=== PATIENT | female | born 1955 | race Caucasian/White ===

== ENCOUNTER → 2016-04-06 | Outpatient (REF) | payer MEDICARE, MEDICAID | LOC: M LAB REF 16:12 | PROVIDERS: ATTEND Nurse Practitioner Women's Health | DX: R30.0 Dysuria (principal); R39.15 Urgency of urination ==

== ENCOUNTER → 2016-05-16 | Outpatient (CLI) | payer MEDICARE, MEDICAID ==
[2016-05-16 18:07] LABS: BASO % 1.2 % (0.0-1.0); EOS # 0.1 K/mm3 (0.0-0.50); EOS % 3.1 % (0.0-3.0); LARGE UNSTAINED CELL # 0.1 K/mm3 (0.0-0.4); LARGE UNSTAINED CELL % 2.2 % (0.0-4.0); LYMPH # 1.6 K/mm3 (1.5-4.5); MEAN CORPUSCULAR HGB CONC 30.8 g/dl (32.0-36.5); MEAN CORPUSCULAR VOLUME 100.4 fl (80.0-96.0); MONO # 0.2 K/mm3 (0.0-0.8); MONO % 5.7 % (0.0-5.0); NEUTROPHILS # 2.2 K/mm3 (1.8-7.7); NEUTROPHILS % 51.8 % (36.0-66.0); PLATELET COUNT, AUTOMATED 338 k/mm3 (150-450); RED CELL DISTRIBUTION WIDTH 12.4 % (11.5-14.5); WHITE BLOOD COUNT 4.2 K/mm3 (4.0-10.0)
[2016-05-16 18:15] LABS: ALKALINE PHOSPHATASE 62 U/L (45-117); ALT/SGPT 35 U/L (12-78); ANION GAP 9 MEQ/L (8-16); AST/SGOT 18 U/L (15-37); BILIRUBIN,TOTAL 0.2 MG/DL (0.2-1.0); BLOOD UREA NITROGEN 22 MG/DL (7-18); CALCIUM LEVEL 9.3 MG/DL (8.8-10.2); CARBON DIOXIDE LEVEL 28 MEQ/L (21-32); CHLORIDE LEVEL 108 MEQ/L (98-107); CHOLESTEROL LEVEL 169 MG/DL (<200); CREATININE FOR GFR 0.82 MG/DL (0.55-1.02); GLOMERULAR FILTRATION RATE > 60.0 (>45); GLUCOSE, FASTING 99 MG/DL (80-110); POTASSIUM SERUM 4.6 MEQ/L (3.5-5.1); SODIUM LEVEL 145 MEQ/L (136-145); TRIGLYCERIDES LEVEL 176 MG/DL (<150)
[2016-05-16 18:16] LABS: ALBUMIN 3.9 GM/DL (3.2-5.2); ALBUMIN/GLOBULIN RATIO 1.39 (1.00-1.93); FREE T4 1.07 NG/DL (0.76-1.46); PERCENT SATURATION 15.4 % (13.2-37.4); TOTAL IRON BINDING CAPACITY 397 UG/DL (250-450); TOTAL PROTEIN 6.7 GM/DL (6.4-8.2)
[2016-05-18 10:16] LABS: FOLATE > 24.0 NG/ML (>5.4); VITAMIN B12 LEVEL 836 PG/ML (247-911)
== END ==
LOC: M WUC 08:23
PROVIDERS: ATTEND Nurse Practitioner Family
DX: M15.9 Polyosteoarthritis, unspecified (principal); D50.9 Iron deficiency anemia, unspecified; R53.1 Weakness; E55.9 Vitamin D deficiency, unspecified; I10 Essential (primary) hypertension; E78.4 Other hyperlipidemia

== ENCOUNTER → 2016-07-01 | Outpatient (CLI) | payer MEDICARE, MEDICAID ==
[2016-07-01 16:14] LABS: MISCELLANEOUS TEST LAB See Separate Report
== END ==
LOC: M WUC 12:49
PROVIDERS: ATTEND Nurse Practitioner Women's Health
DX: N30.10 Interstitial cystitis (chronic) without hematuria (principal)

== ENCOUNTER → 2016-08-08 | Outpatient (CLI) | payer MEDICARE, MEDICAID ==
[2016-08-08 18:22] LABS: ANION GAP 7 MEQ/L (8-16); BLOOD UREA NITROGEN 24 MG/DL (7-18); CALCIUM LEVEL 9.3 MG/DL (8.8-10.2); CARBON DIOXIDE LEVEL 28 MEQ/L (21-32); CHLORIDE LEVEL 107 MEQ/L (98-107); CREATININE FOR GFR 0.91 MG/DL (0.55-1.02); GLOMERULAR FILTRATION RATE > 60.0 (>45); GLUCOSE, FASTING 86 MG/DL (80-110); SODIUM LEVEL 142 MEQ/L (136-145)
== END ==
LOC: M WUC 10:07
PROVIDERS: ATTEND Nurse Practitioner Family
DX: I10 Essential (primary) hypertension (principal)

== ENCOUNTER → 2016-09-17 | Outpatient (CLI) | payer MEDICARE, MEDICAID ==
[2016-09-17 10:12] LABS: BASO # 0.1 K/mm3 (0.0-0.2); BASO % 1.5 % (0.0-1.0); EOS # 0.1 K/mm3 (0.0-0.50); LARGE UNSTAINED CELL # 0.2 K/mm3 (0.0-0.4); LARGE UNSTAINED CELL % 3.8 % (0.0-4.0); LYMPH # 1.8 K/mm3 (1.5-4.5); LYMPH % 35.7 % (24.0-44.0); MEAN CORPUSCULAR HEMOGLOBIN 31.5 pg (27.0-33.0); MEAN CORPUSCULAR VOLUME 98.5 fl (80.0-96.0); MONO # 0.3 K/mm3 (0.0-0.8); MONO % 6.4 % (0.0-5.0); NEUTROPHILS # 2.5 K/mm3 (1.8-7.7); NEUTROPHILS % 50.6 % (36.0-66.0); PLATELET COUNT, AUTOMATED 255 k/mm3 (150-450); RED CELL DISTRIBUTION WIDTH 12.9 % (11.5-14.5)
[2016-09-17 10:32] LABS: ALBUMIN 3.8 GM/DL (3.2-5.2); ALBUMIN/GLOBULIN RATIO 1.23 (1.00-1.93); ALKALINE PHOSPHATASE 93 U/L (45-117); ALT/SGPT 33 U/L (12-78); ANION GAP 9 MEQ/L (8-16); AST/SGOT 13 U/L (15-37); BILIRUBIN,TOTAL 0.4 MG/DL (0.2-1.0); BLOOD UREA NITROGEN 17 MG/DL (7-18); CALCIUM LEVEL 9.1 MG/DL (8.8-10.2); CARBON DIOXIDE LEVEL 27 MEQ/L (21-32); CHLORIDE LEVEL 107 MEQ/L (98-107); CHOLESTEROL LEVEL 225 MG/DL (<200); CREATININE FOR GFR 0.69 MG/DL (0.55-1.02); GLOMERULAR FILTRATION RATE > 60.0 (>45); GLUCOSE, FASTING 96 MG/DL (80-110); POTASSIUM SERUM 4.3 MEQ/L (3.5-5.1); SODIUM LEVEL 143 MEQ/L (136-145); TOTAL PROTEIN 6.9 GM/DL (6.4-8.2); TRIGLYCERIDES LEVEL 271 MG/DL (<150)
== END ==
LOC: M WUC 08:22
PROVIDERS: ATTEND Nurse Practitioner Family
DX: I10 Essential (primary) hypertension (principal); D50.9 Iron deficiency anemia, unspecified; E55.9 Vitamin D deficiency, unspecified; E78.4 Other hyperlipidemia

== ENCOUNTER → 2016-10-07 | Outpatient (CLI) | payer MEDICARE, MEDICAID ==
--- NOTE | 2016-10-09 09:56 | DEXA ---
AP SPINE L1 - L4 1.381 1.5 2.9 LT FEMUR TOTAL 1.064 0.4 1.5 RT FEMUR TOTAL 1.016 0.1 0.1 TOTAL BODY TOTAL OTHER DUAL FEMUR FRAX* ASSESSMENT Risk factors: History of adult fracture. 10 year probability of fracture Major osteoporotic fracture 11.5 % Hip fracture 0.7 % COMMENTS: Normal bone densitometry of the spine and hips. FOLLOW-UP: Recommendation for the next bone density exam: 5 years. [facility]
== END ==
LOC: M WHC 14:17
PROVIDERS: ATTEND Nurse Practitioner Family
DX: M81.0 Age-related osteoporosis without current pathological fracture (principal)

== ENCOUNTER → 2016-11-12 | Outpatient (REF) | payer MEDICARE, MEDICAID ==
[2016-11-12 19:23] LABS: MICROSCOPIC INDICATED? MAN YES (NO)
[2016-11-12 20:30] LABS: BACTERIA, URINE SMALL AMOUNT; CALCIUM OXALATE CRYSTALS,URINE LARGE AMOUNT /hpf; HYALINE CAST, URINE NONE SEEN /lpf (0-1); MICROSCOPIC EXAM PERFORMED; SQUAMOUS EPITHELIAL CELL URINE LARGE AMOUNT /hpf (SMALL AMT)
== END ==
LOC: M LAB REF 17:45
PROVIDERS: ATTEND Nurse Practitioner Women's Health
DX: N39.0 Urinary tract infection, site not specified (principal)

== ENCOUNTER → 2016-11-27 | Outpatient (CLI) | payer MEDICARE, MEDICAID ==
--- NOTE | 2016-11-27 15:36 | REPMRS ---
Patient History The patient states she had a clinical breast exam in 05/2016. Patient is postmenopausal. Family history of breast cancer in sister at age 65. Took hormonal contraceptives for 10 years. Took estrogen for 15 years. Took progesterone for 15 years. Digital Woman Screen Mammo: November 27, 2016 - Exam #: [id number] Bilateral CC and MLO view(s) were taken. Technologist: Hawa Potter, Technologist Prior study comparison: November 26, 2015, bilateral digital mammo screening bilat, performed at [facility]. July 16, 2014, bilateral digital mammo screening bilat, performed at [facility]. July 14, 2013, bilateral bilat screen digital mammo, performed at [facility] ([facility]). FINDINGS: There are scattered fibroglandular densities. There has been no change in the appearance of the mammogram from the prior studies. There is a mild amount of scattered fibroglandular density which is fairly symmetric. There is no interval development of dominant mass, architectural distortion, or clustered microcalcification suggestive of malignancy. ASSESSMENT: BI-RADS/ACR category 1 mammogram. Negative. Recommendation Routine screening mammogram in 1 year (for women over age 40). This mammogram was interpreted with the aid of an FDA-approved computer-aided dectection system. Electronically Signed By: Jj Fox MD 11/27/16 [id number]
== END ==
LOC: M WHC 14:28
PROVIDERS: ATTEND Nurse Practitioner Women's Health
DX: Z12.31 Encounter for screening mammogram for malignant neoplasm of breast (principal); Z80.3 Family history of malignant neoplasm of breast

== ENCOUNTER → 2016-12-03 | Outpatient (REF) | payer MEDICARE, MEDICAID | LOC: M LAB REF 16:47 | PROVIDERS: ATTEND Nurse Practitioner Women's Health | DX: Z87.440 Personal history of urinary (tract) infections (principal) ==

== ENCOUNTER → 2017-01-02 | Outpatient (REF) | payer MEDICARE, MEDICAID ==
[2017-01-02 11:49] LABS: BASO # 0.1 10^3/uL (0.0-0.2); BASO % 1.2 % (0.0-1.0); EOS # 0.1 10^3/uL (0.0-0.50); EOS % 2.6 % (0.0-3.0); IMMATURE GRANULOCYTE % 0.2 % (0-0); LYMPH # 1.9 10^3/uL (1.5-4.5); LYMPH % 37.6 % (24.0-44.0); MEAN CORPUSCULAR HEMOGLOBIN 31.2 pg (27.0-33.0); MEAN CORPUSCULAR HGB CONC 31.4 g/dl (32.0-36.5); MEAN CORPUSCULAR VOLUME 99.3 fl (80.0-96.0); MONO # 0.4 10^3/uL (0.0-0.8); MONO % 7.6 % (0.0-5.0); NEUTROPHILS # 2.5 10^3/uL (1.8-7.7); NEUTROPHILS % 50.8 % (36.0-66.0); PLATELET COUNT, AUTOMATED 340 10^3/uL (150-450); RED CELL DISTRIBUTION WIDTH 14.1 % (11.5-14.5)
[2017-01-02 11:58] LABS: ADD MANUAL DIFFER NO; ALBUMIN 4.2 GM/DL (3.2-5.2); ALBUMIN/GLOBULIN RATIO 1.45 (1.00-1.93); ALKALINE PHOSPHATASE 49 U/L (45-117); ALT/SGPT 39 U/L (12-78); ANION GAP 4 MEQ/L (8-16); AST/SGOT 23 U/L (15-37); BILIRUBIN,TOTAL 0.4 MG/DL (0.2-1.0); BLOOD UREA NITROGEN 20 MG/DL (7-18); CALCIUM LEVEL 9.5 MG/DL (8.8-10.2); CARBON DIOXIDE LEVEL 28 MEQ/L (21-32); CHLORIDE LEVEL 108 MEQ/L (98-107); CHOLESTEROL LEVEL 173 MG/DL (<200); CREATININE FOR GFR 0.85 MG/DL (0.55-1.02); DIFF SLIDE NUMBER 137; GLOMERULAR FILTRATION RATE > 60.0 (>45); GLUCOSE, FASTING 89 MG/DL (80-110); SODIUM LEVEL 140 MEQ/L (136-145); TOTAL PROTEIN 7.1 GM/DL (6.4-8.2); TRIGLYCERIDES LEVEL 174 MG/DL (<150)
[2017-01-02 12:04] LABS: POTASSIUM SERUM 5.6 MEQ/L (3.5-5.1)
== END ==
LOC: M LAB REF 11:36 → M LABWUC 11:36
PROVIDERS: ATTEND Nurse Practitioner Family
DX: D50.9 Iron deficiency anemia, unspecified (principal); E55.9 Vitamin D deficiency, unspecified; E78.4 Other hyperlipidemia; I10 Essential (primary) hypertension

== ENCOUNTER → 2017-06-28 | Outpatient (REF) | payer MEDICARE, MEDICAID ==
[2017-06-28 19:02] LABS: APPEARANCE, URINE CLOUDY (CLEAR); BACTERIA, URINE AUTO 1+ (NEGATIVE); BILIRUBIN, URINE AUTO NEGATIVE (NEGATIVE); BLOOD, URINE BLOOD NEGATIVE (NEGATIVE); CALCIUM OXALATE CRYSTALS SMALL; GLUCOSE, URINE (UA) AUTO NEGATIVE (NEGATIVE); KETONE, URINE AUTO NEGATIVE (NEGATIVE); LEUKOCYTE ESTERASE, URINE AUTO 2+ (NEGATIVE); MUCUS, URINE SMALL (NEGATIVE); NITRITE, URINE AUTO POSITIVE (NEGATIVE); PROTEIN, URINE AUTO NEGATIVE (NEGATIVE); RBC, URINE AUTO 2 /HPF (0-3); SPECIFIC GRAVITY URINE AUTO 1.021 (1.002-1.035); SQUAMOUS EPITHELIAL CELL UR AU 1 /HPF (0-6); UROBILINOGEN, URINE AUTO 0.2 mg/dL (0.0-2.0); WBC, URINE AUTO 32 /HPF (0-3)
[2017-06-28 19:11] LABS: COLOR, URINE YELLOW (YELLOW)
== END ==
LOC: M LAB REF 16:32
DX: N39.0 Urinary tract infection, site not specified (principal)
CPT/HCPCS: 81001

== ENCOUNTER → 2017-07-21 | Outpatient (CLI) | payer MEDICARE, MEDICAID ==
[2017-07-21 15:17] LABS: PLATELET COUNT, AUTOMATED 325 10^3/uL (150-450)
[2017-07-21 15:28] LABS: INR 0.94; PROTHROMBIN TIME 12.7 SECONDS (12.4-14.5)
[2017-07-21 15:29] LABS: PARTIAL THROMBOPLASTIN TIME 41.8 SECONDS (26.8-37.9)
== END ==
LOC: M WUC 12:45
DX: D69.1 Qualitative platelet defects (principal); Z79.01 Long term (current) use of anticoagulants; Z87.440 Personal history of urinary (tract) infections; Z79.899 Other long term (current) drug therapy
CPT/HCPCS: 85049

== ENCOUNTER → 2017-07-21 | Outpatient (REF) | payer MEDICARE, MEDICAID ==
[2017-07-21 18:47] LABS: APPEARANCE, URINE CLOUDY (CLEAR); BACTERIA, URINE AUTO 1+ (NEGATIVE); BILIRUBIN, URINE AUTO NEGATIVE (NEGATIVE); BLOOD, URINE BLOOD NEGATIVE (NEGATIVE); CALCIUM OXALATE CRYSTALS LARGE; COLOR, URINE AMBER (YELLOW); GLUCOSE, URINE (UA) AUTO NEGATIVE (NEGATIVE); KETONE, URINE AUTO NEGATIVE (NEGATIVE); LEUKOCYTE ESTERASE, URINE AUTO TRACE (NEGATIVE); MUCUS, URINE SMALL (NEGATIVE); NITRITE, URINE AUTO POSITIVE (NEGATIVE); PROTEIN, URINE AUTO NEGATIVE (NEGATIVE); RBC, URINE AUTO 3 /HPF (0-3); SPECIFIC GRAVITY URINE AUTO 1.019 (1.002-1.035); SQUAMOUS EPITHELIAL CELL UR AU 0 /HPF (0-6); UROBILINOGEN, URINE AUTO 0.2 mg/dL (0.0-2.0); WBC, URINE AUTO 17 /HPF (0-3)
== END ==
LOC: M LAB REF 16:32
DX: Z09 Encounter for follow-up examination after completed treatment for conditions other than malignant neoplasm (principal); Z87.440 Personal history of urinary (tract) infections

== ENCOUNTER → 2017-08-10 | Outpatient (CLI) | payer MEDICARE, MEDICAID ==
[2017-08-10 10:21] LABS: PARTIAL THROMBOPLASTIN TIME 35.3 SECONDS (26.8-37.9)
== END ==
LOC: M WUC 08:16
DX: Z01.812 Encounter for preprocedural laboratory examination (principal); Z87.440 Personal history of urinary (tract) infections
CPT/HCPCS: 85730

== ENCOUNTER → 2017-08-10 | Outpatient (REF) | payer MEDICARE, MEDICAID ==
[2017-08-10 12:20] LABS: AMORPHOUS SEDIMENT SMALL (NEGATIVE); APPEARANCE, URINE HAZY (CLEAR); BACTERIA, URINE AUTO 2+ (NEGATIVE); BILIRUBIN, URINE AUTO NEGATIVE (NEGATIVE); BLOOD, URINE BLOOD NEGATIVE (NEGATIVE); CALCIUM OXALATE CRYSTALS LARGE; COLOR, URINE YELLOW (YELLOW); GLUCOSE, URINE (UA) AUTO NEGATIVE (NEGATIVE); KETONE, URINE AUTO NEGATIVE (NEGATIVE); LEUKOCYTE ESTERASE, URINE AUTO 1+ (NEGATIVE); NITRITE, URINE AUTO POSITIVE (NEGATIVE); PROTEIN, URINE AUTO NEGATIVE (NEGATIVE); RBC, URINE AUTO 1 /HPF (0-3); SPECIFIC GRAVITY URINE AUTO 1.015 (1.002-1.035); SQUAMOUS EPITHELIAL CELL UR AU 1 /HPF (0-6); UROBILINOGEN, URINE AUTO 0.2 mg/dL (0.0-2.0); WBC, URINE AUTO 3 /HPF (0-3)
== END ==
LOC: M LAB REF 11:53
DX: Z87.440 Personal history of urinary (tract) infections (principal)

== ENCOUNTER → 2017-08-31 | Outpatient (CLI) | payer MEDICARE, MEDICAID ==
[2017-08-31 09:49] LABS: TOTAL 25(OH) VITAMIN D 45.6 NG/ML (30.0-100.0)
[2017-08-31 10:05] LABS: ALBUMIN 4.2 GM/DL (3.2-5.2); ALBUMIN/GLOBULIN RATIO 1.45 (1.00-1.93); ALKALINE PHOSPHATASE 50 U/L (45-117); ALT/SGPT 35 U/L (12-78); ANION GAP 6 MEQ/L (8-16); AST/SGOT 16 U/L (7-37); BILIRUBIN,TOTAL 0.4 MG/DL (0.2-1.0); BLOOD UREA NITROGEN 26 MG/DL (7-18); CALCIUM LEVEL 9.7 MG/DL (8.8-10.2); CARBON DIOXIDE LEVEL 27 MEQ/L (21-32); CHLORIDE LEVEL 110 MEQ/L (98-107); CHOLESTEROL LEVEL 180 MG/DL (<200); CREATININE FOR GFR 0.86 MG/DL (0.55-1.30); GLOMERULAR FILTRATION RATE > 60.0 (>45); GLUCOSE, FASTING 93 MG/DL (70-100); HDL CHOLESTEROL 36 MG/DL (>40); IRON (FE) 66 UG/DL (50-170); NON-HDL-C 144 MG/DL; SODIUM LEVEL 143 MEQ/L (136-145); TOTAL PROTEIN 7.1 GM/DL (6.4-8.2); TRIGLYCERIDES LEVEL 235 MG/DL (<150)
[2017-08-31 10:13] LABS: POTASSIUM SERUM 5.5 MEQ/L (3.5-5.1)
== END ==
LOC: M WUC 08:10
DX: D50.9 Iron deficiency anemia, unspecified (principal); E55.9 Vitamin D deficiency, unspecified; E78.4 Other hyperlipidemia; I10 Essential (primary) hypertension; Z79.899 Other long term (current) drug therapy
CPT/HCPCS: 83540

== ENCOUNTER → 2017-09-01 | Outpatient (CLI) | payer MEDICARE, MEDICAID ==
[2017-09-01 17:03] LABS: FREE T4 1.12 NG/DL (0.76-1.46)
== END ==
LOC: M WUC 14:58
DX: R63.5 Abnormal weight gain (principal); R30.0 Dysuria

== ENCOUNTER → 2017-09-01 | Outpatient (REF) | payer MEDICARE, MEDICAID ==
[2017-09-01 19:02] LABS: APPEARANCE, URINE HAZY (CLEAR); BACTERIA, URINE AUTO NEGATIVE (NEGATIVE); BILIRUBIN, URINE AUTO NEGATIVE (NEGATIVE); BLOOD, URINE BLOOD NEGATIVE (NEGATIVE); COLOR, URINE YELLOW (YELLOW); GLUCOSE, URINE (UA) AUTO NEGATIVE (NEGATIVE); KETONE, URINE AUTO NEGATIVE (NEGATIVE); LEUKOCYTE ESTERASE, URINE AUTO 3+ (NEGATIVE); NITRITE, URINE AUTO NEGATIVE (NEGATIVE); PROTEIN, URINE AUTO NEGATIVE (NEGATIVE); RBC, URINE AUTO 1 /HPF (0-3); SPECIFIC GRAVITY URINE AUTO 1.015 (1.002-1.035); SQUAMOUS EPITHELIAL CELL UR AU 1 /HPF (0-6); TRANSITIONAL EPITHELIAL AUTO <1 /HPF; UROBILINOGEN, URINE AUTO 0.2 mg/dL (0.0-2.0); WBC, URINE AUTO 3 /HPF (0-3)
== END ==
LOC: M LAB REF 16:56
DX: R30.0 Dysuria (principal)
CPT/HCPCS: 84443

== ENCOUNTER → 2017-09-13 | Outpatient (REF) | payer MEDICARE, MEDICAID ==
[2017-09-13 17:00] LABS: C REACTIVE PROTEIN QUANTITATIV < 0.30 MG/DL (0.00-0.30)
[2017-09-13 17:09] LABS: ERYTHROCYTE SEDIMENTATION RATE 12 mm/hr (0-30)
== END ==
LOC: M LABDRAW1 15:31
DX: M48.061 Spinal stenosis, lumbar region without neurogenic claudication (principal)
CPT/HCPCS: 86140

== ENCOUNTER → 2017-10-27 | Outpatient (CLI) | payer MEDICARE, MEDICAID ==
[2017-10-27 12:08] LABS: VITAMIN B12 LEVEL 522 PG/ML (247-911)
[2017-10-27 12:09] LABS: FOLATE 23.8 NG/ML (>5.4)
[2017-10-29 08:13] LABS: COPPER PLASMA 81 ug/dL (72-166)
== END ==
LOC: M LAB 11:10
DX: T56.4X2S Toxic effect of copper and its compounds, intentional self-harm, sequela (principal); N39.0 Urinary tract infection, site not specified
CPT/HCPCS: 82525

== ENCOUNTER → 2017-10-27 | Outpatient (REF) | payer MEDICARE, MEDICAID ==
[2017-10-27 17:42] LABS: APPEARANCE, URINE HAZY (CLEAR); BACTERIA, URINE AUTO 1+ (NEGATIVE); BILIRUBIN, URINE AUTO NEGATIVE (NEGATIVE); BLOOD, URINE BLOOD NEGATIVE (NEGATIVE); CALCIUM OXALATE CRYSTALS SMALL; COLOR, URINE YELLOW (YELLOW); GLUCOSE, URINE (UA) AUTO NEGATIVE (NEGATIVE); KETONE, URINE AUTO NEGATIVE (NEGATIVE); LEUKOCYTE ESTERASE, URINE AUTO 3+ (NEGATIVE); MUCUS, URINE SMALL (NEGATIVE); NITRITE, URINE AUTO NEGATIVE (NEGATIVE); PROTEIN, URINE AUTO NEGATIVE (NEGATIVE); RBC, URINE AUTO 2 /HPF (0-3); SPECIFIC GRAVITY URINE AUTO 1.014 (1.002-1.035); SQUAMOUS EPITHELIAL CELL UR AU 1 /HPF (0-6); UROBILINOGEN, URINE AUTO 0.2 mg/dL (0.0-2.0); WBC, URINE AUTO 34 /HPF (0-3)
== END ==
LOC: M LAB REF 17:02
DX: N39.0 Urinary tract infection, site not specified (principal)

== ENCOUNTER → 2017-10-29 | Outpatient (CLI) | payer MEDICARE, MEDICAID | LOC: M WUC 12:34 | DX: I10 Essential (primary) hypertension (principal) | CPT/HCPCS: 71046 ==

== ENCOUNTER → 2018-02-02 | Outpatient (CLI) | payer MEDICARE, MEDICAID | LOC: M RAD 12:35 | DX: Z12.31 Encounter for screening mammogram for malignant neoplasm of breast (principal); Z80.3 Family history of malignant neoplasm of breast; Z92.0 Personal history of contraception; Z92.29 Personal history of other drug therapy ==

== ENCOUNTER → 2018-02-02 | Outpatient (CLI) | payer MEDICARE, MEDICAID | LOC: M RAD 12:37 | DX: K45.8 Other specified abdominal hernia without obstruction or gangrene (principal); Z98.890 Other specified postprocedural states; K44.9 Diaphragmatic hernia without obstruction or gangrene; K76.0 Fatty (change of) liver, not elsewhere classified; R93.5 Abnormal findings on diagnostic imaging of other abdominal regions, including retroperitoneum; Z12.31 Encounter for screening mammogram for malignant neoplasm of breast; Z80.3 Family history of malignant neoplasm of breast; Z92.0 Personal history of contraception; Z92.29 Personal history of other drug therapy | CPT/HCPCS: 77067 ==

== ENCOUNTER → 2018-03-07 | Outpatient (CLI) | payer MEDICARE, MEDICAID ==
[2018-03-07 10:20] LABS: BASO # 0.1 10^3/uL (0.0-0.2); EOS # 0.1 10^3/uL (0.0-0.50); EOS % 2.7 % (0.0-3.0); HEMATOCRIT 39.2 % (36.0-47.0); HEMOGLOBIN 12.4 g/dl (12.0-15.5); IMMATURE GRANULOCYTE % 0.2 % (0-3.0); LYMPH # 1.8 10^3/uL (1.5-4.5); LYMPH % 35.1 % (24.0-44.0); MEAN CORPUSCULAR HEMOGLOBIN 31.2 pg (27.0-33.0); MEAN CORPUSCULAR HGB CONC 31.6 g/dl (32.0-36.5); MEAN CORPUSCULAR VOLUME 98.5 fl (80.0-96.0); MONO # 0.4 10^3/uL (0.0-0.8); MONO % 7.8 % (0.0-5.0); NEUTROPHILS # 2.7 10^3/uL (1.8-7.7); NEUTROPHILS % 53.2 % (36.0-66.0); PLATELET COUNT, AUTOMATED 357 10^3/uL (150-450); RED BLOOD COUNT 3.98 10^6/uL (4.00-5.40); RED CELL DISTRIBUTION WIDTH 13.4 % (11.5-14.5); WHITE BLOOD COUNT 5.1 10^3/uL (4.0-10.0)
[2018-03-07 10:44] LABS: ALBUMIN 4.4 GM/DL (3.2-5.2); ALBUMIN/GLOBULIN RATIO 1.83 (1.00-1.93); ALKALINE PHOSPHATASE 61 U/L (45-117); ALT/SGPT 35 U/L (12-78); ANION GAP 6 MEQ/L (8-16); AST/SGOT 19 U/L (7-37); BILIRUBIN,TOTAL 0.4 MG/DL (0.2-1.0); BLOOD UREA NITROGEN 27 MG/DL (7-18); CALCIUM LEVEL 9.4 MG/DL (8.8-10.2); CARBON DIOXIDE LEVEL 28 MEQ/L (21-32); CHLORIDE LEVEL 106 MEQ/L (98-107); CHOLESTEROL LEVEL 200 MG/DL (<200); CHOLESTEROL RISK RATIO 4.651 (<5); CREATININE FOR GFR 0.79 MG/DL (0.55-1.30); GLOMERULAR FILTRATION RATE > 60.0 (>45); GLUCOSE, FASTING 92 MG/DL (70-100); HDL CHOLESTEROL 43 MG/DL (>40); IRON (FE) 73 UG/DL (50-170); LDL CHOLESTEROL 115 MG/DL (<100); NON-HDL-C 157 MG/DL; POTASSIUM SERUM 4.3 MEQ/L (3.5-5.1); SODIUM LEVEL 140 MEQ/L (136-145); TOTAL PROTEIN 6.8 GM/DL (6.4-8.2); TRIGLYCERIDES LEVEL 209 MG/DL (<150)
== END ==
LOC: M WUC 08:34
DX: I10 Essential (primary) hypertension (principal); D50.9 Iron deficiency anemia, unspecified; E55.9 Vitamin D deficiency, unspecified; E78.49 Other hyperlipidemia
CPT/HCPCS: 83540

== ENCOUNTER → 2018-05-04 | Outpatient (REF) | payer MEDICARE, MEDICAID ==
[2018-05-04 13:50] LABS: APPEARANCE, URINE CLEAR (CLEAR); BACTERIA, URINE AUTO NEGATIVE (NEGATIVE); BILIRUBIN, URINE AUTO NEGATIVE (NEGATIVE); BLOOD, URINE BLOOD NEGATIVE (NEGATIVE); COLOR, URINE YELLOW (YELLOW); GLUCOSE, URINE (UA) AUTO NEGATIVE (NEGATIVE); KETONE, URINE AUTO NEGATIVE (NEGATIVE); LEUKOCYTE ESTERASE, URINE AUTO 1+ (NEGATIVE); MUCUS, URINE SMALL (NEGATIVE); NITRITE, URINE AUTO NEGATIVE (NEGATIVE); PROTEIN, URINE AUTO NEGATIVE (NEGATIVE); RBC, URINE AUTO 1 /HPF (0-3); SPECIFIC GRAVITY URINE AUTO 1.009 (1.002-1.035); SQUAMOUS EPITHELIAL CELL UR AU 0 /HPF (0-6); UROBILINOGEN, URINE AUTO 0.2 mg/dL (0.0-2.0); WBC, URINE AUTO 0 /HPF (0-3)
== END ==
LOC: M LAB REF 13:04
PROVIDERS: ATTEND Nurse Practitioner Women's Health
DX: R39.89 Other symptoms and signs involving the genitourinary system (principal)

== ENCOUNTER → 2018-06-08 | Outpatient (REF) | payer MEDICARE, MEDICAID ==
[2018-06-08 12:37] LABS: APPEARANCE, URINE CLEAR (CLEAR); BACTERIA, URINE AUTO 2+ (NEGATIVE); BILIRUBIN, URINE AUTO NEGATIVE (NEGATIVE); BLOOD, URINE BLOOD NEGATIVE (NEGATIVE); COLOR, URINE YELLOW (YELLOW); GLUCOSE, URINE (UA) AUTO NEGATIVE (NEGATIVE); KETONE, URINE AUTO NEGATIVE (NEGATIVE); LEUKOCYTE ESTERASE, URINE AUTO 1+ (NEGATIVE); MUCUS, URINE SMALL (NEGATIVE); NITRITE, URINE AUTO POSITIVE (NEGATIVE); PROTEIN, URINE AUTO NEGATIVE (NEGATIVE); RBC, URINE AUTO 2 /HPF (0-3); SPECIFIC GRAVITY URINE AUTO 1.011 (1.002-1.035); SQUAMOUS EPITHELIAL CELL UR AU 0 /HPF (0-6); UROBILINOGEN, URINE AUTO 0.2 mg/dL (0.0-2.0); WBC, URINE AUTO 4 /HPF (0-3)
== END ==
LOC: M LAB REF 12:06
PROVIDERS: ATTEND Nurse Practitioner Women's Health
DX: N39.0 Urinary tract infection, site not specified (principal)

== ENCOUNTER → 2018-06-13 | Outpatient (CLI) | payer MEDICARE, MEDICAID ==
[2018-06-13 13:37] LABS: BASO # 0.1 10^3/uL (0.0-0.2); BASO % 0.8 % (0.0-1.0); EOS # 0.1 10^3/uL (0.0-0.50); EOS % 1.9 % (0.0-3.0); HEMOGLOBIN 11.7 g/dl (12.0-15.5); LYMPH % 30.6 % (24.0-44.0); MEAN CORPUSCULAR HGB CONC 30.8 g/dl (32.0-36.5); MEAN CORPUSCULAR VOLUME 100.5 fl (80.0-96.0); MONO # 0.6 10^3/uL (0.0-0.8); MONO % 8.9 % (0.0-5.0); NEUTROPHILS # 3.7 10^3/uL (1.8-7.7); NEUTROPHILS % 57.5 % (36.0-66.0); PLATELET COUNT, AUTOMATED 331 10^3/uL (150-450); RED BLOOD COUNT 3.78 10^6/uL (4.00-5.40); WHITE BLOOD COUNT 6.4 10^3/uL (4.0-10.0)
[2018-06-13 13:47] LABS: ALBUMIN 4.1 GM/DL (3.2-5.2); ALT/SGPT 38 U/L (12-78); BILIRUBIN,TOTAL 0.2 MG/DL (0.2-1.0); BLOOD UREA NITROGEN 25 MG/DL (7-18); CALCIUM LEVEL 10.2 MG/DL (8.8-10.2); CARBON DIOXIDE LEVEL 26 MEQ/L (21-32); CHLORIDE LEVEL 107 MEQ/L (98-107); CREATININE FOR GFR 0.75 MG/DL (0.55-1.30); GLOMERULAR FILTRATION RATE > 60.0 (>45); GLUCOSE, FASTING 92 MG/DL (70-100); POTASSIUM SERUM 5.2 MEQ/L (3.5-5.1); SODIUM LEVEL 140 MEQ/L (136-145); TOTAL PROTEIN 6.7 GM/DL (6.4-8.2)
== END ==
LOC: M WUC 11:10
PROVIDERS: ATTEND Nurse Practitioner Family
DX: Z01.812 Encounter for preprocedural laboratory examination (principal)

== ENCOUNTER → 2018-07-06 | Outpatient (REF) | payer MEDICARE, MEDICAID ==
[2018-07-06 17:24] LABS: APPEARANCE, URINE CLEAR (CLEAR); BACTERIA, URINE AUTO 1+ (NEGATIVE); BILIRUBIN, URINE AUTO NEGATIVE (NEGATIVE); BLOOD, URINE BLOOD NEGATIVE (NEGATIVE); COLOR, URINE YELLOW (YELLOW); GLUCOSE, URINE (UA) AUTO NEGATIVE (NEGATIVE); KETONE, URINE AUTO NEGATIVE (NEGATIVE); LEUKOCYTE ESTERASE, URINE AUTO TRACE (NEGATIVE); NITRITE, URINE AUTO NEGATIVE (NEGATIVE); PROTEIN, URINE AUTO NEGATIVE (NEGATIVE); RBC, URINE AUTO 1 /HPF (0-3); SPECIFIC GRAVITY URINE AUTO 1.012 (1.002-1.035); SQUAMOUS EPITHELIAL CELL UR AU 0 /HPF (0-6); UROBILINOGEN, URINE AUTO 0.2 mg/dL (0.0-2.0); WBC, URINE AUTO 0 /HPF (0-3)
== END ==
LOC: M LAB REF 16:44
PROVIDERS: ATTEND Obstetrics & Gynecology
DX: N39.0 Urinary tract infection, site not specified (principal)

== ENCOUNTER → 2018-07-20 | Outpatient (CLI) | payer MEDICARE, MEDICAID ==
[2018-07-20 12:50] LABS: BASO # 0.1 10^3/uL (0.0-0.2); BASO % 0.9 % (0.0-1.0); EOS # 0.1 10^3/uL (0.0-0.50); EOS % 1.9 % (0.0-3.0); HEMATOCRIT 39.2 % (36.0-47.0); LYMPH # 1.9 10^3/uL (1.5-4.5); LYMPH % 33.2 % (24.0-44.0); MEAN CORPUSCULAR HEMOGLOBIN 30.5 pg (27.0-33.0); MEAN CORPUSCULAR HGB CONC 30.6 g/dl (32.0-36.5); MEAN CORPUSCULAR VOLUME 99.7 fl (80.0-96.0); MONO # 0.5 10^3/uL (0.0-0.8); MONO % 8.6 % (0.0-5.0); NEUTROPHILS # 3.2 10^3/uL (1.8-7.7); NEUTROPHILS % 55.2 % (36.0-66.0); PLATELET COUNT, AUTOMATED 335 10^3/uL (150-450); RED BLOOD COUNT 3.93 10^6/uL (4.00-5.40); WHITE BLOOD COUNT 5.8 10^3/uL (4.0-10.0)
[2018-07-20 12:53] LABS: ALBUMIN 4.8 GM/DL (3.2-5.2); ALT/SGPT 29 U/L (12-78); BILIRUBIN,TOTAL 0.4 MG/DL (0.2-1.0); BLOOD UREA NITROGEN 23 MG/DL (7-18); CARBON DIOXIDE LEVEL 28 MEQ/L (21-32); CHLORIDE LEVEL 107 MEQ/L (98-107); CREATININE FOR GFR 0.84 MG/DL (0.55-1.30); GLOMERULAR FILTRATION RATE > 60.0 (>45); GLUCOSE, FASTING 93 MG/DL (70-100); POTASSIUM SERUM 4.7 MEQ/L (3.5-5.1); SODIUM LEVEL 141 MEQ/L (136-145); TOTAL PROTEIN 7.4 GM/DL (6.4-8.2)
== END ==
LOC: M WUC 09:42
PROVIDERS: ATTEND Family Medicine
DX: Z01.818 Encounter for other preprocedural examination (principal)

== ENCOUNTER 2018-08-02 05:37 | Day surgery (SDC) | payer MEDICARE ==
[~2018-08-02] VITALS: Ht 152.4 cm; Wt 94.7 kg
[~2018-08-02 05:37] MED LIST: ASPI81TA26 PO; ESTR0.1C5; FISH1000 PO; K2 P1TAB PO; LOSA100T50 PO; NAPR-885 PO; PRENTAB55 PO; TRIC145T22 PO; TYLE650T35 PO; UBIQ200C PO; VITA400C53 PO
[2018-08-02] MEDS ORDERED: ceFAZolin SOD 1 GM in D5W MINI-BAG PLUS 50 ML IV ONE (06:00)
[2018-08-02] MEDS ORDERED: dexameTHASONE 4 MG/ML 1ML VIAL (J1100) As Ordered ONE (06:51)
[2018-08-02] MEDS ORDERED: ONDANSETRON 4MG/2ML VIAL (J2405) As Ordered ONE (06:51)
[2018-08-02] MEDS ORDERED: ROCURONIUM BROMIDE 50 MG/5 ML VIAL As Ordered ONE (06:51)
[2018-08-02] MEDS ORDERED: LIDOCAINE 2% INJ 100 MG/5 ML SDV (FOR ANES.) As Ordered ONE (06:51)
[2018-08-02] MEDS ORDERED: KETOROLAC 60 MG/2 ML VIAL (J1885) As Ordered ONE (06:51)
[2018-08-02] MEDS ORDERED: PROPOFOL 200 MG/20 ML VIAL As Ordered ONE ×2 (06:51→06:53)
[2018-08-02] MEDS ORDERED: ACETAMINOPHEN 1000MG 100ML IV BTL (OFIRMEV) (J0131 PER 10MG) As Ordered ONE (06:52)
[2018-08-02] MEDS ORDERED: fentaNYL 100 MCG/2 ML INJECTION (J3010) As Ordered ONE ×2 (06:52→08:00)
[2018-08-02] MEDS ORDERED: MIDAZOLAM INJ 2 MG/2 ML VIAL (J2250) As Ordered ONE (06:52)
[2018-08-02] MEDS ORDERED: SUGAMMADEX SODIUM 500 MG/5 ML VIAL (BRIDION) As Ordered ONE (07:03)
[2018-08-02] MEDS ORDERED: BUPIVACAINE/EPIN 0.25% 30 ML VIAL As Ordered ONE (07:10)
[2018-08-02] MEDS ORDERED: SCOPOLAMINE 1MG TRANSDERMAL PATCH As Ordered ONE (07:26)
[2018-08-02] MEDS ORDERED: LR 1,000 ML IV SCH ×3 (07:30→09:45)
[2018-08-02] MEDS ORDERED: SCOPOLAMINE 1MG TRANSDERMAL PATCH TOP ONE (07:30)
[2018-08-02] MEDS ORDERED: PHENYLephrine HCL 500 MCG/5 ML (100MCG/ML) SYRINGE (J2370) As Ordered ONE (08:01)
[2018-08-02] MEDS ORDERED: BUPIVACAINE LIPOSOME/PF 1.3% 20ML VIAL (13.3MG/ML)(EXPAREL)(C9290 PER1MG) As Ordered ONE (08:42)
[2018-08-02] MEDS ORDERED: BUPIVACAINE HCL 0.25% 10 ML VIAL As Ordered ONE (08:42)
--- NOTE | 2018-08-02 09:30 | RO ---
DATE OF PROCEDURE: 08/02/2018 PREOPERATIVE DIAGNOSIS: Incisional hernia. POSTOPERATIVE DIAGNOSIS: Incisional hernia. PROCEDURE: Laparoscopic incisional hernia repair with Ventralight mesh (15 cm). SURGEON: Neeraj Lindsey Jr., MD POLISHING MACHINE OPERATOR: ANESTHESIA: General endotracheal anesthesia. ESTIMATED BLOOD LOSS: Minimal. FLUIDS: Crystalloid. BRIEF PROCEDURE SUMMARY: The patient was brought to the operating room, was given general anesthesia. after adequate anesthesia and preoperative antibiotics were given, the patient was prepped and draped in the usual sterile fashion. Next, a left upper quadrant incision was made with a skin knife. Veress needle placed into the abdominal cavity, insufflated to 15 mm of pressure. A dilating 5 mm trocar was placed at this time under direct visualization, and then left lower quadrant and right lower quadrant 5 mm trocars were placed. There were several adhesions along the anterior abdominal wall where a previous hernia repair was performed, starting in the supraumbilical area all the way to almost the suprapubic area, this is where the fascial defect was on the patient. The omentum was taken down with harmonic scalpel and this was taken down nicely. The patient was placed in Trendelenburg and the bowel came out of the hernia sac without significant difficulty. What was noticed however, was that the fascial defect was probably about 4 x 6 cm with mesh on two-thirds of the circumference of the side of the hernia itself. In any case, at this point no other significant abnormality was appreciated. A Ventralight 15 cm was placed into the peritoneal cavity via the 12 mm trocar which was placed at the hernia site and balloon insufflated brought up against the anterior abdominal wall and using SecureStrap circumferentially this was used to secure the mesh into the abdominal wall. There was some minimal oozing along the muscle, and after some mild pressure with the retracting grasper it resolved. The positioning device was removed and all trocars were removed under direct visualization after the hernia repair was reevaluated and revealed no active bleeding, no evidence of abnormality. The mesh was circumferentially up against the abdominal wall as appropriate. All trocar sites were closed with #4-0 Vicryl on the skin layer. Steri-Strips and a dry sterile dressing was applied. The patient was awakened, extubated, brought to recovery room awake, alert hemodynamic stable. Sponge and needle counts were correct times two.
[2018-08-02] MEDS ORDERED: fentaNYL 100 MCG/2 ML INJECTION (J3010) IV PRN (09:45)
[2018-08-02] MEDS ORDERED: ONDANSETRON 4MG/2ML VIAL (J2405) IV PRN ×2 (09:45)
[2018-08-02] MEDS ORDERED: NORCO, ANEXSIA 5/325MG TABLET (HYDROcodone/ACETAMINOPHEN) PO PRN (09:45)
[2018-08-02] MEDS ORDERED: PERCOCET 5MG/325MG TAB PO PRN (09:45)
[2018-08-02 10:50] VITALS: BP 144/69
[2018-08-02] MEDS ORDERED: KETOROLAC 30 MG/ML VIAL (J1885) IV SCH (15:00)
== END 2018-08-02 10:55 | disposition home or self-care (01) ==
LOC: M SDC 05:37
PROVIDERS: ATTEND Surgery
DX: K43.2 Incisional hernia without obstruction or gangrene (principal); I10 Essential (primary) hypertension; E78.5 Hyperlipidemia, unspecified; I73.9 Peripheral vascular disease, unspecified; G47.30 Sleep apnea, unspecified; Z88.8 Allergy status to other drugs, medicaments and biological substances; Z79.82 Long term (current) use of aspirin; Z79.899 Other long term (current) drug therapy; Z86.73 Personal history of transient ischemic attack (TIA), and cerebral infarction without residual deficits; Z98.84 Bariatric surgery status; F41.9 Anxiety disorder, unspecified; F32.9 Major depressive disorder, single episode, unspecified; E66.9 Obesity, unspecified
CPT/HCPCS: 49654; C1781; C9290; J0131; J0690; J1100; J1885; J2250; J2370; J2405; J3010

== ENCOUNTER → 2018-09-28 | Outpatient (CLI) | payer MEDICARE ==
[2018-09-28 17:23] LABS: INR 0.92; PROTHROMBIN TIME 12.1 SECONDS (11.8-14.0)
[2018-09-28 17:24] LABS: PARTIAL THROMBOPLASTIN TIME 38.1 SECONDS (25.0-38.4)
== END ==
LOC: M WUC 13:06
PROVIDERS: ATTEND Physical Medicine & Rehabilitation
DX: Z79.01 Long term (current) use of anticoagulants (principal)

== ENCOUNTER → 2018-11-01 | Outpatient (CLI) | payer MEDICARE ==
[~2018-11-01] MED LIST changes: +AMLO25TA PO; +HYDR-3713 PO; +VITAD1000T PO; +VOLT1GEL15 TD
[2018-11-01 09:54] LABS: HEMATOCRIT 40.3 % (36.0-47.0); HEMOGLOBIN 12.3 g/dl (12.0-15.5); MEAN CORPUSCULAR HEMOGLOBIN 30.4 pg (27.0-33.0); MEAN CORPUSCULAR HGB CONC 30.5 g/dl (32.0-36.5); MEAN CORPUSCULAR VOLUME 99.5 fl (80.0-96.0); PLATELET COUNT, AUTOMATED 367 10^3/uL (150-450); RED BLOOD COUNT 4.05 10^6/uL (4.00-5.40); WHITE BLOOD COUNT 5.3 10^3/uL (4.0-10.0)
[2018-11-01 10:08] LABS: INR 0.87; PROTHROMBIN TIME 11.5 SECONDS (11.8-14.0)
[2018-11-01 10:21] LABS: ALBUMIN 4.5 GM/DL (3.2-5.2); ALT/SGPT 31 U/L (12-78); BILIRUBIN,TOTAL 0.2 MG/DL (0.2-1.0); BLOOD UREA NITROGEN 18 MG/DL (7-18); CALCIUM LEVEL 10.2 MG/DL (8.8-10.2); CARBON DIOXIDE LEVEL 29 MEQ/L (21-32); CHLORIDE LEVEL 108 MEQ/L (98-107); CREATININE FOR GFR 0.86 MG/DL (0.55-1.30); GLOMERULAR FILTRATION RATE > 60.0 (>45); GLUCOSE, FASTING 84 MG/DL (70-100); POTASSIUM SERUM 5.1 MEQ/L (3.5-5.1); SODIUM LEVEL 143 MEQ/L (136-145); TOTAL PROTEIN 7.3 GM/DL (6.4-8.2)
[2018-11-01 10:29] LABS: ERYTHROCYTE SEDIMENTATION RATE 18 mm/hr (0-30)
--- NOTE | 2018-11-01 14:57 | REP ---
REASON FOR EXAM: Preoperative evaluation. Comparison examination is 10/29/2017. FINDINGS: The superior mediastinal structures are midline. The cardiac silhouette is unremarkable in size, shape, and position. The diaphragmatic surfaces of the lungs are regular, and the costophrenic angles are clear. The pulmonary mortensen are clear. The imaged osseous structures are intact. IMPRESSION: There is no acute cardiopulmonary disease. No change from the prior exam. Electronically Signed by Zack Garza DO 11/01/2018 04:14 P
--- NOTE | 2018-11-02 07:41 | ECGEPIP ---
[facility] Test Date: 2018-11-01 Pat Name: ZACK KELSEY Department: Room: - Gender: Female Bush Regenerator: KIRK CASPER : 1955 Requested By: Jan Persaud Order Number: [id number] Reading MD: Matias Madden Measurements Intervals Debord Rate: 66 P: 34 SD: 167 QRS: -9 QRSD: 93 T: 4 QT: 402 QTc: 424 Interpretive Statements Normal sinus rhythm Normal EKG Comparison tracing not on file Electronically Signed on 11-02-2018 7:41:20 EDT by Matias Madden
== END ==
LOC: M LAB 09:03
PROVIDERS: ATTEND Orthopaedic Surgery
DX: M17.12 Unilateral primary osteoarthritis, left knee (principal)

== ENCOUNTER → 2018-11-02 | Outpatient (CLI) | payer MEDICARE ==
[~2018-11-02] MED LIST changes: +CHOL100029 PO; +PERC5TAB12 PO; -VITAD1000T PO; +XARE10TA PO; +ZOFR4TAB16 PO
== END ==
LOC: M PT 10:20
PROVIDERS: ATTEND Orthopaedic Surgery
DX: M17.12 Unilateral primary osteoarthritis, left knee (principal)

== ENCOUNTER 2018-11-22 07:03 | Inpatient (IN) | payer MEDICARE ==
--- NOTE | 2018-11-14 18:15 | HPE ---
DATE OF SCHEDULED ADMISSION: 11/22/2018 HISTORY OF PRESENT ILLNESS: This is a pleasant 63-year-old female with continuing symptomatic left knee osteoarthritis. She has consented for a left total knee arthroplasty per Dr. Jan Persaud. Medical optimization was performed on 11/08/[address] Frederick. The patient reports she was cleared, for which we are awaiting a clearance note. ALLERGIES: Include CODEINE, BETADINE, and ADHESIVES. Additionally, she wants report having had hydrocodone postoperative for an unrelated procedure, and this did not cause her any sort of reaction and she tolerated it well. MEDICATION LIST: Includes: - methocarbamol 500 mg - tizanidine HCl 4 mg - naproxen DR 500 mg - Tricor 145 mg - Cozaar 25 mg - vitamin D (calciferol) 400 units - vitamin C 500 units - vitamin B12 500 mcg - Tylenol 8-hour arthritis pain 650 mg - vitamin E 200,000 units - Ubiquinol 100 mg MEDICAL PROBLEM LIST: Includes: Bilateral knee osteoarthritis. Hypercholesteremia. Heart disease. Hypertension. Anxiety. SURGICAL HISTORY: Left rotator cuff, tonsillectomy, section, broken left wrist, bilateral carpal tunnel release, cholecystectomy, hernia repair, gastric bypass, and knee arthroscopic intervention bilaterally. FAMILY HISTORY: Positive for heart disease, hypercholesteremia, diabetes and cancer. SOCIAL HISTORY: Never smoked cigarettes. Denies ethanol intake. REVIEW OF SYSTEMS: The patient denies chest pain, shortness of breath, dyspnea on exertion, fever, chills, malaise, upper respiratory or urinary tract symptoms. Chest x-ray at [facility], service date 11/01/2018. Findings: No acute cardiopulmonary process as read by Dr. Zack Garza. EKG: Normal sinus rhythm as read by Dr. Matias Madden. Labs: Service date 11/07/2018: PTT 11.5. GFR greater than 50. Chloride level 108. Anion gap 6. CBC: Mean corpuscular volume 99.5. Mean corpuscular hemoglobin concentration 30.5. PHYSICAL EXAMINATION: Height 60.75 inches, weight 204.4, temperature 98.2, blood pressure 146/80, pulse 64, respirations 11. This is a pleasant well-developed, well-nourished 63-year-old female. No acute distress. Alert and oriented times three. Mood and affect are appropriate. She is ambulating slow, steady with favoring of her right lower extremity. No gross antalgia about the right. Bilateral lower extremity skin intact. Benign, noninfectious looking. Neurovascularly intact. Left knee not effused, ecchymotic, erythematous, benign, noninfectious looking. Positive medial joint line tenderness with crepitance through flexion/extension. Patellofemoral joint (PFJ) is congruent static/dynamic. Negative popliteal fossa mass or pain. Bowels soft, nontender times four. Lungs were clear. Chest rises symmetrically. Regular rate and rhythm. Neck: Supple. Negative jugular venous distention (JVD) or bruits. Normocephalic. IMPRESSION: 1. Left knee symptomatic tricompartmental knee degenerative joint disease (DJD). 2. Patient consented for a left total knee arthroplasty per Dr. Jan Persaud. 3. Medical optimization completed by Dr. Frederick's office on 11/08/2018, for which we are awaiting the physical note. 4. On-call to the operating room (OR): 2 grams IV Kefzol in OR. 5. Sequential compression device (SCD) and thromboembolism deterrents (TEDs) in OR. MTDD
[2018-11-22] VITALS (7 sets, daily range): BP systolic 112–142; BP diastolic 64–85
[~2018-11-22] VITALS: Ht 152.4 cm; Wt 93.4 kg
[~2018-11-22 07:03] MED LIST changes: +LIDOCAINE 1% MDV 20ML VIAL SQ PRN; +LR 1,000 ML IV ONE; -PERC5TAB12 PO; -XARE10TA PO; -ZOFR4TAB16 PO; +ceFAZolin SOD 2 GM in IV 1 EA IV ONE
[2018-11-22] MEDS ORDERED: fentaNYL 100 MCG/2 ML INJECTION (J3010) As Ordered ONE ×2 (08:10→08:30)
[2018-11-22] MEDS ORDERED: MIDAZOLAM INJ 2 MG/2 ML VIAL (J2250) As Ordered ONE ×2 (08:10→08:30)
[2018-11-22] MEDS: MIDAZOLAM INJ 2 MG/2 ML VIAL (J2250) IV SCH ×2 (08:20→08:25)
[2018-11-22] MEDS: fentaNYL 100 MCG/2 ML INJECTION (J3010) IV SCH ×2 (08:20→08:30)
[2018-11-22] MEDS ORDERED: propofoL 200 MG/20 ML VIAL As Ordered ONE (08:30)
[2018-11-22] MEDS ORDERED: propofoL 500 MG/50 ML VIAL As Ordered ONE (08:30)
[2018-11-22] MEDS ORDERED: TRANEXAMIC ACID 100 MG/ML 10ML VIAL As Ordered ONE (09:15)
[2018-11-22] MEDS ORDERED: ceFAZolin 1GM INJ (J0690 PER 500MG) As Ordered ONE (09:15)
[2018-11-22] MEDS ORDERED: BUPIVACAINE LIPOSOME/PF 1.3% 20ML VIAL (13.3MG/ML)(EXPAREL)(C9290 PER1MG) As Ordered ONE (09:15)
[2018-11-22] MEDS ORDERED: EPINEPHrine INJ 1 MG/ML 1ML VIAL As Ordered ONE (09:15)
--- NOTE | 2018-11-22 09:31 | IPN ---
DATE: 11/22/2018 The patient seen and examined. She wished to go ahead with a left total knee arthroplasty. She is aware of the nature of the procedure. The risks of bleeding, infection, damage to nerves, vessels, persistent pain, wear loosening, blood clots, medical problems, and she understands that her weight increases the risks of complications.
[2018-11-22] MEDS ORDERED: KETOROLAC 60 MG/2 ML VIAL (J1885) As Ordered ONE (10:42)
[2018-11-22] MEDS ORDERED: ONDANSETRON 4MG/2ML VIAL (J2405) As Ordered ONE (10:42)
[2018-11-22] MEDS ORDERED: LIDOCAINE 1% MDV 20ML VIAL ONE (10:43)
[2018-11-22] MEDS ORDERED: dexameTHASONE 10 MG/1 ML VIAL PRES.FREE (J1100) ONE (10:43)
[2018-11-22] MEDS ORDERED: ROPIvacaine 0.5% 30 ML INJECTION (J2795 PER 1MG) ONE (10:43)
[2018-11-22] MEDS: LR 1,000 ML IV SCH ×2 (11:30→22:29)
[2018-11-22] MEDS ORDERED: ONDANSETRON 4MG/2ML VIAL (J2405) IV PRN ×3 (11:30→13:15)
[2018-11-22] MEDS ORDERED: FLEET ENEMA PR PRN (11:30)
[2018-11-22] MEDS ORDERED: MORPHINE 4 MG/ML 1ML VIAL/SYRINGE (J2270) IV PRN ×2 (11:30)
[2018-11-22] MEDS ORDERED: MORPHINE 10 MG/ML 1ML VIAL (J2270) IV PRN ×2 (11:30→13:15)
[2018-11-22] MEDS ORDERED: fentaNYL 100 MCG/2 ML INJECTION (J3010) IV PRN ×2 (11:30→13:15)
[2018-11-22] MEDS ORDERED: LR 1,000 ML IV SCH ×2 (11:30→13:15)
--- NOTE | 2018-11-22 12:06 | REP ---
LEFT KNEE, TWO VIEWS: Two postoperative views of the knee are performed in the AP and lateral projections. There is placement of a total knee prosthesis which appears to be in good position. The osseous structures are intact and well aligned. Metallic skin winnie are seen anteriorly. Electronically Signed by Jez Engel MD 11/23/2018 12:03 A
--- NOTE | 2018-11-22 12:40 | CR.PDOC ---
General Date of Consultation: Nov 22, 2018 Consultation REASON FOR CONSULTATION/CHIEF COMPLAINT: Presented to [facility] for an elective orthopedic procedure HISTORY OF PRESENT ILLNESS: Patient is a 63-year-old female with a past medical history of bilateral osteoarthritis of her knees, dyslipidemia, hypertension, chronic back pain who presented to [facility] for an elective orthopedic procedure. Patient has received preoperative clearance from Dr. Nico Frederick. Patient received blood work, EKG and chest x-ray and did not require any cardiac clearance. Patient had reported that she had failed conservative therapy with joint injections and oral analgesics. Patient was seen postoperatively after she had received her total left knee arthroplasty. Hospitalist service was consultation for medical management. Currently, patient reports that she is not experiencing headache, nausea, vomiting, chest pain, shortness of breath, palpitations, abdominal pain, constipation, diarrhea or discomfort with urination. Patient reports no change in her weight recently and reports a normal appetite. ALLERGIES: Please see below. HOME MEDICATIONS: Please see below. 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 ASSESSMENT/PLAN: Left knee pain - likely 2/2 osteoarthritis - s/p total left knee arthroplasty - Received preoperative clearance from outside provider, Dr. Frederick - Pain control, physical therapy and anticoagulation at the direction of o rthopedic surgery DLP - c/w Fenofibrate HTN - Blood pressure is currently well-controlled - Continue with amlodipine and losartan, with holding parameters Chronic back pain - Follows with pain management as outpatient, Dr. Corona DVT prophylaxis - At the direction of orthopedic surgery Vital Signs/I&O Vital Signs Date Time Temp Pulse Resp B/P (MAP) Pulse Ox O2 Delivery O2 Flow Rate FiO2 11/22/18 11:50 76 20 132/63 (86) 94 3 11/22/18 11:07 98.2 Allergies Coded Allergies: adhesive (Verified Allergy, Intermediate, rash, 10/24/18) iodine (Verified Allergy, Unknown, 10/24/18) per Dr chaves povidone-iodine (Verified Allergy, Unknown, 10/24/18) per DR chaves soap (Verified Allergy, Unknown, 10/24/18) per DR chaves Home Medications Scheduled Amlodipine Besylate (Amlodipine Besylate) 2.5 Mg Tablet, 2.5 MG PO DAILY, (Reported) Aspirin (Aspirin EC) 81 Mg Tablet.dr, 162 MG PO DAILY, #30 (Reported) Diclofenac Sodium (Voltaren) 100 Gm Gel..gram., 1 % TD PRN, (Reported) Estradiol (Estradiol) 42.5 Gm Cream.appl, 2XW, (Reported) Fenofibrate Nanocrystallized (Tricor) 145 Mg Tablet, 145 MG PO DAILY, (Reported) Losartan Potassium (Losartan Potassium) 100 Mg Tablet, 100 MG PO DAILY, (Reported) Naproxen (Naproxen) 500 Mg Tablet, 500 MG PO BID, (Reported) delayed release [place]-3 Fatty Acids/Fish Oil (Fish Oil 1,000 mg Capsule) 1 Each Capsule, 1,000 MG PO DAILY, (Reported) Aeq505/Iron Fum/Folic/Docusate ( 19 Tablet) 1 Each Tablet, 1 TAB PO DAILY, (Reported) Ubiquinol (Active-Q) 200 Mg Capsule, 100 MG PO DAILY, (Reported) Vitamin D (Vitamin D3) 1,000 Unit Tablet, 1,000 UNITS PO DAILY, (Reported) Vitamin E (Vitamin E) 400 Unit Capsule, 400 UNIT PO DAILY, (Reported) Scheduled PRN Acetaminophen (Tylenol Arthritis) 650 Mg Tablet.er, 650 MG PO Q8HP PRN for PAIN, (Reported) ANGEL PRICE MD Nov 22, 2018 12:40
[2018-11-22] MEDS: LOSARTAN 50 MG TAB PO SCH (13:52)
[2018-11-22] MEDS: ACETAMINOPHEN TAB 650MG DOSE (2X325MG) PO PRN ×2 (14:59→20:26)
[2018-11-22] MEDS: ceFAZolin SOD 2 GM in IV 1 EA IV SCH (18:35)
[2018-11-22] MEDS ORDERED: FENOFIBRATE 145 MG TAB (TRICOR) PO SCH (21:00)
[2018-11-23] MEDS: ceFAZolin SOD 2 GM in IV 1 EA IV SCH (01:12)
[2018-11-23] MEDS: NORCO, ANEXSIA 5/325MG TABLET (HYDROcodone/ACETAMINOPHEN) PO PRN ×2 (01:12→10:12)
[2018-11-23 02:37] VITALS: BP 136/77
[2018-11-23 05:49] VITALS: BP 134/75
[2018-11-23] MEDS ORDERED: PERCOCET 5MG/325MG TAB PO PRN ×2 (06:15)
[2018-11-23] MEDS ORDERED: PERC5TAB12 PO (06:28)
[2018-11-23] MEDS ORDERED: XARE10TA PO ×2 (06:28→09:46)
[2018-11-23 06:45] LABS: BASO % 0.2 % (0.0-1.0); EOS % 0.2 % (0.0-3.0); HEMATOCRIT 32.2 % (36.0-47.0); HEMOGLOBIN 9.9 g/dl (12.0-15.5); LYMPH # 1.7 10^3/uL (1.5-4.5); LYMPH % 17.6 % (24.0-44.0); MEAN CORPUSCULAR HEMOGLOBIN 29.9 pg (27.0-33.0); MEAN CORPUSCULAR HGB CONC 30.7 g/dl (32.0-36.5); MEAN CORPUSCULAR VOLUME 97.3 fl (80.0-96.0); MONO # 0.8 10^3/uL (0.0-0.8); MONO % 8.9 % (0.0-5.0); NEUTROPHILS # 6.8 10^3/uL (1.8-7.7); NEUTROPHILS % 72.7 % (36.0-66.0); PLATELET COUNT, AUTOMATED 288 10^3/uL (150-450); RED BLOOD COUNT 3.31 10^6/uL (4.00-5.40); WHITE BLOOD COUNT 9.4 10^3/uL (4.0-10.0)
[2018-11-23] MEDS: ACETAMINOPHEN TAB 650MG DOSE (2X325MG) PO PRN (06:47)
[2018-11-23 07:07] LABS: BLOOD UREA NITROGEN 21 MG/DL (7-18); CALCIUM LEVEL 9.2 MG/DL (8.8-10.2); CARBON DIOXIDE LEVEL 25 MEQ/L (21-32); CHLORIDE LEVEL 111 MEQ/L (98-107); GLOMERULAR FILTRATION RATE > 60.0 (>45); GLUCOSE, FASTING 113 MG/DL (70-100); MAGNESIUM LEVEL 1.9 MG/DL (1.8-2.4); POTASSIUM SERUM 4.2 MEQ/L (3.5-5.1); SODIUM LEVEL 142 MEQ/L (136-145)
[2018-11-23 08:42] LABS: FERRITIN 65 NG/ML (8-252); FREE T4 0.98 NG/DL (0.76-1.46); IRON (FE) 27 UG/DL (50-170); PERCENT SATURATION 6.8 % (13.2-45.0); TOTAL IRON BINDING CAPACITY 397 UG/DL (250-450)
[2018-11-23] MEDS ORDERED: SENOKOT S TAB PO SCH (09:00)
[2018-11-23] MEDS ORDERED: MIRALAX *UNIT DOSE* 17GM PACKET PO SCH (09:00)
[2018-11-23] MEDS ORDERED: VITAMIN D 1,000 INTERNATIONAL UNITS TABLET PO SCH (09:00)
[2018-11-23] MEDS ORDERED: MOM 30ML SUSPENSION UDC PO SCH (09:00)
[2018-11-23] MEDS ORDERED: PRENATAL VITAMINS CHEWABLE TABLET PO SCH (09:00)
[2018-11-23 09:33] VITALS: BP 134/75
[2018-11-23] MEDS: LOSARTAN 50 MG TAB PO SCH (09:33)
[2018-11-23] MEDS ORDERED: ZOFR4TAB16 PO (09:46)
[2018-11-23] MEDS ORDERED: HYDR-3713 PO (09:46)
[2018-11-23 10:00] VITALS: BP 131/72
[2018-11-23 10:07] LABS: FOLATE 21.9 NG/ML (>5.4)
--- NOTE | 2018-11-23 10:31 | IPNPDOC ---
Text Note Date of Service The patient was seen on 11/23/18. NOTE Subjective: Patient is a 63-year-old female with a past medical history of bilateral osteoarthritis of her knees, dyslipidemia, hypertension, chronic back pain who presented to [facility] for an elective orthopedic procedure. Patient has received preoperative clearance from Dr. Nico Frederick. Patient received blood work, EKG and chest x-ray and did not require any cardiac clearance. Patient was seen and examined at the bedside. Patient has reported that she has been working with physical therapy and has progressed. . She reports that she does experience some aching of her left knee. She denies nausea, vomiting, abdominal pain, constipation, diarrhea, or urinary discomfort. Objective: Vitals (See below) General: Lying in bed, no acute distress, comfortable, AAOx3 HEENT: NC, AT CVS: RRR, +S1S2 Lungs: Fair air entry b/l, -w/r/r Abdomen: Soft, ND, NT Extremities: - Edema, - Calf tenderness Assessment and plan: Left knee pain - likely 2/2 osteoarthritis - s/p total left knee arthroplasty - Received preoperative clearance from outside provider, Dr. Frederick - Pain control, physical therapy and anticoagulation at the direction of orthopedic surgery - Patient has been working with physical therapy and will likely be discharged home today DLP - c/w Fenofibrate HTN - Blood pressure remains well-controlled - Continue with amlodipine and losartan, with holding parameters Chronic back pain - Follows with pain management as outpatient, Dr. Corona Morbid obesity - BMI 40.2 - Complicating medical care DVT prophylaxis - At the direction of orthopedic surgery VSDunia, I+O VSDunia, I+O Laboratory Tests 11/23/18 06:25 Red Blood Count 3.31 L, Mean Corpuscular Volume 97.3 H, Mean Corpuscular Hemoglobin 29.9, Mean Corpuscular Hemoglobin Concent 30.7 L, Red Cell Distribution Width 13.7, Neutrophils (%) (Auto) 72.7 H, Lymphocytes (%) (Auto) 17.6 L, Monocytes (%) (Auto) 8.9 H, Eosinophils (%) (Auto) 0.2, Basophils (%) (Auto) 0.2, Neutrophils # (Auto) 6.8, Lymphocytes # (Auto) 1.7, Monocytes # (Auto) 0.8, Eosinophils # (Auto) 0.0, Basophils # (Auto) 0.0, Calcium Level 9.2 Vital Signs Date Time Temp Pulse Resp B/P (MAP) Pulse Ox O2 Delivery O2 Flow Rate FiO2 11/23/18 10:12 16 11/23/18 09:33 134/75 11/23/18 09:32 86 11/23/18 05:49 97.6 93 11/22/18 14:50 2.0 I&O- Last 24 Hours up to 6 AM 11/23/18 06:00 Intake Total 4052 ml Output Total 1250 ml Balance 2802 ml ANGEL PRICE MD Nov 23, 2018 10:31
[2018-11-23 10:41] LABS: HEMOGLOBIN A1c 5.5 %
--- NOTE | 2018-11-23 12:03 | RO ---
DATE OF PROCEDURE: 11/22/2018 PREOPERATIVE DIAGNOSIS: Left knee osteoarthritis. POSTOPERATIVE DIAGNOSIS: Left knee osteoarthritis. PROCEDURE: Left total knee arthroplasty using an ATTUNE rotating platform, size 4 femur, size 3 tibia, size 6 polyethylene. This was a posterior stabilized knee, a 32 patellar button for a rotating platform ATTUNE. SURGEON: Jan Persaud MD MECHANICAL DESIGN TECHNICIAN: MAE Warren ANESTHESIA: Spinal. ESTIMATED BLOOD LOSS: Less than 50 mL. COMPLICATIONS: None. INDICATIONS: 63-year woman who has had some persistent left knee pain and wished to have surgical treatment having failed conservative management. She understood the nature of this and risks associated with it. PROCEDURE: Patient was taken to the operating room, placed in supine position after spinal anesthesia was induced. The left lower extremity was prepped and draped in the usual sterile fashion. A time out was performed. Tourniquet was inflated. An incision was made over the anterior aspect of the knee after we prepped and draped. I then performed a medial parapatellar arthrotomy, everted the patella. I did have to do a lateral release. She did have significant obesity which made this quite challenging. I then used a canal initiating reamer on the femoral side followed by the intramedullary guide set at 9 mm and 5 degrees of valgus. This was pinned in place. The distal femoral cut was made. I then sized it to be a 4. The pin holes were placed in the end of the femur. The four cutting block was secured. The remaining four cuts were made. We then directed attention to the tibia. The posterior retractor was placed, medial lateral retractors were placed. I had done a medial release. I removed some osteophytes from around the tibia, placed the tibial alignment guide and the appropriate amount of posterior slope and valgus, pinned this in place at 4 mm off the low side. There was severe arthritis throughout the knee. I then made the proximal tibia cut removing this bone protecting soft tissues. Initially, was able to preserve the PCL then used the spacer blocks decided between a 6 and 7 and did the sulcus cut on the femur. I then prepared the tibial surface. I also had removed soft tissue and osteophytes from either side of the knee. The size 3 tibial tray fit nicely. This was drilled broached. Trial components were placed and it was decided that she was too tight in flexion. The polyethylene was spitting out, some of this I think had to do with soft tissue impingement behind the knee as well, but I elected to go ahead with the posterior stabilized knee because the PCL was too tight and was not going to be able to adequately free it up to recover the appropriate flexion. The box cutting guide was placed, the remaining three cuts were made. I then placed the trial components with a posterior stabilized system and elected on the size 6 polyethylene. I put the knee out in extension and then freehand cut the patella removing about 6 mm of bone. I sized to be a 32 and then drill holes were placed. The patella tracked quite well after I did a lateral release. Drill holes were placed in the end of the femur. I then removed the trial components. I irrigated and dried the bony surfaces, cemented on the tibial and femoral components, placed the polyethylene, cemented on the patella, held it in place with a clamp, and removed all excess bone cement. TXA was placed deep in the wound. Once the cement had hardened I removed the patellar clamp, closed the deep layer with interrupted #1 Vicryl suture and a running STRATAFIX suture for a watertight closure. Put the knee through a range of motion. The patella was tracking well. There was no clicking or mechanical findings. She had excellent alignment. Excellent stability in flexion/extension. I then irrigated, closed subcu with #2-0 Vicryl and the skin with winnie. Sterile dressing was applied. Tourniquet was deflated. She was taken to the recovery room in stable condition. There were no known complications. The virtual customer assistant was instrumental in holding retractors, and assisting in mixing the bone cement and assisting in wound closure. This is coded as an unusually difficult procedure because her BMI was approximately 39-40. She had significantly larger soft tissue windows, had to struggle more with the flexion/extension gaps. There was posterior soft tissue impingement which made this more difficult. This prolonged the case. Overall, it was significantly more difficult.
[2018-11-23] MEDS ORDERED: RIVAROXABAN 10 MG TAB (XARELTO) PO SCH (18:00)
[2018-11-24] MEDS ORDERED: PREVNAR 13 VACCINE SYRINGE (CPT CODE:90670) IM ONE (09:00)
--- NOTE | 2018-11-29 18:19 | DSES ---
DATE OF ADMISSION: 11/22/2018 DATE OF DISCHARGE: 11/23/2018 ATTENDING PHYSICIAN: Dr. Jan Persaud ADMISSION DIAGNOSIS: Osteoarthritis, left knee. OTHER DIAGNOSES: 1. Elevated lipids. 2. Hypertension. 3. Chronic back pain. DISCHARGE DIAGNOSIS: Osteoarthritis, left knee status post left total knee arthroplasty. OPERATION PERFORMED: Left total knee arthroplasty. HISTORY: A 63-year-old female patient with progressively worsening left knee pain and stiffness. She failed to improve with conservative management. She was admitted for elective knee replacement on the left side. HOSPITAL COURSE: The patient was admitted on the day of surgery and underwent the left total knee arthroplasty which was uneventful. She did well in the postoperative period and her hospital course was without complications. She was up with physical therapy per their protocol and her pain was controlled. On the day of discharge, she was doing well, weightbearing as tolerated on her left lower extremity. She will move her left knee to prevent stiffness. She will use thromboembolic-deterrent (RAGHU) stockings for 30 days postoperatively as well as Xarelto 10 mg per the protocol for deep vein thrombosis (DVT) prophylaxis. She will resume her preoperative medications and diet. She will followup in our office in 10-14 days for surgical followup. She was given instructions to include but not limited to wound monitoring and activity limitations. Please refer to the medical record further details.
[2018-12-05 00:10] LABS: COPPER PLASMA 101 ug/dL (72-166); NICOTINAMIDE 27.5 ng/mL (5.2-72.1); NICOTINIC ACID <5.0 ng/mL (0.0-5.0); VITAMIN B1 LEVEL WHOLE BLOOD 121.9 nmol/L (66.5-200.0); VITAMIN B2 (RIBOFLAVIN) 181 ug/L (137-370); VITAMIN B6,PYRIDOXAL PHOSPHATE 5.7 ug/L (2.0-32.8); VITAMIN B7 (BIOTIN) 0.09 ng/mL (0.05-0.83); ZINC PLASMA 76 ug/dL (56-134)
== END 2018-11-23 12:34 | disposition home or self-care (01) | DRG 470 ==
LOC: M OR 07:03 → M MS5PR 12:31
PROVIDERS: ADMIT Orthopaedic Surgery; ATTEND Orthopaedic Surgery
PROC: 0SRD0J9 Replacement of Left Knee Joint with Synthetic Substitute, Cemented, Open Approach (ICD-10-PCS; principal; 2018-11-22 09:45)
DX: M17.0 Bilateral primary osteoarthritis of knee (principal); Z68.41 Body mass index [BMI] 40.0-44.9, adult; E78.00 Pure hypercholesterolemia, unspecified; E78.5 Hyperlipidemia, unspecified; E66.01 Morbid (severe) obesity due to excess calories; M54.5 Low back pain; F41.9 Anxiety disorder, unspecified; G47.33 Obstructive sleep apnea (adult) (pediatric); F32.9 Major depressive disorder, single episode, unspecified; I10 Essential (primary) hypertension; Z79.1 Long term (current) use of non-steroidal anti-inflammatories (NSAID); Z79.899 Other long term (current) drug therapy; Z98.84 Bariatric surgery status

== ENCOUNTER → 2018-12-07 | Outpatient (CLI) | payer MEDICARE ==
[~2018-12-07] MED LIST changes: -LIDOCAINE 1% MDV 20ML VIAL SQ PRN; -LR 1,000 ML IV ONE; +PERC5TAB12 PO; +XARE10TA PO; +ZOFR4TAB16 PO; -ceFAZolin SOD 2 GM in IV 1 EA IV ONE
--- NOTE | 2018-12-07 15:54 | REP ---
Duplex extremity venous ultrasound: Left lower extremity. History: Evaluate for DVT. Total left knee replacement. Pain in the left leg. Findings: The deep veins are anechoic and fully compressible from the groin to the popliteal fossa in the left lower extremity. Color flow imaging is homogeneous. Spectral Doppler interrogation demonstrates intact respiratory variation in flow and normal manual augmentation of flow. There is no evidence of deep vein thrombosis. Impression: Negative left lower extremity duplex venous ultrasound. No evidence of deep vein thrombosis. Electronically Signed by Rony Fox MD 12/07/2018 03:47 P
== END ==
LOC: M RAD 14:28
PROVIDERS: ATTEND Physical Medicine & Rehabilitation
DX: M79.605 Pain in left leg (principal); Z96.652 Presence of left artificial knee joint

== ENCOUNTER → 2018-12-26 | Outpatient (RCR) | payer MEDICARE | LOC: M PT 12-05 14:40 | PROVIDERS: ATTEND Orthopaedic Surgery | DX: Z47.1 Aftercare following joint replacement surgery (principal); Z96.652 Presence of left artificial knee joint ==

== ENCOUNTER → 2019-01-02 | Outpatient (REF) | payer MEDICARE ==
[2019-01-02 13:35] LABS: APPEARANCE, URINE CLEAR (CLEAR); BACTERIA, URINE AUTO NEGATIVE (NEGATIVE); BILIRUBIN, URINE AUTO NEGATIVE (NEGATIVE); BLOOD, URINE BLOOD NEGATIVE (NEGATIVE); COLOR, URINE YELLOW (YELLOW); GLUCOSE, URINE (UA) AUTO NEGATIVE (NEGATIVE); KETONE, URINE AUTO NEGATIVE (NEGATIVE); LEUKOCYTE ESTERASE, URINE AUTO 3+ (NEGATIVE); NITRITE, URINE AUTO NEGATIVE (NEGATIVE); PROTEIN, URINE AUTO NEGATIVE (NEGATIVE); RBC, URINE AUTO 7 /HPF (0-3); SPECIFIC GRAVITY URINE AUTO 1.011 (1.002-1.035); SQUAMOUS EPITHELIAL CELL UR AU 1 /HPF (0-6); UROBILINOGEN, URINE AUTO 0.2 mg/dL (0.0-2.0); WBC, URINE AUTO 8 /HPF (0-3)
== END ==
LOC: M LAB REF 11:53
PROVIDERS: ATTEND Obstetrics & Gynecology
DX: N39.0 Urinary tract infection, site not specified (principal)

== ENCOUNTER 2019-01-25 09:30 | Outpatient (RCR) | payer MEDICARE | END 2019-01-26 | LOC: M PT 09:30 | PROVIDERS: ATTEND Orthopaedic Surgery | DX: Z47.1 Aftercare following joint replacement surgery (principal); Z96.652 Presence of left artificial knee joint ==

== ENCOUNTER → 2019-02-07 | Outpatient (CLI) | payer MEDICARE ==
--- NOTE | 2019-02-07 12:03 | REPMRS ---
Patient History The patient states she had a clinical breast exam in 01/2018. Family history of breast cancer at age 65 in sister. Took hormonal contraceptives for 10 years. Took estrogen for 15 years. Took progesterone for 15 years. Digital Woman Screen Mammo: February 07, 2019 - Exam #: [id number] Bilateral CC and MLO view(s) were taken. Technologist: Hawa Potter, Technologist Prior study comparison: February 02, 2018, bilateral digital mammo screening bilat, performed at [facility]. November 27, 2016, digital woman screen mammo performed at [facility]. November 26, 2015, bilateral digital mammo screening bilat, performed at [facility]. FINDINGS: There are scattered fibroglandular densities. There has been no change in the appearance of the mammogram from the prior studies. There is a mild amount of scattered fibroglandular density which is fairly symmetric. There is no interval development of dominant mass, architectural distortion, or grouped microcalcification suggestive of malignancy. 3-D tomosynthesis shows no additional findings. Assessment: BI-RADS/ACR category 1 mammogram. Negative Mammogram. Recommendation Routine screening mammogram of both breasts in 1 year (for women over age 40). This patient's Lifetime Breast Cancer Risk is estimated at 9.2 %. This mammogram was interpreted with the aid of an FDA-approved computer-aided dectection system. Electronically Signed By: Jj Fox MD 02/07/19 [id number]
== END ==
LOC: M WHC 09:06
PROVIDERS: ATTEND Physician Assistant Medical
DX: Z12.31 Encounter for screening mammogram for malignant neoplasm of breast (principal); Z80.3 Family history of malignant neoplasm of breast

== ENCOUNTER 2019-02-21 09:15 | Outpatient (RCR) | payer MEDICARE | END 2019-02-25 | LOC: M PT 09:15 | PROVIDERS: ATTEND Orthopaedic Surgery | DX: Z47.1 Aftercare following joint replacement surgery (principal); Z96.652 Presence of left artificial knee joint ==

== ENCOUNTER → 2019-03-06 | Outpatient (REF) | payer MEDICARE, MEDICAID ==
[2019-03-06 17:49] LABS: APPEARANCE, URINE CLEAR (CLEAR); BACTERIA, URINE AUTO NEGATIVE (NEGATIVE); BILIRUBIN, URINE AUTO NEGATIVE (NEGATIVE); BLOOD, URINE BLOOD NEGATIVE (NEGATIVE); COLOR, URINE YELLOW (YELLOW); GLUCOSE, URINE (UA) AUTO NEGATIVE (NEGATIVE); KETONE, URINE AUTO NEGATIVE (NEGATIVE); LEUKOCYTE ESTERASE, URINE AUTO TRACE (NEGATIVE); MUCUS, URINE SMALL (NEGATIVE); NITRITE, URINE AUTO NEGATIVE (NEGATIVE); PROTEIN, URINE AUTO NEGATIVE (NEGATIVE); RBC, URINE AUTO 2 /HPF (0-3); SPECIFIC GRAVITY URINE AUTO 1.014 (1.002-1.035); SQUAMOUS EPITHELIAL CELL UR AU 1 /HPF (0-6); UROBILINOGEN, URINE AUTO 0.2 mg/dL (0.0-2.0); WBC, URINE AUTO 0 /HPF (0-3)
== END ==
LOC: M LAB REF 16:27
PROVIDERS: ATTEND Obstetrics & Gynecology
DX: N95.2 Postmenopausal atrophic vaginitis (principal)

== ENCOUNTER 2019-03-23 14:35 | Outpatient (RCR) | payer MEDICAID, MEDICARE | END 2019-03-28 | disposition home or self-care (01) | LOC: M PT 14:35 | PROVIDERS: ATTEND Physical Medicine & Rehabilitation | DX: M47.817 Spondylosis without myelopathy or radiculopathy, lumbosacral region (principal); M51.37 Other intervertebral disc degeneration, lumbosacral region; M48.061 Spinal stenosis, lumbar region without neurogenic claudication ==

== ENCOUNTER → 2019-03-27 | Outpatient (CLI) | payer MEDICARE ==
[2019-03-27 11:20] LABS: HEMATOCRIT 38.9 % (36.0-47.0)
[2019-03-27 12:07] LABS: FREE T4 1.01 NG/DL (0.76-1.46); THYROID STIMULATING HORMONE 3.3 uIU/ML (0.358-3.740)
[2019-03-27 13:43] LABS: HEMOGLOBIN A1c 6.2 %
== END ==
LOC: M LAB 07:44
PROVIDERS: ATTEND Physician Assistant Medical
DX: E66.01 Morbid (severe) obesity due to excess calories (principal); Z98.84 Bariatric surgery status; Z79.899 Other long term (current) drug therapy

== ENCOUNTER → 2019-03-30 | Outpatient (REF) | payer MEDICARE ==
[2019-03-30 11:47] LABS: BASO # 0.1 10^3/uL (0.0-0.2); BASO % 1.3 % (0.0-1.0); EOS # 0.1 10^3/uL (0.0-0.5); HEMATOCRIT 40.3 % (36.0-47.0); HEMOGLOBIN 12.6 g/dl (12.0-15.5); LYMPH # 1.9 10^3/uL (1.5-5.0); LYMPH % 34.8 % (24.0-44.0); MEAN CORPUSCULAR HEMOGLOBIN 30.3 pg (27.0-33.0); MEAN CORPUSCULAR HGB CONC 31.3 g/dl (32.0-36.5); MEAN CORPUSCULAR VOLUME 96.9 fl (80.0-96.0); MONO # 0.5 10^3/uL (0.0-0.8); MONO % 8.5 % (0.0-5.0); NEUTROPHILS # 2.9 10^3/uL (1.5-8.5); NEUTROPHILS % 53.2 % (36.0-66.0); PLATELET COUNT, AUTOMATED 358 10^3/uL (150-450); RED BLOOD COUNT 4.16 10^6/uL (4.00-5.40); WHITE BLOOD COUNT 5.4 10^3/uL (4.0-10.0)
[2019-03-30 12:08] LABS: ALBUMIN 4.4 GM/DL (3.2-5.2); ALT/SGPT 28 U/L (12-78); BILIRUBIN,TOTAL 0.3 MG/DL (0.2-1.0); BLOOD UREA NITROGEN 20 MG/DL (7-18); CALCIUM LEVEL 10.3 MG/DL (8.8-10.2); CARBON DIOXIDE LEVEL 27 MEQ/L (21-32); CHLORIDE LEVEL 107 MEQ/L (98-107); CREATININE FOR GFR 0.78 MG/DL (0.55-1.30); GLOMERULAR FILTRATION RATE > 60.0 (>45); GLUCOSE, FASTING 91 MG/DL (70-100); POTASSIUM SERUM 4.6 MEQ/L (3.5-5.1); SODIUM LEVEL 140 MEQ/L (136-145); TOTAL PROTEIN 7.7 GM/DL (6.4-8.2)
[2019-03-30 12:28] LABS: LIPASE 225 U/L (73-393)
== END ==
LOC: M SFHCPLAZ 10:37
PROVIDERS: ATTEND Physician Assistant Medical
DX: D50.8 Other iron deficiency anemias (principal); R10.84 Generalized abdominal pain
CPT/HCPCS: 36415; 80053; 81002; 83690; 85025; G0463

== ENCOUNTER → 2019-04-07 | Outpatient (CLI) | payer MEDICARE ==
--- NOTE | 2019-04-07 10:43 | REP ---
CT ABDOMEN AND PELVIS WITHOUT CONTRAST: CT abdomen and pelvis performed without oral or IV contrast. Sagittal and coronal reconstruction images are performed. Comparison is made with a prior study of 02/02/2018. Visualized lung bases demonstrate no infiltrate. Liver demonstrates diffuse fatty infiltration with no other gross abnormality. There is mild hepatomegaly with the length of the liver approximately 18 cm in the mid clavicular line. Spleen is normal in size. Adrenal glands are normal. Pancreas demonstrates no gross abnormality. There is no renal, ureteral or bladder calculus. There is no hydronephrosis. However, the proximal right ureter is mildly dilated up to the level of the right ovary. No ovarian mass is seen. Finding may be transient but I cannot exclude some degree of narrowing of the right ureter at the level of the right ovary. Urinary bladder is grossly unremarkable. There is mild atherosclerotic calcification of the abdominal aorta without aneurysm. There is no adenopathy. There is no free air or free fluid. I see no bowel wall thickening. Large anterior abdominal wall hernia is seen in the midline inferiorly, in the region of the umbilicus. This contains fat and multiple bowel loops. This appears slightly larger than the prior CT. The appendix is normal. No pelvic mass is seen. There is a pessary noted. There are degenerative changes of the spine. The patient has had a prior cholecystectomy. I do not see evidence of biliary dilatation. IMPRESSION: Diffuse fatty infiltration of the liver. Patient is status post cholecystectomy without significant biliary dilatation. Mild dilatation of the proximal right ureter is new when compared to the prior CT 02/02/2018. I am uncertain if this represents a transient finding or if there may be some degree of narrowing of the right ureter at the level of the right ovary. Distal to that level the caliber of the right ureter is normal. No renal or ureteral calculi are seen and there is no hydronephrosis. Large anterior abdominal hernia in the region of the umbilicus has slightly increased in size since the prior CT. No other acute finding. Electronically Signed by Jez Engel MD 04/08/2019 03:13 P
== END ==
LOC: M RAD 08:35
PROVIDERS: ATTEND Physician Assistant Medical
DX: R10.9 Unspecified abdominal pain (principal)

== ENCOUNTER → 2019-04-11 | Outpatient (CLI) | payer MEDICARE ==
[2019-04-11 19:31] LABS: ALBUMIN 4.6 GM/DL (3.2-5.2); ALT/SGPT 29 U/L (12-78); BILIRUBIN,TOTAL 0.3 MG/DL (0.2-1.0); BLOOD UREA NITROGEN 23 MG/DL (7-18); CALCIUM LEVEL 10.2 MG/DL (8.8-10.2); CARBON DIOXIDE LEVEL 27 MEQ/L (21-32); CHLORIDE LEVEL 110 MEQ/L (98-107); CREATININE FOR GFR 0.81 MG/DL (0.55-1.30); GLOMERULAR FILTRATION RATE > 60.0 (>45); GLUCOSE, FASTING 84 MG/DL (70-100); PHOSPHORUS LEVEL 3.8 MG/DL (2.5-4.9); POTASSIUM SERUM 4.9 MEQ/L (3.5-5.1); SODIUM LEVEL 142 MEQ/L (136-145); TOTAL PROTEIN 7.6 GM/DL (6.4-8.2)
[2019-04-11 19:40] LABS: PTH INTACT 20.3 PG/ML (18.5-88.0)
== END ==
LOC: M PLALAB 13:30
PROVIDERS: ATTEND Physician Assistant Medical
DX: E83.52 Hypercalcemia (principal); N13.5 Crossing vessel and stricture of ureter without hydronephrosis

== ENCOUNTER → 2019-04-14 | Outpatient (CLI) | payer MEDICARE ==
[~2019-04-14] MED LIST changes: +ISOVUE-370 76% 100ML VIAL (Q9967) As Ordered ONE
--- NOTE | 2019-04-14 14:49 | REP ---
CT ABDOMEN AND PELVIS WITH IV CONTRAST: TECHNIQUE: Axial contrast enhanced images from the lung bases to the pubic symphysis using 100 mL Isovue 370 intravenous contrast material with multiplanar reformations. COMPARISON: CT 04/07/2019 Visualized lung bases demonstrate no evidence of infiltrate. There is diffuse fatty infiltration of the liver. The patient has had a prior cholecystectomy. There is no biliary dilatation. Spleen is normal in size with no intrinsic abnormality. The adrenal glands are normal. No pancreatic mass is seen. There is mild hydronephrosis on the right with moderate hydroureter. There is an abrupt change in caliber in the right ureter as it crosses the right iliac vessels with the more distal right ureter normal in caliber. There is no left hydroureteronephrosis. There is a small cyst in the right kidney. There is no abdominal aortic aneurysm. There is no adenopathy. There is no free air or free fluid. No bowel wall thickening is seen. Large anterior abdominal wall hernia is seen inferiorly containing bowel loops and mesenteric fat, unchanged in appearance. No pelvic mass is seen. There is a pessary noted. Urinary bladder is unremarkable. The patient appears to have had prior gastric bypass surgery and is status post cholecystectomy. IMPRESSION: Mild right hydronephrosis with moderate right hydroureter. Focal abrupt change in caliber of the ureter as it crosses the right iliac vessels. This could be due to extrinsic compression of the ureter by the iliac vessels. Stricture cannot be excluded. No definite soft tissue mass is seen that region. No left hydronephrosis. No change anterior abdominal wall hernia. Unreviewed
== END ==
LOC: M RAD 09:30
PROVIDERS: ATTEND Physician Assistant Medical
DX: N13.5 Crossing vessel and stricture of ureter without hydronephrosis (principal)
CPT/HCPCS: 74177; Q9967

== ENCOUNTER 2019-04-27 12:10 | Outpatient (RCR) | payer MEDICARE ==
[~2019-04-27 12:10] MED LIST changes: -ISOVUE-370 76% 100ML VIAL (Q9967) As Ordered ONE
== END 2019-04-28 ==
LOC: M PT 12:10
PROVIDERS: ATTEND Physical Medicine & Rehabilitation
DX: M47.817 Spondylosis without myelopathy or radiculopathy, lumbosacral region (principal); M51.37 Other intervertebral disc degeneration, lumbosacral region; M51.27 Other intervertebral disc displacement, lumbosacral region; M48.061 Spinal stenosis, lumbar region without neurogenic claudication
CPT/HCPCS: 97110; 97140; G0283

== ENCOUNTER 2019-05-04 12:54 | Outpatient (RCR) | payer MEDICARE | END 2019-05-27 | LOC: M PT 12:54 | PROVIDERS: ATTEND Physical Medicine & Rehabilitation | DX: Z47.89 Encounter for other orthopedic aftercare (principal); M47.817 Spondylosis without myelopathy or radiculopathy, lumbosacral region; M51.37 Other intervertebral disc degeneration, lumbosacral region; M51.27 Other intervertebral disc displacement, lumbosacral region; M48.061 Spinal stenosis, lumbar region without neurogenic claudication | CPT/HCPCS: 97110; G0283 ==

== ENCOUNTER → 2019-06-05 | Outpatient (CLI) | payer MEDICARE ==
--- NOTE | 2019-06-05 12:23 | REP ---
LIMITED PELVIC BLADDER SONOGRAPHY: HISTORY: Right-sided hydroureter. FINDINGS: Bladder ley are smooth. Emptying ureteral jets are observed bilaterally. No extra vesicle lesion is seen. Pre-void bladder volume is calculated at 314 mL. Postvoid residual is 10% or 31.4 mL. IMPRESSION: No abnormality noted. Electronically Signed by Rony Fox MD 06/05/2019 05:42 P
--- NOTE | 2019-06-05 12:25 | REP ---
Renal sonogram: History: Right hydroureter. Comparison: Comparison CT study April 14, 2019. Findings: Scanning at the level of the urinary bladder shows no abnormality. Renal cortical echogenicity pattern is normal bilaterally and contours are smooth. There is no evidence of cyst, mass, or calculus in either kidney. The right kidney measures 11.4 x 5.4 x 5.0 cm. There is minimal separation of central renal sinus echoes bilaterally in the kidneys, borderline hydronephrosis. The proximal years visible but does not appear to be dilated on the right. No hydroureter on the left. No calculus is seen. Left renal dimensions are 11.5 x 4.9 x 6.0 cm. Impression: Minimal prominence of the intrarenal collecting systems of both kidneys, borderline hydronephrosis. This is less prominent than on the CT study from April 14, 2019. Otherwise negative urinary tract sonography. Electronically Signed by Rony Fxo MD 06/05/2019 12:16 P
== END ==
LOC: M RAD 10:39
PROVIDERS: ATTEND Nurse Practitioner Family
DX: N13.4 Hydroureter (principal)

== ENCOUNTER → 2019-06-09 | Outpatient (REF) | payer MEDICARE ==
[2019-06-09 13:29] LABS: APPEARANCE, URINE HAZY (CLEAR); BILIRUBIN, URINE AUTO NEGATIVE (NEGATIVE); BLOOD, URINE BLOOD NEGATIVE (NEGATIVE); COLOR, URINE YELLOW (YELLOW); GLUCOSE, URINE (UA) AUTO NEGATIVE (NEGATIVE); KETONE, URINE AUTO NEGATIVE (NEGATIVE); LEUKOCYTE ESTERASE, URINE AUTO 3+ (NEGATIVE); NITRITE, URINE AUTO POSITIVE (NEGATIVE); PROTEIN, URINE AUTO NEGATIVE (NEGATIVE); SPECIFIC GRAVITY URINE AUTO 1.015 (1.002-1.035); UROBILINOGEN, URINE AUTO 0.2 mg/dL (0.0-2.0)
[2019-06-09 13:38] LABS: BACTERIA, URINE AUTO 1+ (NEGATIVE); RBC, URINE AUTO 2 /HPF (0-3); SQUAMOUS EPITHELIAL CELL UR AU 1 /HPF (0-6); WBC, URINE AUTO 33 /HPF (0-3)
== END ==
LOC: M SMT 13:10
PROVIDERS: ATTEND Nurse Practitioner Family
DX: R30.0 Dysuria (principal)
CPT/HCPCS: 81001; 87088; 87186; G0463

== ENCOUNTER 2019-06-26 10:39 | Outpatient (RCR) | payer MEDICARE | END 2019-06-27 | LOC: M PT 10:39 | PROVIDERS: ATTEND Orthopaedic Surgery | DX: Z51.89 Encounter for other specified aftercare (principal); M17.11 Unilateral primary osteoarthritis, right knee ==

== ENCOUNTER → 2019-06-26 | Outpatient (REF) | payer MEDICARE ==
[2019-06-26 14:16] LABS: APPEARANCE, URINE CLEAR (CLEAR); BACTERIA, URINE AUTO 1+ (NEGATIVE); BILIRUBIN, URINE AUTO NEGATIVE (NEGATIVE); BLOOD, URINE BLOOD NEGATIVE (NEGATIVE); COLOR, URINE YELLOW (YELLOW); GLUCOSE, URINE (UA) AUTO NEGATIVE (NEGATIVE); KETONE, URINE AUTO NEGATIVE (NEGATIVE); LEUKOCYTE ESTERASE, URINE AUTO 1+ (NEGATIVE); NITRITE, URINE AUTO NEGATIVE (NEGATIVE); PROTEIN, URINE AUTO NEGATIVE (NEGATIVE); RBC, URINE AUTO 1 /HPF (0-3); SQUAMOUS EPITHELIAL CELL UR AU 2 /HPF (0-6); UROBILINOGEN, URINE AUTO 0.2 mg/dL (0.0-2.0); WBC, URINE AUTO 1 /HPF (0-3)
== END ==
LOC: M SMT 13:37
PROVIDERS: ATTEND Nurse Practitioner Family
DX: R30.0 Dysuria (principal)

== ENCOUNTER 2019-07-10 18:09 | Inpatient (IN) | payer MEDICARE ==
[~2019-07-10] VITALS: Ht 152.4 cm; Wt 86.4 kg
[2019-07-10] MEDS ORDERED: CHLO125TA PO (18:20)
[2019-07-10] MEDS ORDERED: TIZA4TAB4 PO (18:20)
[2019-07-10] MEDS ORDERED: SUCRALFATE SUSP 1GM/10ML UD PO ONE (19:00)
[2019-07-10] MEDS ORDERED: KETOROLAC 30 MG/ML 1ML VIAL (J1885 PER 15MG) IV ONE (19:00)
[2019-07-10 19:22] LABS: BASO % 0.2 % (0.0-1.0); EOS % 0.1 % (0.0-3.0); HEMATOCRIT 41.1 % (36.0-47.0); HEMOGLOBIN 13.3 g/dl (12.0-15.5); LYMPH # 1.3 10^3/uL (1.5-5.0); LYMPH % 14.4 % (24.0-44.0); MEAN CORPUSCULAR HEMOGLOBIN 30.9 pg (27.0-33.0); MEAN CORPUSCULAR HGB CONC 32.4 g/dl (32.0-36.5); MEAN CORPUSCULAR VOLUME 95.4 fl (80.0-96.0); MONO # 0.4 10^3/uL (0.0-0.8); MONO % 4.8 % (0.0-5.0); NEUTROPHILS % 80.3 % (36.0-66.0); PLATELET COUNT, AUTOMATED 376 10^3/uL (150-450); RED BLOOD COUNT 4.31 10^6/uL (4.00-5.40); WHITE BLOOD COUNT 8.7 10^3/uL (4.0-10.0)
[2019-07-10] MEDS ORDERED: GASTROGRAFIN SOLUTION 30ML (Q9963) As Ordered ONE (19:29)
[2019-07-10 19:57] LABS: ALBUMIN 4.3 GM/DL (3.2-5.2); BILIRUBIN,DIRECT 0.2 MG/DL (0.0-0.2); BILIRUBIN,TOTAL 0.5 MG/DL (0.2-1.0); TOTAL PROTEIN 7.9 GM/DL (6.4-8.2)
[2019-07-10] MEDS: GASTROGRAFIN SOLUTION 30ML PO SCH ×2 (20:03→20:05)
[2019-07-10] MEDS ORDERED: ISOVUE-370 76% 100ML VIAL (Q9967) As Ordered ONE (21:29)
--- NOTE | 2019-07-10 22:20 | REPVR ---
PROCEDURE INFORMATION: Exam: CT Abdomen And Pelvis With Contrast Exam date and time: 07/10/2019 9:49 PM Age: 63 years old Clinical indication: Abdominal pain; Generalized; Prior surgery; Additional info: Abd distension, pain, constipation x 2 days TECHNIQUE: Imaging protocol: Computed tomography of the abdomen and pelvis with intravenous contrast. Radiation optimization: All CT scans at this facility use at least one of these dose optimization techniques: automated exposure control; mA and/or kV adjustment per patient size (includes targeted exams where dose is matched to clinical indication); or iterative reconstruction. Contrast material: ISOVUE 370; Contrast volume: 100 ml; Contrast route: IV; COMPARISON: CT ABD PELVIS WITH CONTRAST 04/14/2019 10:28 AM FINDINGS: Lungs: The imaged portions of the lung bases are clear. The lungs were not fully imaged. Heart: No cardiomegaly or pericardial effusion. Liver: The attenuation of the liver is more than 40 Hounsfield units lower in attenuation compared to the spleen, which is compatible with fatty liver infiltration. No liver lesion is seen. The contour of the liver is smooth. No hepatomegaly is noted. Gallbladder and bile ducts: There has been a cholecystectomy. There is no fluid collection in the gallbladder fossa. No dilation of the intrahepatic or extrahepatic bile ducts is noted. Pancreas: Normal. No dilation of the main pancreatic duct is noted. There is no inflammatory fat stranding around the pancreas to suggest acute pancreatitis. Spleen: Normal. No splenomegaly is noted. Adrenals: Normal. No adrenal mass is noted. Kidneys and ureters: There is an 11 mm benign-appearing cyst in the superior pole of the right kidney and a 6 mm benign-appearing cyst in the lateral cortex of the midpole of the right kidney, which are stable compared to the prior CT abdomen and pelvis on 04/14/2019 and for which follow-up is not necessary. No stones are noted in the kidneys or ureters. There is no hydronephrosis or hydroureter. There are no wedge-shaped areas of low attenuation in the kidneys to suggest pyelonephritis. There is no renal abscess or perinephric fluid collection. Stomach and bowel: Postoperative changes are noted from a Andi-en-Y gastric bypass surgery. 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 There is dilation of the small bowel of the alimentary and biliopancreatic limbs of the Andi-en-Y gastric bypass with a transition point located just distal to the "Y" jejunal-jejunal anastomosis at the entry point for a large ventral hernia, which is consistent with a small bowel obstruction (image 44 of the coronal series 302). The small bowel within the ventral hernia and distal to the ventral hernia are decompressed and do not contain enteric contrast material. No dilation of the large bowel is noted. There is a moderate amount of formed stool in the ascending colon and transverse colon. There is colonic diverticulosis without evidence for diverticulitis. No pneumatosis intestinalis or hypoenhancement of the wall of the bowel is noted to suggest intestinal ischemia. Appendix: Normal. No evidence for appendicitis. Intraperitoneal space: There is mild eventration of the right hemidiaphragm that is similar in appearance compared to the prior CT abdomen and pelvis on 04/14/2019. No free air. No fluid collection. Retroperitoneal space: No fluid collection. No mass. Vasculature: The abdominal aorta is normal in caliber and patent. The celiac artery, superior mesenteric artery, inferior mesenteric artery, iliac arteries, and common femoral arteries are patent. There are moderate atherosclerotic calcifications. There is severe stenosis of the proximal portion of the single right main renal artery secondary to calcified and noncalcified atherosclerotic plaque. There is mild stenosis of the origin of the single main left renal artery secondary to calcified atherosclerotic plaque. The portal veins, splenic vein, superior mesenteric vein, inferior mesenteric vein, and renal veins are patent. The hepatic veins are patent. Lymph nodes: No enlarged lymph nodes. Bladder: The distended urinary bladder is normal in appearance. No stones or masses are seen in the bladder. Reproductive: The uterus is anterverted and unremarkable. The ovaries are unremarkable. A vaginal pessary is in place. Bones/joints: There is no fracture. There is a mild levoscoliosis of the lumbar spine and degenerative changes in the thoracic spine and lumbar spine. There is a grade 1 anterolisthesis of L4 on L5 secondary to severe osteoarthritis of the L4-L5 facet joints. There is a mild retrolisthesis of L1 on L2. No suspicious osteolytic or osteoblastic lesion is noted. Soft tissues: There is a large ventral hernia containing fat and several decompressed loops of small bowel. IMPRESSION: 1. 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 2. Small bowel obstruction involving the alimentary and biliopancreatic limbs of the Andi-en-Y gastric bypass with a transition point located just distal to the "Y" jejunal-jejunal anastomosis at the entry point for a large ventral hernia that contains several loops of small bowel. 3. Fatty liver. 4. Severe stenosis of the proximal portion of the single main right renal artery. 5. Colonic diverticulosis without evidence for diverticulitis. Electronically signed by: Eduardo Cheng On 07/10/2019 22:19:51 PM
[2019-07-10] MEDS ORDERED: MEROPENEM INJ 1 GM in IV 1 EA IV SCH (23:00)
[2019-07-10] MEDS ORDERED: SODIUM CHLORIDE 0.9% 1000ML IV STA (23:03)
[2019-07-10] MEDS ORDERED: ONDA-83 PO (23:06)
[2019-07-10] MEDS ORDERED: AMLO5TAB6 PO (23:06)
[2019-07-10] MEDS ORDERED: TYLETAB14 PO (23:07)
--- NOTE | 2019-07-10 23:08 | HPEPDOC ---
[facility] Medical History & Physical Date of Admission Jul 10, 2019 Date of Service: Jul 10, 2019 Primary Care Physician: Leeanne Green Attending Physician: RENETTA MANRIQUE MD History and Physical TIME OF SERVICE: 11: 25 PM CHIEF COMPLAINT: Abdominal pain HISTORY OF PRESENT ILLNESS: This is a 63-year-old female who presented with complaints of 10/10 in severity, relapsing and remitting abdominal pain that began at 8 PM last night. Initially the pain was "diffuse" but later localized to the upper part of her stomach. She thinks the pain is made worse by standing up and is better when she lies down. She is also having acid reflux and had a few episodes of emesis. Per discussion with VP OF PRODUCT Claudia Guevara CT of abdomen showed small bowel obstruction. The case was discussed with Dr. Lindsey who recommended NG to suction and will see the patient the morning REVIEW OF SYSTEMS: 12 point review of systems negative except as listed in HPI PAST MEDICAL/ SURGICAL HISTORY: Chronic CAD / dyslipidemia Chronic HTN Proximal right renal artery stenosis Fatty liver Class III obesity Sleep apnea Anxiety Left knee OA Diverticulosis Andi-en-Y gastric bypass Ventral hernia repair Left rotator cuff repair Tonsillectomy Bilateral carpal tunnel release. Cholecystectomy Lateral knee arthroscopies SOCIAL HISTORY: She doesn't smoke She doesn't drink FAMILY HISTORY: CAD Diabetes Dyslipidemia ALLERGIES: Please see below. HOME MEDICATIONS: Please see below. PHYSICAL EXAMINATION: Vital Signs Date Time Temp Pulse Resp B/P (MAP) Pulse Ox O2 Delivery O2 Flow Rate FiO2 07/10/19 18:09 97.7 108 24 184/91 (122) 97 Room Air GEN: well-nourished / well developed/ NAD INTEGUMENT: not flushed/ not jaundice HEENT: NCAT / mucus membranes moist and pink CVS: RRR/NMRG LUNGS: lungs are clear to auscultation bilaterally on room air ABDOMEN: Contour ( obese) / and umbilical hernias palpable / the abdomen is tympanic on percussion, firm but not tender with palpation MSK/EXTREMITIES: range of motion intact in all 4 extremities NEURO: CN 2-12 are grossly intact / speech is not dysarthric PSYCH: alert and oriented to person place and time/ able to understand and follow all commands LABORATORY DATA: Urine Color YELLOW, Urine Appearance HAZY, Urine pH 5.0, Urine Specific [place] 1.018, Urine Protein 1+H, Urine Glucose (UA) NEGATIVE, Urine Ketones TRACEH, Urine Blood NEGATIVE, Urine Nitrite NEGATIVE, Urine Bilirubin NEGATIVE, Urine Urobilinogen 0.2, Urine Leukocyte Esterase NEGATIVE, Urine WBC (Auto) 1, Urine RBC (Auto) 1, Urine Hyaline Casts (Auto) 0, Urine Bacteria (Auto) NEGATIVE, Urine Squamous Epithelial Cells 1, Urine Sperm (Auto) Immature Granulocyte % (Auto) 0.2, Neutrophils (%) (Auto) 80.3H, Lymphocytes (%) (Auto) 14.4L, Monocytes (%) (Auto) 4.8, Eosinophils (%) (Auto) 0.1, Basophils (%) (Auto) 0.2, Neutrophils # (Auto) 7.0, Lymphocytes # (Auto) 1.3L, Monocytes # (Auto) 0.4, Eosinophils # (Auto) 0.0, Basophils # (Auto) 0.0, Nucleated Red Blood Cells % (auto) 0.0, POC Glucose (Misc Panel) 127H, POC Sodium (Misc Panel) 135L, POC Potassium (Misc Panel) 3.8, POC Chloride (Misc Panel) 100, POC Total CO2 (Misc Panel) 24.0, POC Blood Urea Nitrogen (Misc Panel 26, POC Ionized Calcium (Misc Panel) 5.0, POC Creatinine (Misc Panel) 0.8, POC Hematocrit (Misc Panel) 44.0, Total Bilirubin 0.5, Direct Bilirubin 0.2, Aspartate Amino Transf ( AST/SGOT) 37, Alanine Aminotransferase (ALT/SGPT) 44, Alkaline Phosphatase 47, Total Protein 7.9, Albumin 4.3, Albumin/Globulin Ratio 1.19, Amylase Level 25, Lipase 194 IMAGING: CT abdomen and pelvis "IMPRESSION: 1. 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 2. Small bowel obstruction involving the alimentary and biliopancreatic limbs of the Andi-en-Y gastric bypass with a transition point located just distal to the "Y" jejunal-jejunal anastomosis at the entry point for a large ventral hernia that contains several loops of small bowel. 3. Fatty liver. 4. Severe stenosis of the proximal portion of the single main right renal artery. 5. Colonic diverticulosis without juanis dence for diverticulitis." MICROBIOLOGY: Please see below. ASSESSMENT: Ms. Cool is a 63-year-old with a history of CAD, dyslipidemia, HTN, fatty liver, obesity, anxiety, OA, sleep apnea and multiple abdominal surgeries, who is admitted for management of SBO. PLAN: 1. SBO/ventral hernia NG to suction will be placed in the ER Plan: admit to medical floor/nothing by mouth, Zofran and Ofrimev PRN/IV fluids / follow-up electrolytes and replete as necessary, KUB in the morning and with Dr. Lindsey in the morning 2. Chronic CAD / dyslipidemia - hold fenofibrate 3. Resistant Chronic HTN ( she has Proximal right renal artery stenosis)- amlodipine, chlorthalidone, losartan 4. Sleep apnea - own CPAP DVT PROPHYLAXIS: SCDs DISPOSITION: Home after more than 2 midnight stay Home Medications Scheduled Amlodipine Besylate (Amlodipine Besylate) 5 Mg Tablet, 5 MG PO DAILY Chlorthalidone (Chlorthalidone) 25 Mg Tablet, 25 MG PO DAILY Fenofibrate Nanocrystallized (Tricor) 145 Mg Tablet, 145 MG PO DAILY Losartan Potassium (Losartan Potassium) 100 Mg Tablet, 100 MG PO QHS Tizanidine HCl (Tizanidine HCl) 4 Mg Tablet, 4 MG PO QHS Scheduled PRN Acetaminophen (Tylenol Arthritis) 650 Mg Tablet.er, 650 MG PO Q8HP PRN for PAIN Acetaminophen with Codeine (Tylenol with Codeine #3 Tablet) 1 Each Tablet, 1 TAB PO Q6H PRN for PAIN Hydrocodone/Acetaminophen (Hydrocodone-Acetamin 5-325 mg) 1 Each Tablet, 0.5 TAB PO Q6H PRN for PAIN TOOK HALF-TAB YESTERDAY FROM TABLETS SHE HAD FROM A PREVIOUS PROCEDURE Ondansetron HCl (Ondansetron HCl) 4 Mg Tablet, 4 MG PO Q4H PRN for NAUSEA OR VOMITING Allergies Coded Allergies: adhesive (Verified Allergy, Intermediate, rash, 10/24/18) iodine (Verified Allergy, Unknown, 10/24/18) per Dr chaves povidone-iodine (Verified Allergy, Unknown, 10/24/18) per DR chaves soap (Verified Allergy, Unknown, 10/24/18) per DR chaves A-FIB/CHADSVASC A-FIB History Current/History of A-Fib/PAF?: No Current PO Anticoag Therapy: No RENETTA MANRIQUE MD Jul 10, 2019 23:08
[2019-07-10] MEDS ORDERED: HYDR-3713 PO (23:12)
[2019-07-10 23:44] LABS: VENOUS BASE EXCESS 0.6 (-2.0-2.0); VENOUS HCO3 24.3 MEQ/L (23.0-27.0); VENOUS PARTIAL PRESSURE CO2 36.4 mmHg (38.0-50.0); VENOUS PH 7.443 UNITS (7.330-7.430); VENOUS TOTAL CO2 25.5 MEQ/L (24.0-28.0)
[2019-07-11] MEDS ORDERED: DICLOFENAC EPOLAMINE 1.3 % PATCH TOP PRN (00:45)
[2019-07-11 02:00] VITALS: BP 146/81
[2019-07-11] MEDS: LR 1,000 ML IV SCH ×3 (02:40→20:10)
[2019-07-11] MEDS ORDERED: VANCOMYCIN HCL 750 MG, VIAL MATE ADAPTER 1 EACH in D5W 250 ML IV ONE ×2 (03:00→04:00)
--- NOTE | 2019-07-11 05:03 | PHACANCOPD ---
PHARMACY VANCOMYCIN DOSING Pt Demographics Demographics Patient Age:63 , Weight:88.900 , Gender: female Adjusted Body Weight Date: 07/11/19, Adjusted Body Weight: [64.66] Kg Vancomycin Vancomycin indication: SEPSIS(GI) Vancomycin Target Ranges: 15-20 mcg/ml Vancomycin Load Y/N: Yes Load Dose Date Time Vancomycin Load Dose: 1.5GM Date: 07/10 Time: 0300 Vancomycin Dose Date: 07/11/19. Current Vancomycin Dose: [1GM Q12H] Intermittent Dosing?: No Labs Micro Microbiology 07/10/19 Blood Culture, Received Pending Creatinine Clearance Date:07/11/19. Creatinine Clearance: [71.6].CALCULATED Assessment and Plan Maintaining Current Dose?: Yes Reason for dose change: No Dose Change Pharmacist Note Pharmacist Note Date: 07/11/19. Pharmacist note:63 YOF admitted d/t sepsis/poss.bowel obstruction, ht:60",wt:93.5kg(abw=64.66 kg),scr:0.8,CRCL=71.6,allergies: iodine,adhesives. Receiving Meropenem 1 gram IV [id number] and Pharmacy dosed Vancomycin. Vanco 1.5 gram as load, then will receive 1 gram IV [id number] to be gin 07/10@11:00. First trough is scheduled for 07/11@10:00(prior to the 4th dose). Will continue to follow [facility] Jul 11, 2019 05:03
[2019-07-11] MEDS: MEROPENEM INJ 1 GM in IV 1 EA IV SCH ×3 (06:12→20:09)
[2019-07-11 06:27] LABS: HEMATOCRIT 38.7 % (36.0-47.0); HEMOGLOBIN 12.9 g/dl (12.0-15.5); MEAN CORPUSCULAR HEMOGLOBIN 31.6 pg (27.0-33.0); MEAN CORPUSCULAR HGB CONC 33.3 g/dl (32.0-36.5); MEAN CORPUSCULAR VOLUME 94.9 fl (80.0-96.0); PLATELET COUNT, AUTOMATED 371 10^3/uL (150-450); RED BLOOD COUNT 4.08 10^6/uL (4.00-5.40); WHITE BLOOD COUNT 8.2 10^3/uL (4.0-10.0)
[2019-07-11 06:49] LABS: CALCIUM LEVEL 10.2 MG/DL (8.8-10.2); CREATININE FOR GFR 1.18 MG/DL (0.55-1.30); GLOMERULAR FILTRATION RATE 48.9 (>45); MAGNESIUM LEVEL 1.9 MG/DL (1.8-2.4); POTASSIUM SERUM 4.1 MEQ/L (3.5-5.1)
--- NOTE | 2019-07-11 08:03 | REP ---
Clinical: Small bowel obstruction. Follow-up. Technique: Single supine view of the abdomen and pelvis. Findings: The bowel gas pattern is relatively nonspecific and without definite evidence for obstruction. Contrast outlines the bladder from prior enhanced CT examination. Surgical clips noted in the right upper quadrant and left mid abdomen. No obvious free air. Skeletal structures intact. Nasogastric tube extends into the left upper quadrant. Impression: Bowel gas pattern is relatively nonspecific. Electronically Signed by Jeremie Castillo MD 07/11/2019 02:45 A
[2019-07-11] MEDS: CHLORTHALIDONE 25 MG TAB PO SCH (08:36)
[2019-07-11] MEDS: amLODIPine 5 MG TAB PO SCH (08:37)
[2019-07-11] MEDS ORDERED: PREVNAR 13 VACCINE SYRINGE (CPT CODE:90670) IM ONE (09:00)
--- NOTE | 2019-07-11 09:14 | ECGEPIP ---
[facility] - ED Test Date: 2019-07-10 Pat Name: ZACK KELSEY Department: Room: [place] [address] Gender: Female Sander Machine: ISI : [id number] Requested By: Claudia Peña [employer] Order Number: [id number] Reading MD: Eden Mae Measurements Intervals Clements Rate: 100 P: 49 NJ: 162 QRS: 1 QRSD: 86 T: 3 QT: 357 QTc: 462 Interpretive Statements SINUS TACHYCARDIA MINIMAL ST DEPRESSION ABNORMAL RHYTHM ECG INCREASED RATE/NSTTW ABNORMALITY COMPARED 11/01/18 Electronically Signed on 07-11-2019 9:13:56 EDT by Eden Mae
--- NOTE | 2019-07-11 09:58 | REP ---
ABDOMINAL SERIES: Supine and erect views of the abdomen and pelvis demonstrate no free air. There are persistent moderately dilated small bowel loops in the upper abdomen suggesting persistent small bowel obstruction. Multiple metallic clips are seen in the upper abdomen. Contrast material is seen in the urinary bladder from prior CT with IV contrast 07/10/2019. Nasogastric tube is seen with side ports in the stomach. There are degenerative changes of the spine. An accompanying view of the chest demonstrates mild linear fibroatelectatic change in each lung base. The heart is normal in size. There is calcification and tortuosity of the thoracic aorta. IMPRESSION: Moderately dilated small bowel loops in the upper abdomen suggest persistent small bowel obstruction. Electronically Signed by Jez Engel MD 07/11/2019 10:42 A
[2019-07-11 10:00] VITALS: BP 136/56
--- NOTE | 2019-07-11 10:02 | CR ---
DATE OF CONSULTATION: 07/11/2019 The patient is a 63-year-old female with significant morbid obesity who presents with a ventral hernia in the suprapubic area that has been present for a significantly long time. Unfortunately, because she has not lost any weight and essentially presents now with evidence of a partial small bowel obstruction, it is hard to know if it is complete or not given that this has been occurring over a couple days. She really has not had any crampy abdominal pain or nausea or vomiting, but she has felt bloated as her primary complaint. She presents now with question of constipation as her primary abnormality to the emergency room. However, on workup with a CAT scan she does have some dilated loops of small bowel and a dilated proximal stomach/gastric bypass site and proximal small bowel. When I follow her small bowel pictures on the CAT scan, I am wondering if the transition point is within the ventral hernia itself. In any case, she has been stable. Had a nasogastric (NG) tube placed last night. Stable overnight and is doing well this morning. Has had some minimal flatus this morning. Her past medical history is significant for a ventral hernia repair, history of arthritis, history of chronic coronary artery disease, dyslipidemia, chronic hypertension, renal artery stenosis, fatty liver, morbid obesity, sleep apnea, anxiety, diverticulosis, history of gastric bypass, ventral hernia repair, (C) section, tonsillectomy, rotator cuff, carpal tunnel, cholecystectomy. MEDICATIONS: Include amlodipine, chlorthalidone, fenofibrate, losartan, tizanidine, and Tylenol with Codeine. PHYSICAL EXAMINATION: Reveals a morbidly obese white female who looks stated age. HEENT is unremarkable. Neck: Supple without adenopathy. Lungs: Clear. Heart: Regular with a few irregular beats. Abdomen is softly distended, morbidly obese. She has a ventral hernia. It is not very easily reducible, but it is definitely not tender. Extremities: Warm, well-perfused. IMPRESSION AND PLAN: The patient has evidence of a small bowel obstruction. Will get some followup x-rays this morning, but I do feel that she really has not completely resolved this at this time. I am wondering if she has had a chronic obstruction going back some time or chronic partial obstruction going back some time. At this point given her presentation, I do feel that it is reasonable to see how she does with the NG tube and NG decompression for today and will see how she does throughout the day. If she resolves her obstruction, then will discontinue her NG tube and progress her as an outpatient. I anticipate she will end up needing her ventral hernia repaired at some point in the future. At this point, however, she understands that her recurrence rate associated with a ventral hernia repair given her morbid obesity is relatively high. She will continue with current treatment. She does not have an acute abdomen. She does not have an elevated white count and no significant pain suggesting that nonoperative intervention at this time is reasonable. Will see how she is doing over the next 24 hours and then reevaluate her at that time.
[2019-07-11] MEDS ORDERED: VANCOMYCIN HCL 1,000 MG, VIAL MATE ADAPTER 1 EACH in D5W 250 ML IV SCH (11:00)
[2019-07-11] MEDS: ACETAMINOPHEN *IV* 1,000 MG in IV 1 EA IV PRN (13:08)
[2019-07-11 15:39] VITALS: BP 131/77
--- NOTE | 2019-07-11 18:45 | IPNPDOC ---
Text Note Date of Service The patient was seen on 07/11/19. NOTE S: Pt examined at bedside. Continues to have NG tube in place, afebrile, no other complaints. Otherwise doing well and hemodynamically stable. PE: Vitals: see below General: NAD, A&Ox3, resting comfortably HEENT: NCAT, EOMI, anicteric sclera, MMM CV: RRR, no murmurs or clicks or rub. No edema RESP: CTAB, no w/r/r/ ABD: soft, NT, ND. Benign EXTREMITIES: 2+ radial pulses b/l, able to move all extremities NEURO: no focal deficits or acute changes A/P: 1. Partial small bowel obstruction - Dilated small bowel loops in the upper abdomen noted on imaging. Repeat KUB today reveals nonspecific bowel gas pattern - Surgery consulted; appreciate input - Per Dr. Lindsey: Possible chronic obstruction from ventral hernia. Continue NPO, NG tube, outpatient follow-up if obstruction resolves with conservative measures. No plans for surgery currently - hemodynamically stable. On empiric Vanc, Meorpenem - Await culture. Will d/c if continues to do well For the remainder of her chronic medical conditions, continue bp meds with hold parameters. Remaining home medications on hold due to nothing by mouth status with NG tube in place. -Arthritis -CAD/dyslipidemia -Hypertension -Renal artery stenosis -Obstruction sleep apnea -Morbid obesity S/P Andi-en-Y gastric bypass -Fatty liver DVT ppx: mechanical DISPO: pending clinical improvement. Monitor I/O. VS,Fishbone, I+O VS, Fishbone, I+O Laboratory Tests 07/10/19 19:04 07/11/19 06:08 Vital Signs Date Time Temp Pulse Resp B/P (MAP) Pulse Ox O2 Delivery O2 Flow Rate FiO2 07/11/19 15:39 99.1 83 17 131/77 (95) 93 Room Air I&O- Last 24 Hours up to 6 AM 07/11/19 06:00 Intake Total 275 ml Output Total 600 ml Balance -325 ml GME ATTESTATION GME ATTESTATION My faculty preceptor for this patient encounter was physically present during t he encounter and was fully available. All aspects of the patient interview, examination, medical decision making process, and medical care plan development were reviewed and approved by the faculty preceptor. The faculty preceptor is aware and concurs with the plan as stated in the body of this note and will attest to such by his/her cosignature. ATTENDING NOTE I, Elvie Kurtz, have independently examined this patient and performed my own physical exam, as well as reviewed the documentation and edited where necessary. I have discussed in detail with the resident / student the findings and plan of treatment as documented by the resident / student and edited their note. I agree with their findings and treatment plan and have edited their documentation. We will continue to follow the patient during this hospital stay. AMENA MONREAL DO Jul 11, 2019 18:45 ELVIE KURTZ MD Jul 11, 2019 19:27
[2019-07-11] MEDS ORDERED: MORPHINE 2 MG/ML 1ML VIAL (J2270) IV PRN (19:00)
[2019-07-11] MEDS ORDERED: ONDANSETRON 4MG/2ML VIAL (J2405 PER 1MG) IV PRN (19:00)
[2019-07-11] MEDS: LOSARTAN 50 MG TAB PO SCH (20:10)
[2019-07-11 22:00] VITALS: BP 131/78
[2019-07-12 02:00] VITALS: BP 118/76
[2019-07-12] MEDS: MEROPENEM INJ 1 GM in IV 1 EA IV SCH (05:27)
[2019-07-12 06:00] VITALS: BP 117/77
[2019-07-12] MEDS ORDERED: VANCOMYCIN HCL 1,000 MG, VIAL MATE ADAPTER 1 EACH in D5W 250 ML IV SCH (06:00)
[2019-07-12] MEDS: CHLORTHALIDONE 25 MG TAB PO SCH (08:44)
[2019-07-12] MEDS: amLODIPine 5 MG TAB PO SCH (08:44)
[2019-07-12] MEDS: ACETAMINOPHEN *IV* 1,000 MG in IV 1 EA IV PRN (08:45)
--- NOTE | 2019-07-12 09:49 | REP ---
REASON: Followup. COMPARISON: 07/11/2019 Upright view of the chest is within normal limits and unchanged. The nasogastric tube is seen coursing the esophagus. The tip of the tube is in the stomach fundal/body region essentially unchanged from the prior exam. There is no free subdiaphragmatic air. The intestinal gas pattern is not changed significantly. There is a dilated small bowel gas-filled loop in the abdomen. Small amount of gas is seen in the rectosigmoid region. There is no change in the appearance of the organ silhouettes insofar as are delineated. There is no change in the osseous structures. IMPRESSION: No significant change with findings as described above. Electronically Signed by Zack Garza DO 07/12/2019 10:23 A
[2019-07-12 10:00] VITALS: BP 122/66
[2019-07-12 10:36] LABS: HEMATOCRIT 39.5 % (36.0-47.0); HEMOGLOBIN 12.9 g/dl (12.0-15.5); MEAN CORPUSCULAR HEMOGLOBIN 31.2 pg (27.0-33.0); MEAN CORPUSCULAR HGB CONC 32.7 g/dl (32.0-36.5); MEAN CORPUSCULAR VOLUME 95.6 fl (80.0-96.0); PLATELET COUNT, AUTOMATED 350 10^3/uL (150-450); RED BLOOD COUNT 4.13 10^6/uL (4.00-5.40); WHITE BLOOD COUNT 8.4 10^3/uL (4.0-10.0)
[2019-07-12 11:08] LABS: CALCIUM LEVEL 9.6 MG/DL (8.8-10.2); CREATININE FOR GFR 1.06 MG/DL (0.55-1.30); GLOMERULAR FILTRATION RATE 55.4 (>45); PHOSPHORUS LEVEL 3.2 MG/DL (2.5-4.9); POTASSIUM SERUM 3.9 MEQ/L (3.5-5.1)
[2019-07-12] MEDS: LR 1,000 ML IV SCH (13:45)
--- NOTE | 2019-07-12 13:55 | IPNPDOC ---
Text Note Date of Service The patient was seen on 07/12/19. NOTE S: Pt examined at bedside. No events overnight. Has minimal appetite and NGT in place. Stable & no complaints. PE: Vitals: see below General: NAD, A&Ox3, resting comfortably HEENT: NCAT, EOMI, anicteric sclera, MMM CV: RRR, 2/6 systolic murmur, loud S1, no clicks or rub. No edema RESP: CTAB, no w/r/r/ ABD: soft, mildly tender LLQ, mildly distended same as yesterday. No r/g/r. Pe riumbilical hernia present. NGT in place with brown nonbloody output EXTREMITIES: 2+ radial pulses b/l, able to move all extremities NEURO: no focal deficits or acute changes A/P: 1. Partial small bowel obstruction - Dilated small bowel loops in the upper abdomen noted on imaging. Repeat KUB today shows bowel loops unchanged - Surgery consulted; appreciate input - Per Dr. Lindsey: Possible chronic obstruction from ventral hernia. Continue NPO, NG tube, outpatient follow-up if obstruction resolves with conservative measures. No plans for surgery currently - hemodynamically stable. No fever or white count, neg blood culture. Will d/c empiric Vanc, Meorpenem For the remainder of her chronic medical conditions, continue bp meds with hold parameters. Remaining home medications on hold due to nothing by mouth status with NG tube in place. -Arthritis -CAD/dyslipidemia -Hypertension -Renal artery stenosis -Obstruction sleep apnea -Morbid obesity S/P Andi-en-Y gastric bypass -Fatty liver DVT ppx: mechanical DISPO: pending clinical improvement. Monitor I/O. VS,Fishbone, I+O VS, Fishbone, I+O Laboratory Tests 07/12/19 10:26 Vital Signs Date Time Temp Pulse Resp B/P (MAP) Pulse Ox O2 Delivery O2 Flow Rate FiO2 07/12/19 10:00 98.3 74 18 122/66 (84) 93 Room Air I&O- Last 24 Hours up to 6 AM 07/12/19 05:59 Intake Total 325 ml Output Total 2825 ml Balance -2500 ml GME ATTESTATION GME ATTESTATION My faculty preceptor for this patient encounter was physically present during the encounter and was fully available. All aspects of the patient interview, examination, medical decision making process, and medical care plan development were reviewed and approved by the faculty preceptor. The faculty preceptor is aware and concurs with the plan as stated in the body of this note and will attest to such by his/her cosignature. ATTENDING NOTE I, Elvie Kurtz, have independently examined this patient and performed my own physical exam, as well as reviewed the documentation and edited where necessary. I have discussed in detail with the resident / student the findings and plan of treatment as documented by the resident / student and edited their note. I agree with their findings and treatment plan and have edited their documentation. At this time, she continues to have an NGT with moderate output and will continue with it per surgery team recommendations as we try medical management for her SBO. We will continue to follow the patient during this hospital stay. AMENA MONREAL DO Jul 12, 2019 13:55 ELVIE KURTZ MD Jul 13, 2019 08:26
[2019-07-12 14:00] VITALS: BP 115/66
--- NOTE | 2019-07-12 14:31 | IPN ---
DATE: 07/12/2019 The has been doing well overnight. She had a little bit of flatus overnight and a very tiny bowel movement this morning. Overall, she feels less distended than she has been. She has not had any fevers or chills. Ins and Outs: She is still putting a fair bit out of her nasogastric (NG) tube at this time. On her physical exam, her abdomen is less distended, definitely less tight, but she still has some tympany across the upper abdomen and this is where the x-ray shows a loop of bowel that is still air-filled in this area, but otherwise I think that the x-ray despite the radiologist's statement that they feel that it is relatively unchanged is somewhat better, and with her clinical improvement overall, I feel at this time that we can continue her with an NG tube decompression for today. Tomorrow depending on how she is doing, if she has continued improvement, bowel movements, etc., we may consider discontinuing the NG tube, but my concern with her is that this is probably a colonic partial obstruction that she has had. When I look back at some old CAT scans, there is some evidence that it seems to be in the same area associated with the hernia and given this information I would like to have an upper GI with small-bowel follow-through performed tomorrow and will see what that shows. If necessary, she may need operative intervention to reduce this hernia/repair the hernia. She understands our current plan and understands that at this point we do not see any peritoneal signs, we do not see any progression of bowel obstruction, nor do we see any elevated white count, fever, etc. Thus, would like to see what the small-bowel follow-through shows, unless she has dramatic increases overnight.
[2019-07-12 19:04] VITALS: BP 125/80
[2019-07-12 20:00] VITALS: BP 126/78
[2019-07-12] MEDS: LOSARTAN 50 MG TAB PO SCH (20:20)
[2019-07-13] MEDS: LR 1,000 ML IV SCH (00:34)
[2019-07-13 02:00] VITALS: BP 106/67
[2019-07-13 06:00] VITALS: BP 112/59
[2019-07-13] MEDS: CHLORTHALIDONE 25 MG TAB PO SCH (08:39)
[2019-07-13] MEDS: amLODIPine 5 MG TAB PO SCH (08:39)
[2019-07-13] MEDS: D5W/LR 1,000 ML IV SCH ×2 (08:47→20:12)
[2019-07-13] MEDS ORDERED: E-Z-PAQUE 96% w/w SUSP 176GM BTL As Ordered ONE (08:51)
[2019-07-13] MEDS: DOCUSATE SODIUM 100 MG CAP PO SCH ×2 (13:26→20:12)
[2019-07-13] MEDS: SENNA 8.6 MG TAB (SENOKOT) PO SCH ×2 (13:27→20:13)
[2019-07-13 14:25] VITALS: BP 120/67
--- NOTE | 2019-07-13 15:54 | REP ---
Small bowel follow-through The procedure was performed under the direct supervision of Dr. Engel. The images were reviewed with Dr. Engel. The oil seal assembler film shows no organomegaly or pathological masses. The intestinal gas pattern is nonspecific. There are multiple sub surgical clips and bowel sutures noted throughout the abdomen. There is an NG tube in place. Liquid barium was administered and the barium column was followed through the small bowel to the level of the terminal ileum. Small bowel transit time is approximately 70 minutes . There is free flow of contrast to the cecum. There is moderate dilation of the proximal small bowel. The loops of bowel that going and at out of the hernia are narrowed. There is no evidence of obstruction. Spot filming of the terminal ileum shows it to be unremarkable. Impression: Small bowel transit time is approximately 70 minutes . There is free flow of contrast to the cecum. There is moderate dilation of the proximal small bowel. The loops of bowel that enter and exit the hernia are narrowed. There is no evidence of obstruction. Spot filming of the terminal ileum shows it to be unremarkable. 2.6 minutes of fluoro time was utilized for this procedure. Electronically Signed by DMAIÁN Rlaph 07/13/2019 03:27 P Electronically Signed by Jez Engel MD 07/13/2019 03:46 P
--- NOTE | 2019-07-13 17:18 | IPNPDOC ---
Text Note Date of Service The patient was seen on 07/13/19. NOTE S: Pt examined at bedside. Still has NG tube in place and had a soft bowel mvmt this am. No abd pain or n/v. Hemodynamically stable without any events overnight. PE: Vitals: see below General: NAD, A&Ox3, laying in bed comfortably HEENT: NCAT, EOMI, anicteric sclera, MMM CV: RRR, 2/6 systolic murmur, loud S1, no clicks or rub. No edema RESP: CTAB, no w/r/r/ ABD: soft, mildly tender LLQ. No r/g/r. Periumbilical hernia present. NGT in place EXTREMITIES: 2+ radial pulses b/l, able to move all extremities NEURO: no focal deficits or acute changes A/P: 1. Partial small bowel obstruction - Dilated small bowel loops in the upper abdomen noted on imaging - Surgery consulted; appreciate input - Per Dr. Lindsey: Possible chronic obstruction from ventral hernia. NPO on IVF, NG tube, outpatient follow-up if obstruction resolves with conservative measures. No plans for surgery currently. - Pending small bowel follow through as per surgery 2. Hypoglycemia - fs in 70s, pt asymptomatic - no DM at baseline - is NPO. Will add D5 to fluids, fs q6 For the remainder of her chronic medical conditions, continue bp meds with hold parameters. Remaining home medications on hold due to nothing by mouth status with NG tube in place. -Arthritis -CAD/dyslipidemia -Hypertension -Renal artery stenosis -Obstruction sleep apnea -Morbid obesity S/P Andi-en-Y gastric bypass -Fatty liver DVT ppx: mechanical DISPO: pending clinical improvement. Monitor I/O. VS,Fishbone, I+O VS, Fishbone, I+O Vital Signs Date Time Temp Pulse Resp B/P (MAP) Pulse Ox O2 Delivery O2 Flow Rate FiO2 07/13/19 14:25 98.5 82 18 120/67 (84) 95 Room Air I&O- Last 24 Hours up to 6 AM 07/13/19 06:00 Intake Total 2017 ml Output Total 1175 ml Balance 842 ml GME ATTESTATION GME ATTESTATION My faculty preceptor for this patient encounter was physically present during the encounter and was fully available. All aspects of the patient interview, examination, medical decision making process, and medical care plan development were reviewed and approved by the faculty preceptor. The faculty preceptor is aware and concurs with the plan as stated in the body of this note and will attest to such by his/her cosignature. ATTENDING NOTE I, Elvie Kurtz, have independently examined this patient and performed my own physical exam, as well as reviewed the documentation and edited where necessary. I have discussed in detail with the resident / student the findings and plan of treatment as documented by the resident / student and edited their note. I agree with their findings and treatment plan and have edited their documentation. We will continue to follow the patient during this hospital stay as we medically manage her SBO with surgery team onboard. AMENA MONREAL DO Jul 13, 2019 17:18 ELVIE KURTZ MD Jul 13, 2019 19:33
[2019-07-13 20:12] VITALS: BP 118/61
[2019-07-13] MEDS: LOSARTAN 50 MG TAB PO SCH (20:12)
[2019-07-13] MEDS: ACETAMINOPHEN *IV* 1,000 MG in IV 1 EA IV PRN (20:15)
[2019-07-13 22:00] VITALS: BP 118/61
[2019-07-14 06:00] VITALS: BP 140/72
[2019-07-14 08:27] LABS: HEMATOCRIT 38.6 % (36.0-47.0); HEMOGLOBIN 12.3 g/dl (12.0-15.5); MEAN CORPUSCULAR HEMOGLOBIN 31.1 pg (27.0-33.0); MEAN CORPUSCULAR HGB CONC 31.9 g/dl (32.0-36.5); MEAN CORPUSCULAR VOLUME 97.5 fl (80.0-96.0); PLATELET COUNT, AUTOMATED 329 10^3/uL (150-450); RED BLOOD COUNT 3.96 10^6/uL (4.00-5.40); WHITE BLOOD COUNT 6.3 10^3/uL (4.0-10.0)
[2019-07-14 08:53] LABS: BLOOD UREA NITROGEN 15 MG/DL (7-18); CALCIUM LEVEL 9.4 MG/DL (8.8-10.2); CARBON DIOXIDE LEVEL 28 MEQ/L (21-32); CHLORIDE LEVEL 105 MEQ/L (98-107); CREATININE FOR GFR 0.87 MG/DL (0.55-1.30); GLOMERULAR FILTRATION RATE > 60.0 (>45); GLUCOSE, FASTING 119 MG/DL (70-100); POTASSIUM SERUM 3.8 MEQ/L (3.5-5.1); SODIUM LEVEL 141 MEQ/L (136-145)
[2019-07-14] MEDS: CHLORTHALIDONE 25 MG TAB PO SCH (08:58)
[2019-07-14] MEDS: amLODIPine 5 MG TAB PO SCH (08:59)
[2019-07-14] MEDS: DOCUSATE SODIUM 100 MG CAP PO SCH (09:00)
[2019-07-14] MEDS: SENNA 8.6 MG TAB (SENOKOT) PO SCH (09:00)
[2019-07-14] MEDS: D5W/LR 1,000 ML IV SCH (09:00)
[2019-07-14] MEDS ORDERED: DOCU100C16 PO (11:10)
[2019-07-14] MEDS ORDERED: SENN18TA PO (11:10)
[2019-07-14 12:00] VITALS: BP 119/52
--- NOTE | 2019-07-14 17:42 | DS.PDOC ---
Discharge Summary General Date of Admission Jul 10, 2019 at 23:03 Date of Discharge 07/14/2019 Attending Physician: CINDY KURTZ MD Specialist/Consultants Involve: Neeraj Lindsey Jr Discharge Summary PROCEDURES PERFORMED DURING STAY: None. DISCHARGE DIAGNOSES: 1. Small bowel instruction in setting of ventral hernia 2. Transient hypoglycemia in setting of NPO 3. Arthritis 4. CAD/dyslipidemia 5. Hypertension 6. Renal artery stenosis 7. Obstruction sleep apnea 8. Morbid obesity S/P Andi-en-Y gastric bypass 9. Fatty liver HISTORY OF PRESENT ILLNESS: 63-year-old female presented for severe abdominal pain, intermittent that began the night before after eating dinner. She reports the pain is diffuse all throughout her stomach, more localized in the upper part of her abdomen. Pain worsened by standing, alleviated when laying down. Has associated acid reflux and nausea and vomiting. Imaging on admission revealed small bowel obstruction. HOSPITAL COURSE: Patient was admitted. Surgeon Dr. Lindsey consulted, who recommended supportive care with NG tube to suction, IV fluids, nothing by mouth. During this time, her blood sugars dropped into the 70s, patient was asymptomatic. D5 was supplemented in her fluids, with which she did well. Patient gradually improved with less nausea and less output in her tube. Small bowel follow-through did not show any obstruction, NG tube was removed and diet was advanced per surgery. She tolerated diet, which was gradually advance by surgery. She had soft bowel movements, no longer experiencing abdominal pain. No events during her stay. Was hemodynamically stable, afebrile, no leukocytosis. She was discharged home with instructions to close follow up with surgeon and 1- 2 weeks for possible ventral hernia repair to prevent any further episodes of obstruction. DISCHARGE MEDICATIONS: Please see below. ALLERGIES: Please see below. PHYSICAL EXAMINATION ON DISCHARGE: Vitals: see below General: NAD, A&Ox3, laying in bed comfortably HEENT: NCAT, EOMI, anicteric sclera, MMM, neck supple CV: RRR, 2/6 systolic murmur, loud S1, no clicks or rub. No edema RESP: CTAB, no w/r/r/ ABD: soft, nontender. No r/g/r. Periumbilical hernia present. EXTREMITIES: 2+ radial pulses b/l, able to move all extremities NEURO: no focal deficits or acute changes LABORATORY DATA: Please see below. IMAGING: * 07/10/19 CT abdomen and pelvis: 1. 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 2. Small bowel obstruction involving the alimentary and biliopancreatic limbs of the Andi-e n-Y gastric bypass with a transition point located just distal to the "Y" jejunal-jejunal anastomosis at the entry point for a large ventral hernia that contains several loops of small bowel. 3. Fatty liver. 4. Severe stenosis of the proximal portion of the single main right renal artery. 5. Colonic diverticulosis without evidence for diverticulitis. * 07/13/19 small bowel follow-through: Small bowel transit time is approximately 70 minutes . There is free flow of contrast to the cecum. There is moderate dilation of the proximal small bowel. The loops of bowel that enter and exit the hernia are narrowed. There is no evidence of obstruction. Spot filming of the terminal ileum shows it to be unremarkable. PROGNOSIS: good ACTIVITY: As tolerated. DIET: Low residue DISPOSITION: home DISCHARGE INSTRUCTIONS: 1. Follow-up with PCP within a week, surgery 1- 2 weeks 2. Return to ER for emergency DISCHARGE CONDITION: Stable. TIME SPENT ON DISCHARGE: Greater than 35 minutes. Vital Signs/I&Os Vital Signs Date Time Temp Pulse Resp B/P (MAP) Pulse Ox O2 Delivery O2 Flow Rate FiO2 07/14/19 12:00 96.8 86 20 119/52 (74) 96 Room Air I&O- Last 24 Hours up to 6 AM 07/14/19 06:00 Intake Total 2640 ml Output Total 2075 ml Balance 565 ml Laboratory Data Labs 24H Laboratory Tests 2 07/13/19 23:42: Bedside Glucose (Misc Panel) 110 07/14/19 06:05: Bedside Glucose (Misc Panel) 96 07/14/19 08:05: Nucleated Red Blood Cells % (auto) 0.0, Anion Gap 8, Glomerular Filtration Rate > 60.0, Calcium Level 9.4 CBC/BMP Laboratory Tests 07/14/19 08:05 FSBS Laboratory Tests Test 07/13/19 23:42 07/14/19 06:05 Range/Units Bedside Glucose (Misc Panel) 110 96 80-115 MG/DL Microbiology Microbiology 07/10/19 Blood Culture - Preliminary, Resulted No Growth after 72 hours. All specime... Discharge Medications Scheduled Amlodipine Besylate (Amlodipine Besylate) 5 Mg Tablet, 5 MG PO DAILY, (Reported) Chlorthalidone (Chlorthalidone) 25 Mg Tablet, 25 MG PO DAILY, (Reported) Docusate Sodium (Docusate Sodium) 100 Mg Capsule, 200 MG PO BID Fenofibrate Nanocrystallized (Tricor) 145 Mg Tablet, 145 MG PO DAILY, (Reported) Losartan Potassium (Losartan Potassium) 100 Mg Tablet, 100 MG PO QHS, (Reported) Senna (Senna Lax) 8.6 Mg Tablet, 2 TAB PO BID Tizanidine HCl (Tizanidine HCl) 4 Mg Tablet, 4 MG PO QHS, (Reported) Scheduled PRN Acetaminophen (Tylenol Arthritis) 650 Mg Tablet.er, 650 MG PO Q8HP PRN for PAIN, (Reported) Ondansetron HCl (Ondansetron HCl) 4 Mg Tablet, 4 MG PO Q4H PRN for NAUSEA OR VOMITING, (Reported) Allergies Coded Allergies: adhesive (Verified Allergy, Intermediate, rash, 10/24/18) iodine (Verified Allergy, Unknown, 10/24/18) per Dr chaves povidone-iodine (Verified Allergy, Unknown, 10/24/18) per DR chaves soap (Verified Allergy, Unknown, 10/24/18) per DR chaves GME ATTESTATION GME ATTESTATION My faculty preceptor for this patient encounter was physically present during the encounter and was fully available. All aspects of the patient interview, examination, medical decision making process, and medical care plan development were reviewed and approved by the faculty preceptor. The faculty preceptor is aware and concurs with the plan as stated in the body of this note and will attest to such by his/her cosignature. ATTENDING NOTE I, Cindy Kurtz, have independently examined this patient and performed my own physical exam, as well as reviewed the documentation and edited where necessary. I have discussed in detail with the resident / student the findings and plan of treatment as documented by the resident / student and edited their note. I agree with their findings and treatment plan and have adonay truman their documentation. Ms. Cool was admitted with an SBO that was medically managed with bowel rest, NGT placement and gradual re-introduction of PO with surgery onboard with improvement who is now being discharged home with surgery outpatient follow up. AMENA MONREAL DO Jul 14, 2019 17:42 CINDY KURTZ MD Jul 15, 2019 07:49
== END 2019-07-14 14:31 | disposition home or self-care (01) | DRG 395 ==
LOC: M ED 18:09 → M ED INP 23:03 → ENRESERVTM 07-11 00:58 → ENRESERVDT 07-11 00:58 → ENRESERVTM 07-11 01:03 → M MS5PR 07-11 02:08
PROVIDERS: ADMIT Internal Medicine; ATTEND Internal Medicine
DX: K43.6 Other and unspecified ventral hernia with obstruction, without gangrene (principal); I25.10 Atherosclerotic heart disease of native coronary artery without angina pectoris; E78.5 Hyperlipidemia, unspecified; I10 Essential (primary) hypertension; K76.0 Fatty (change of) liver, not elsewhere classified; E66.01 Morbid (severe) obesity due to excess calories; I70.1 Atherosclerosis of renal artery; G47.33 Obstructive sleep apnea (adult) (pediatric); F41.9 Anxiety disorder, unspecified; E16.2 Hypoglycemia, unspecified; M17.12 Unilateral primary osteoarthritis, left knee; Z98.84 Bariatric surgery status; K57.90 Diverticulosis of intestine, part unspecified, without perforation or abscess without bleeding; Z90.49 Acquired absence of other specified parts of digestive tract; Z79.899 Other long term (current) drug therapy; Z88.8 Allergy status to other drugs, medicaments and biological substances; Z91.048 Other nonmedicinal substance allergy status; Z68.38 Body mass index [BMI] 38.0-38.9, adult

== ENCOUNTER → 2019-08-23 | Outpatient (CLI) | payer MEDICARE ==
[~2019-08-23] MED LIST changes: +AMLO5TAB6 PO; +CHLO125TA PO; +COLA100C5 PO; +DOCU100C16 PO; +ONDA-83 PO; +PRIL20TA2 PO; +SENN18TA PO; +SENN8.6T58 PO; +TIZA4TAB4 PO; +TYLETAB14 PO; +VITAD1000T PO
[2019-08-23 10:36] LABS: HEMOGLOBIN 11.5 g/dl (12.0-15.5); MEAN CORPUSCULAR HEMOGLOBIN 30.4 pg (27.0-33.0); MEAN CORPUSCULAR HGB CONC 31.1 g/dl (32.0-36.5); MEAN CORPUSCULAR VOLUME 97.9 fl (80.0-96.0); PLATELET COUNT, AUTOMATED 335 10^3/uL (150-450); RED BLOOD COUNT 3.78 10^6/uL (4.00-5.40); WHITE BLOOD COUNT 5.3 10^3/uL (4.0-10.0)
[2019-08-23 10:48] LABS: INR 0.98; PROTHROMBIN TIME 12.7 SECONDS (11.8-14.0)
[2019-08-23 11:02] LABS: ALBUMIN 4.4 GM/DL (3.2-5.2); BILIRUBIN,TOTAL 0.3 MG/DL (0.2-1.0); CALCIUM LEVEL 10.4 MG/DL (8.8-10.2); CREATININE FOR GFR 1.05 MG/DL (0.55-1.30); POTASSIUM SERUM 4.5 MEQ/L (3.5-5.1); TOTAL PROTEIN 7.4 GM/DL (6.4-8.2)
[2019-08-23 11:03] LABS: ERYTHROCYTE SEDIMENTATION RATE 26 mm/hr (0-30)
== END ==
LOC: M LAB 09:32
PROVIDERS: ATTEND Orthopaedic Surgery
DX: Z01.818 Encounter for other preprocedural examination (principal); M17.11 Unilateral primary osteoarthritis, right knee

== ENCOUNTER → 2019-08-25 | Outpatient (REF) | payer MEDICARE ==
[2019-08-25 17:28] LABS: HEMATOCRIT 37.6 % (36.0-47.0)
[2019-08-25 17:43] LABS: ALBUMIN 4.3 GM/DL (3.2-5.2); BLOOD UREA NITROGEN 30 MG/DL (7-18); CALCIUM LEVEL 10.2 MG/DL (8.8-10.2); CARBON DIOXIDE LEVEL 23 MEQ/L (21-32); CHLORIDE LEVEL 106 MEQ/L (98-107); CREATININE FOR GFR 0.95 MG/DL (0.55-1.30); FERRITIN 81 NG/ML (8-252); GLOMERULAR FILTRATION RATE > 60.0 (>45); GLUCOSE, FASTING 138 MG/DL (70-100); POTASSIUM SERUM 4.3 MEQ/L (3.5-5.1); SODIUM LEVEL 141 MEQ/L (136-145); TOTAL PROTEIN 7.5 GM/DL (6.4-8.2)
[2019-08-25 17:47] LABS: PTH INTACT 21.8 PG/ML (18.5-88.0); VITAMIN B12 LEVEL 490 PG/ML (247-911)
[2019-08-25 17:54] LABS: CREATININE,RANDOM URINE 50.3 MG/DL; TOTAL PROTEIN,RANDOM URINE 9.3 MG/DL (0.0-12.0)
[2019-08-25 18:36] LABS: HEMOGLOBIN A1c 5.7 %
== END ==
LOC: M SFHCPLAZ 13:52
PROVIDERS: ATTEND Family Medicine
DX: D75.89 Other specified diseases of blood and blood-forming organs (principal); N18.3 Chronic kidney disease, stage 3 (moderate); E83.52 Hypercalcemia; R73.01 Impaired fasting glucose

== ENCOUNTER → 2019-08-25 | Outpatient (CLI) | payer MEDICARE ==
--- NOTE | 2019-08-26 08:30 | REPPI ---
TWO-VIEW CHEST: REASON FOR EXAM: Preoperative evaluation. COMPARISON: Frontal view obtained as part of an abdominal series, 07/12/2019. FINDINGS: The superior mediastinal structures are midline. The cardiac silhouette is unremarkable in size, shape, and position. The diaphragmatic surfaces of the lungs are regular, and the costophrenic angles are clear. The pulmonary mortensen are clear. The imaged osseous structures are intact. IMPRESSION: There is no acute cardiopulmonary disease. Electronically Signed by Zack Garza DO 08/28/2019 09:54 A
== END ==
LOC: M PLAIMG 13:54
PROVIDERS: ATTEND Family Medicine
DX: Z01.818 Encounter for other preprocedural examination (principal); I10 Essential (primary) hypertension

== ENCOUNTER → 2019-08-25 | Outpatient (CLI) | payer MEDICARE | LOC: M LABSMTC 11:59 | PROVIDERS: ATTEND Anesthesiology | DX: Z01.818 Encounter for other preprocedural examination (principal); Z11.59 Encounter for screening for other viral diseases | CPT/HCPCS: C9803; U0003 ==

== ENCOUNTER 2019-08-28 07:30 | Inpatient (IN) | payer MEDICARE ==
--- NOTE | 2019-08-27 10:11 | HPE ---
DATE OF ANTICIPATED ADMISSION: 08/28/2019 ATTENDING PHYSICIAN: Dr. Jan Persaud CHIEF COMPLAINT: Right knee pain and stiffness. HISTORY: This is a pleasant 63-year-old female patient with progressively worsening right knee pain and stiffness. She has failed to improve with conservative management to include injections. She has elected for surgical treatment of her ongoing symptoms. She has been consented by Dr. Jan Persaud for a right knee total arthroplasty. ALLERGIES: OPSITE DRESSING/ADHESIVE, BETADINE and IODINE. MEDICATIONS: - amlodipine 5 mg - chlorthalidone 25 mg - Cozaar 25 mg - Pamelor 10 mg one by mouth at night - tizanidine 4 mg one by mouth as needed - Tricor 145 mg one by mouth daily - Ubiquinol 100 mg - vitamin B12 500 mcg - vitamin D 400 units - vitamin E 200 units - Prilosec one by mouth daily PAST MEDICAL HISTORY: Hypertension. Hyperlipidemia. Gastroesophageal reflux disease (GERD). Osteoarthritis. History of bowel obstructions and hernia. PAST SURGICAL HISTORY: Left knee total arthroplasty. Left rotator cuff repair. Multiple hernia repairs. Gastric bypass. Patient unable to remember the rest. FAMILY HISTORY: Sister diabetes and history of myocardial infarction (NM). Brother times two with valve replacement. SOCIAL HISTORY: The patient is a nonsmoker and does not use alcohol. REVIEW OF SYSTEMS: Denies fever, chills, chest pain, shortness of breath, nausea, vomiting, diarrhea. Denies recent upper respiratory or urinary tract infection symptoms. PHYSICAL EXAM: Height: 5 feet. Weight: 200. Temperature 97.8. She is normocephalic, atraumatic, in no apparent distress. Neck is supple and nontender with no lymphadenopathy or jugular venous distention (JVD). Abdomen is soft and nontender. S1, S2 auscultated. Lungs: Clear to auscultation bilaterally with no wheezes, rales, rhonchi. Right knee shows intact overlying skin with no rashes or breaks in the skin. She has intact range of motion, intact neurovascular status in this right lower extremity. LABS: White count 5.3, red count 3.78, hemoglobin 11.5, hematocrit 37, ESR 26, BUN 39, creatinine 1.05, PT 12.7, INR 0.98. EKG with sinus tachycardia, minimal ST depression, abnormal rhythm, slightly increased abnormality when compared with 11/01/2018. Chest x-ray unavailable. Medical clearance not yet available today on chart. The patient has seen Dr. Mon who was awaiting the results of chest x-ray and further blood work to give medical optimization and final recommendation. ASSESSMENT: Symptomatic right knee degenerative changes. PLAN: Awaiting clearance from Dr. Mon for right knee total arthroplasty with Dr. Jan Persaud.
[2019-08-28] VITALS (7 sets, daily range): BP systolic 107–139; BP diastolic 57–83
[~2019-08-28] VITALS: Ht 152.4 cm; Wt 90.6 kg
[~2019-08-28 07:30] MED LIST changes: +LIDOCAINE 1% MDV 20ML VIAL SQ PRN; +LR 1,000 ML IV SCH; -PRIL20TA2 PO; +ceFAZolin SOD 2 GM in IV 1 EA IV SCH
[2019-08-28] MEDS ORDERED: PRIL20TA2 PO (09:42)
[2019-08-28] MEDS ORDERED: BUPIVACAINE LIPOSOME/PF 1.3% 20ML VIAL (13.3MG/ML)(EXPAREL)(C9290 PER1MG) As Ordered ONE (09:43)
[2019-08-28] MEDS ORDERED: ceFAZolin 1GM VIAL (J0690 PER 500MG) As Ordered ONE (09:43)
[2019-08-28] MEDS ORDERED: TRANEXAMIC ACID 100 MG/ML 10ML VIAL As Ordered ONE (09:43)
[2019-08-28] MEDS ORDERED: EPINEPHrine INJ 1 MG/ML 1ML AMP As Ordered ONE (09:44)
[2019-08-28] MEDS ORDERED: ceFAZolin SOD 2 GM in IV 1 EA IV ONE (09:45)
[2019-08-28] MEDS ORDERED: MIDAZOLAM INJ 2MG/2ML VIAL (J2250 PER 1MG) As Ordered ONE ×3 (09:52→12:03)
[2019-08-28] MEDS ORDERED: LIDOCAINE 2% 100MG/5ML SDV (FOR ANES.) As Ordered ONE (09:52)
[2019-08-28] MEDS ORDERED: propofoL 200 MG/20 ML VIAL As Ordered ONE (09:52)
[2019-08-28] MEDS ORDERED: fentaNYL 100 MCG/2 ML INJECTION (J3010) As Ordered ONE ×2 (09:57→10:24)
[2019-08-28] MEDS: MIDAZOLAM INJ 2MG/2ML VIAL (J2250 PER 1MG) IV PRN (10:40)
[2019-08-28] MEDS: fentaNYL 100 MCG/2 ML INJECTION (J3010) IV PRN ×2 (10:40→10:44)
[2019-08-28] MEDS ORDERED: ePHEDrine SULFATE 25 MG/5 ML(5MG/ML) SYRINGE As Ordered ONE ×2 (11:49→12:08)
[2019-08-28] MEDS ORDERED: ACETAMINOPHEN 1000MG 100ML IV BTL (OFIRMEV) (J0131 PER 10MG) As Ordered ONE (11:56)
[2019-08-28] MEDS ORDERED: ONDANSETRON 4MG/2ML VIAL As Ordered ONE (12:28)
[2019-08-28] MEDS ORDERED: MORPHINE 2 MG/ML 1ML VIAL (J2270) IV PRN (13:15)
[2019-08-28] MEDS ORDERED: ONDANSETRON 4MG/2ML VIAL IV PRN ×2 (13:15→13:30)
[2019-08-28] MEDS ORDERED: MORPHINE 4 MG/ML 1ML VIAL/SYRINGE (J2270) IV PRN (13:15)
[2019-08-28] MEDS ORDERED: fentaNYL 100 MCG/2 ML INJECTION (J3010) IV PRN (13:15)
[2019-08-28] MEDS ORDERED: LR 1,000 ML IV SCH (13:15)
[2019-08-28] MEDS ORDERED: METOCLOPRAMIDE INJ 10MG/2ML VIAL (J2765 PER 1) IV PRN (13:15)
[2019-08-28] MEDS ORDERED: PERCOCET 5MG/325MG TAB PO PRN ×3 (13:15→16:30)
[2019-08-28] MEDS: LR 1,000 ML IV SCH (13:15)
[2019-08-28] MEDS ORDERED: ROPIvacaine 0.5% 30ML INJECTION (J2795 PER 1MG) ONE (13:37)
[2019-08-28] MEDS ORDERED: LIDOCAINE 1% MDV 20ML VIAL ONE (13:37)
[2019-08-28] MEDS ORDERED: EPINEPHrine INJ 1 MG/ML 1ML AMP ONE (13:37)
--- NOTE | 2019-08-28 14:40 | REP ---
RIGHT KNEE, TWO VIEWS: Two views right knee performed. There is a total knee prosthesis in good position. Osseous structures are well aligned. Metallic skin winnie are seen anteriorly. Electronically Signed by Jez Engel MD 08/29/2019 01:15 P
[2019-08-28] MEDS ORDERED: ACETAMINOPHEN TAB 650MG DOSE (2X325MG) PO PRN (15:15)
[2019-08-28] MEDS ORDERED: KETOROLAC 30 MG/ML 1ML VIAL IV ONE (17:00)
--- NOTE | 2019-08-28 17:27 | IPN ---
DATE: 08/28/2019 Patient seen and examined. She wishes to go ahead with a right total knee arthroplasty. She understands the nature and the risks of bleeding, infection, damage to nerves, vessels, persistent pain, wear loosening, blood clots, medical problems, , among others. Preop clearance was obtained.
[2019-08-28] MEDS: ceFAZolin SOD 2 GM in IV 1 EA IV SCH (18:37)
[2019-08-28] MEDS: PERCOCET 5MG/325MG TAB PO PRN (18:38)
--- NOTE | 2019-08-28 21:44 | CR.PDOC ---
General Date of Consultation: Aug 28, 2019 Referring Provider: Eduardo Persaud MD Consultation REASON FOR CONSULTATION/CHIEF COMPLAINT: Medical management. HISTORY OF PRESENT ILLNESS: This is a 64-year-old white female with past medical history of chronic CAD, hypertension, right renal artery stenosis. Fatty liver class III obesity, sleep apnea, anxiety, left knee osteoarthritis, diverticulosis, gastric bypass, ventral hernia repair, left rotator cuff repair, tonsillectomy, , bilateral carpal tunnel release, cholecystectomy lateral knee arthroscopy, had a right total knee replacement done today and we will called in for medical management. Patient is completely asymptomatic, does not offer any complaints comfortable in no apparent distress. ALLERGIES: Please see below. HOME MEDICATIONS: Please see below. PAST MEDICAL HISTORY: Chronic CAD, dyslipidemia, chronic hypertension, proximal right renal artery stenosis,. Liver, class III obesity, sleep apnea, anxiety, bilateral knee osteoarthritis, diverticulosis PAST SURGICAL HISTORY: Andi-en-Y gastric bypass, ventral hernia repair, left rotator cuff repair, tonsillectomy, , bilateral carpal tunnel release, cholecystectomy, left total knee replacement in the past Family history: Positive family history of CAD, diabetes and dyslipidemia, both parents SOCIAL HISTORY: Patient is , lives with family. Denies smoking, alcohol or drug abuse REVIEW OF SYSTEMS: CONSTITUTIONAL: , No tiredness or weakness. HEENT: Wire, ear pain. CARDIOVASCULAR: . No chest pain or palpitation. RESPIRATORY: , No shortness of breath or cough. . GENITOURINARY: No dysuria, frequency. MUSCULOSKELETAL: Mild pain in the right knee. GASTROINTESTINAL: ., No nausea, vomiting, diarrhea SKIN: No rash. NEUROLOGICAL: No motor or sensory weakness. PSYCHIATRIC: No anxiety, depression. ENDOCRINE: No history of diabetes. HEMATOLOGIC/LYMPHATIC: To anemia or cancer. ALLERGIC/IMMUNOLOGIC: Allergies. PHYSICAL EXAMINATION: VITAL SIGNS: Please see below. GENERAL APPEARANCE: Patient is a well built, well-nourished, white female. HEENT: Annabel extraocular muscles intact. RESPIRATORY: Clear to A&P. CARDIOVASCULAR: S1, S2, regular. ABDOMEN: , Soft, nontender, bowel sounds present. EXTREMITIES: No clubbing, cyanosis, edema, status post right total knee replacement with surgical scar. NEUROLOGICAL: . No focal motor sensory deficit. PSYCHIATRIC: , No anxiety, depression. LABORATORY DATA: Please see below. ASSESSMENT/PLAN: #1 status post right total knee replacement #2. Chronic CAD: stable #3. Hyperlipidemia: Stable #4. Sleep apnea: Stable #5. Osteoarthritis, status post bilateral knee replacement Patient admitted to [facility] floor for postop care Patient's pain is under well control with the pain management Will continue all patient's home medications. All meds have been renewed Physical therapy has been ordered for tomorrow A.m. level work has also been ordered Discharge planning as per orthopedics Thank you for calling this consult, Dr. Persaud, will gladly follow-up with you ,till pt s discharged Vital Signs/I&O Vital Signs Date Time Temp Pulse Resp B/P (MAP) Pulse Ox O2 Delivery O2 Flow Rate FiO2 08/28/19 19:15 98.2 90 19 139/67 (91) 90 Room Air 08/28/19 13:10 2 Allergies Coded Allergies: adhesive (Verified Allergy, Intermediate, rash, 08/28/19) iodine (Verified Allergy, Unknown, per Dr note, 08/28/19) povidone-iodine (Verified Allergy, Unknown, per DR note, 08/28/19) soap (Verified Allergy, Unknown, per DR note, 08/28/19) Home Medications Scheduled Amlodipine Besylate (Amlodipine Besylate) 5 Mg Tablet, 5 MG PO DAILY, (Reported) Chlorthalidone (Chlorthalidone) 25 Mg Tablet, 25 MG PO DAILY, (Reported) Cholecalciferol (Vitamin D3) (Vitamin D3) 1,000 Unit Tablet, 1,000 UNITS PO DAILY, (Reported) Diclofenac Sodium (Voltaren) 100 Gm Gel..gram., 1 % TD TIDP, (Reported) Fenofibrate Nanocrystallized (Tricor) 145 Mg Tablet, 145 MG PO DAILY, (Reported) Losartan Potassium (Losartan Potassium) 100 Mg Tablet, 100 MG PO QHS, (Reported) Omeprazole Magnesium (Prilosec Otc) 20 Mg Tablet.dr, 20 MG PO BID, (Reported) Tizanidine HCl (Tizanidine HCl) 4 Mg Tablet, 4 MG PO QHS, (Reported) Scheduled PRN Acetaminophen (Tylenol Arthritis) 650 Mg Tablet.er, 650 MG PO Q8HP PRN for PAIN, (Reported) Docusate Sodium (Colace) 100 Mg Capsule, 200 MG PO DAILYPRN PRN for CONSTIPATION, (Reported) Sennosides (Senna) 8.6 Mg Tablet, 1 TAB PO DAILYPRN PRN for CONSTIPATION, (Reported) JOSE DAS MD Aug 28, 2019 21:44
[2019-08-28] MEDS ORDERED: DOCUSATE SODIUM 100 MG CAP PO PRN (21:45)
[2019-08-28] MEDS ORDERED: SENNA 8.6 MG TAB (SENOKOT) PO SCH (21:45)
[2019-08-28] MEDS ORDERED: SENNA 8.6 MG TAB (SENOKOT) PO PRN (21:45)
[2019-08-28] MEDS ORDERED: DOCUSATE SODIUM 100 MG CAP PO SCH (21:45)
[2019-08-29] MEDS: PERCOCET 5MG/325MG TAB PO PRN ×2 (01:50→09:37)
[2019-08-29 02:00] VITALS: BP 151/84
[2019-08-29] MEDS: LR 1,000 ML IV SCH (02:35)
[2019-08-29] MEDS: ceFAZolin SOD 2 GM in IV 1 EA IV SCH (02:49)
[2019-08-29 06:00] VITALS: BP 132/58
[2019-08-29 06:23] LABS: BASO % 0.5 % (0.0-1.0); EOS # 0.1 10^3/uL (0.0-0.5); EOS % 1.6 % (0.0-3.0); HEMATOCRIT 33.5 % (36.0-47.0); HEMOGLOBIN 10.6 g/dl (12.0-15.5); LYMPH # 1.1 10^3/uL (1.5-5.0); LYMPH % 16.9 % (24.0-44.0); MEAN CORPUSCULAR HEMOGLOBIN 30.5 pg (27.0-33.0); MEAN CORPUSCULAR HGB CONC 31.6 g/dl (32.0-36.5); MEAN CORPUSCULAR VOLUME 96.5 fl (80.0-96.0); MONO # 0.5 10^3/uL (0.0-0.8); MONO % 8.2 % (0.0-5.0); NEUTROPHILS # 4.7 10^3/uL (1.5-8.5); NEUTROPHILS % 72.6 % (36.0-66.0); PLATELET COUNT, AUTOMATED 291 10^3/uL (150-450); RED BLOOD COUNT 3.47 10^6/uL (4.00-5.40); WHITE BLOOD COUNT 6.4 10^3/uL (4.0-10.0)
[2019-08-29 06:54] LABS: ALBUMIN 3.7 GM/DL (3.2-5.2); ALT/SGPT 21 U/L (12-78); BILIRUBIN,TOTAL 0.4 MG/DL (0.2-1.0); BLOOD UREA NITROGEN 23 MG/DL (7-18); CALCIUM LEVEL 9.5 MG/DL (8.8-10.2); CARBON DIOXIDE LEVEL 26 MEQ/L (21-32); CHLORIDE LEVEL 106 MEQ/L (98-107); CREATININE FOR GFR 0.88 MG/DL (0.55-1.30); GLOMERULAR FILTRATION RATE > 60.0 (>45); GLUCOSE, FASTING 131 MG/DL (70-100); SODIUM LEVEL 138 MEQ/L (136-145); TOTAL PROTEIN 6.6 GM/DL (6.4-8.2)
[2019-08-29] MEDS ORDERED: XARE10TA PO (07:09)
[2019-08-29] MEDS ORDERED: PERC5TAB12 PO (07:09)
[2019-08-29] MEDS ORDERED: DOCUSATE SODIUM 100 MG CAP PO SCH (09:00)
[2019-08-29] MEDS ORDERED: VITAMIN D 1,000 INTERNATIONAL UNITS TABLET PO SCH (09:00)
[2019-08-29] MEDS ORDERED: SENNA 8.6 MG TAB (SENOKOT) PO SCH (09:00)
[2019-08-29] MEDS ORDERED: FENOFIBRATE 145 MG TAB (TRICOR) PO SCH (09:00)
[2019-08-29] MEDS ORDERED: CHLORTHALIDONE 25 MG TAB PO SCH (09:00)
[2019-08-29] MEDS ORDERED: amLODIPine 5 MG TAB PO SCH (09:00)
[2019-08-29 09:35] VITALS: BP 132/58
[2019-08-29 10:00] VITALS: BP 125/84
[2019-08-29] MEDS ORDERED: ONDANSETRON 4MG/2ML VIAL IV PRN (10:30)
[2019-08-29] MEDS ORDERED: ZOFR4TAB16 PO (10:42)
[2019-08-29] MEDS ORDERED: RIVAROXABAN 10 MG TAB (XARELTO) PO SCH (18:00)
[2019-08-29] MEDS ORDERED: tiZANidine 4 MG TAB PO SCH (21:00)
[2019-08-29] MEDS ORDERED: LOSARTAN 50MG TABLET PO SCH (21:00)
--- NOTE | 2019-09-02 14:19 | RO ---
DATE OF PROCEDURE: 08/28/2019 PREOPERATIVE DIAGNOSIS: Right knee osteoarthritis. POSTOPERATIVE DIAGNOSIS: Right knee osteoarthritis. PROCEDURE: Right total knee arthroplasty using a DePuy Attune rotating platform posterior stabilized size 4 femur, size 3 tibia, 6 polyethylene, 35 patellar button. SURGEON: Dr. Jan Persaud. SLAG DUMPER: Nate Pelletier PA-C. ANESTHESIA: Spinal. ESTIMATED BLOOD LOSS: 50 mL COMPLICATIONS: None. INDICATIONS: 63-year-old morbidly obese woman with severe knee arthritis that wished to go ahead with a knee replacement. She has done well with a knee replacement on her contralateral side. She understood the nature and risks associated with this. DESCRIPTION OF PROCEDURE: The patient was taken to the operating room, placed in the supine position after spinal anesthesia was induced. The right lower extremity was prepped and draped in the usual sterile fashion. Time-out was performed and tourniquet was inflated. A longitudinal incision was made along the anterior aspect of the knee. Sharp dissection was carried down through subcutaneous tissue and then performed a medial parapatellar arthrotomy per routine, everted the patella, did a medial release as well. Remove some large osteophytes from around the femur and used the canal initiating reamer on the femoral side, followed by the intramedullary guide set at 5 degrees of valgus and 9 mm cut. This was secured in place and the distal femoral cut was made and then used the sizing guide, sized to be a 4 and the pin holes were placed in the end of the femur with the external rotation dialed in. The size 4 cutting block was secured and the remaining cuts were made. I then directed our attention to the tibia and the tibial alignment guide was placed in the appropriate amount of valgus and posterior slope using the 0 degree cutting block because I anticipate a posterior stabilized knee. This was pinned in place 4 mm off the low side and 10 mm off the high side. The external alignment guide was then used to check the alignment and the proximal tibia cut was made. Incidentally, I had to take an additional 2 mm off the distal femur because she did have a flexion contracture and this was done at the beginning of the cuts. I then used a education general manager to remove soft tissue and osteophytes from either side of the knee. The size 4 box cutting guide was then secured to the end of the femur and the remaining three cuts were made. I then used a spacer and anticipate using a size six spacer in flexion and extension. Proximal tibia was prepared. A size 3 tray fit nicely. This was drilled and broached and the trial components were placed. There was an excellent stability and excellent alignment. Excellent range of motion. I then freehand cut the patella removing about 6-7 mm of bone and sized to be a 35. The drill holes were placed and a trial button was placed and the patella tracked well. I then drilled the end of the femur and removed the trial components as the promotional advertising assistant prepared the bone cement modern technique. I irrigated the bony surfaces, dried them carefully, injected the Exparel and cemented in the tibial component followed by the femoral component followed by placement of the polyethylene. Brought the knee out in extension, cemented on the patella, removed all excess bone cement. I irrigated again copiously. The TXA was placed deep in the wound and the deep layers were closed with #1-0 Vicryl suture. Patellar clamp was removed once the cement had hardened and the remaining closure was done with a running Stratafix. This is a watertight closure. I again irrigated, closed the subcu with #2-0 Vicryl and the skin with winnie. I deflated the tourniquet when the cement had hardened. Sterile dressing was applied. She was taken to recovery room in stable condition. There were no known complications. The plan will be routine postop. The promotional advertising assistant was instrumental in holding retractors and assisting in mixing the bone cement and removing excess bone cement, assisting in wound closure and positioning. This is coded as an unusually difficult procedure due to the patient's morbid obesity with a BMI close to 39. This added time to the case, made exposure more difficult. There was quite a bit of adipose tissue. Overall, this increase the complexity.
== END 2019-08-29 12:20 | disposition home or self-care (01) | DRG 470 ==
LOC: M OR 08:48 → M MS5PR 14:34
PROVIDERS: ADMIT Orthopaedic Surgery; ATTEND Orthopaedic Surgery
PROC: 0SRC0J9 Replacement of Right Knee Joint with Synthetic Substitute, Cemented, Open Approach (ICD-10-PCS; principal; 2019-08-28 11:35)
DX: M17.11 Unilateral primary osteoarthritis, right knee (principal); I10 Essential (primary) hypertension; E78.5 Hyperlipidemia, unspecified; K21.9 Gastro-esophageal reflux disease without esophagitis; I25.10 Atherosclerotic heart disease of native coronary artery without angina pectoris; K76.0 Fatty (change of) liver, not elsewhere classified; E66.01 Morbid (severe) obesity due to excess calories; G47.30 Sleep apnea, unspecified; F41.9 Anxiety disorder, unspecified; Z88.8 Allergy status to other drugs, medicaments and biological substances; Z91.048 Other nonmedicinal substance allergy status; Z11.59 Encounter for screening for other viral diseases; Z96.652 Presence of left artificial knee joint; Z98.84 Bariatric surgery status; Z79.899 Other long term (current) drug therapy; Z68.39 Body mass index [BMI] 39.0-39.9, adult

== ENCOUNTER → 2019-09-14 | Outpatient (REF) | payer MEDICARE ==
[~2019-09-14] MED LIST changes: +CLEO300C2 PO; +GERITAB9 PO; -LIDOCAINE 1% MDV 20ML VIAL SQ PRN; -LR 1,000 ML IV SCH; +MACR100C43 PO; +PRIL20TA2 PO; +VITA1CAP15 PO; +VITA500C24 PO; +[UNRECOGNIZED DRUG - CODE] PO; -ceFAZolin SOD 2 GM in IV 1 EA IV SCH
[2019-09-14 13:35] LABS: APPEARANCE, URINE HAZY (CLEAR); BACTERIA, URINE AUTO NEGATIVE (NEGATIVE); BILIRUBIN, URINE AUTO NEGATIVE (NEGATIVE); BLOOD, URINE BLOOD NEGATIVE (NEGATIVE); COLOR, URINE YELLOW (YELLOW); GLUCOSE, URINE (UA) AUTO NEGATIVE (NEGATIVE); KETONE, URINE AUTO NEGATIVE (NEGATIVE); LEUKOCYTE ESTERASE, URINE AUTO 1+ (NEGATIVE); MUCUS, URINE SMALL (NEGATIVE); NITRITE, URINE AUTO NEGATIVE (NEGATIVE); PROTEIN, URINE AUTO NEGATIVE (NEGATIVE); RBC, URINE AUTO 3 /HPF (0-3); SPECIFIC GRAVITY URINE AUTO 1.016 (1.002-1.035); SQUAMOUS EPITHELIAL CELL UR AU 0 /HPF (0-6); UROBILINOGEN, URINE AUTO 0.2 mg/dL (0.0-2.0); WBC, URINE AUTO 22 /HPF (0-3)
== END ==
LOC: M SFHCPLAZ 13:08
PROVIDERS: ATTEND Physician Assistant Medical
DX: R30.0 Dysuria (principal)

== ENCOUNTER 2019-09-16 08:07 | Inpatient (IN) | payer MEDICARE ==
[~2019-09-16] VITALS: Ht 152.4 cm; Wt 88.5 kg
[~2019-09-16 08:07] MED LIST changes: -CLEO300C2 PO; -GERITAB9 PO; -MACR100C43 PO; -VITA1CAP15 PO; -VITA500C24 PO; -[UNRECOGNIZED DRUG - CODE] PO
[2019-09-16] MEDS ORDERED: MACR100C43 PO (08:18)
[2019-09-16] MEDS ORDERED: NS 1,000 ML IV SCH ×2 (08:32→09:00)
[2019-09-16 08:58] LABS: BASO % 0.3 % (0.0-1.0); HEMATOCRIT 39.5 % (36.0-47.0); HEMOGLOBIN 12.9 g/dl (12.0-15.5); LYMPH # 1.3 10^3/uL (1.5-5.0); LYMPH % 14.1 % (24.0-44.0); MEAN CORPUSCULAR HEMOGLOBIN 31.2 pg (27.0-33.0); MEAN CORPUSCULAR HGB CONC 32.7 g/dl (32.0-36.5); MEAN CORPUSCULAR VOLUME 95.4 fl (80.0-96.0); MONO # 0.4 10^3/uL (0.0-0.8); MONO % 4.9 % (0.0-5.0); NEUTROPHILS # 7.3 10^3/uL (1.5-8.5); NEUTROPHILS % 80.4 % (36.0-66.0); PLATELET COUNT, AUTOMATED 502 10^3/uL (150-450); RED BLOOD COUNT 4.14 10^6/uL (4.00-5.40); WHITE BLOOD COUNT 9.1 10^3/uL (4.0-10.0)
[2019-09-16] MEDS ORDERED: ONDANSETRON 4MG/2ML VIAL IV ONE (09:00)
[2019-09-16] MEDS ORDERED: MORPHINE 4 MG/ML 1ML VIAL/SYRINGE (J2270) IV PRN (09:00)
[2019-09-16 09:16] LABS: ALBUMIN 4.7 GM/DL (3.2-5.2); BILIRUBIN,DIRECT 0.1 MG/DL (0.0-0.2); BILIRUBIN,TOTAL 0.4 MG/DL (0.2-1.0); TOTAL PROTEIN 8.3 GM/DL (6.4-8.2)
[2019-09-16] MEDS ORDERED: GASTROGRAFIN SOLUTION 30ML (Q9963) As Ordered ONE (09:54)
[2019-09-16] MEDS: GASTROGRAFIN SOLUTION 30ML PO SCH ×2 (10:00→10:33)
[2019-09-16] MEDS ORDERED: ISOVUE-370 76% 100ML VIAL As Ordered ONE (11:19)
[2019-09-16] MEDS ORDERED: KETOROLAC 30 MG/ML 1ML VIAL As Ordered ONE (12:04)
[2019-09-16] MEDS ORDERED: METOCLOPRAMIDE INJ 10MG/2ML VIAL (J2765 PER 1) As Ordered ONE (12:04)
[2019-09-16] MEDS ORDERED: KETOROLAC 30 MG/ML 1ML VIAL IV ONE (12:15)
[2019-09-16] MEDS ORDERED: METOCLOPRAMIDE INJ 10MG/2ML VIAL (J2765 PER 1) IV ONE (12:15)
--- NOTE | 2019-09-16 13:57 | REP ---
CT ABDOMEN AND PELVIS WITH IV BUT WITHOUT ORAL CONTRAST: HISTORY: Abdomen pain. Question bowel obstruction. Comparison CT study, July 10, 2019. Comparison small bowel follow-through exam, July 13, 2019. FINDINGS: Preliminary digital vat house supervisor radiograph demonstrates dilated central abdominal small bowel loops, consistent with small bowel obstruction. The lung bases are clear on axial CT images. There is mild diffuse fatty infiltration of the liver. The patient is status post gastric bypass procedure. The surgically created gastric pouch is quite dilated, and there is an air-fluid level in the bypassed portion of the stomach. This appearance is unchanged. No adrenal lesion is seen. No abnormalities noted in the pancreas. Gallbladder surgically absent. Common bile duct is not dilated. There is a moderate amount of fluid in the C-loop, and the proximal jejunum is mildly dilated. There is dilation of the jejunum at the level of the Andi-en-Y. Small bowel is again noted be involved a complex large ventral hernia and there is a point of transition at the superior margin of this herniation, consistent with a point of obstruction at the abdominal wall hernia site. This appearance is unchanged from the comparison study 07/10/2019 and consistent with a recurrent small bowel obstruction. The proximal jejunal loop is quite dilated. There are dilated mid jejunal loops as well. There is no evidence of free intraperitoneal air. No abscess or free fluid is seen. The kidneys enhance symmetrically and appear morphologically intact. There is vascular calcification in the proximal renal arteries bilaterally as before. Tiny cortical cysts are noted. A vaginal pessary is noted in place. No uterine or ovarian abnormality is seen. IMPRESSION: Small bowel obstruction related to complex ventral hernia at mid jejunal level with clear point of obstruction and transition. No evidence of free air. There is some mesenteric fat streaking and edema in the mesenteric fat within the hernia. Findings are quite similar to the previous study of 07/10/2019. Electronically Signed by Rony Fox MD 09/16/2019 02:04 P
--- NOTE | 2019-09-16 14:38 | ECGEPIP ---
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
[2019-09-16] MEDS ORDERED: CLEO300C2 PO (14:41)
[2019-09-16] MEDS ORDERED: VITA500C24 PO (14:41)
[2019-09-16] MEDS ORDERED: GERITAB9 PO (14:43)
[2019-09-16] MEDS ORDERED: UBIQ200C PO (14:43)
[2019-09-16] MEDS ORDERED: VITA1CAP15 PO (14:43)
[2019-09-16] MEDS ORDERED: [UNRECOGNIZED DRUG - CODE] PO (14:43)
[2019-09-16] MEDS ORDERED: ONDANSETRON 4MG/2ML VIAL IV PRN (16:15)
[2019-09-16] MEDS ORDERED: MORPHINE 2 MG/ML 1ML VIAL (J2270) IV PRN (16:15)
[2019-09-16] MEDS ORDERED: KETOROLAC 30 MG/ML 1ML VIAL IV PRN (16:15)
[2019-09-16] MEDS: PANTOPRAZOLE 40MG VIAL (C9113 PER 1) IV SCH (17:12)
[2019-09-16] MEDS: LR 1,000 ML IV SCH (17:13)
[2019-09-16 18:00] VITALS: BP 145/80
[2019-09-16 19:45] VITALS: BP 118/65
[2019-09-16] MEDS: tiZANidine 4 MG TAB PO SCH (20:31)
[2019-09-16] MEDS: LOSARTAN 50MG TABLET PO SCH (20:31)
[2019-09-17] MEDS: LR 1,000 ML IV SCH ×3 (00:51→23:02)
[2019-09-17 05:48] VITALS: BP 104/50
[2019-09-17 07:57] LABS: BASO # 0.1 10^3/uL (0.0-0.2); BASO % 0.9 % (0.0-1.0); EOS # 0.2 10^3/uL (0.0-0.5); EOS % 2.9 % (0.0-3.0); HEMATOCRIT 33.6 % (36.0-47.0); LYMPH # 1.9 10^3/uL (1.5-5.0); LYMPH % 31.9 % (24.0-44.0); MEAN CORPUSCULAR HEMOGLOBIN 30.2 pg (27.0-33.0); MEAN CORPUSCULAR HGB CONC 30.7 g/dl (32.0-36.5); MEAN CORPUSCULAR VOLUME 98.5 fl (80.0-96.0); MONO # 0.5 10^3/uL (0.0-0.8); MONO % 7.8 % (0.0-5.0); NEUTROPHILS # 3.3 10^3/uL (1.5-8.5); NEUTROPHILS % 56.2 % (36.0-66.0); RED BLOOD COUNT 3.41 10^6/uL (4.00-5.40); WHITE BLOOD COUNT 5.9 10^3/uL (4.0-10.0)
[2019-09-17] MEDS: PANTOPRAZOLE 40MG VIAL (C9113 PER 1) IV SCH (07:58)
[2019-09-17] MEDS: ENOXAPARIN 40MG/0.4ML SYRINGE (J1650 PER 10MG) SC SCH (07:58)
[2019-09-17] MEDS: amLODIPine 5 MG TAB PO SCH (08:01)
[2019-09-17 08:07] LABS: HEMOGLOBIN 10.3 g/dl (12.0-15.5); PLATELET COUNT, AUTOMATED 368 10^3/uL (150-450)
[2019-09-17 08:24] LABS: CALCIUM LEVEL 9.1 MG/DL (8.8-10.2); CREATININE FOR GFR 1.14 MG/DL (0.55-1.30); GLOMERULAR FILTRATION RATE 50.8 (>45); POTASSIUM SERUM 4.6 MEQ/L (3.5-5.1)
--- NOTE | 2019-09-17 10:16 | HPE ---
DATE OF ADMISSION: 09/16/2019 ADMITTING DIAGNOSIS: Small bowel obstruction. HISTORY OF PRESENT ILLNESS The patient is a pleasant 64-year-old woman who presented to the emergency department at approximately 8 o'clock in the morning on September 15 complaining of abdominal pain with nausea and vomiting. The patient had been admitted back in June with very similar symptoms at which time she was diagnosed with a bowel obstruction. The patient has had multiple abdominal surgical procedures including two repairs of a lower midline ventral incisional hernia. This was most recently repaired by Dr. Lindsey a year ago in July 2018. She clearly has a large ventral hernia recurrence. This extends from the umbilicus inferiorly and extends down anterior to the pubis. When she was seen in June, she had an obstruction. Dr. Lindsey had seen her in followup in the surgical clinic during the first week of July. The patient reports that the plan is for her to lose an additional 15 pounds or so and they can then consider returning to the operating room for an elective repair of her hernia. In June, her symptoms had resolved over 2-3 days with nasogastric decompression and she presented today with similar symptoms. On presentation, she underwent evaluation again with a CT scan. This was interpreted by the radiologist as showing a small bowel obstruction related to a complex ventral hernia. The obstruction was felt to be at the mid jejunal level with a clear point of obstruction. It was noted that the findings were quite similar to her prior study from July 09. Because of her apparent recurrent obstruction, I was consulted and the patient is now being admitted for management of her bowel obstruction secondary to her hernia. ALLERGIES: Reported to ADHESIVE TAPE and POVIDONE-IODINE. CURRENT MEDICATIONS: - Norvasc 5 mg by mouth daily - chlorthalidone 25 mg by mouth daily - losartan 100 mg by mouth at bedtime - Tylenol p.r.n. for pain - vitamin C 2500 mg by mouth daily - clindamycin 300 mg by mouth twice daily - Colace 100 mg by mouth daily as needed for constipation - Tricor 145 mg by mouth daily - multivitamin daily - Macrobid 100 mg capsules one by mouth twice daily - senna 1 tablet by mouth daily as needed - tizanidine 4 mg by mouth at bedtime - Ubiquinol 200 mg capsules 200 mg by mouth daily - vitamin A 10,000 units by mouth daily - vitamin E 400 units by mouth daily MEDICAL HISTORY: Medical history is significant for hypertension. She has a history of diabetes. She has a history of hypercholesterolemia. She is status post gastric bypass, but remains morbidly obese. SURGICAL HISTORY: Significant for a section and tubal ligation back in 1985. She has had bilateral knee surgery in the . She had a gastric bypass in 2004. She had an abdominoplasty and panniculectomy in 2006. She had a cholecystectomy in 2009. Rotator cuff repair on the left in 2013. She has had a left knee replacement previously and underwent a right knee replacement about a month ago. She had an incisional hernia repair with mesh in 2010 and then had a laparoscopic incisional hernia repair in July 2018. FAMILY HISTORY: Both her father and mother are from heart disease. The patient denies any tobacco use or alcohol use. Her primary physician is Leeanne Green at the [facility]. The patient is a and lives in [place]. REVIEW OF SYSTEMS: The patient denies any chest pain or palpitations. She has had no cough, wheezing or sputum production. She denies any history of seizure or stroke. She has had no melena or hematochezia. She denies dysuria or hematuria. She has no history of deep vein thrombosis (DVT) or pulmonary embolus. She reports that she was on anticoagulation with Xarelto for 2 weeks after her recent knee replacement, but this has been discontinued. She has been doing physical therapy, both at [facility] and at home. This is for her recent right knee replacement. PHYSICAL EXAMINATION: Reveals a pleasant woman lying quietly on the stretcher in the emergency department. She had a nasogastric tube that was just recently placed. Her vital signs most recently show her to be afebrile. Her pulse is approximately 100 and her blood pressure is 180/85 with a pulse oximetry of 93%. She is alert and oriented. Sclerae are anicteric. Mucous membranes are moist. Neck is supple. Heart exam shows a regular rate and rhythm. The lungs are clear to auscultation. The abdomen is quite protuberant and obese. She has a long, somewhat widened midline scar extending from the level of the umbilicus inferiorly. There is a large, mildly firm midline hernia extending about from the level of the umbilicus, down along the midline and extending below the level of the pubis. This is minimally tender to palpation. It does not reduce to a significant degree. The upper and lateral aspects of the abdomen are soft and without any significant tenderness. She does have some bowel sounds present. She has a recent incision on the front of the right knee and an older incision on the anterior aspect of the left knee. She has palpable dorsalis pedis pulses and radial pulses. LABORATORY STUDIES: Today show a white count of 9, hemoglobin of 13, hematocrit 40 and a platelet count of 502,000. Differential count shows 80% neutrophils, 14% lymphocytes and 5% monocytes. Chemistry profile shows a normal set of electrolytes with BUN of 28, creatinine 0.7 and a glucose of 138. Her liver function tests are normal with a total protein of 8.3, albumin of 4.7 and a lipase minimally elevated at 434. Her lactate was 1.9. CT scan images I reviewed personally. She has evidence of a prior gastric bypass. The gastric pouch appears quite large and fluid-filled. The residual stomach is actually filled with air. There is some dilation of her proximal small bowel which extends down to the hernia about at the level of the umbilicus. There are multiple loops of small bowel contained within her hernia. There is no free air noted and no free fluid seen. The gallbladder is surgically absent with a few clips seen. IMPRESSION: 1. Small bowel obstruction secondary to incarcerated recurrent ventral incisional hernia. 2. Status post gastric bypass. 3. Morbid obesity. 4. Hypertension. 5. Hyperlipidemia. 6. Status post recent right total knee arthroplasty. PLAN: A nasogastric tube was inserted in the emergency department and this is draining some scattered food debris and some slight yellow-brown fluid. Her blood pressure has been up in the emergency department, but she has missed her blood pressure medicines for today and has been quite uncomfortable so we will see how her blood pressure does with the NG tube in place to decompress her and with resumption of her usual Norvasc and losartan. She will remain on IV maintenance fluid. She does not appear to have any reason for antibiotic coverage at this time. I will recheck her CBC and a basic medical profile on the morning of the . Hopefully, with decompression of her gastric pouch and her proximal small bowel, her hernia will be reducible with resolution of her obstruction. If she does not resolve this in a reasonable period of time, then more urgent surgical intervention may be required. If she does resolve her obstruction, then she will continue her plan to attempt some additional weight loss and follow up with Dr. Lindsey for elective repair of her recurrent hernia. The patient had an opportunity to ask questions about the plan and is agreeable with the plan as I have outlined it.
[2019-09-17 14:00] VITALS: BP 155/81
[2019-09-17 18:00] VITALS: BP 150/79
[2019-09-17] MEDS: tiZANidine 4 MG TAB PO SCH (21:28)
[2019-09-17] MEDS: LOSARTAN 50MG TABLET PO SCH (21:28)
[2019-09-17 22:00] VITALS: BP 158/76
[2019-09-18 02:00] VITALS: BP 108/57
[2019-09-18 06:00] VITALS: BP 127/56
--- NOTE | 2019-09-18 09:27 | IPN ---
DATE: 09/17/2019 HISTORY: The patient was admitted yesterday afternoon with a small bowel obstruction related to a large recurrent ventral incisional hernia. A nasogastric tube was placed and she was started on some maintenance IV fluid. She had a similar episode in June that resolved within several days. This morning she reports that she has been passing gas since last evening. She denies any significant abdominal pain and reports that her hernia is softer. Vital signs show that she has been afebrile since about 8 o'clock last night when she had a low grade temperature to 100.3. Her pulse came down into the 80s and lower about that time she was admitted to the floor last evening. Her blood pressure is also significantly improved since about 7 p.m. last night. Intake and output shows that she has had 500 mL of urine recorded this morning and had only 400 mL noted in her nasogastric (NG) output. PHYSICAL EXAMINATION: The patient is lying quietly on the hospital bed. She is alert and appears comfortable. She is eagerly requesting removal of her NG tube. She reports that she has had multiple episodes of some flatus. She denies any abdominal pain. Heart exam shows a regular rate and rhythm. The abdomen is somewhat obese. She has bowel sounds present. Her hernia is not entirely reducible but is certainly much softer than it had been last night or afternoon. The abdomen is otherwise soft. Laboratory studies this morning show white count of 6, hemoglobin 10, hematocrit 34 and a platelet count of 368,000. Differential count is now normal w 56% neutrophils and 32% lymphocytes. Chemistry profile this morning is normal with the exception of BUN that is note minimally elevated at 33. IMPRESSION: The patient reports resolution of her discomfort with multiple episodes of passage of flatus. PLAN: The patient's NG tube will be removed. I will start her on clear liquids, though I advised her to initially begin very slowly with some sips of liquids and ensure that she is tolerating these well before she drinks unlimited amounts. We will see how this goes today and if she tolerates the liquids we can consider advancing her diet or just discharge charging her home in the morning. She has been following with Dr. Lindsey. I may see if he will accept her as a transfer of attending responsibility in the morning. DAIANA
[2019-09-18] MEDS: ENOXAPARIN 40MG/0.4ML SYRINGE (J1650 PER 10MG) SC SCH (09:48)
[2019-09-18] MEDS: PANTOPRAZOLE 40MG VIAL (C9113 PER 1) IV SCH (09:48)
[2019-09-18 09:50] VITALS: BP 158/84
[2019-09-18] MEDS: amLODIPine 5 MG TAB PO SCH (09:50)
== END 2019-09-18 12:13 | disposition home or self-care (01) | DRG 395 ==
LOC: M ED 08:07 → M ED INP 16:04 → ENRESERV 16:21 → M MS5PR 17:04
PROVIDERS: ADMIT Surgery; ATTEND Surgery
DX: K43.6 Other and unspecified ventral hernia with obstruction, without gangrene (principal); I10 Essential (primary) hypertension; E11.9 Type 2 diabetes mellitus without complications; E78.00 Pure hypercholesterolemia, unspecified; E66.01 Morbid (severe) obesity due to excess calories; Z98.84 Bariatric surgery status; Z90.49 Acquired absence of other specified parts of digestive tract; Z96.652 Presence of left artificial knee joint; Z68.38 Body mass index [BMI] 38.0-38.9, adult

== ENCOUNTER → 2019-09-26 | Outpatient (RCR) | payer MEDICARE ==
[~2019-09-26] MED LIST changes: +CLEO300C2 PO; +GERITAB9 PO; +MACR100C43 PO; +VITA1CAP15 PO; +VITA500C24 PO; +[UNRECOGNIZED DRUG - CODE] PO
== END ==
LOC: M PT 09-12 09:42
PROVIDERS: ATTEND Orthopaedic Surgery
DX: Z51.89 Encounter for other specified aftercare (principal); Z48.89 Encounter for other specified surgical aftercare; Z96.651 Presence of right artificial knee joint

== ENCOUNTER 2019-10-26 10:45 | Outpatient (RCR) | payer MEDICARE ==
[~2019-10-26 10:45] MED LIST changes: +ACET650T61 PO; +AMLO1TAB24 PO; -AMLO5TAB6 PO; +D31000TA2 PO; -TYLE650T35 PO; -VITA1CAP15 PO; +VITA400C83 PO; -VITAD1000T PO
[2019-12-26] MEDS ORDERED: NORT10CA2 PO (08:56)
[2019-12-26] MEDS ORDERED: OMEP-218 PO (08:56)
[2019-12-26] MEDS ORDERED: D-101000 PO (08:56)
== END 2019-10-27 ==
LOC: M PT 10:45
PROVIDERS: ATTEND Orthopaedic Surgery
DX: Z96.651 Presence of right artificial knee joint (principal)

== ENCOUNTER → 2019-10-30 | Outpatient (CLI) | payer MEDICARE ==
[~2019-10-30] MED LIST changes: +D-101000 PO; +E-Z-GAS II EFFERVESCENT PACKET (SODIUM BICARB./CITRIC ACID/SIMETHICONE) As Ordered ONE; +E-Z-HD 98% w/w 340GM SUSP BTL As Ordered ONE; +E-Z-PAQUE 96% w/w SUSP 176GM BTL As Ordered ONE; +NORT10CA2 PO; +OMEP-218 PO
--- NOTE | 2019-12-20 09:58 | REP ---
UPPER GI SINGLE CONTRAST: The procedure was performed under the direct supervision of Dr. Fox. The images were reviewed with Dr. Fox. FINDINGS: The prep person film shows no organomegaly or pathological masses. The intestinal gas pattern is nonspecific. There are surgical clips noted in the epigastric region consistent with the patient's history of gastric bypass. There is a pessary disc in place. Liquid barium was administered in the erect and prone oblique positions in order to perform a single contrast upper GI examination. The oral and pharyngeal stages of deglutition are unremarkable. Esophageal transport demonstrates mild tertiary waves. There is no esophagitis, stricture, mucosal ring or hiatal hernia. Gastroesophageal reflux is not demonstrated on this examination. The stomach demonstrates post surgical changes consistent with the patient's history of gastric bypass. There is free flow of contrast through the stomach pouch and anastomosis. There is no evidence of gastritis, neoplasm or ulcer disease. The visualized portion of the proximal small bowel appears normal in course and caliber. IMPRESSION: There are mild tertiary waves demonstrated, otherwise unremarkable single contrast upper GI examination. [facility]
== END ==
LOC: M RAD 08:35
PROVIDERS: ATTEND Surgery
DX: R10.13 Epigastric pain (principal)

== ENCOUNTER 2019-11-05 09:26 | Inpatient (IN) | payer MEDICARE ==
[~2019-11-05 09:26] MED LIST changes: +CHLORTHALIDONE 25 MG TAB ONE; -D-101000 PO; -E-Z-GAS II EFFERVESCENT PACKET (SODIUM BICARB./CITRIC ACID/SIMETHICONE) As Ordered ONE; -E-Z-HD 98% w/w 340GM SUSP BTL As Ordered ONE; -E-Z-PAQUE 96% w/w SUSP 176GM BTL As Ordered ONE; -NORT10CA2 PO; -OMEP-218 PO
[2019-11-05] MEDS ORDERED: ONDANSETRON 4MG/2ML VIAL ONE ×2 (10:10→21:37)
[2019-11-05] MEDS ORDERED: ONDANSETRON 4MG/2ML VIAL As Ordered ONE ×2 (10:10→21:37)
[2019-11-05] MEDS ORDERED: ISOVUE-370 76% 100ML VIAL As Ordered ONE (11:33)
[2019-11-05] MEDS ORDERED: LOSARTAN 50MG TABLET ONE (18:11)
[2019-11-05] MEDS ORDERED: amLODIPine 10 MG TAB ONE (18:11)
[2019-11-05] MEDS ORDERED: LOSARTAN 50MG TABLET As Ordered ONE (18:11)
[2019-11-05] MEDS ORDERED: ENOXAPARIN 40MG/0.4ML SYRINGE (J1650 PER 10MG) ONE (18:11)
[2019-11-05] MEDS ORDERED: ENOXAPARIN 40MG/0.4ML SYRINGE (J1650 PER 10MG) As Ordered ONE (18:11)
[2019-11-05] MEDS ORDERED: amLODIPine 10 MG TAB As Ordered ONE (18:11)
[2019-11-06] MEDS ORDERED: ENOXAPARIN 40MG/0.4ML SYRINGE (J1650 PER 10MG) As Ordered ONE (09:06)
[2019-11-06] MEDS ORDERED: amLODIPine 10 MG TAB As Ordered ONE (09:06)
[2019-11-06] MEDS ORDERED: LOSARTAN 50MG TABLET As Ordered ONE (09:06)
[2019-11-06] MEDS ORDERED: NORTRIPTYLINE 10 MG CAP ONE (13:00)
[2019-11-06] MEDS ORDERED: CHLORTHALIDONE 25 MG TAB ONE (13:00)
[2019-11-07] MEDS ORDERED: LOSARTAN 50MG TABLET As Ordered ONE (09:34)
[2019-11-07] MEDS ORDERED: amLODIPine 10 MG TAB As Ordered ONE (09:35)
[2019-11-07] MEDS ORDERED: ENOXAPARIN 40MG/0.4ML SYRINGE (J1650 PER 10MG) As Ordered ONE (09:35)
--- NOTE | 2019-12-14 08:14 | ECGEPIP ---
SINUS TACHYCARDIA MODERATE ST DEPRESSION ABNORMAL ECG SEE SCANNED DOWNTIME REPORT MTDD
--- NOTE | 2019-12-20 10:02 | REP ---
ABDOMINAL SERIES COMPARISON: 11/05/2019 TECHNIQUE: Supine and erect views of the abdomen are performed. FINDINGS: No free air is seen. There is contrast material in multiple sigmoid and left colonic diverticula. The appendix is visualized in the right lower quadrant. There is some air in the nondilated stomach. Nasogastric tube is seen with side ports in the stomach. There is a moderately dilated small bowel loop in the left mid abdomen, similar to the prior study. Scattered metallic clips are seen in the upper abdomen and pelvis. IMPRESSION: Bowel gas pattern unchanged. MTDD
[2019-12-21 08:34] LABS: APPEARANCE, URINE HAZY (CLEAR); BACTERIA, URINE AUTO NEGATIVE (NEGATIVE); BILIRUBIN, URINE AUTO NEGATIVE (NEGATIVE); BLOOD, URINE BLOOD NEGATIVE (NEGATIVE); COLOR, URINE YELLOW (YELLOW); GLUCOSE, URINE (UA) AUTO 1+ mg/dL (NEGATIVE); KETONE, URINE AUTO TRACE mg/dL (NEGATIVE); LEUKOCYTE ESTERASE, URINE AUTO TRACE (NEGATIVE); MUCUS, URINE SMALL (NEGATIVE); NITRITE, URINE AUTO NEGATIVE (NEGATIVE); PROTEIN, URINE AUTO 1+ mg/dL (NEGATIVE); RBC, URINE AUTO 4 /HPF (0-3); SPECIFIC GRAVITY URINE AUTO 1.023 (1.002-1.035); SQUAMOUS EPITHELIAL CELL UR AU 0 /HPF (0-6); UROBILINOGEN, URINE AUTO 0.2 mg/dL (0.0-2.0); WBC, URINE AUTO 1 /HPF (0-3)
[2019-12-21 18:37] LABS: BASO % 0.5 % (0.0-1.0); EOS % 0.1 % (0.0-3.0); HEMATOCRIT 40.6 % (36.0-47.0); HEMOGLOBIN 13.1 g/dl (12.0-15.5); LYMPH % 13.6 % (24.0-44.0); MEAN CORPUSCULAR HEMOGLOBIN 30.5 pg (27.0-33.0); MEAN CORPUSCULAR HGB CONC 32.3 g/dl (32.0-36.5); MEAN CORPUSCULAR VOLUME 94.6 fl (80.0-96.0); MONO # 0.3 10^3/uL (0.0-0.8); MONO % 4.1 % (0.0-5.0); NEUTROPHILS # 5.9 10^3/uL (1.5-8.5); NEUTROPHILS % 81.4 % (36.0-66.0); PLATELET COUNT, AUTOMATED 371 10^3/uL (150-450); RED BLOOD COUNT 4.29 10^6/uL (4.00-5.40); WHITE BLOOD COUNT 7.3 10^3/uL (4.0-10.0)
[2019-12-26] MEDS ORDERED: OMEP-218 PO (08:56)
[2019-12-26] MEDS ORDERED: D-101000 PO (08:56)
[2019-12-26] MEDS ORDERED: NORT10CA2 PO (08:56)
[2019-12-27 08:19] LABS: BASO % 0.5 % (0.0-1.0); EOS # 0.1 10^3/uL (0.0-0.5); EOS % 0.8 % (0.0-3.0); HEMATOCRIT 38.4 % (36.0-47.0); HEMOGLOBIN 12.4 g/dl (12.0-15.5); LYMPH # 1.5 10^3/uL (1.5-5.0); LYMPH % 22.3 % (24.0-44.0); MEAN CORPUSCULAR HEMOGLOBIN 30.5 pg (27.0-33.0); MEAN CORPUSCULAR HGB CONC 32.3 g/dl (32.0-36.5); MEAN CORPUSCULAR VOLUME 94.3 fl (80.0-96.0); MONO # 0.5 10^3/uL (0.0-0.8); MONO % 7.8 % (0.0-5.0); NEUTROPHILS # 4.5 10^3/uL (1.5-8.5); NEUTROPHILS % 68.4 % (36.0-66.0); PLATELET COUNT, AUTOMATED 360 10^3/uL (150-450); RED BLOOD COUNT 4.07 10^6/uL (4.00-5.40); WHITE BLOOD COUNT 6.6 10^3/uL (4.0-10.0)
[2019-12-28 07:15] LABS: BASO # 0.1 10^3/uL (0.0-0.2); BASO % 0.9 % (0.0-1.0); EOS # 0.1 10^3/uL (0.0-0.5); EOS % 2.1 % (0.0-3.0); HEMATOCRIT 35.7 % (36.0-47.0); HEMOGLOBIN 11.5 g/dl (12.0-15.5); LYMPH # 1.7 10^3/uL (1.5-5.0); LYMPH % 31.7 % (24.0-44.0); MEAN CORPUSCULAR HEMOGLOBIN 30.8 pg (27.0-33.0); MEAN CORPUSCULAR HGB CONC 32.2 g/dl (32.0-36.5); MEAN CORPUSCULAR VOLUME 95.7 fl (80.0-96.0); MONO # 0.6 10^3/uL (0.0-0.8); NEUTROPHILS # 2.9 10^3/uL (1.5-8.5); NEUTROPHILS % 54.1 % (36.0-66.0); PLATELET COUNT, AUTOMATED 326 10^3/uL (150-450); RED BLOOD COUNT 3.73 10^6/uL (4.00-5.40); WHITE BLOOD COUNT 5.4 10^3/uL (4.0-10.0)
--- NOTE | 2020-01-01 09:56 | HPE ---
DATE OF ADMISSION: November 05, 2019 CHIEF COMPLAINT: Abdominal pain, nausea, and vomiting. HISTORY OF PRESENT ILLNESS: Ms. Cool presented early this morning with complaints of progressive abdominal pain, distention, and at least about seven times vomiting since about 12:30 last night up until about 7:00 in the morning. The last bowel movement was roughly two days ago. She has a known history of fairly large recurrent incisional hernia and has had two prior admissions for the same bowel obstructions, which resolved with nasogastric tube decompression. She has been following up with Dr. Lindsey and has been trying to lose weight for attempt at repair of her recurrent incisional hernia. She also has a prior history of section, laparoscopic Andi-Y gastric bypass more than 15 years ago, laparoscopic cholecystectomy, and last year had a repair of her hernia done laparoscopically which promptly recurred. PAST MEDICAL HISTORY: * Hypertension. * Back pain. * She denies any diabetes. * Sleep apnea on CPAP. * Arthritis. PAST SURGICAL HISTORY: * Laparoscopic Andi-Y gastric bypass done more than 15 years ago. * Laparoscopic cholecystectomy. * Panniculectomy with an umbilical hernia repair done at the same time. * Laparoscopic incisional hernia repair done last year as a laparoscopic IPOM. * section. HOME MEDICATIONS: * Amlodipine 10 mg daily. * Chlorthalidone 25 mg daily. * Vitamin D3 1000 mg daily. * Losartan 100 mg daily. * Fenofibrate 145 mg daily. * Tylenol Arthritis two tablets daily. * Senna two tablets daily. * Colace 100 mg b.i.d. * Tizanidine nightly at bedtime. * Nortriptyline 10 mg daily. REVIEW OF SYSTEMS: The patient was in her usual state of health prior to the start of her symptoms last night. She says that she was actively trying to lose weight since last June when her first bowel obstruction occurred and has so far lost about 15 pounds in changing her diet. She has been following up with Dr. Lindsey. 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 Normally, she does not report any nausea, vomiting, heart burn symptoms. She denies any dysuria or hematuria. She does wear a CPAP at night with her sleep apnea. She denies any shortness of breath on effort. She reports that she is mainly limited mostly by her arthritis. She denies any ongoing chest pain. PHYSICAL EXAMINATION: GENERAL: She was seen lying on her left side, relatively comfortable at the time that I saw her. She is alert, awake, and oriented. She is pleasant and very cooperative. NECK: She has a short neck. LUNGS: Lung sounds are clear to auscultation bilaterally without any wheezing. HEART: Heart rate and rhythm are regular without murmurs. ABDOMEN: Obese, moderately distended, prominent lower pannus, and very tympanitic to percussion. She has a fairly larger hernia on the midline lower abdomen below the umbilicus. I did not see an open incision at that site. There is probably a trocar site close to the hernia. She has a Pfannenstiel incision, which was also a transverse incision for her panniculectomy and some port site incisions from her prior surgeries. Due to the amount of distention, it is hard to ascertain the size of the fascial defect. There is no skin breakdown. She is nontender on palpation. LABORATORY DATA: White cell count 7.28, hemoglobin 13.5, hematocrit 40.6, platelet count 371. Sodium 138, potassium 3.9, chloride 102, CO2 26, glucose 130, BUN 24, creatinine 0.8. LFTs are normal. IMAGING: She had a CT of the abdomen and pelvis with IV contrast that was performed. This was not read officially yet. I reviewed the images myself which shows evidence for bowel obstruction at or close to where the hernia is. She has several loops of bowel through the hernia, most of it is decompressed. No free fluid inside the hernia sac. No thickening of the bowel and no free air. IMPRESSION: * Recurrent incisional ventral hernia, with the small amount probably of loss of domain, and it is hard to ascertain because her bowel is very distended and I have no way of looking at prior images. * Morbid obesity. * Bariatric status. PLAN: Current issues include bowel obstruction for which a nasogastric tube will be placed. I will also place her on IV fluids for hydration. Her labs appear normal. She does not seem to have bowel. I did discuss with her that my main concern is this is the third time that she has presented with bowel obstructions and we may not be able to wait for her to adequately loose weight and may need to entertain some other ways to get her to surgery to repair her hernia, likewise, do lysis of adhesions. She has been concurrently seeing her bariatric surgeon for a possibility that she has a gastrogastric fistula and this may be a way to get her to lose weight if we can get her stable enough to redo the gastric bypass. As of now, the patient does not need emergency surgery. We will continue with bowel decompression. I will speak with Dr. Lindsey in the morning. DAIANA
[2020-01-29 23:13] LABS: ALBUMIN 4.6 GM/DL (3.2-5.2); ALT/SGPT 27 U/L (12-78); BILIRUBIN,TOTAL 0.5 MG/DL (0.2-1.0); BLOOD UREA NITROGEN 24 MG/DL (7-18); CARBON DIOXIDE LEVEL 26 MEQ/L (21-32); CHLORIDE LEVEL 102 MEQ/L (98-107); CK-MB VALUE MASS 1.7 NG/ML (<3.6); CPK CREATINE PHOSPHOKINASE 83 U/L (26-192); CREATININE FOR GFR 0.82 MG/DL (0.55-1.30); GLOMERULAR FILTRATION RATE > 60.0 (>45); GLUCOSE, FASTING 130 MG/DL (70-100); LIPASE 139 U/L (73-393); MB/CK RELATIVE INDEX 2.05 (< OR =4); POTASSIUM SERUM 3.9 MEQ/L (3.5-5.1); SODIUM LEVEL 138 MEQ/L (136-145); TROPONIN I < 0.02 NG/ML (< 0.10)
[2020-01-30 04:11] LABS: BLOOD UREA NITROGEN 14 MG/DL (7-18); CALCIUM LEVEL 9.6 MG/DL (8.8-10.2); CARBON DIOXIDE LEVEL 28 MEQ/L (21-32); CHLORIDE LEVEL 102 MEQ/L (98-107); GLOMERULAR FILTRATION RATE > 60.0 (>45); GLUCOSE, FASTING 109 MG/DL (70-100); POTASSIUM SERUM 3.9 MEQ/L (3.5-5.1); SODIUM LEVEL 137 MEQ/L (136-145)
[2020-01-30 13:44] LABS: BLOOD UREA NITROGEN 17 MG/DL (7-18); CALCIUM LEVEL 9.2 MG/DL (8.8-10.2); CARBON DIOXIDE LEVEL 29 MEQ/L (21-32); CHLORIDE LEVEL 103 MEQ/L (98-107); CREATININE FOR GFR 0.79 MG/DL (0.55-1.30); GLOMERULAR FILTRATION RATE > 60.0 (>45); GLUCOSE, FASTING 85 MG/DL (70-100); POTASSIUM SERUM 3.4 MEQ/L (3.5-5.1); SODIUM LEVEL 138 MEQ/L (136-145)
== END 2019-11-08 09:00 | disposition home or self-care (01) | DRG 395 ==
LOC: M ED 09:26 → M MS5PR 16:00
PROVIDERS: ADMIT Surgery; ATTEND Surgery
DX: K43.0 Incisional hernia with obstruction, without gangrene (principal); Z79.899 Other long term (current) drug therapy; E66.01 Morbid (severe) obesity due to excess calories; I10 Essential (primary) hypertension; G47.00 Insomnia, unspecified

== ENCOUNTER 2019-11-23 10:45 | Outpatient (RCR) | payer MEDICARE ==
[~2019-11-23 10:45] MED LIST changes: -CHLORTHALIDONE 25 MG TAB ONE
[2019-12-26] MEDS ORDERED: OMEP-218 PO (08:56)
[2019-12-26] MEDS ORDERED: D-101000 PO (08:56)
[2019-12-26] MEDS ORDERED: NORT10CA2 PO (08:56)
== END 2019-11-27 ==
LOC: M PT 10:45
PROVIDERS: ATTEND Orthopaedic Surgery
DX: Z96.651 Presence of right artificial knee joint (principal)

== ENCOUNTER → 2019-11-28 | Outpatient (REF) | payer MEDICARE ==
[~2019-11-28] MED LIST changes: +D-101000 PO; +NORT10CA2 PO; +OMEP-218 PO
[2019-11-28 17:41] LABS: APPEARANCE, URINE CLOUDY (CLEAR); BACTERIA, URINE AUTO NEGATIVE (NEGATIVE); BILIRUBIN, URINE AUTO NEGATIVE (NEGATIVE); BLOOD, URINE BLOOD NEGATIVE (NEGATIVE); COLOR, URINE YELLOW (YELLOW); GLUCOSE, URINE (UA) AUTO NEGATIVE (NEGATIVE); KETONE, URINE AUTO NEGATIVE (NEGATIVE); LEUKOCYTE ESTERASE, URINE AUTO 3+ (NEGATIVE); NITRITE, URINE AUTO NEGATIVE (NEGATIVE); PROTEIN, URINE AUTO NEGATIVE (NEGATIVE); RBC, URINE AUTO 5 /HPF (0-3); SPECIFIC GRAVITY URINE AUTO 1.014 (1.002-1.035); SQUAMOUS EPITHELIAL CELL UR AU 1 /HPF (0-6); UROBILINOGEN, URINE AUTO 0.2 mg/dL (0.0-2.0); WBC, URINE AUTO TNTC /HPF (0-3)
== END ==
LOC: M LAB REF 15:04
PROVIDERS: ATTEND Nurse Practitioner Family
DX: N39.0 Urinary tract infection, site not specified (principal)

== ENCOUNTER → 2019-12-29 | Outpatient (REF) | payer MEDICARE ==
[2019-12-29 16:27] LABS: BASO # 0.1 10^3/uL (0.0-0.2); BASO % 0.9 % (0.0-1.0); EOS # 0.1 10^3/uL (0.0-0.5); EOS % 2.2 % (0.0-3.0); HEMATOCRIT 38.7 % (36.0-47.0); HEMOGLOBIN 11.8 g/dl (12.0-15.5); LYMPH # 2.1 10^3/uL (1.5-5.0); LYMPH % 38.2 % (24.0-44.0); MEAN CORPUSCULAR HEMOGLOBIN 30.8 pg (27.0-33.0); MEAN CORPUSCULAR HGB CONC 30.5 g/dl (32.0-36.5); MONO # 0.4 10^3/uL (0.0-0.8); MONO % 7.7 % (0.0-5.0); NEUTROPHILS # 2.7 10^3/uL (1.5-8.5); NEUTROPHILS % 50.4 % (36.0-66.0); PLATELET COUNT, AUTOMATED 376 10^3/uL (150-450); RED BLOOD COUNT 3.83 10^6/uL (4.00-5.40); WHITE BLOOD COUNT 5.4 10^3/uL (4.0-10.0)
[2019-12-29 16:43] LABS: INR 0.92; PROTHROMBIN TIME 12.5 SECONDS (12.5-14.3)
[2019-12-29 16:49] LABS: PARTIAL THROMBOPLASTIN TIME 39.4 SECONDS (24.2-38.5)
[2019-12-29 16:52] LABS: ALBUMIN 4.5 GM/DL (3.2-5.2); BILIRUBIN,TOTAL 0.3 MG/DL (0.2-1.0); CALCIUM LEVEL 10.3 MG/DL (8.8-10.2); CHOLESTEROL RISK RATIO 7.821 (<5); CREATININE FOR GFR 1.09 MG/DL (0.55-1.30); FREE T4 0.99 NG/DL (0.76-1.46); GLOMERULAR FILTRATION RATE 53.5 (>45); THYROID STIMULATING HORMONE 5.23 uIU/ML (0.358-3.740); TOTAL PROTEIN 7.6 GM/DL (6.4-8.2)
== END ==
LOC: M SFHCPLAZ 12:57
PROVIDERS: ATTEND Family Medicine
DX: I10 Essential (primary) hypertension (principal); D75.89 Other specified diseases of blood and blood-forming organs; K31.6 Fistula of stomach and duodenum; I70.1 Atherosclerosis of renal artery; E83.52 Hypercalcemia
CPT/HCPCS: 36415; 80053; 80061; 82607; 82728; 84439; 84443; 85025; 85046; 85610; 85730; 93005; G0463

== ENCOUNTER → 2020-01-04 | Outpatient (CLI) | payer MEDICARE | LOC: M LABSMTC 09:27 | PROVIDERS: ATTEND Anesthesiology | DX: Z01.812 Encounter for preprocedural laboratory examination (principal); Z20.828 Contact with and (suspected) exposure to other viral communicable diseases | CPT/HCPCS: C9803; U0003 ==

== ENCOUNTER 2020-01-09 06:04 | Day surgery (SDC) | payer MEDICARE ==
[~2020-01-09] VITALS: Ht 154.9 cm; Wt 87.1 kg
[2020-01-09] MEDS ORDERED: ceFAZolin SOD 1 GM in D5W MINI-BAG PLUS 50 ML IV ONE (07:00)
[2020-01-09] MEDS ORDERED: LR 1,000 ML IV ONE (07:00)
[2020-01-09] MEDS ORDERED: SCOPOLAMINE 1MG TRANSDERMAL PATCH As Ordered ONE (07:02)
[2020-01-09] MEDS ORDERED: SCOPOLAMINE 1MG TRANSDERMAL PATCH TOP ONE (07:15)
[2020-01-09] MEDS ORDERED: BUPIVACAINE/EPIN 0.25% 30 ML VIAL As Ordered ONE (07:15)
[2020-01-09] MEDS ORDERED: BUPIVACAINE HCL 0.25% 10ML VIAL As Ordered ONE (07:16)
[2020-01-09] MEDS ORDERED: BUPIVACAINE LIPOSOME/PF 1.3% 20ML VIAL (13.3MG/ML)(EXPAREL)(C9290 PER1MG) As Ordered ONE (07:16)
[2020-01-09] MEDS ORDERED: fentaNYL 100 MCG/2 ML INJECTION (J3010) As Ordered ONE ×2 (07:20→09:04)
[2020-01-09] MEDS ORDERED: ONDANSETRON 4MG/2ML VIAL As Ordered ONE (07:20)
[2020-01-09] MEDS ORDERED: dexameTHASONE 4 MG/ML 1ML VIAL (J1100 PER 1MG) As Ordered ONE (07:20)
[2020-01-09] MEDS ORDERED: propofoL 200 MG/20 ML VIAL As Ordered ONE (07:20)
[2020-01-09] MEDS ORDERED: LIDOCAINE 2% 100MG/5ML SDV (FOR ANES.) As Ordered ONE (07:20)
[2020-01-09] MEDS ORDERED: ROCURONIUM BROMIDE 50 MG/5 ML VIAL As Ordered ONE ×2 (07:20→08:06)
[2020-01-09] MEDS ORDERED: MIDAZOLAM INJ 2MG/2ML VIAL (J2250 PER 1MG) As Ordered ONE (07:21)
[2020-01-09] MEDS ORDERED: ceFAZolin 1GM VIAL (J0690 PER 500MG) As Ordered ONE (07:30)
[2020-01-09] MEDS ORDERED: METOCLOPRAMIDE INJ 10MG/2ML VIAL (J2765 PER 1) As Ordered ONE (07:57)
[2020-01-09] MEDS ORDERED: LACRILUBE (AKWA TEARS) OPHTH OINT 3.5 GM As Ordered ONE (07:57)
[2020-01-09] MEDS ORDERED: SUGAMMADEX SODIUM 500 MG/5 ML VIAL (BRIDION) As Ordered ONE (08:06)
[2020-01-09] MEDS ORDERED: VASOPRESSIN INJ 20 UNITS/ML VIAL As Ordered ONE (08:12)
[2020-01-09] MEDS ORDERED: ePHEDrine SULFATE 25 MG/5 ML(5MG/ML) SYRINGE As Ordered ONE (08:33)
[2020-01-09] MEDS ORDERED: PHENYLephrine HCL 500 MCG/5 ML (100MCG/ML) SYRINGE (J2370) As Ordered ONE ×2 (08:33→08:59)
[2020-01-09] MEDS ORDERED: ACETAMINOPHEN 1000MG 100ML IV BTL (OFIRMEV) (J0131 PER 10MG) As Ordered ONE (09:26)
[2020-01-09] MEDS ORDERED: LR 1,000 ML IV SCH (10:45)
[2020-01-09] MEDS ORDERED: PERCOCET 5MG/325MG TAB PO PRN (10:45)
[2020-01-09] MEDS ORDERED: ONDANSETRON 4MG/2ML VIAL IV PRN ×2 (10:45)
[2020-01-09] MEDS ORDERED: METOCLOPRAMIDE INJ 10MG/2ML VIAL (J2765 PER 1) IV PRN (10:45)
[2020-01-09] MEDS ORDERED: NORCO, ANEXSIA 5/325MG TABLET (HYDROcodone/ACETAMINOPHEN) PO PRN (10:45)
[2020-01-09] MEDS ORDERED: KETOROLAC 30 MG/ML 1ML VIAL IV SCH (10:45)
[2020-01-09] MEDS ORDERED: fentaNYL 100 MCG/2 ML INJECTION (J3010) IV PRN (10:45)
[2020-01-09 11:50] VITALS: BP 120/63
--- NOTE | 2020-01-26 14:49 | RO ---
DATE OF OPERATION: 01/09/2020 PREOPERATIVE DIAGNOSIS: Incisional hernia. POSTOPERATIVE DIAGNOSIS: Incisional hernia. PROCEDURE: Laparoscopic robotic-assisted incisional hernia repair. SURGEON: Neeraj Lindsey M.D. [employer] OPERATOR: JEM Gonsalves, (provided instrument placement, trocar placement, trocar closure). ANESTHESIA: General endotracheal anesthesia. ESTIMATED BLOOD LOSS: Minimal. FLUIDS: Crystalloid. BRIEF PROCEDURE SUMMARY: The patient was brought to the operating room and was given general anesthesia. After adequate anesthesia and preoperative antibiotics were given, the patient was prepped and draped in the usual sterile fashion. A supraumbilical incision was made with skin knife. This was much more in the epigastric area. Once this was made, the Veress needle was placed into the abdominal cavity, insufflated to 15 mmHg. In the left subcostal and right subcostal, 8-mm trocars were placed under direct visualization. There were numerous adhesions along the midline that were taken with electrocautery, but once this occurred and once the patient was in Trendelenburg, the majority of the adhesions/hernias came out quite nicely. This was relatively speaking a lower midline, almost suprapubic type of hernia. The way that it was laying, it was almost in a transverse manner and given its presentation, there definitely was some mesh present, but obviously had been pulled off to the side or this hernia was lateral to this, but it was actually in between two meshes in place. Thus, at this point, the abdominal wall closure/fascial closure was created using 0-STRATAFIX in a routine manner. This was started from laterally bilateral sides of this and brought together. The length of the suture line was about 11 cm, however, the repair went outside the fascial defect itself. In any case, a second layer was used to reinforce this primary layer. Next, a Parietex mesh, 15-cm round, was placed into the abdominal cavity and a trans-fascial suture was brought up to help keep it in the midline, and then it was sutured circumferentially using 2-0 V-Loc suture circumferentially. Local was injected into all sites. After the operative field was declared dry, no bleeding was appreciated, and the repair was intact, the patient was awakened and extubated after the abdominal wall closure was created with 4-0 Vicryl in the skin layer with Steri-Strips and a dry sterile dressing. The patient was brought to the recovery room awaken, alert, and hemodynamically stable. DAIANA
== END 2020-01-09 12:30 | disposition home or self-care (01) ==
LOC: M SDC 06:04
PROVIDERS: ATTEND Surgery
DX: K43.2 Incisional hernia without obstruction or gangrene (principal); I10 Essential (primary) hypertension; E78.2 Mixed hyperlipidemia; Z98.84 Bariatric surgery status; Z86.73 Personal history of transient ischemic attack (TIA), and cerebral infarction without residual deficits; G47.33 Obstructive sleep apnea (adult) (pediatric); Z79.899 Other long term (current) drug therapy
CPT/HCPCS: 49654; C1781; C9290; J0131; J0690; J1100; J2250; J2370; J2405; J2765; J3010; S2900

== ENCOUNTER → 2020-02-15 | Outpatient (CLI) | payer MEDICARE ==
--- NOTE | 2020-02-15 09:41 | REP ---
INDICATION: CKD; CKD DISEASE, ATHEROSCLEROSIS OF RENAL ARTERIES. COMPARISON: 10/20/2019. TECHNIQUE: Real-time sonographic evaluation of the kidneys is performed. FINDINGS: Renal cortical echogenicity pattern is normal bilaterally and contours are smooth. There is no evidence of hydronephrosis or calculus in either kidney. There are 3 cysts in the upper right kidney, the largest measures 1.3 cm. The right kidney measures 10.8 x 6.0 x 4.1 cm. Left renal dimensions are 10.7 x 5.0 x 5.3 cm. The urinary bladder is unremarkable. Ureteral jets are not visualized in the urinary bladder with Doppler color evaluation. Real-time ultrasound evaluation and duplex Doppler interrogation of the renal arteries is performed bilaterally. The peak systolic velocity of the abdominal aorta at the level of the renal arteries is 84.3 centimeters/second. Peak systolic velocity at the origin of the main right renal artery is 152 centimeters/second. Renal to aortic ratio 1.80. Resistive indices right kidney range between 0.72 and 0.80. Acceleration times range between 0.044 and 0.046. Peak systolic velocity of the main left renal artery is 125 centimeters/second. Renal to aortic ratio 1.48. Resistive indices left kidney range between 0.71 and 0.80. Acceleration times range between 0.032 and 0.050. IMPRESSION: No compelling duplex Doppler sonographic evidence of hemodynamically significant stenosis of either renal artery. Prior study demonstrated increased velocities suggesting renal artery stenosis but appear to have been overestimated. <Electronically signed by Jez Engel > 02/15/20 0937
== END ==
LOC: M RAD 06:58
PROVIDERS: ATTEND Physician Assistant
DX: N18.9 Chronic kidney disease, unspecified (principal)

== ENCOUNTER → 2020-03-20 | Outpatient (REF) | payer MEDICARE ==
[2020-03-20 17:21] LABS: APPEARANCE, URINE CLOUDY (CLEAR); BACTERIA, URINE AUTO 3+ (NEGATIVE); BILIRUBIN, URINE AUTO NEGATIVE (NEGATIVE); BLOOD, URINE BLOOD NEGATIVE (NEGATIVE); CALCIUM OXALATE CRYSTALS MODERATE; COLOR, URINE YELLOW (YELLOW); GLUCOSE, URINE (UA) AUTO NEGATIVE (NEGATIVE); KETONE, URINE AUTO NEGATIVE (NEGATIVE); LEUKOCYTE ESTERASE, URINE AUTO 3+ (NEGATIVE); MUCUS, URINE SMALL (NEGATIVE); NITRITE, URINE AUTO POSITIVE (NEGATIVE); PROTEIN, URINE AUTO NEGATIVE (NEGATIVE); RBC, URINE AUTO 0 /HPF (0-3); SPECIFIC GRAVITY URINE AUTO 1.018 (1.002-1.035); SQUAMOUS EPITHELIAL CELL UR AU 3 /HPF (0-6); TRANSITIONAL EPITHELIAL AUTO 2 /HPF; WBC, URINE AUTO 121 /HPF (0-3)
== END ==
LOC: M SMT 16:45
PROVIDERS: ATTEND Nurse Practitioner Family
DX: R30.0 Dysuria (principal)

== ENCOUNTER → 2020-05-01 | Outpatient (REF) | payer MEDICARE ==
[2020-05-01 14:17] LABS: APPEARANCE, URINE CLEAR (CLEAR); BACTERIA, URINE AUTO 1+ (NEGATIVE); BILIRUBIN, URINE AUTO NEGATIVE (NEGATIVE); BLOOD, URINE BLOOD NEGATIVE (NEGATIVE); COLOR, URINE YELLOW (YELLOW); GLUCOSE, URINE (UA) AUTO NEGATIVE (NEGATIVE); KETONE, URINE AUTO NEGATIVE (NEGATIVE); LEUKOCYTE ESTERASE, URINE AUTO TRACE (NEGATIVE); NITRITE, URINE AUTO NEGATIVE (NEGATIVE); PROTEIN, URINE AUTO NEGATIVE (NEGATIVE); RBC, URINE AUTO 2 /HPF (0-3); SPECIFIC GRAVITY URINE AUTO 1.015 (1.002-1.035); SQUAMOUS EPITHELIAL CELL UR AU 1 /HPF (0-6); UROBILINOGEN, URINE AUTO 0.2 mg/dL (0.0-2.0); WBC, URINE AUTO 1 /HPF (0-3)
== END ==
LOC: M SMT 13:38
PROVIDERS: ATTEND Nurse Practitioner Family
DX: N39.0 Urinary tract infection, site not specified (principal)

== ENCOUNTER → 2020-06-13 | Outpatient (REF) | payer MEDICARE ==
[2020-06-13 13:54] LABS: APPEARANCE, URINE CLEAR (CLEAR); BACTERIA, URINE AUTO 1+ (NEGATIVE); BILIRUBIN, URINE AUTO NEGATIVE (NEGATIVE); BLOOD, URINE BLOOD NEGATIVE (NEGATIVE); COLOR, URINE YELLOW (YELLOW); GLUCOSE, URINE (UA) AUTO NEGATIVE (NEGATIVE); KETONE, URINE AUTO NEGATIVE (NEGATIVE); LEUKOCYTE ESTERASE, URINE AUTO 2+ (NEGATIVE); NITRITE, URINE AUTO NEGATIVE (NEGATIVE); PROTEIN, URINE AUTO NEGATIVE (NEGATIVE); RBC, URINE AUTO 0 /HPF (0-3); SPECIFIC GRAVITY URINE AUTO 1.013 (1.002-1.035); SQUAMOUS EPITHELIAL CELL UR AU 0 /HPF (0-6); UROBILINOGEN, URINE AUTO 0.2 mg/dL (0.0-2.0); WBC, URINE AUTO 8 /HPF (0-3)
== END ==
LOC: M SMT 13:29
PROVIDERS: ATTEND Nurse Practitioner Family
DX: R30.0 Dysuria (principal)

== ENCOUNTER → 2020-10-11 | Outpatient (REF) | payer MEDICARE ==
[2020-10-11 14:29] LABS: APPEARANCE, URINE HAZY (CLEAR); BACTERIA, URINE AUTO NEGATIVE (NEGATIVE); BILIRUBIN, URINE AUTO NEGATIVE (NEGATIVE); BLOOD, URINE BLOOD NEGATIVE (NEGATIVE); COLOR, URINE YELLOW (YELLOW); GLUCOSE, URINE (UA) AUTO NEGATIVE (NEGATIVE); KETONE, URINE AUTO NEGATIVE (NEGATIVE); LEUKOCYTE ESTERASE, URINE AUTO NEGATIVE (NEGATIVE); NITRITE, URINE AUTO NEGATIVE (NEGATIVE); PROTEIN, URINE AUTO NEGATIVE (NEGATIVE); RBC, URINE AUTO 0 /HPF (0-3); SPECIFIC GRAVITY URINE AUTO 1.015 (1.002-1.035); SQUAMOUS EPITHELIAL CELL UR AU 0 /HPF (0-6); WBC, URINE AUTO 5 /HPF (0-3)
== END ==
LOC: M SMT 13:27
PROVIDERS: ATTEND Nurse Practitioner Family
DX: I10 Essential (primary) hypertension (principal)

== ENCOUNTER → 2020-12-23 | Outpatient (REF) | payer MEDICARE ==
[2020-12-23 19:32] LABS: APPEARANCE, URINE CLEAR (CLEAR); BACTERIA, URINE AUTO NEGATIVE (NEGATIVE); BILIRUBIN, URINE AUTO NEGATIVE (NEGATIVE); BLOOD, URINE BLOOD NEGATIVE (NEGATIVE); COLOR, URINE STRAW (YELLOW); GLUCOSE, URINE (UA) AUTO NEGATIVE (NEGATIVE); KETONE, URINE AUTO NEGATIVE (NEGATIVE); LEUKOCYTE ESTERASE, URINE AUTO NEGATIVE (NEGATIVE); NITRITE, URINE AUTO NEGATIVE (NEGATIVE); PROTEIN, URINE AUTO NEGATIVE (NEGATIVE); RBC, URINE AUTO 0 /HPF (0-3); SPECIFIC GRAVITY URINE AUTO 1.008 (1.002-1.035); SQUAMOUS EPITHELIAL CELL UR AU 0 /HPF (0-6); UROBILINOGEN, URINE AUTO 0.2 mg/dL (0.0-2.0); WBC, URINE AUTO 0 /HPF (0-3)
== END ==
LOC: M SFHCPLAZ 17:14
PROVIDERS: ATTEND Physician Assistant Medical
DX: R30.0 Dysuria (principal); I70.1 Atherosclerosis of renal artery; N13.30 Unspecified hydronephrosis

== ENCOUNTER → 2021-01-07 | Outpatient (REF) | payer MEDICARE ==
[2021-01-07 14:19] LABS: APPEARANCE, URINE HAZY (CLEAR); BACTERIA, URINE AUTO 1+ (NEGATIVE); BILIRUBIN, URINE AUTO NEGATIVE (NEGATIVE); BLOOD, URINE BLOOD NEGATIVE (NEGATIVE); COLOR, URINE YELLOW (YELLOW); GLUCOSE, URINE (UA) AUTO NEGATIVE (NEGATIVE); KETONE, URINE AUTO NEGATIVE (NEGATIVE); LEUKOCYTE ESTERASE, URINE AUTO 3+ (NEGATIVE); NITRITE, URINE AUTO NEGATIVE (NEGATIVE); PROTEIN, URINE AUTO NEGATIVE (NEGATIVE); RBC, URINE AUTO 1 /HPF (0-3); SPECIFIC GRAVITY URINE AUTO 1.011 (1.002-1.035); SQUAMOUS EPITHELIAL CELL UR AU 0 /HPF (0-6); UROBILINOGEN, URINE AUTO 0.2 mg/dL (0.0-2.0); WBC, URINE AUTO 47 /HPF (0-3)
== END ==
LOC: M SMT 13:23
PROVIDERS: ATTEND Nurse Practitioner Women's Health
DX: R30.0 Dysuria (principal)

== ENCOUNTER 2021-02-05 10:41 | Outpatient (RCR) | payer MEDICARE ==
[~2021-02-05 10:41] MED LIST changes: +LOSA100T45 PO; -LOSA100T50 PO; +OMEP-173 PO; -OMEP-218 PO; +TIZA10TA PO; -TIZA4TAB4 PO
== END 2021-02-25 ==
LOC: M PT 10:41
PROVIDERS: ATTEND Physical Medicine & Rehabilitation
DX: M54.50 Low back pain, unspecified (principal)

== ENCOUNTER → 2021-02-24 | Outpatient (REF) | payer MEDICARE ==
[2021-02-24 19:26] LABS: APPEARANCE, URINE CLOUDY (CLEAR); BACTERIA, URINE AUTO NEGATIVE (NEGATIVE); BILIRUBIN, URINE AUTO NEGATIVE (NEGATIVE); BLOOD, URINE BLOOD NEGATIVE (NEGATIVE); COLOR, URINE YELLOW (YELLOW); GLUCOSE, URINE (UA) AUTO NEGATIVE (NEGATIVE); KETONE, URINE AUTO NEGATIVE (NEGATIVE); LEUKOCYTE ESTERASE, URINE AUTO TRACE (NEGATIVE); MUCUS, URINE SMALL (NEGATIVE); NITRITE, URINE AUTO NEGATIVE (NEGATIVE); PROTEIN, URINE AUTO NEGATIVE (NEGATIVE); RBC, URINE AUTO 1 /HPF (0-3); SPECIFIC GRAVITY URINE AUTO 1.019 (1.002-1.035); SQUAMOUS EPITHELIAL CELL UR AU 0 /HPF (0-6); WBC, URINE AUTO 6 /HPF (0-3)
== END ==
LOC: M LAB REF 16:35
PROVIDERS: ATTEND Obstetrics & Gynecology
DX: N39.0 Urinary tract infection, site not specified (principal)

== ENCOUNTER → 2021-03-06 | Outpatient (CLI) | payer MEDICARE ==
[~2021-03-06] MED LIST changes: -LOSA100T45 PO; +LOSA100T50 PO; -OMEP-173 PO; +OMEP-218 PO; -TIZA10TA PO; +TIZA4TAB4 PO
[2021-03-06 12:43] LABS: HEMATOCRIT 37.1 % (36.0-47.0)
[2021-03-06 12:44] LABS: BASO # 0.1 10^3/uL (0.0-0.2); BASO % 0.8 % (0.0-1.0); EOS # 0.1 10^3/uL (0.0-0.5); EOS % 1.8 % (0.0-3.0); HEMATOCRIT 37.8 % (36.0-47.0); HEMOGLOBIN 11.7 g/dl (12.0-15.5); LYMPH # 2.4 10^3/uL (1.5-5.0); LYMPH % 32.9 % (24.0-44.0); MEAN CORPUSCULAR HEMOGLOBIN 30.4 pg (27.0-33.0); MEAN CORPUSCULAR VOLUME 98.2 fl (80.0-96.0); MONO # 0.5 10^3/uL (0.0-0.8); MONO % 7.2 % (2.0-8.0); NEUTROPHILS # 4.1 10^3/uL (1.5-8.5); NEUTROPHILS % 56.9 % (36.0-66.0); PLATELET COUNT, AUTOMATED 370 10^3/uL (150-450); RED BLOOD COUNT 3.85 10^6/uL (4.00-5.40); WHITE BLOOD COUNT 7.2 10^3/uL (4.0-10.0)
[2021-03-06 13:41] LABS: ALBUMIN 4.2 GM/DL (3.2-5.2); BILIRUBIN,TOTAL 0.3 MG/DL (0.2-1.0); CALCIUM LEVEL 10.9 MG/DL (8.8-10.2); CREATININE FOR GFR 1.08 MG/DL (0.55-1.30); GLOMERULAR FILTRATION RATE 53.9 (>45); POTASSIUM SERUM 4.6 MEQ/L (3.5-5.1); TOTAL PROTEIN 7.6 GM/DL (6.4-8.2)
[2021-03-06 13:49] LABS: PTH INTACT 16.6 PG/ML (18.5-88.0); TOTAL 25(OH) VITAMIN D 24.2 NG/ML (30.0-100.0)
== END ==
LOC: M WUC 10:24
PROVIDERS: ATTEND Physician Assistant Medical
DX: D75.89 Other specified diseases of blood and blood-forming organs (principal); E78.1 Pure hyperglyceridemia; E55.9 Vitamin D deficiency, unspecified; I10 Essential (primary) hypertension

== ENCOUNTER → 2021-03-20 | Outpatient (CLI) | payer MEDICARE ==
[~2021-03-20] MED LIST changes: +LOSA100T45 PO; -LOSA100T50 PO; +OMEP-173 PO; -OMEP-218 PO; +TIZA10TA PO; -TIZA4TAB4 PO
== END ==
LOC: M WHC 10:59
PROVIDERS: ATTEND Physician Assistant Medical
DX: Z12.31 Encounter for screening mammogram for malignant neoplasm of breast (principal); Z80.3 Family history of malignant neoplasm of breast; Z92.0 Personal history of contraception; Z92.23 Personal history of estrogen therapy; Z92.29 Personal history of other drug therapy

== ENCOUNTER → 2021-06-11 | Outpatient (CLI) | payer MEDICARE ==
[~2021-06-11] MED LIST changes: -D31000TA2 PO; +VITA100093 PO
[2021-06-11 09:10] LABS: HEMATOCRIT 36.8 % (36.0-47.0); HEMOGLOBIN 11.6 g/dl (12.0-15.5); MEAN CORPUSCULAR HEMOGLOBIN 30.4 pg (27.0-33.0); MEAN CORPUSCULAR HGB CONC 31.5 g/dl (32.0-36.5); MEAN CORPUSCULAR VOLUME 96.3 fl (80.0-96.0); PLATELET COUNT, AUTOMATED 372 10^3/uL (150-450); RED BLOOD COUNT 3.82 10^6/uL (4.00-5.40); WHITE BLOOD COUNT 6.5 10^3/uL (4.0-10.0)
[2021-06-11 09:11] LABS: HEMATOCRIT 36.8 % (36.0-47.0)
[2021-06-11 09:40] LABS: HEMOGLOBIN A1c 5.6 %
[2021-06-11 10:26] LABS: ALBUMIN 4.2 GM/DL (3.2-5.2); ALT/SGPT 46 U/L (12-78); BILIRUBIN,TOTAL 0.3 MG/DL (0.2-1.0); BLOOD UREA NITROGEN 37 MG/DL (7-18); CALCIUM LEVEL 10.4 MG/DL (8.8-10.2); CARBON DIOXIDE LEVEL 30 MEQ/L (21-32); CHLORIDE LEVEL 107 MEQ/L (98-107); CHOLESTEROL LEVEL 173 MG/DL (<200); CHOLESTEROL RISK RATIO 4.435 (<5); CREATININE FOR GFR 0.94 MG/DL (0.55-1.30); GLOMERULAR FILTRATION RATE > 60.0 (>45); GLUCOSE, FASTING 94 MG/DL (70-100); HDL CHOLESTEROL 39 MG/DL (>40); LDL CHOLESTEROL 88 MG/DL (<100); NON-HDL-C 134 MG/DL; POTASSIUM SERUM 4.2 MEQ/L (3.5-5.1); SODIUM LEVEL 143 MEQ/L (136-145); TOTAL PROTEIN 7.3 GM/DL (6.4-8.2); TRIGLYCERIDES LEVEL 229 MG/DL (<150)
[2021-06-11 10:33] LABS: TOTAL 25(OH) VITAMIN D 22.4 NG/ML (30.0-100.0)
[2021-06-11 10:34] LABS: PTH INTACT 13.6 PG/ML (18.5-88.0); VITAMIN B12 LEVEL 470 PG/ML (247-911)
== END ==
LOC: M WUC 08:11
PROVIDERS: ATTEND Physician Assistant Medical
DX: I10 Essential (primary) hypertension (principal); E55.9 Vitamin D deficiency, unspecified; E66.9 Obesity, unspecified; D75.89 Other specified diseases of blood and blood-forming organs

== ENCOUNTER → 2021-06-23 | Outpatient (REF) | payer MEDICARE ==
[2021-06-23 15:33] LABS: CALCIUM, 24 HOUR URINE 151.8 MG/24HR (42-353); CALCIUM, URINE 7.5 MG/DL
== END ==
LOC: M SFHCPLAZ 14:55
PROVIDERS: ATTEND Physician Assistant Medical
DX: E20.8 Other hypoparathyroidism (principal)

== ENCOUNTER → 2021-07-15 | Outpatient (CLI) | payer MEDICARE | LOC: M LAB 11:58 | PROVIDERS: ATTEND Psychiatry & Neurology Neurology | DX: E53.8 Deficiency of other specified B group vitamins (principal) ==

== ENCOUNTER → 2021-09-10 | Outpatient (REF) | payer MEDICARE ==
[2021-09-10 17:40] LABS: APPEARANCE, URINE HAZY (CLEAR); BACTERIA, URINE AUTO NEGATIVE (NEGATIVE); BILIRUBIN, URINE AUTO NEGATIVE (NEGATIVE); BLOOD, URINE BLOOD NEGATIVE (NEGATIVE); COLOR, URINE YELLOW (YELLOW); GLUCOSE, URINE (UA) AUTO NEGATIVE (NEGATIVE); KETONE, URINE AUTO NEGATIVE (NEGATIVE); LEUKOCYTE ESTERASE, URINE AUTO NEGATIVE (NEGATIVE); NITRITE, URINE AUTO NEGATIVE (NEGATIVE); PROTEIN, URINE AUTO NEGATIVE (NEGATIVE); RBC, URINE AUTO 0 /HPF (0-3); SPECIFIC GRAVITY URINE AUTO 1.012 (1.002-1.035); SQUAMOUS EPITHELIAL CELL UR AU 0 /HPF (0-6); UROBILINOGEN, URINE AUTO 0.2 mg/dL (0.0-2.0); WBC, URINE AUTO 0 /HPF (0-3)
== END ==
LOC: M SMT 17:14
PROVIDERS: ATTEND Nurse Practitioner Women's Health
DX: R30.0 Dysuria (principal)

== ENCOUNTER → 2021-09-25 | Outpatient (CLI) | payer MEDICARE | LOC: M SOG 08:49 | PROVIDERS: ATTEND Orthopaedic Surgery Hand Surgery | DX: M25.542 Pain in joints of left hand (principal); M65.312 Trigger thumb, left thumb ==

== ENCOUNTER → 2021-10-16 | Outpatient (CLI) | payer MEDICARE ==
[2021-10-16 16:20] LABS: BASO % 0.7 % (0.0-1.0); EOS # 0.1 10^3/uL (0.0-0.5); EOS % 1.4 % (0.0-3.0); HEMATOCRIT 44.2 % (36.0-47.0); HEMOGLOBIN 13.8 g/dl (12.0-15.5); LYMPH # 2.1 10^3/uL (1.5-5.0); LYMPH % 36.2 % (24.0-44.0); MEAN CORPUSCULAR HEMOGLOBIN 29.6 pg (27.0-33.0); MEAN CORPUSCULAR HGB CONC 31.2 g/dl (32.0-36.5); MEAN CORPUSCULAR VOLUME 94.8 fl (80.0-96.0); MONO # 0.5 10^3/uL (0.0-0.8); MONO % 8.3 % (2.0-8.0); NEUTROPHILS # 3.1 10^3/uL (1.5-8.5); NEUTROPHILS % 53.2 % (36.0-66.0); PLATELET COUNT, AUTOMATED 276 10^3/uL (150-450); RED BLOOD COUNT 4.66 10^6/uL (4.00-5.40); WHITE BLOOD COUNT 5.8 10^3/uL (4.0-10.0)
[2021-10-16 16:45] LABS: ERYTHROCYTE SEDIMENTATION RATE 15 mm/hr (0-30)
[2021-10-16 17:04] LABS: ALBUMIN 4.1 GM/DL (3.2-5.2); ALT/SGPT 38 U/L (12-78); BILIRUBIN,TOTAL 0.3 MG/DL (0.2-1.0); BLOOD UREA NITROGEN 20 MG/DL (7-18); CALCIUM LEVEL 10.2 MG/DL (8.8-10.2); CARBON DIOXIDE LEVEL 28 MEQ/L (21-32); CHLORIDE LEVEL 109 MEQ/L (98-107); CHOLESTEROL LEVEL 242 MG/DL (<200); CHOLESTEROL RISK RATIO 3.967 (<5); CREATININE FOR GFR 0.72 MG/DL (0.55-1.30); GLOMERULAR FILTRATION RATE > 60.0 (>45); GLUCOSE, FASTING 91 MG/DL (70-100); HDL CHOLESTEROL 61 MG/DL (>40); LDL CHOLESTEROL 143 MG/DL (<100); NON-HDL-C 181 MG/DL; POTASSIUM SERUM 4.3 MEQ/L (3.5-5.1); SODIUM LEVEL 142 MEQ/L (136-145); TOTAL PROTEIN 7.3 GM/DL (6.4-8.2); TRIGLYCERIDES LEVEL 189 MG/DL (<150)
[2021-10-16 17:44] LABS: TOTAL 25(OH) VITAMIN D 50.3 NG/ML (30.0-100.0)
[2021-10-16 17:45] LABS: VITAMIN B12 LEVEL 663 PG/ML (247-911)
[2021-10-16 20:22] LABS: HEMOGLOBIN A1c 5.2 %
== END ==
LOC: M WUC 13:18
PROVIDERS: ATTEND Physician Assistant Medical
DX: E55.9 Vitamin D deficiency, unspecified (principal); D75.89 Other specified diseases of blood and blood-forming organs; E66.9 Obesity, unspecified; E78.1 Pure hyperglyceridemia; M47.816 Spondylosis without myelopathy or radiculopathy, lumbar region; Z79.899 Other long term (current) drug therapy

== ENCOUNTER → 2021-10-27 | Outpatient (REF) | payer MEDICARE ==
[2021-10-27 13:40] LABS: APPEARANCE, URINE CLOUDY (CLEAR); BACTERIA, URINE AUTO NEGATIVE (NEGATIVE); BILIRUBIN, URINE AUTO NEGATIVE (NEGATIVE); BLOOD, URINE BLOOD 1+ (NEGATIVE); COLOR, URINE AMBER (YELLOW); GLUCOSE, URINE (UA) AUTO NEGATIVE (NEGATIVE); KETONE, URINE AUTO NEGATIVE (NEGATIVE); LEUKOCYTE ESTERASE, URINE AUTO 1+ (NEGATIVE); MUCUS, URINE SMALL (NEGATIVE); NITRITE, URINE AUTO POSITIVE (NEGATIVE); PROTEIN, URINE AUTO NEGATIVE (NEGATIVE); RBC, URINE AUTO 2 /HPF (0-3); SPECIFIC GRAVITY URINE AUTO 1.014 (1.002-1.035); SQUAMOUS EPITHELIAL CELL UR AU 0 /HPF (0-6); UROBILINOGEN, URINE AUTO 0.2 mg/dL (0.0-2.0); WBC, URINE AUTO 12 /HPF (0-3)
== END ==
LOC: M SMT 13:10
PROVIDERS: ATTEND Physician Assistant
DX: R30.0 Dysuria (principal)

== ENCOUNTER → 2021-11-17 | Outpatient (REF) | payer MEDICARE ==
[2021-11-17 13:55] LABS: APPEARANCE, URINE MANUAL HAZY (CLEAR); COLOR, URINE MANUAL YELLOW (YELLOW)
[2021-11-17 13:56] LABS: PH,URINE MAN 6.5 UNITS (5.0 - 7.0)
[2021-11-17 13:58] LABS: BILIRUBIN, URINE MANUAL NEGATIVE (NEGATIVE); BLOOD URINE MANUAL NEGATIVE (NEGATIVE); GLUCOSE, URINE (UA) MANUAL NEGATIVE (NEGATIVE); KETONE, URINE MANUAL NEGATIVE (NEGATIVE); LEUKOCYTE ESTERASE, URINE MAN POSITIVE (NEGATIVE); NITRITE, URINE MANUAL NEGATIVE (NEGATIVE); PROTEIN, URINE MANUAL NEGATIVE (NEGATIVE); UROBILINOGEN, URINE MANUAL NORMAL (NORMAL)
[2021-11-17 14:27] LABS: BACTERIA, URINE LARGE AMOUNT; HYALINE CAST, URINE NONE SEEN /lpf (0-1); RBC, URINE 0-1 /hpf (0-3); SQUAMOUS EPITHELIAL CELL URINE SMALL AMOUNT /hpf (SMALL AMT); WBC, URINE 15-20 /hpf (0-3)
== END ==
LOC: M SMT 12:50
PROVIDERS: ATTEND Physician Assistant
DX: R30.0 Dysuria (principal)

== ENCOUNTER 2021-11-24 12:12 | Outpatient (RCR) | payer MEDICARE | END 2021-11-26 | LOC: M PT 12:12 | PROVIDERS: ATTEND Physician Assistant Medical | DX: M51.36 Other intervertebral disc degeneration, lumbar region (principal) ==

== ENCOUNTER 2021-12-18 14:20 | Outpatient (RCR) | payer MEDICARE | END 2021-12-26 | LOC: M PT 14:20 | PROVIDERS: ATTEND Physician Assistant Medical | DX: M51.36 Other intervertebral disc degeneration, lumbar region (principal) ==

== ENCOUNTER → 2021-12-19 | Outpatient (REF) | payer MEDICARE ==
[2021-12-19 15:48] LABS: APPEARANCE, URINE MANUAL CLEAR (CLEAR); COLOR, URINE MANUAL LT YELLOW (YELLOW)
[2021-12-19 15:49] LABS: BILIRUBIN, URINE MANUAL NEGATIVE (NEGATIVE); BLOOD URINE MANUAL NEGATIVE (NEGATIVE); GLUCOSE, URINE (UA) MANUAL NEGATIVE (NEGATIVE); KETONE, URINE MANUAL NEGATIVE (NEGATIVE); LEUKOCYTE ESTERASE, URINE MAN POSITIVE (NEGATIVE); NITRITE, URINE MANUAL NEGATIVE (NEGATIVE); PH,URINE MAN 7.5 UNITS (5.0 - 7.0); PROTEIN, URINE MANUAL NEGATIVE (NEGATIVE); SPECIFIC GRAVITY,URINE MANUAL 1.005 (1.002-1.035); UROBILINOGEN, URINE MANUAL NORMAL (NORMAL)
[2021-12-19 16:12] LABS: BACTERIA, URINE SMALL AMOUNT; HYALINE CAST, URINE NONE SEEN /lpf (0-1); MUCUS, URINE SMALL AMOUNT (NEGATIVE); SQUAMOUS EPITHELIAL CELL URINE SMALL AMOUNT /hpf (SMALL AMT)
== END ==
LOC: M SMT 15:17
PROVIDERS: ATTEND Physician Assistant
DX: R30.0 Dysuria (principal)

== ENCOUNTER → 2022-01-14 | Outpatient (REF) | payer MEDICARE | LOC: M PLALAB 14:40 | PROVIDERS: ATTEND Nurse Practitioner Family | DX: Z12.4 Encounter for screening for malignant neoplasm of cervix (principal) | CPT/HCPCS: 87624; G0123 ==

== ENCOUNTER 2022-01-20 13:45 | Outpatient (RCR) | payer MEDICARE | END 2022-01-26 | LOC: M PT 13:45 | PROVIDERS: ATTEND Physician Assistant Medical | DX: M51.36 Other intervertebral disc degeneration, lumbar region (principal) ==

== ENCOUNTER 2022-02-18 10:45 | Outpatient (RCR) | payer MEDICARE ==
[~2022-02-18 10:45] MED LIST changes: +WHEAOIL4 PO; +[UNRECOGNIZED DRUG - OTHER] PO; +d mannose PO
== END 2022-02-25 ==
LOC: M PT 10:45
PROVIDERS: ATTEND Psychiatry & Neurology Neurology
DX: M54.2 Cervicalgia (principal)

== ENCOUNTER → 2022-02-24 | Outpatient (CLI) | payer MEDICARE | LOC: M LABSMTC 10:28 | PROVIDERS: ATTEND Anesthesiology | DX: Z01.812 Encounter for preprocedural laboratory examination (principal); Z11.52 Encounter for screening for COVID-19 ==

== ENCOUNTER 2022-02-27 06:34 | Day surgery (SDC) | payer MEDICARE ==
[~2022-02-27] VITALS: Ht 152.4 cm; Wt 89.4 kg
[~2022-02-27 06:34] MED LIST changes: +LIDOCAINE W/EPINEPHRINE 1% 20ML VIAL XX ONE; +SODIUM BICARBONATE 8.4% INJ 50MEQ 50ML VIAL XX ONE
[2022-02-27] MEDS ORDERED: BACITRACIN OINTMENT 30GM TUBE As Ordered ONE (07:08)
[2022-02-27 08:15] VITALS: BP 178/83
== END 2022-02-27 08:30 | disposition home or self-care (01) ==
LOC: M SDC 06:34
PROVIDERS: ATTEND Orthopaedic Surgery Hand Surgery
DX: M65.312 Trigger thumb, left thumb (principal); I10 Essential (primary) hypertension; E78.00 Pure hypercholesterolemia, unspecified; Z86.73 Personal history of transient ischemic attack (TIA), and cerebral infarction without residual deficits; Z98.84 Bariatric surgery status; G47.30 Sleep apnea, unspecified; Z79.899 Other long term (current) drug therapy

== ENCOUNTER 2022-03-12 12:03 | Outpatient (RCR) | payer MEDICARE ==
[~2022-03-12 12:03] MED LIST changes: -LIDOCAINE W/EPINEPHRINE 1% 20ML VIAL XX ONE; -SODIUM BICARBONATE 8.4% INJ 50MEQ 50ML VIAL XX ONE
== END 2022-03-28 ==
LOC: M PT 12:03
PROVIDERS: ATTEND Psychiatry & Neurology Neurology
DX: M54.2 Cervicalgia (principal)

== ENCOUNTER → 2022-03-26 | Outpatient (CLI) | payer MEDICARE | LOC: M WHC 13:30 | PROVIDERS: ATTEND Nurse Practitioner Family | DX: Z12.31 Encounter for screening mammogram for malignant neoplasm of breast (principal) ==

== ENCOUNTER → 2022-04-08 | Outpatient (REF) | payer MEDICARE ==
[2022-04-08 18:48] LABS: APPEARANCE, URINE MANUAL CLEAR (CLEAR); BILIRUBIN, URINE MANUAL NEGATIVE (NEGATIVE); BLOOD URINE MANUAL NEGATIVE (NEGATIVE); COLOR, URINE MANUAL YELLOW (YELLOW); GLUCOSE, URINE (UA) MANUAL NEGATIVE (NEGATIVE); KETONE, URINE MANUAL NEGATIVE (NEGATIVE); LEUKOCYTE ESTERASE, URINE MAN NEGATIVE (NEGATIVE); NITRITE, URINE MANUAL NEGATIVE (NEGATIVE); PROTEIN, URINE MANUAL NEGATIVE (NEGATIVE); SPECIFIC GRAVITY,URINE MANUAL 1.015 (1.002-1.035); UROBILINOGEN, URINE MANUAL NORMAL (NORMAL)
== END ==
LOC: M SMT 16:56
PROVIDERS: ATTEND Physician Assistant
DX: R30.0 Dysuria (principal)

== ENCOUNTER → 2022-04-22 | Outpatient (CLI) | payer MEDICARE ==
[2022-04-22 13:19] LABS: BILIRUBIN,DIRECT 0.1 MG/DL (<0.4)
[2022-04-22 13:20] LABS: BILIRUBIN,TOTAL 0.4 MG/DL (0.3-1.2); TOTAL PROTEIN 7.1 G/DL (5.7-8.2)
[2022-04-24 10:09] LABS: IGASUB2 70.1 mg/dL (73.2-301.2); IGASUB3 18.3 mg/dL (13.4-97.9); IgA SERUM (part of Subclasses) 88 mg/dL (87-352); TISSUE TRANSGLUTAMINASE IgA <2 U/mL (0-3); UNITSIGA FOR GLIADIN IGA 5 units (0-19); UNITSIGG FOR GLIADIN IGG 3 units (0-19)
== END ==
LOC: M WUC 10:28
PROVIDERS: ATTEND Internal Medicine Gastroenterology
DX: R14.0 Abdominal distension (gaseous) (principal)

== ENCOUNTER 2022-05-13 00:12 | Inpatient (IN) | payer MEDICARE ==
[~2022-05-13] VITALS: Ht 152.4 cm; Wt 91.4 kg
[2022-05-13 01:34] LABS: BASO % 0.2 % (0.0-1.0); EOS % 0.2 % (0.0-3.0); HEMATOCRIT 45.4 % (36.0-47.0); HEMOGLOBIN 14.8 g/dl (12.0-15.5); LYMPH # 1.2 10^3/uL (1.5-5.0); LYMPH % 9.8 % (24.0-44.0); MEAN CORPUSCULAR HGB CONC 32.6 g/dl (32.0-36.5); MEAN CORPUSCULAR VOLUME 95.2 fl (80.0-96.0); MONO # 0.5 10^3/uL (0.0-0.8); MONO % 3.9 % (2.0-8.0); NEUTROPHILS # 10.6 10^3/uL (1.5-8.5); NEUTROPHILS % 85.3 % (36.0-66.0); PLATELET COUNT, AUTOMATED 270 10^3/uL (150-450); RED BLOOD COUNT 4.77 10^6/uL (4.00-5.40); WHITE BLOOD COUNT 12.4 10^3/uL (4.0-10.0)
[2022-05-13] MEDS ORDERED: NS 1,000 ML IV ONE (01:40)
[2022-05-13] MEDS ORDERED: KETOROLAC 30 MG/ML 1ML VIAL IV ONE (01:40)
[2022-05-13 01:41] LABS: CK-MB VALUE MASS 3.8 NG/ML (<3.6)
[2022-05-13 01:43] LABS: ALBUMIN 4.6 G/DL (3.2-5.2); ALKALINE PHOSPHATASE 134 U/L (46-116); ALT/SGPT 89 U/L (7.0-40); AST/SGOT 96 U/L (<34); BILIRUBIN,DIRECT 0.2 MG/DL (<0.4); BILIRUBIN,TOTAL 0.6 MG/DL (0.3-1.2); BLOOD UREA NITROGEN 29 MG/DL (9-23); CALCIUM LEVEL 9.9 MG/DL (8.3-10.6); CARBON DIOXIDE LEVEL 23 MMOL/L (20-31); CHLORIDE LEVEL 103 MMOL/L (98-107); CPK CREATINE PHOSPHOKINASE 243 U/L (34-145); GLOMERULAR FILTRATION RATE > 60.0 (>45); GLUCOSE, FASTING 197 MG/DL (74-106); MB/CK RELATIVE INDEX 1.56 (< OR =4); POTASSIUM SERUM 3.9 MMOL/L (3.5-5.1); SODIUM LEVEL 135 MMOL/L (136-145); TOTAL PROTEIN 7.9 G/DL (5.7-8.2)
[2022-05-13 01:46] LABS: INR 0.82; PROTHROMBIN TIME 11.5 SECONDS (12.5-14.5)
[2022-05-13] MEDS ORDERED: ISOVUE-370 76% 100ML VIAL As Ordered ONE (01:53)
[2022-05-13 02:02] LABS: LIPASE 1387 U/L (12-53)
[2022-05-13] MEDS ORDERED: ONDANSETRON 4MG 2ML VIAL IV ONE (02:15)
[2022-05-13] MEDS ORDERED: VITMTA PO (03:56)
[2022-05-13] MEDS ORDERED: HOME MED LIST COMPLETE! XX SCH (04:05)
[2022-05-13 04:15] LABS: RSV AMPLIFICATION NEGATIVE (NEGATIVE)
[2022-05-13] MEDS: NS 1,000 ML IV SCH ×3 (05:07→21:01)
[2022-05-13 05:50] VITALS: BP 152/78
[2022-05-13] MEDS: HEPARIN SOD (PORCINE) 5000UNITS/ML 1ML VIAL/SYRINGE SC SCH ×3 (06:41→21:02)
[2022-05-13 07:12] LABS: HEMATOCRIT 44.3 % (36.0-47.0); HEMOGLOBIN 14.6 g/dl (12.0-15.5); MEAN CORPUSCULAR HEMOGLOBIN 31.1 pg (27.0-33.0); MEAN CORPUSCULAR VOLUME 94.3 fl (80.0-96.0); PLATELET COUNT, AUTOMATED 287 10^3/uL (150-450); WHITE BLOOD COUNT 7.9 10^3/uL (4.0-10.0)
[2022-05-13 08:04] LABS: ALBUMIN 4.1 G/DL (3.2-5.2); ALKALINE PHOSPHATASE 122 U/L (46-116); ALT/SGPT 75 U/L (7.0-40); AST/SGOT 69 U/L (<34); BILIRUBIN,TOTAL 0.5 MG/DL (0.3-1.2); BLOOD UREA NITROGEN 25 MG/DL (9-23); CALCIUM LEVEL 9.4 MG/DL (8.3-10.6); CARBON DIOXIDE LEVEL 26 MMOL/L (20-31); CHLORIDE LEVEL 102 MMOL/L (98-107); CREATININE FOR GFR 0.63 MG/DL (0.55-1.30); GLOMERULAR FILTRATION RATE > 60.0 (>45); GLUCOSE, FASTING 134 MG/DL (74-106); POTASSIUM SERUM 4.3 MMOL/L (3.5-5.1); SODIUM LEVEL 137 MMOL/L (136-145); TOTAL PROTEIN 7.2 G/DL (5.7-8.2)
[2022-05-13] MEDS ORDERED: METOCLOPRAMIDE INJ 10MG/2ML VIAL IV PRN (09:55)
[2022-05-13 14:00] VITALS: BP 124/78
[2022-05-13] MEDS: ONDANSETRON 4MG 2ML VIAL IV PRN (14:03)
[2022-05-13 20:00] VITALS: BP 155/78
[2022-05-14] MEDS: ONDANSETRON 4MG 2ML VIAL IV PRN ×2 (02:42→11:35)
[2022-05-14] MEDS: HEPARIN SOD (PORCINE) 5000UNITS/ML 1ML VIAL/SYRINGE SC SCH ×3 (05:30→21:54)
[2022-05-14] MEDS ORDERED: NS 1,000 ML IV ONE (05:35)
[2022-05-14 06:00] VITALS: BP 140/76
[2022-05-14 08:29] LABS: ALBUMIN 3.5 G/DL (3.2-5.2); ALKALINE PHOSPHATASE 93 U/L (46-116); ALT/SGPT 49 U/L (7.0-40); AST/SGOT 28 U/L (<34); BILIRUBIN,TOTAL 0.5 MG/DL (0.3-1.2); BLOOD UREA NITROGEN 33 MG/DL (9-23); CALCIUM LEVEL 8.3 MG/DL (8.3-10.6); CARBON DIOXIDE LEVEL 27 MMOL/L (20-31); CHLORIDE LEVEL 105 MMOL/L (98-107); CPK CREATINE PHOSPHOKINASE 96 U/L (34-145); GLOMERULAR FILTRATION RATE > 60.0 (>45); GLUCOSE, FASTING 104 MG/DL (74-106); POTASSIUM SERUM 4.1 MMOL/L (3.5-5.1); SODIUM LEVEL 141 MMOL/L (136-145); TOTAL PROTEIN 6.3 G/DL (5.7-8.2)
[2022-05-14 10:57] LABS: HEMATOCRIT 43.5 % (36.0-47.0); MEAN CORPUSCULAR HEMOGLOBIN 31.3 pg (27.0-33.0); MEAN CORPUSCULAR HGB CONC 32.2 g/dl (32.0-36.5); MEAN CORPUSCULAR VOLUME 97.1 fl (80.0-96.0); PLATELET COUNT, AUTOMATED 273 10^3/uL (150-450); RED BLOOD COUNT 4.48 10^6/uL (4.00-5.40); WHITE BLOOD COUNT 5.9 10^3/uL (4.0-10.0)
[2022-05-14 14:00] VITALS: BP 142/76
[2022-05-14] MEDS ORDERED: MORPHINE 2 MG/ML 1ML VIAL IV PRN (15:05)
[2022-05-14 21:00] VITALS: BP 138/64
[2022-05-15 05:20] VITALS: BP 126/64
[2022-05-15 06:00] LABS: HEMATOCRIT 40.4 % (36.0-47.0); HEMOGLOBIN 12.8 g/dl (12.0-15.5); MEAN CORPUSCULAR HEMOGLOBIN 30.8 pg (27.0-33.0); MEAN CORPUSCULAR HGB CONC 31.7 g/dl (32.0-36.5); MEAN CORPUSCULAR VOLUME 97.3 fl (80.0-96.0); PLATELET COUNT, AUTOMATED 251 10^3/uL (150-450); RED BLOOD COUNT 4.15 10^6/uL (4.00-5.40); WHITE BLOOD COUNT 5.8 10^3/uL (4.0-10.0)
[2022-05-15 06:33] LABS: ALBUMIN 3.2 G/DL (3.2-5.2); ALKALINE PHOSPHATASE 89 U/L (46-116); ALT/SGPT 39 U/L (7.0-40); AST/SGOT 19 U/L (<34); BILIRUBIN,TOTAL 0.6 MG/DL (0.3-1.2); BLOOD UREA NITROGEN 36 MG/DL (9-23); CALCIUM LEVEL 8.5 MG/DL (8.3-10.6); CARBON DIOXIDE LEVEL 28 MMOL/L (20-31); CHLORIDE LEVEL 107 MMOL/L (98-107); CREATININE FOR GFR 0.71 MG/DL (0.55-1.30); GLOMERULAR FILTRATION RATE > 60.0 (>45); GLUCOSE, FASTING 86 MG/DL (74-106); POTASSIUM SERUM 3.8 MMOL/L (3.5-5.1); SODIUM LEVEL 143 MMOL/L (136-145); TOTAL PROTEIN 5.8 G/DL (5.7-8.2)
[2022-05-15] MEDS: HEPARIN SOD (PORCINE) 5000UNITS/ML 1ML VIAL/SYRINGE SC SCH ×3 (06:37→21:58)
[2022-05-15] MEDS ORDERED: NS 1,000 ML IV ONE (08:15)
[2022-05-15] MEDS: LR 1,000 ML IV SCH ×2 (09:20→17:44)
[2022-05-15 15:00] VITALS: BP 134/70
[2022-05-15 21:05] VITALS: BP 150/71
[2022-05-16 05:00] VITALS: BP 134/74
[2022-05-16] MEDS: HEPARIN SOD (PORCINE) 5000UNITS/ML 1ML VIAL/SYRINGE SC SCH (05:04)
[2022-05-16] MEDS: LR 1,000 ML IV SCH (05:04)
== END 2022-05-16 11:15 | disposition home or self-care (01) | DRG 395 ==
LOC: M ED 00:12 → M ED INP 04:13 → M MSPAV 05:50
PROVIDERS: ADMIT Family Medicine; ATTEND Internal Medicine
DX: K43.6 Other and unspecified ventral hernia with obstruction, without gangrene (principal); E78.5 Hyperlipidemia, unspecified; R74.01 Elevation of levels of liver transaminase levels; E11.9 Type 2 diabetes mellitus without complications; K57.30 Diverticulosis of large intestine without perforation or abscess without bleeding; N18.30 Chronic kidney disease, stage 3 unspecified; I12.9 Hypertensive chronic kidney disease with stage 1 through stage 4 chronic kidney disease, or unspecified chronic kidney disease; M19.90 Unspecified osteoarthritis, unspecified site; G47.33 Obstructive sleep apnea (adult) (pediatric); E66.01 Morbid (severe) obesity due to excess calories; K75.81 Nonalcoholic steatohepatitis (NASH); I70.1 Atherosclerosis of renal artery; D50.9 Iron deficiency anemia, unspecified; Z79.899 Other long term (current) drug therapy; Z68.39 Body mass index [BMI] 39.0-39.9, adult; Z91.048 Other nonmedicinal substance allergy status; Z90.49 Acquired absence of other specified parts of digestive tract; Z98.84 Bariatric surgery status; Z96.653 Presence of artificial knee joint, bilateral

== ENCOUNTER → 2022-05-20 | Outpatient (REF) | payer MEDICARE ==
[~2022-05-20] MED LIST changes: +VITMTA PO
[2022-05-20 15:58] LABS: APPEARANCE, URINE CLOUDY (CLEAR); BACTERIA, URINE AUTO NEGATIVE (NEGATIVE); BILIRUBIN, URINE AUTO NEGATIVE (NEGATIVE); BLOOD, URINE BLOOD NEGATIVE (NEGATIVE); COLOR, URINE AMBER (YELLOW); GLUCOSE, URINE (UA) AUTO NEGATIVE (NEGATIVE); KETONE, URINE AUTO NEGATIVE (NEGATIVE); LEUKOCYTE ESTERASE, URINE AUTO NEGATIVE (NEGATIVE); NITRITE, URINE AUTO NEGATIVE (NEGATIVE); PROTEIN, URINE AUTO NEGATIVE (NEGATIVE); RBC, URINE AUTO 0 /HPF (0-3); SQUAMOUS EPITHELIAL CELL UR AU 0 /HPF (0-6); UROBILINOGEN, URINE AUTO 0.2 mg/dL (0.0-2.0); WBC, URINE AUTO 0 /HPF (0-3)
== END ==
LOC: M SMT 15:21
PROVIDERS: ATTEND Physician Assistant
DX: R30.0 Dysuria (principal)

== ENCOUNTER → 2022-05-29 | Outpatient (CLI) | payer MEDICARE ==
[2022-05-29 15:26] LABS: BASO # 0.1 10^3/uL (0.0-0.2); BASO % 0.8 % (0.0-1.0); EOS # 0.1 10^3/uL (0.0-0.5); EOS % 1.5 % (0.0-3.0); HEMATOCRIT 41.3 % (36.0-47.0); LYMPH # 2.4 10^3/uL (1.5-5.0); LYMPH % 31.9 % (24.0-44.0); MEAN CORPUSCULAR HEMOGLOBIN 31.1 pg (27.0-33.0); MEAN CORPUSCULAR HGB CONC 31.5 g/dl (32.0-36.5); MEAN CORPUSCULAR VOLUME 98.8 fl (80.0-96.0); MONO # 0.5 10^3/uL (0.0-0.8); MONO % 6.9 % (2.0-8.0); NEUTROPHILS # 4.3 10^3/uL (1.5-8.5); NEUTROPHILS % 58.5 % (36.0-66.0); PLATELET COUNT, AUTOMATED 291 10^3/uL (150-450); RED BLOOD COUNT 4.18 10^6/uL (4.00-5.40); WHITE BLOOD COUNT 7.4 10^3/uL (4.0-10.0)
[2022-05-29 15:46] LABS: LIPASE 49 U/L (12-53)
[2022-05-29 15:52] LABS: ALKALINE PHOSPHATASE 113 U/L (46-116); ALT/SGPT 37 U/L (7.0-40); AST/SGOT 20 U/L (<34); BILIRUBIN,TOTAL 0.5 MG/DL (0.3-1.2); BLOOD UREA NITROGEN 25 MG/DL (9-23); CALCIUM LEVEL 9.5 MG/DL (8.3-10.6); CARBON DIOXIDE LEVEL 26 MMOL/L (20-31); CHLORIDE LEVEL 103 MMOL/L (98-107); CREATININE FOR GFR 0.65 MG/DL (0.55-1.30); GLOMERULAR FILTRATION RATE > 60.0 (>45); GLUCOSE, FASTING 109 MG/DL (74-106); POTASSIUM SERUM 4.1 MMOL/L (3.5-5.1); SODIUM LEVEL 139 MMOL/L (136-145)
== END ==
LOC: M PLALAB 14:19
PROVIDERS: ATTEND Physician Assistant Medical
DX: K56.609 Unspecified intestinal obstruction, unspecified as to partial versus complete obstruction (principal); I10 Essential (primary) hypertension

== ENCOUNTER → 2022-06-29 | Outpatient (REF) | payer MEDICARE ==
[2022-06-29 21:05] LABS: APPEARANCE, URINE CLOUDY (CLEAR); BACTERIA, URINE AUTO 1+ (NEGATIVE); BILIRUBIN, URINE AUTO NEGATIVE (NEGATIVE); BLOOD, URINE BLOOD NEGATIVE (NEGATIVE); COLOR, URINE AMBER (YELLOW); GLUCOSE, URINE (UA) AUTO NEGATIVE (NEGATIVE); KETONE, URINE AUTO TRACE mg/dL (NEGATIVE); LEUKOCYTE ESTERASE, URINE AUTO 1+ (NEGATIVE); NITRITE, URINE AUTO POSITIVE (NEGATIVE); PROTEIN, URINE AUTO NEGATIVE (NEGATIVE); RBC, URINE AUTO 1 /HPF (0-3); SPECIFIC GRAVITY URINE AUTO 1.018 (1.002-1.035); SQUAMOUS EPITHELIAL CELL UR AU 2 /HPF (0-6); UROBILINOGEN, URINE AUTO 0.2 mg/dL (0.0-2.0); WBC, URINE AUTO 13 /HPF (0-3)
== END ==
LOC: M SMT 17:02
PROVIDERS: ATTEND Physician Assistant
DX: R30.0 Dysuria (principal)

== ENCOUNTER → 2022-07-15 | Outpatient (REF) | payer MEDICARE ==
[~2022-07-15] MED LIST changes: +BACT800T5 PO; +D MANNOSE PO
[2022-07-15 17:58] LABS: APPEARANCE, URINE HAZY (CLEAR); BACTERIA, URINE AUTO 1+ (NEGATIVE); BILIRUBIN, URINE AUTO NEGATIVE (NEGATIVE); BLOOD, URINE BLOOD NEGATIVE (NEGATIVE); COLOR, URINE YELLOW (YELLOW); GLUCOSE, URINE (UA) AUTO NEGATIVE (NEGATIVE); KETONE, URINE AUTO TRACE mg/dL (NEGATIVE); LEUKOCYTE ESTERASE, URINE AUTO TRACE (NEGATIVE); MUCUS, URINE SMALL (NEGATIVE); NITRITE, URINE AUTO POSITIVE (NEGATIVE); PROTEIN, URINE AUTO NEGATIVE (NEGATIVE); RBC, URINE AUTO 0 /HPF (0-3); SQUAMOUS EPITHELIAL CELL UR AU 0 /HPF (0-6); UROBILINOGEN, URINE AUTO 0.2 mg/dL (0.0-2.0); WBC, URINE AUTO 4 /HPF (0-3)
== END ==
LOC: M SMT 17:05
PROVIDERS: ATTEND Physician Assistant
DX: R30.0 Dysuria (principal)

== ENCOUNTER 2022-07-24 09:47 | Day surgery (SDC) | payer MEDICARE ==
[~2022-07-24] VITALS: Ht 152.4 cm; Wt 87.1 kg
[~2022-07-24 09:47] MED LIST changes: +LIDOCAINE 2% 100MG/5ML SDV (FOR ANES.) As Ordered ONE; +NS 1,000 ML IV ONE; +propofoL 200 MG/20 ML VIAL As Ordered ONE
[2022-07-24 11:57] VITALS: BP 124/93
== END 2022-07-24 12:39 | disposition home or self-care (01) ==
LOC: M OPP 09:47
PROVIDERS: ATTEND Internal Medicine Gastroenterology
DX: Z12.11 Encounter for screening for malignant neoplasm of colon (principal); D12.6 Benign neoplasm of colon, unspecified; K64.4 Residual hemorrhoidal skin tags; K64.8 Other hemorrhoids; K57.30 Diverticulosis of large intestine without perforation or abscess without bleeding; G47.33 Obstructive sleep apnea (adult) (pediatric); Z98.84 Bariatric surgery status; Z79.1 Long term (current) use of non-steroidal anti-inflammatories (NSAID); Z79.899 Other long term (current) drug therapy; Z91.048 Other nonmedicinal substance allergy status

== ENCOUNTER 2022-10-08 00:55 | Inpatient (IN) | payer MEDICARE ==
[~2022-10-08] VITALS: Ht 152.4 cm; Wt 89.2 kg
[~2022-10-08 00:55] MED LIST changes: -LIDOCAINE 2% 100MG/5ML SDV (FOR ANES.) As Ordered ONE; -LOSA100T45 PO; +LOSA100T46 PO; -NS 1,000 ML IV ONE; +SENN-111 PO; -SENN18TA PO; -propofoL 200 MG/20 ML VIAL As Ordered ONE
[2022-10-08 02:31] LABS: BASO # 0.1 10^3/uL (0.0-0.2); BASO % 0.5 % (0.0-1.0); EOS % 0.3 % (0.0-3.0); HEMATOCRIT 45.7 % (36.0-47.0); HEMOGLOBIN 14.7 g/dl (12.0-15.5); LYMPH # 1.7 10^3/uL (1.5-5.0); LYMPH % 14.7 % (24.0-44.0); MEAN CORPUSCULAR HEMOGLOBIN 31.1 pg (27.0-33.0); MEAN CORPUSCULAR HGB CONC 32.2 g/dl (32.0-36.5); MEAN CORPUSCULAR VOLUME 96.6 fl (80.0-96.0); MONO # 0.4 10^3/uL (0.0-0.8); MONO % 3.5 % (2.0-8.0); NEUTROPHILS # 9.3 10^3/uL (1.5-8.5); NEUTROPHILS % 80.7 % (36.0-66.0); PLATELET COUNT, AUTOMATED 287 10^3/uL (150-450); RED BLOOD COUNT 4.73 10^6/uL (4.00-5.40); WHITE BLOOD COUNT 11.5 10^3/uL (4.0-10.0)
[2022-10-08 02:49] LABS: AMYLASE 46 U/L (30-118)
[2022-10-08 02:50] LABS: ALBUMIN 4.6 G/DL (3.2-5.2); ALKALINE PHOSPHATASE 114 U/L (46-116); ALT/SGPT 44 U/L (7.0-40); AST/SGOT 49 U/L (<34); BILIRUBIN,DIRECT 0.2 MG/DL (<0.4); BILIRUBIN,TOTAL 0.7 MG/DL (0.3-1.2); BLOOD UREA NITROGEN 26 MG/DL (9-23); CALCIUM LEVEL 10.1 MG/DL (8.3-10.6); CARBON DIOXIDE LEVEL 20 MMOL/L (20-31); CHLORIDE LEVEL 101 MMOL/L (98-107); CREATININE FOR GFR 0.58 MG/DL (0.55-1.30); GLOMERULAR FILTRATION RATE > 60.0 (>45); GLUCOSE, FASTING 133 MG/DL (74-106); LIPASE 54 U/L (12-53); POTASSIUM SERUM 4.7 MMOL/L (3.5-5.1); SODIUM LEVEL 135 MMOL/L (136-145); TOTAL PROTEIN 7.9 G/DL (5.7-8.2)
[2022-10-08] MEDS ORDERED: ONDANSETRON 4MG 2ML VIAL IV ONE (02:55)
[2022-10-08] MEDS ORDERED: NS 1,000 ML IV ONE (02:55)
[2022-10-08] MEDS ORDERED: ISOVUE-370 76% 100ML VIAL As Ordered ONE (03:00)
[2022-10-08] MEDS: MORPHINE 2 MG/ML 1ML VIAL IV PRN ×4 (03:51→18:20)
[2022-10-08] MEDS ORDERED: DEXTROSE 50% 50ML SYRINGE IV PRN (05:20)
[2022-10-08] MEDS ORDERED: GLUCAGON INJ 1MG VIAL SC PRN (05:20)
[2022-10-08] MEDS ORDERED: GLUCOSE 4GM CHEW TABLET PO PRN (05:20)
[2022-10-08 05:34] LABS: RSV AMPLIFICATION NEGATIVE (NEGATIVE)
[2022-10-08] MEDS ORDERED: TIZA10TA PO (05:38)
[2022-10-08] MEDS ORDERED: LOSA50TA28 PO (05:38)
[2022-10-08] MEDS ORDERED: METH-855 PO (05:38)
[2022-10-08] MEDS ORDERED: VITATAB73 PO (05:38)
[2022-10-08] MEDS ORDERED: TOPI25TA10 PO (05:38)
[2022-10-08] MEDS ORDERED: HOME MED LIST COMPLETE! XX SCH (05:40)
[2022-10-08] MEDS ORDERED: PROMETHAZINE 25MG/ML 1ML VIAL IV ONE (06:00)
[2022-10-08] MEDS: D5W/0.9% SODIUM CHLORIDE 1,000 ML IV SCH ×2 (06:07→18:17)
[2022-10-08] MEDS: HEPARIN SOD (PORCINE) 5000UNITS/ML 1ML VIAL/SYRINGE SQ SCH ×2 (08:48→20:09)
[2022-10-08] MEDS: ONDANSETRON 4MG 2ML VIAL IV PRN ×2 (11:17→18:20)
[2022-10-08 14:00] VITALS: BP 113/57; TEMP 98.6; O2SAT 91
[2022-10-08 21:15] VITALS: BP 102/44; TEMP 97.5; O2SAT 90
[2022-10-09] MEDS: D5W/0.9% SODIUM CHLORIDE 1,000 ML IV SCH ×3 (02:33→22:12)
[2022-10-09 05:33] VITALS: BP 97/51
[2022-10-09 05:34] VITALS: BP 112/54; TEMP 96.4; O2SAT 93
[2022-10-09 06:21] LABS: LIPASE 32 U/L (12-53)
[2022-10-09 06:25] LABS: BLOOD UREA NITROGEN 20 MG/DL (9-23); CALCIUM LEVEL 8.2 MG/DL (8.3-10.6); CARBON DIOXIDE LEVEL 26 MMOL/L (20-31); CHLORIDE LEVEL 111 MMOL/L (98-107); GLOMERULAR FILTRATION RATE > 60.0 (>45); GLUCOSE, FASTING 99 MG/DL (74-106); POTASSIUM SERUM 3.7 MMOL/L (3.5-5.1); SODIUM LEVEL 141 MMOL/L (136-145)
[2022-10-09 06:30] LABS: BASO % 0.5 % (0.0-1.0); EOS # 0.1 10^3/uL (0.0-0.5); EOS % 2.2 % (0.0-3.0); HEMATOCRIT 35.3 % (36.0-47.0); LYMPH # 2.5 10^3/uL (1.5-5.0); LYMPH % 42.4 % (24.0-44.0); MEAN CORPUSCULAR HEMOGLOBIN 31.5 pg (27.0-33.0); MEAN CORPUSCULAR HGB CONC 31.7 g/dl (32.0-36.5); MEAN CORPUSCULAR VOLUME 99.2 fl (80.0-96.0); MONO # 0.4 10^3/uL (0.0-0.8); NEUTROPHILS # 2.8 10^3/uL (1.5-8.5); NEUTROPHILS % 47.7 % (36.0-66.0); PLATELET COUNT, AUTOMATED 249 10^3/uL (150-450); RED BLOOD COUNT 3.56 10^6/uL (4.00-5.40); WHITE BLOOD COUNT 5.8 10^3/uL (4.0-10.0)
[2022-10-09 06:54] LABS: HEMOGLOBIN 11.2 g/dl (12.0-15.5)
[2022-10-09] MEDS: HEPARIN SOD (PORCINE) 5000UNITS/ML 1ML VIAL/SYRINGE SQ SCH ×2 (09:24→21:06)
[2022-10-09] MEDS ORDERED: MOM 30ML SUSPENSION UDC PO ONE (10:40)
[2022-10-09 14:00] VITALS: BP 120/60; TEMP 97.2; O2SAT 92
[2022-10-09 22:00] VITALS: BP 125/76; TEMP 97.9; O2SAT 94
[2022-10-10 05:50] VITALS: BP 122/62; TEMP 97.9; O2SAT 97
[2022-10-10 06:46] VITALS: O2SAT 97
[2022-10-10] MEDS: D5W/0.9% SODIUM CHLORIDE 1,000 ML IV SCH (06:58)
[2022-10-10 09:19] LABS: BASO # 0.1 10^3/uL (0.0-0.2); EOS # 0.1 10^3/uL (0.0-0.5); EOS % 2.3 % (0.0-3.0); HEMATOCRIT 38.5 % (36.0-47.0); HEMOGLOBIN 12.1 g/dl (12.0-15.5); LYMPH # 1.8 10^3/uL (1.5-5.0); MEAN CORPUSCULAR HGB CONC 31.4 g/dl (32.0-36.5); MEAN CORPUSCULAR VOLUME 98.7 fl (80.0-96.0); MONO # 0.4 10^3/uL (0.0-0.8); MONO % 6.3 % (2.0-8.0); NEUTROPHILS # 3.7 10^3/uL (1.5-8.5); NEUTROPHILS % 60.1 % (36.0-66.0); PLATELET COUNT, AUTOMATED 250 10^3/uL (150-450); WHITE BLOOD COUNT 6.1 10^3/uL (4.0-10.0)
[2022-10-10 09:59] LABS: ALBUMIN 3.6 G/DL (3.2-5.2); ALKALINE PHOSPHATASE 94 U/L (46-116); ALT/SGPT 27 U/L (7.0-40); AST/SGOT 16 U/L (<34); BILIRUBIN,TOTAL 0.6 MG/DL (0.3-1.2); BLOOD UREA NITROGEN 12 MG/DL (9-23); CALCIUM LEVEL 8.9 MG/DL (8.3-10.6); CARBON DIOXIDE LEVEL 26 MMOL/L (20-31); CHLORIDE LEVEL 109 MMOL/L (98-107); CREATININE FOR GFR 0.63 MG/DL (0.55-1.30); GLOMERULAR FILTRATION RATE > 60.0 (>45); GLUCOSE, FASTING 98 MG/DL (74-106); MAGNESIUM LEVEL 1.9 MG/DL (1.8-2.4); SODIUM LEVEL 143 MMOL/L (136-145); TOTAL PROTEIN 6.1 G/DL (5.7-8.2)
[2022-10-10] MEDS: MIRALAX *UNIT DOSE* 17GM PACKET PO SCH (10:17)
[2022-10-10] MEDS: HEPARIN SOD (PORCINE) 5000UNITS/ML 1ML VIAL/SYRINGE SQ SCH ×2 (10:18→21:10)
[2022-10-10 11:30] VITALS: BP 122/78; TEMP 97.3; O2SAT 96
[2022-10-10 14:00] VITALS: BP 126/62; TEMP 98.2; O2SAT 94
[2022-10-10 21:57] VITALS: BP 124/68; TEMP 98.1; O2SAT 96
[2022-10-10 22:00] VITALS: O2SAT 97
[2022-10-11 06:55] VITALS: O2SAT 97
[2022-10-11] MEDS: MIRALAX *UNIT DOSE* 17GM PACKET PO SCH (09:00)
[2022-10-11] MEDS: HEPARIN SOD (PORCINE) 5000UNITS/ML 1ML VIAL/SYRINGE SQ SCH (10:32)
== END 2022-10-11 13:40 | disposition home or self-care (01) | DRG 394 ==
LOC: M ED 00:55 → M ED INP 04:44 → ENRESERV 06:27 → M MSPAV 07:35
PROVIDERS: ADMIT Internal Medicine; ATTEND General Practice
DX: K43.0 Incisional hernia with obstruction, without gangrene (principal); E87.20 Acidosis, unspecified; I10 Essential (primary) hypertension; E78.5 Hyperlipidemia, unspecified; E66.9 Obesity, unspecified; Z98.84 Bariatric surgery status; Z90.49 Acquired absence of other specified parts of digestive tract; Z96.653 Presence of artificial knee joint, bilateral; Z79.899 Other long term (current) drug therapy; Z68.38 Body mass index [BMI] 38.0-38.9, adult

== ENCOUNTER → 2022-10-21 | Outpatient (REF) | payer MEDICARE ==
[~2022-10-21] MED LIST changes: +LOSA50TA28 PO; +METH-855 PO; +ONDA8TAB8 PO; +TOPI25TA10 PO; +VITATAB73 PO
[2022-10-21 14:00] LABS: APPEARANCE, URINE CLEAR (CLEAR); BACTERIA, URINE AUTO 1+ (NEGATIVE); BILIRUBIN, URINE AUTO NEGATIVE (NEGATIVE); BLOOD, URINE BLOOD NEGATIVE (NEGATIVE); COLOR, URINE AMBER (YELLOW); GLUCOSE, URINE (UA) AUTO NEGATIVE (NEGATIVE); KETONE, URINE AUTO NEGATIVE (NEGATIVE); LEUKOCYTE ESTERASE, URINE AUTO NEGATIVE (NEGATIVE); NITRITE, URINE AUTO POSITIVE (NEGATIVE); PROTEIN, URINE AUTO NEGATIVE (NEGATIVE); RBC, URINE AUTO 0 /HPF (0-3); SPECIFIC GRAVITY URINE AUTO 1.011 (1.002-1.035); SQUAMOUS EPITHELIAL CELL UR AU 1 /HPF (0-6); WBC, URINE AUTO 1 /HPF (0-3)
== END ==
LOC: M SMT 13:18
PROVIDERS: ATTEND Physician Assistant
DX: R30.0 Dysuria (principal)

== ENCOUNTER → 2022-10-22 | Outpatient (CLI) | payer MEDICARE ==
[2022-10-22 10:32] LABS: BLOOD UREA NITROGEN 21 MG/DL (9-23); CALCIUM LEVEL 9.4 MG/DL (8.3-10.6); CARBON DIOXIDE LEVEL 26 MMOL/L (20-31); CHLORIDE LEVEL 107 MMOL/L (98-107); CREATININE FOR GFR 0.69 MG/DL (0.55-1.30); GLOMERULAR FILTRATION RATE > 60.0 (>45); GLUCOSE, FASTING 83 MG/DL (74-106); POTASSIUM SERUM 4.7 MMOL/L (3.5-5.1); SODIUM LEVEL 141 MMOL/L (136-145)
== END ==
LOC: M WUC 08:17
PROVIDERS: ATTEND Physician Assistant
DX: N39.0 Urinary tract infection, site not specified (principal)

== ENCOUNTER → 2022-10-22 | Outpatient (CLI) | payer MEDICARE ==
[2022-10-22 10:00] LABS: BASO % 0.7 % (0.0-1.0); EOS # 0.2 10^3/uL (0.0-0.5); EOS % 3.2 % (0.0-3.0); HEMATOCRIT 38.4 % (36.0-47.0); LYMPH # 2.3 10^3/uL (1.5-5.0); MEAN CORPUSCULAR HEMOGLOBIN 31.2 pg (27.0-33.0); MEAN CORPUSCULAR HGB CONC 31.3 g/dl (32.0-36.5); MEAN CORPUSCULAR VOLUME 99.7 fl (80.0-96.0); MONO # 0.4 10^3/uL (0.0-0.8); MONO % 6.7 % (2.0-8.0); NEUTROPHILS # 2.8 10^3/uL (1.5-8.5); NEUTROPHILS % 48.9 % (36.0-66.0); PLATELET COUNT, AUTOMATED 269 10^3/uL (150-450); RED BLOOD COUNT 3.85 10^6/uL (4.00-5.40); WHITE BLOOD COUNT 5.7 10^3/uL (4.0-10.0)
[2022-10-22 10:23] LABS: HEMOGLOBIN A1c 4.8 % (4.0-6.0)
[2022-10-22 10:32] LABS: URIC ACID 4.5 MG/DL (3.1-7.8)
[2022-10-22 10:34] LABS: ALBUMIN 3.9 G/DL (3.2-5.2); ALKALINE PHOSPHATASE 135 U/L (46-116); ALT/SGPT 59 U/L (7.0-40); AST/SGOT 28 U/L (<34); BILIRUBIN,TOTAL 0.4 MG/DL (0.3-1.2); BLOOD UREA NITROGEN 22 MG/DL (9-23); C REACTIVE PROTEIN QUANTITATIV < 0.40 MG/DL (<1.0); CALCIUM LEVEL 9.5 MG/DL (8.3-10.6); CARBON DIOXIDE LEVEL 26 MMOL/L (20-31); CHLORIDE LEVEL 108 MMOL/L (98-107); CHOLESTEROL LEVEL 201 MG/DL (<200); CHOLESTEROL RISK RATIO 4.44 (<5); CREATININE FOR GFR 0.69 MG/DL (0.55-1.30); GLOMERULAR FILTRATION RATE > 60.0 (>45); GLUCOSE, FASTING 83 MG/DL (74-106); HDL CHOLESTEROL 45.2 MG/DL (>40); LDL CHOLESTEROL 103.6 MG/DL (<100); NON-HDL-C 155.8 MG/DL; POTASSIUM SERUM 4.6 MMOL/L (3.5-5.1); SODIUM LEVEL 140 MMOL/L (136-145); TOTAL PROTEIN 6.7 G/DL (5.7-8.2); TRIGLYCERIDES LEVEL 261 MG/DL (<150)
== END ==
LOC: M WUC 08:14
PROVIDERS: ATTEND Physician Assistant Medical
DX: E20.8 Other hypoparathyroidism (principal); M65.9 Synovitis and tenosynovitis, unspecified; I10 Essential (primary) hypertension; E11.9 Type 2 diabetes mellitus without complications; E78.1 Pure hyperglyceridemia

== ENCOUNTER → 2022-11-18 | Outpatient (CLI) | payer MEDICARE ==
[~2022-11-18] MED LIST changes: +DULA3PEN; +[UNRECOGNIZED DRUG - CODE] IJ
[2022-11-18 10:37] LABS: BASO # 0.1 10^3/uL (0.0-0.2); BASO % 0.9 % (0.0-1.0); EOS # 0.1 10^3/uL (0.0-0.5); EOS % 2.4 % (0.0-3.0); HEMATOCRIT 41.7 % (36.0-47.0); HEMOGLOBIN 12.8 g/dl (12.0-15.5); LYMPH # 2.1 10^3/uL (1.5-5.0); LYMPH % 36.6 % (24.0-44.0); MEAN CORPUSCULAR HEMOGLOBIN 31.4 pg (27.0-33.0); MEAN CORPUSCULAR HGB CONC 30.7 g/dl (32.0-36.5); MEAN CORPUSCULAR VOLUME 102.2 fl (80.0-96.0); MONO # 0.5 10^3/uL (0.0-0.8); MONO % 8.8 % (2.0-8.0); PLATELET COUNT, AUTOMATED 277 10^3/uL (150-450); RED BLOOD COUNT 4.08 10^6/uL (4.00-5.40); WHITE BLOOD COUNT 5.8 10^3/uL (4.0-10.0)
[2022-11-18 10:40] LABS: HEMATOCRIT 40.7 % (36.0-47.0)
[2022-11-18 11:12] LABS: FERRITIN 39.1 NG/ML (7.3-270.7)
== END ==
LOC: M WUC 08:08
PROVIDERS: ATTEND Physician Assistant Medical
DX: R71.0 Precipitous drop in hematocrit (principal)

== ENCOUNTER → 2022-12-07 | Outpatient (REF) | payer MEDICARE ==
[~2022-12-07] MED LIST changes: +D3 U1000 PO; +DULA3PEN SC; +[UNRECOGNIZED DRUG - OTHER] PO
[2022-12-07 19:40] LABS: APPEARANCE, URINE CLEAR (CLEAR); BACTERIA, URINE AUTO NEGATIVE (NEGATIVE); BILIRUBIN, URINE AUTO NEGATIVE (NEGATIVE); BLOOD, URINE BLOOD NEGATIVE (NEGATIVE); COLOR, URINE YELLOW (YELLOW); GLUCOSE, URINE (UA) AUTO NEGATIVE (NEGATIVE); KETONE, URINE AUTO NEGATIVE (NEGATIVE); LEUKOCYTE ESTERASE, URINE AUTO NEGATIVE (NEGATIVE); NITRITE, URINE AUTO NEGATIVE (NEGATIVE); PROTEIN, URINE AUTO NEGATIVE (NEGATIVE); RBC, URINE AUTO 0 /HPF (0-3); SPECIFIC GRAVITY URINE AUTO 1.018 (1.002-1.035); SQUAMOUS EPITHELIAL CELL UR AU 1 /HPF (0-6); UROBILINOGEN, URINE AUTO 0.2 mg/dL (0.0-2.0); WBC, URINE AUTO 0 /HPF (0-3)
== END ==
LOC: M SMT 17:14
PROVIDERS: ATTEND Physician Assistant
DX: R30.0 Dysuria (principal)

== ENCOUNTER 2022-12-08 10:07 | Day surgery (SDC) | payer MEDICARE ==
[~2022-12-08] VITALS: Ht 152.4 cm; Wt 90.5 kg
[~2022-12-08 10:07] MED LIST changes: +NS 1,000 ML IV ONE
[2022-12-08] MEDS ORDERED: ELEVIEW SUBMUCOSAL INJ 10ML AMP As Ordered ONE ×2 (11:39→11:54)
[2022-12-08] MEDS ORDERED: LIDOCAINE 2% 100MG/5ML SDV (FOR ANES.) As Ordered ONE (11:41)
[2022-12-08] MEDS ORDERED: propofoL 200 MG/20 ML VIAL As Ordered ONE ×2 (11:41→12:07)
[2022-12-08] MEDS ORDERED: ePHEDrine SULFATE 25 MG/5 ML(5MG/ML) SYRINGE As Ordered ONE (12:07)
[2022-12-08 12:51] VITALS: TEMP 99.4
[2022-12-08 13:23] VITALS: BP 187/84; O2SAT 98
== END 2022-12-08 13:19 | disposition home or self-care (01) ==
LOC: M OPP 10:07
PROVIDERS: ATTEND Internal Medicine Gastroenterology
DX: D12.2 Benign neoplasm of ascending colon (principal); K57.30 Diverticulosis of large intestine without perforation or abscess without bleeding; K64.8 Other hemorrhoids; I10 Essential (primary) hypertension; E78.5 Hyperlipidemia, unspecified; M19.90 Unspecified osteoarthritis, unspecified site; G47.30 Sleep apnea, unspecified; E78.00 Pure hypercholesterolemia, unspecified; Z86.73 Personal history of transient ischemic attack (TIA), and cerebral infarction without residual deficits; Z98.84 Bariatric surgery status; Z96.653 Presence of artificial knee joint, bilateral; Z91.09 Other allergy status, other than to drugs and biological substances; Z79.899 Other long term (current) drug therapy; Z87.19 Personal history of other diseases of the digestive system; Z83.3 Family history of diabetes mellitus; Z82.49 Family history of ischemic heart disease and other diseases of the circulatory system

== ENCOUNTER 2023-01-06 06:12 | Inpatient (IN) | payer MEDICARE ==
[~2023-01-06] VITALS: Ht 152.4 cm; Wt 91.6 kg
[2023-01-06] VITALS (8 sets, daily range): BP systolic 98–169; BP diastolic 56–89; TEMP 97–98.2; O2SAT 90–97
[~2023-01-06 06:12] MED LIST changes: +CelecoXIB 400 MG CAP PO ONE; +HEPARIN SOD (PORCINE) 5000UNITS/ML 1ML VIAL/SYRINGE SQ ONE; -NS 1,000 ML IV ONE; +ceFAZolin SOD 2 GM in IV 1 EA IV ONE
[2023-01-06] MEDS ORDERED: LIDOCAINE 1% SDV 30ML VIAL As Ordered ONE (06:38)
[2023-01-06] MEDS ORDERED: SUGAMMADEX SODIUM 500 MG/5 ML VIAL (BRIDION) As Ordered ONE (07:17)
[2023-01-06] MEDS ORDERED: fentaNYL 100 MCG/2 ML INJECTION As Ordered ONE (07:17)
[2023-01-06] MEDS ORDERED: ROCURONIUM BROMIDE 50MG/5ML VIAL As Ordered ONE ×3 (07:17→11:16)
[2023-01-06] MEDS ORDERED: LIDOCAINE 2% 100MG/5ML SDV (FOR ANES.) As Ordered ONE (07:17)
[2023-01-06] MEDS ORDERED: propofoL 200 MG/20 ML VIAL As Ordered ONE (07:17)
[2023-01-06] MEDS ORDERED: ONDANSETRON 4MG 2ML VIAL As Ordered ONE (07:17)
[2023-01-06] MEDS ORDERED: ACETAMINOPHEN 1000MG 100ML IV BAG As Ordered ONE (07:17)
[2023-01-06] MEDS ORDERED: KETOROLAC 60MG 2ML VIAL As Ordered ONE (07:17)
[2023-01-06] MEDS ORDERED: [UNRECOGNIZED DRUG - OTHER] PO (07:20)
[2023-01-06] MEDS ORDERED: HOME MED LIST COMPLETE! XX SCH (07:25)
[2023-01-06] MEDS ORDERED: ceFAZolin 2 GM/D5W 50 ML IV BAG As Ordered ONE (11:04)
[2023-01-06] MEDS ORDERED: PHENYLephrine 500MCG 5ML (100MCG/ML) SYRINGE As Ordered ONE (11:09)
[2023-01-06] MEDS ORDERED: HYDROmorphone HCL 2MG/ML 1ML VIAL As Ordered ONE (13:00)
[2023-01-06] MEDS ORDERED: MORPHINE 2 MG/ML 1ML VIAL IV PRN (13:05)
[2023-01-06] MEDS ORDERED: ONDANSETRON 4MG 2ML VIAL IV PRN ×2 (13:05→13:30)
[2023-01-06] MEDS ORDERED: oxyCODONE 5MG TAB PO PRN (13:05)
[2023-01-06] MEDS ORDERED: LR 1,000 ML IV SCH (13:05)
[2023-01-06] MEDS ORDERED: fentaNYL 100 MCG/2 ML INJECTION IV PRN (13:05)
[2023-01-06] MEDS ORDERED: tiZANidine 4 MG TAB PO PRN (13:30)
[2023-01-06] MEDS ORDERED: NORCO, ANEXSIA 5/325MG TABLET (HYDROcodone/ACETAMINOPHEN) PO PRN ×2 (13:30)
[2023-01-06] MEDS: LR 1,000 ML IV SCH (16:41)
[2023-01-06] MEDS: ACETAMINOPHEN TAB 650MG DOSE (2X325MG) PO PRN (16:42)
[2023-01-06] MEDS: KETOROLAC 30 MG/ML 1ML VIAL IV SCH (18:11)
[2023-01-06] MEDS: METHENAMINE HIPPURATE 1GM TABLET PO SCH (20:59)
[2023-01-06] MEDS: SENOKOT S TAB PO SCH (20:59)
[2023-01-06] MEDS: amLODIPine 5 MG TAB PO SCH (21:00)
[2023-01-06] MEDS: LOSARTAN 50MG TABLET PO SCH (21:00)
[2023-01-07] MEDS: LR 1,000 ML IV SCH (00:39)
[2023-01-07] MEDS: KETOROLAC 30 MG/ML 1ML VIAL IV SCH ×4 (00:40→18:50)
[2023-01-07 03:30] VITALS: BP 123/66; TEMP 97.7; O2SAT 91
[2023-01-07 06:58] LABS: BASO % 0.3 % (0.0-1.0); EOS % 0.1 % (0.0-3.0); HEMATOCRIT 31.6 % (36.0-47.0); HEMOGLOBIN 9.9 g/dl (12.0-15.5); LYMPH # 1.7 10^3/uL (1.5-5.0); LYMPH % 24.4 % (24.0-44.0); MEAN CORPUSCULAR HEMOGLOBIN 30.8 pg (27.0-33.0); MEAN CORPUSCULAR HGB CONC 31.3 g/dl (32.0-36.5); MEAN CORPUSCULAR VOLUME 98.4 fl (80.0-96.0); MONO # 0.7 10^3/uL (0.0-0.8); MONO % 9.6 % (2.0-8.0); NEUTROPHILS # 4.5 10^3/uL (1.5-8.5); NEUTROPHILS % 65.2 % (36.0-66.0); PLATELET COUNT, AUTOMATED 221 10^3/uL (150-450); RED BLOOD COUNT 3.21 10^6/uL (4.00-5.40); WHITE BLOOD COUNT 6.9 10^3/uL (4.0-10.0)
[2023-01-07 07:15] LABS: BLOOD UREA NITROGEN 29 MG/DL (9-23); CALCIUM LEVEL 8.8 MG/DL (8.3-10.6); CARBON DIOXIDE LEVEL 25 MMOL/L (20-31); CHLORIDE LEVEL 108 MMOL/L (98-107); CREATININE FOR GFR 0.76 MG/DL (0.55-1.30); GLOMERULAR FILTRATION RATE > 60.0 (>45); GLUCOSE, FASTING 99 MG/DL (74-106); POTASSIUM SERUM 4.5 MMOL/L (3.5-5.1); SODIUM LEVEL 140 MMOL/L (136-145)
[2023-01-07] MEDS: TOPIRAMATE (TopAMAX) 25 MG TAB PO SCH (08:10)
[2023-01-07] MEDS: MULTIVITAMINS/MINERALS THERAP 1 TAB PO SCH (08:10)
[2023-01-07] MEDS: SENOKOT S TAB PO SCH ×2 (08:10→20:48)
[2023-01-07] MEDS: METHENAMINE HIPPURATE 1GM TABLET PO SCH ×2 (08:11→20:48)
[2023-01-07] MEDS: ENOXAPARIN 40MG/0.4ML SYRINGE (J1650 PER 10MG) SC SCH (08:11)
[2023-01-07 10:00] VITALS: BP 120/70; TEMP 97.9; O2SAT 94
[2023-01-07] MEDS: ACETAMINOPHEN TAB 650MG DOSE (2X325MG) PO PRN (10:56)
[2023-01-07 15:30] VITALS: BP 130/71; TEMP 98.2; O2SAT 94
[2023-01-07 20:00] VITALS: BP 146/83; TEMP 97.7; O2SAT 91
[2023-01-07] MEDS: amLODIPine 5 MG TAB PO SCH (20:51)
[2023-01-07] MEDS: LOSARTAN 50MG TABLET PO SCH (20:52)
[2023-01-08] MEDS: KETOROLAC 30 MG/ML 1ML VIAL IV SCH ×4 (01:14→18:39)
[2023-01-08 05:25] VITALS: BP 118/66; TEMP 97.5; O2SAT 93
[2023-01-08 08:30] VITALS: BP 123/88; TEMP 97.7; O2SAT 94
[2023-01-08] MEDS: SENOKOT S TAB PO SCH ×2 (08:55→20:12)
[2023-01-08] MEDS: ACETAMINOPHEN TAB 650MG DOSE (2X325MG) PO PRN (08:55)
[2023-01-08] MEDS: MULTIVITAMINS/MINERALS THERAP 1 TAB PO SCH (08:55)
[2023-01-08] MEDS: TOPIRAMATE (TopAMAX) 25 MG TAB PO SCH (08:55)
[2023-01-08] MEDS: ENOXAPARIN 40MG/0.4ML SYRINGE (J1650 PER 10MG) SC SCH (08:56)
[2023-01-08] MEDS: METHENAMINE HIPPURATE 1GM TABLET PO SCH ×2 (08:56→20:12)
[2023-01-08 13:23] VITALS: BP 132/81; TEMP 97.5; O2SAT 94
[2023-01-08] MEDS ORDERED: diphenhydrAMINE 25MG CAP PO PRN (19:20)
[2023-01-08 20:11] VITALS: BP 132/81
[2023-01-08] MEDS: amLODIPine 5 MG TAB PO SCH (20:11)
[2023-01-08] MEDS: LOSARTAN 50MG TABLET PO SCH (20:11)
[2023-01-08 21:14] VITALS: BP 134/71; TEMP 97.5; O2SAT 95
[2023-01-09] MEDS: ACETAMINOPHEN TAB 650MG DOSE (2X325MG) PO PRN (05:24)
[2023-01-09 06:00] VITALS: BP 93/58; TEMP 97.7; O2SAT 96
[2023-01-09 06:31] VITALS: BP 122/72
[2023-01-09 06:52] LABS: HEMATOCRIT 33.5 % (36.0-47.0); HEMOGLOBIN 10.6 g/dl (12.0-15.5); MEAN CORPUSCULAR HEMOGLOBIN 31.3 pg (27.0-33.0); MEAN CORPUSCULAR HGB CONC 31.6 g/dl (32.0-36.5); MEAN CORPUSCULAR VOLUME 98.8 fl (80.0-96.0); PLATELET COUNT, AUTOMATED 226 10^3/uL (150-450); RED BLOOD COUNT 3.39 10^6/uL (4.00-5.40); WHITE BLOOD COUNT 7.1 10^3/uL (4.0-10.0)
[2023-01-09] MEDS: SENOKOT S TAB PO SCH (08:45)
[2023-01-09] MEDS: MULTIVITAMINS/MINERALS THERAP 1 TAB PO SCH (08:45)
[2023-01-09] MEDS: METHENAMINE HIPPURATE 1GM TABLET PO SCH (08:45)
[2023-01-09] MEDS: ENOXAPARIN 40MG/0.4ML SYRINGE (J1650 PER 10MG) SC SCH (08:46)
[2023-01-09] MEDS: TOPIRAMATE (TopAMAX) 25 MG TAB PO SCH (08:47)
== END 2023-01-09 15:00 | disposition home or self-care (01) | DRG 355 ==
LOC: M OR 06:12 → M MS5PR 14:55
PROVIDERS: ADMIT Surgery; ATTEND Surgery
PROC: 8E0W4CZ Robotic Assisted Procedure of Trunk Region, Percutaneous Endoscopic Approach (ICD-10-PCS; 2023-01-06)
PROC: 0WUF4JZ Supplement Abdominal Wall with Synthetic Substitute, Percutaneous Endoscopic Approach (ICD-10-PCS; principal; 2023-01-06 07:30)
DX: K43.2 Incisional hernia without obstruction or gangrene (principal); E66.01 Morbid (severe) obesity due to excess calories; I10 Essential (primary) hypertension; E78.00 Pure hypercholesterolemia, unspecified; M19.90 Unspecified osteoarthritis, unspecified site; Z98.84 Bariatric surgery status; Z90.49 Acquired absence of other specified parts of digestive tract; Z96.653 Presence of artificial knee joint, bilateral; Z79.899 Other long term (current) drug therapy; Z91.048 Other nonmedicinal substance allergy status; Z68.39 Body mass index [BMI] 39.0-39.9, adult

== ENCOUNTER → 2023-01-19 | Outpatient (CLI) | payer MEDICARE ==
[~2023-01-19] MED LIST changes: -CelecoXIB 400 MG CAP PO ONE; -HEPARIN SOD (PORCINE) 5000UNITS/ML 1ML VIAL/SYRINGE SQ ONE; +TRAM50TA2 PO; +[UNRECOGNIZED DRUG - OTHER] PO; -ceFAZolin SOD 2 GM in IV 1 EA IV ONE
[2023-01-19 13:33] LABS: BLOOD UREA NITROGEN 26 MG/DL (9-23); CALCIUM LEVEL 9.5 MG/DL (8.3-10.6); CARBON DIOXIDE LEVEL 25 MMOL/L (20-31); CHLORIDE LEVEL 104 MMOL/L (98-107); CREATININE FOR GFR 0.84 MG/DL (0.55-1.30); GLOMERULAR FILTRATION RATE > 60.0 (>45); GLUCOSE, FASTING 118 MG/DL (74-106); POTASSIUM SERUM 3.8 MMOL/L (3.5-5.1); SODIUM LEVEL 141 MMOL/L (136-145)
[2023-01-19 13:35] LABS: APPEARANCE, URINE CLEAR (CLEAR); BACTERIA, URINE AUTO 1+ (NEGATIVE); BILIRUBIN, URINE AUTO NEGATIVE (NEGATIVE); BLOOD, URINE BLOOD NEGATIVE (NEGATIVE); COLOR, URINE AMBER (YELLOW); GLUCOSE, URINE (UA) AUTO NEGATIVE (NEGATIVE); KETONE, URINE AUTO NEGATIVE (NEGATIVE); LEUKOCYTE ESTERASE, URINE AUTO NEGATIVE (NEGATIVE); MUCUS, URINE SMALL (NEGATIVE); NITRITE, URINE AUTO POSITIVE (NEGATIVE); PROTEIN, URINE AUTO NEGATIVE (NEGATIVE); RBC, URINE AUTO 1 /HPF (0-3); SPECIFIC GRAVITY URINE AUTO 1.013 (1.002-1.035); SQUAMOUS EPITHELIAL CELL UR AU 0 /HPF (0-6); UROBILINOGEN, URINE AUTO 0.2 mg/dL (0.0-2.0); WBC, URINE AUTO 1 /HPF (0-3)
[2023-01-19 13:38] LABS: BASO # 0.1 10^3/uL (0.0-0.2); BASO % 0.4 % (0.0-1.0); EOS # 0.2 10^3/uL (0.0-0.5); EOS % 1.2 % (0.0-3.0); HEMATOCRIT 31.6 % (36.0-47.0); HEMOGLOBIN 9.9 g/dl (12.0-15.5); LYMPH # 2.4 10^3/uL (1.5-5.0); LYMPH % 13.4 % (24.0-44.0); MEAN CORPUSCULAR HEMOGLOBIN 30.6 pg (27.0-33.0); MEAN CORPUSCULAR HGB CONC 31.3 g/dl (32.0-36.5); MEAN CORPUSCULAR VOLUME 97.5 fl (80.0-96.0); MONO # 1.3 10^3/uL (0.0-0.8); MONO % 7.2 % (2.0-8.0); NEUTROPHILS # 13.5 10^3/uL (1.5-8.5); NEUTROPHILS % 75.8 % (36.0-66.0); PLATELET COUNT, AUTOMATED 491 10^3/uL (150-450); RED BLOOD COUNT 3.24 10^6/uL (4.00-5.40); WHITE BLOOD COUNT 17.9 10^3/uL (4.0-10.0)
== END ==
LOC: M WUC 08:25
PROVIDERS: ATTEND Surgery
DX: K43.2 Incisional hernia without obstruction or gangrene (principal)

== ENCOUNTER 2023-01-20 13:39 | Inpatient (IN) | payer MEDICARE ==
[~2023-01-20] VITALS: Ht 152.4 cm; Wt 96.0 kg
[~2023-01-20 13:39] MED LIST changes: -GASTROGRAFIN SOLUTION 30ML As Ordered ONE; -ISOVUE-370 76% 100ML VIAL As Ordered ONE; -TRAM50TA2 PO
[2023-01-20] MEDS ORDERED: PERCOCET 5MG/325MG TAB PO PRN (13:45)
[2023-01-20] MEDS ORDERED: ONDANSETRON 4MG 2ML VIAL IV PRN (13:45)
[2023-01-20 14:15] VITALS: BP 121/66; TEMP 97.9; O2SAT 97
[2023-01-20] MEDS: KETOROLAC 30 MG/ML 1ML VIAL IV SCH ×2 (14:41→20:19)
[2023-01-20] MEDS ORDERED: TRAM50TA2 PO (14:52)
[2023-01-20] MEDS ORDERED: HOME MED LIST COMPLETE! XX SCH (14:55)
[2023-01-20] MEDS: AMPICILLIN SOD/SULBACTAM SOD 3 GM in D5W MINI-BAG PLUS 100 ML IV SCH ×2 (16:50→21:49)
[2023-01-20] MEDS: SENOKOT S TAB PO SCH (20:19)
[2023-01-20] MEDS: METHENAMINE HIPPURATE 1GM TABLET PO SCH (20:19)
[2023-01-20] MEDS: LOSARTAN 50MG TABLET PO SCH (20:20)
[2023-01-20] MEDS: amLODIPine 5 MG TAB PO SCH (20:20)
[2023-01-20 21:30] VITALS: BP 113/57; TEMP 97.7; O2SAT 93
[2023-01-21] MEDS: AMPICILLIN SOD/SULBACTAM SOD 3 GM in D5W MINI-BAG PLUS 100 ML IV SCH (03:09)
[2023-01-21] MEDS: KETOROLAC 30 MG/ML 1ML VIAL IV SCH ×2 (03:09→10:10)
[2023-01-21 06:00] VITALS: BP 110/57; TEMP 97.5; O2SAT 91
[2023-01-21 06:37] LABS: BASO # 0.1 10^3/uL (0.0-0.2); BASO % 0.5 % (0.0-1.0); EOS # 0.4 10^3/uL (0.0-0.5); EOS % 2.6 % (0.0-3.0); HEMATOCRIT 29.2 % (36.0-47.0); HEMOGLOBIN 9.2 g/dl (12.0-15.5); LYMPH % 12.9 % (24.0-44.0); MEAN CORPUSCULAR HEMOGLOBIN 30.2 pg (27.0-33.0); MEAN CORPUSCULAR HGB CONC 31.5 g/dl (32.0-36.5); MEAN CORPUSCULAR VOLUME 95.7 fl (80.0-96.0); MONO # 0.9 10^3/uL (0.0-0.8); MONO % 5.9 % (2.0-8.0); NEUTROPHILS # 11.2 10^3/uL (1.5-8.5); NEUTROPHILS % 73.8 % (36.0-66.0); PLATELET COUNT, AUTOMATED 490 10^3/uL (150-450); RED BLOOD COUNT 3.05 10^6/uL (4.00-5.40); WHITE BLOOD COUNT 15.2 10^3/uL (4.0-10.0)
[2023-01-21 07:01] LABS: BLOOD UREA NITROGEN 21 MG/DL (9-23); CALCIUM LEVEL 8.8 MG/DL (8.3-10.6); CARBON DIOXIDE LEVEL 27 MMOL/L (20-31); CHLORIDE LEVEL 102 MMOL/L (98-107); CREATININE FOR GFR 0.78 MG/DL (0.55-1.30); GLOMERULAR FILTRATION RATE > 60.0 (>45); GLUCOSE, FASTING 108 MG/DL (74-106); POTASSIUM SERUM 4.1 MMOL/L (3.5-5.1); SODIUM LEVEL 138 MMOL/L (136-145)
[2023-01-21] MEDS ORDERED: LIDOCAINE 1% MDV 20ML VIAL As Ordered ONE (08:33)
[2023-01-21] MEDS ORDERED: ENOXAPARIN 40MG/0.4ML SYRINGE (J1650 PER 10MG) SC SCH (09:00)
[2023-01-21] MEDS: SENOKOT S TAB PO SCH ×2 (10:10→20:25)
[2023-01-21] MEDS: TOPIRAMATE (TopAMAX) 25 MG TAB PO SCH (10:11)
[2023-01-21] MEDS: METHENAMINE HIPPURATE 1GM TABLET PO SCH ×2 (10:11→20:25)
[2023-01-21 10:22] VITALS: BP 130/64; TEMP 97.9; O2SAT 90
[2023-01-21] MEDS: PIPERACILLIN/TAZOBACTAM SOD 3.375 GM in D5W MINI-BAG PLUS 50 ML IV SCH ×3 (11:27→22:42)
[2023-01-21] MEDS: ENOXAPARIN 40MG/0.4ML SYRINGE (J1650 PER 10MG) SC SCH ×2 (12:17→20:26)
[2023-01-21] MEDS ORDERED: LIDOCAINE W/EPINEPHRINE 1% 20ML VIAL SC ONE (13:20)
[2023-01-21 13:32] VITALS: BP 115/61; TEMP 99.6; O2SAT 92
[2023-01-21] MEDS: PERCOCET 5MG/325MG TAB PO PRN (17:39)
[2023-01-21 20:12] VITALS: BP 114/56; TEMP 98.3; O2SAT 92
[2023-01-21] MEDS: amLODIPine 5 MG TAB PO SCH ×2 (20:31→20:48)
[2023-01-21] MEDS: LOSARTAN 50MG TABLET PO SCH ×2 (20:31→20:48)
[2023-01-22] MEDS: PERCOCET 5MG/325MG TAB PO PRN (03:45)
[2023-01-22] MEDS: PIPERACILLIN/TAZOBACTAM SOD 3.375 GM in D5W MINI-BAG PLUS 50 ML IV SCH ×3 (04:32→18:02)
[2023-01-22 06:00] VITALS: BP 109/63; TEMP 97.9; O2SAT 94
[2023-01-22 06:13] LABS: BASO # 0.1 10^3/uL (0.0-0.2); BASO % 0.6 % (0.0-1.0); EOS # 0.4 10^3/uL (0.0-0.5); EOS % 2.7 % (0.0-3.0); HEMATOCRIT 26.8 % (36.0-47.0); HEMOGLOBIN 8.2 g/dl (12.0-15.5); LYMPH # 1.6 10^3/uL (1.5-5.0); LYMPH % 11.8 % (24.0-44.0); MEAN CORPUSCULAR HEMOGLOBIN 29.7 pg (27.0-33.0); MEAN CORPUSCULAR HGB CONC 30.6 g/dl (32.0-36.5); MEAN CORPUSCULAR VOLUME 97.1 fl (80.0-96.0); MONO # 0.8 10^3/uL (0.0-0.8); MONO % 5.6 % (2.0-8.0); NEUTROPHILS # 10.2 10^3/uL (1.5-8.5); NEUTROPHILS % 75.7 % (36.0-66.0); PLATELET COUNT, AUTOMATED 486 10^3/uL (150-450); RED BLOOD COUNT 2.76 10^6/uL (4.00-5.40); WHITE BLOOD COUNT 13.5 10^3/uL (4.0-10.0)
[2023-01-22 06:42] LABS: BLOOD UREA NITROGEN 23 MG/DL (9-23); CALCIUM LEVEL 8.8 MG/DL (8.3-10.6); CARBON DIOXIDE LEVEL 26 MMOL/L (20-31); CHLORIDE LEVEL 104 MMOL/L (98-107); CREATININE FOR GFR 0.78 MG/DL (0.55-1.30); GLOMERULAR FILTRATION RATE > 60.0 (>45); GLUCOSE, FASTING 107 MG/DL (74-106); POTASSIUM SERUM 4.5 MMOL/L (3.5-5.1); SODIUM LEVEL 139 MMOL/L (136-145)
[2023-01-22] MEDS: TOPIRAMATE (TopAMAX) 25 MG TAB PO SCH (08:56)
[2023-01-22] MEDS: METHENAMINE HIPPURATE 1GM TABLET PO SCH ×2 (09:01→20:26)
[2023-01-22] MEDS: SENOKOT S TAB PO SCH ×2 (09:01→20:27)
[2023-01-22] MEDS: ENOXAPARIN 40MG/0.4ML SYRINGE (J1650 PER 10MG) SC SCH ×2 (09:02→20:27)
[2023-01-22] MEDS: GABAPENTIN 100 MG CAP PO SCH ×3 (12:02→20:26)
[2023-01-22 14:00] VITALS: BP 109/62; TEMP 97.7; O2SAT 93
[2023-01-22] MEDS: amLODIPine 5 MG TAB PO SCH (20:26)
[2023-01-22] MEDS: LOSARTAN 50MG TABLET PO SCH (20:27)
[2023-01-22] MEDS: ACETAMINOPHEN TAB 650MG DOSE (2X325MG) PO PRN (21:37)
[2023-01-22 22:00] VITALS: BP 126/62; TEMP 98.2; O2SAT 94
[2023-01-23] MEDS: ACETAMINOPHEN TAB 650MG DOSE (2X325MG) PO PRN ×4 (05:12→20:55)
[2023-01-23] MEDS: PIPERACILLIN/TAZOBACTAM SOD 3.375 GM in D5W MINI-BAG PLUS 50 ML IV SCH ×5 (05:14→23:53)
[2023-01-23 05:31] VITALS: BP 110/56; TEMP 97.9; O2SAT 94
[2023-01-23 06:13] LABS: BASO # 0.1 10^3/uL (0.0-0.2); BASO % 0.5 % (0.0-1.0); EOS # 0.4 10^3/uL (0.0-0.5); EOS % 3.2 % (0.0-3.0); HEMATOCRIT 26.4 % (36.0-47.0); HEMOGLOBIN 8.2 g/dl (12.0-15.5); LYMPH # 1.3 10^3/uL (1.5-5.0); MEAN CORPUSCULAR HEMOGLOBIN 29.8 pg (27.0-33.0); MEAN CORPUSCULAR HGB CONC 31.1 g/dl (32.0-36.5); MONO # 0.6 10^3/uL (0.0-0.8); MONO % 5.1 % (2.0-8.0); NEUTROPHILS # 8.4 10^3/uL (1.5-8.5); NEUTROPHILS % 75.5 % (36.0-66.0); PLATELET COUNT, AUTOMATED 489 10^3/uL (150-450); RED BLOOD COUNT 2.75 10^6/uL (4.00-5.40); WHITE BLOOD COUNT 11.2 10^3/uL (4.0-10.0)
[2023-01-23 06:39] LABS: BLOOD UREA NITROGEN 19 MG/DL (9-23); CALCIUM LEVEL 8.7 MG/DL (8.3-10.6); CARBON DIOXIDE LEVEL 25 MMOL/L (20-31); CHLORIDE LEVEL 107 MMOL/L (98-107); CREATININE FOR GFR 0.62 MG/DL (0.55-1.30); GLOMERULAR FILTRATION RATE > 60.0 (>45); GLUCOSE, FASTING 112 MG/DL (74-106); POTASSIUM SERUM 4.5 MMOL/L (3.5-5.1); SODIUM LEVEL 141 MMOL/L (136-145)
[2023-01-23] MEDS: ENOXAPARIN 40MG/0.4ML SYRINGE (J1650 PER 10MG) SC SCH ×2 (08:33→20:54)
[2023-01-23] MEDS: GABAPENTIN 100 MG CAP PO SCH ×3 (08:33→20:56)
[2023-01-23] MEDS: TOPIRAMATE (TopAMAX) 25 MG TAB PO SCH (08:33)
[2023-01-23] MEDS: METHENAMINE HIPPURATE 1GM TABLET PO SCH ×2 (08:33→20:54)
[2023-01-23] MEDS: SENOKOT S TAB PO SCH ×2 (08:33→20:43)
[2023-01-23 14:00] VITALS: BP 130/70; TEMP 97.5; O2SAT 95
[2023-01-23 20:52] VITALS: BP 130/70; TEMP 97.3; O2SAT 93
[2023-01-23] MEDS: amLODIPine 5 MG TAB PO SCH (20:54)
[2023-01-23] MEDS: tiZANidine 4 MG TAB PO PRN (20:55)
[2023-01-23] MEDS: LOSARTAN 50MG TABLET PO SCH (20:56)
[2023-01-24 05:29] VITALS: BP 100/56; TEMP 97.5; O2SAT 93
[2023-01-24] MEDS: PIPERACILLIN/TAZOBACTAM SOD 3.375 GM in D5W MINI-BAG PLUS 50 ML IV SCH ×4 (05:31→23:05)
[2023-01-24 06:09] LABS: BASO # 0.1 10^3/uL (0.0-0.2); BASO % 0.6 % (0.0-1.0); EOS # 0.4 10^3/uL (0.0-0.5); EOS % 2.6 % (0.0-3.0); HEMATOCRIT 27.3 % (36.0-47.0); HEMOGLOBIN 8.5 g/dl (12.0-15.5); LYMPH # 1.8 10^3/uL (1.5-5.0); LYMPH % 13.7 % (24.0-44.0); MEAN CORPUSCULAR HEMOGLOBIN 30.1 pg (27.0-33.0); MEAN CORPUSCULAR HGB CONC 31.1 g/dl (32.0-36.5); MEAN CORPUSCULAR VOLUME 96.8 fl (80.0-96.0); MONO # 0.7 10^3/uL (0.0-0.8); MONO % 5.3 % (2.0-8.0); NEUTROPHILS # 10.1 10^3/uL (1.5-8.5); NEUTROPHILS % 75.1 % (36.0-66.0); PLATELET COUNT, AUTOMATED 492 10^3/uL (150-450); RED BLOOD COUNT 2.82 10^6/uL (4.00-5.40); WHITE BLOOD COUNT 13.4 10^3/uL (4.0-10.0)
[2023-01-24 07:00] VITALS: BP 112/60
[2023-01-24] MEDS: METHENAMINE HIPPURATE 1GM TABLET PO SCH ×2 (07:58→20:36)
[2023-01-24] MEDS: ACETAMINOPHEN TAB 650MG DOSE (2X325MG) PO PRN ×3 (07:59→16:29)
[2023-01-24] MEDS: GABAPENTIN 100 MG CAP PO SCH ×3 (07:59→20:37)
[2023-01-24] MEDS: TOPIRAMATE (TopAMAX) 25 MG TAB PO SCH (07:59)
[2023-01-24] MEDS: ENOXAPARIN 40MG/0.4ML SYRINGE (J1650 PER 10MG) SC SCH ×2 (08:00→20:36)
[2023-01-24] MEDS: SENOKOT S TAB PO SCH ×2 (09:00→20:37)
[2023-01-24 14:00] VITALS: BP 120/68; TEMP 97.7; O2SAT 92
[2023-01-24] MEDS: LOSARTAN 50MG TABLET PO SCH (20:37)
[2023-01-24] MEDS: amLODIPine 5 MG TAB PO SCH (20:37)
[2023-01-24 21:40] VITALS: BP 135/66; TEMP 97.9; O2SAT 96
[2023-01-25] MEDS: tiZANidine 4 MG TAB PO PRN (00:31)
[2023-01-25] MEDS: PIPERACILLIN/TAZOBACTAM SOD 3.375 GM in D5W MINI-BAG PLUS 50 ML IV SCH ×2 (04:39→10:24)
[2023-01-25 05:27] VITALS: BP 92/50; TEMP 97.2; O2SAT 96
[2023-01-25 06:24] LABS: BASO # 0.1 10^3/uL (0.0-0.2); BASO % 0.7 % (0.0-1.0); EOS # 0.4 10^3/uL (0.0-0.5); EOS % 3.1 % (0.0-3.0); HEMATOCRIT 26.8 % (36.0-47.0); HEMOGLOBIN 8.1 g/dl (12.0-15.5); LYMPH # 1.7 10^3/uL (1.5-5.0); LYMPH % 14.8 % (24.0-44.0); MEAN CORPUSCULAR HEMOGLOBIN 29.6 pg (27.0-33.0); MEAN CORPUSCULAR HGB CONC 30.2 g/dl (32.0-36.5); MEAN CORPUSCULAR VOLUME 97.8 fl (80.0-96.0); MONO # 0.7 10^3/uL (0.0-0.8); MONO % 5.7 % (2.0-8.0); NEUTROPHILS # 8.5 10^3/uL (1.5-8.5); NEUTROPHILS % 73.7 % (36.0-66.0); PLATELET COUNT, AUTOMATED 521 10^3/uL (150-450); RED BLOOD COUNT 2.74 10^6/uL (4.00-5.40); WHITE BLOOD COUNT 11.5 10^3/uL (4.0-10.0)
[2023-01-25] MEDS ORDERED: ISOVUE-370 76% 100ML VIAL As Ordered ONE (08:11)
[2023-01-25] MEDS: SENOKOT S TAB PO SCH ×3 (09:00→20:21)
[2023-01-25] MEDS: METHENAMINE HIPPURATE 1GM TABLET PO SCH ×2 (09:13→20:21)
[2023-01-25] MEDS: ENOXAPARIN 40MG/0.4ML SYRINGE (J1650 PER 10MG) SC SCH ×2 (09:13→20:24)
[2023-01-25] MEDS: TOPIRAMATE (TopAMAX) 25 MG TAB PO SCH (09:14)
[2023-01-25] MEDS: GABAPENTIN 100 MG CAP PO SCH ×3 (09:14→20:22)
[2023-01-25] MEDS: AUGMENTIN 875 MG TAB PO SCH ×2 (13:19→20:21)
[2023-01-25 14:00] VITALS: BP 151/75; TEMP 97.9; O2SAT 97
[2023-01-25] MEDS: ACETAMINOPHEN TAB 650MG DOSE (2X325MG) PO PRN (17:16)
[2023-01-25 20:23] VITALS: BP 123/59
[2023-01-25] MEDS: amLODIPine 5 MG TAB PO SCH (20:23)
[2023-01-25] MEDS: LOSARTAN 50MG TABLET PO SCH (20:23)
[2023-01-25 21:00] VITALS: BP 123/59; TEMP 97.5; O2SAT 92
[2023-01-26 06:00] VITALS: BP 110/43; TEMP 97.7; O2SAT 95
[2023-01-26 06:28] LABS: BASO # 0.1 10^3/uL (0.0-0.2); BASO % 0.7 % (0.0-1.0); EOS # 0.4 10^3/uL (0.0-0.5); EOS % 3.4 % (0.0-3.0); HEMATOCRIT 29.2 % (36.0-47.0); LYMPH # 1.9 10^3/uL (1.5-5.0); LYMPH % 17.2 % (24.0-44.0); MEAN CORPUSCULAR HGB CONC 30.8 g/dl (32.0-36.5); MEAN CORPUSCULAR VOLUME 97.3 fl (80.0-96.0); MONO # 0.7 10^3/uL (0.0-0.8); NEUTROPHILS % 70.8 % (36.0-66.0); PLATELET COUNT, AUTOMATED 540 10^3/uL (150-450); WHITE BLOOD COUNT 11.3 10^3/uL (4.0-10.0)
[2023-01-26] MEDS: SENOKOT S TAB PO SCH (08:25)
[2023-01-26] MEDS: TOPIRAMATE (TopAMAX) 25 MG TAB PO SCH (08:26)
[2023-01-26] MEDS: GABAPENTIN 100 MG CAP PO SCH (08:26)
[2023-01-26] MEDS: AUGMENTIN 875 MG TAB PO SCH (08:27)
[2023-01-26] MEDS: ENOXAPARIN 40MG/0.4ML SYRINGE (J1650 PER 10MG) SC SCH (08:27)
[2023-01-26] MEDS: METHENAMINE HIPPURATE 1GM TABLET PO SCH (08:27)
[2023-01-26] MEDS ORDERED: PERCOCET PO (11:05)
[2023-01-26] MEDS ORDERED: AMOX875T2 PO (11:05)
== END 2023-01-26 13:33 | disposition home health service (06) | DRG 857 ==
LOC: M MSPAV 13:55
PROVIDERS: ADMIT Surgery; ATTEND Surgery
PROC: 0W9F30Z Drainage of Abdominal Wall with Drainage Device, Percutaneous Approach (ICD-10-PCS; 2023-01-21)
PROC: 0W9G30Z Drainage of Peritoneal Cavity with Drainage Device, Percutaneous Approach (ICD-10-PCS; 2023-01-21)
PROC: 0JD80ZZ Extraction of Abdomen Subcutaneous Tissue and Fascia, Open Approach (ICD-10-PCS; principal; 2023-01-21 12:00)
DX: T81.40XA Infection following a procedure, unspecified, initial encounter (principal); M96.842 Postprocedural seroma of a musculoskeletal structure following a musculoskeletal system procedure; Y83.8 Other surgical procedures as the cause of abnormal reaction of the patient, or of later complication, without mention of misadventure at the time of the procedure; I10 Essential (primary) hypertension; E78.00 Pure hypercholesterolemia, unspecified; Z98.84 Bariatric surgery status; Z96.653 Presence of artificial knee joint, bilateral; Z90.49 Acquired absence of other specified parts of digestive tract; Z79.899 Other long term (current) drug therapy

== ENCOUNTER → 2023-01-20 | Outpatient (CLI) | payer MEDICARE ==
[~2023-01-20] MED LIST changes: +GASTROGRAFIN SOLUTION 30ML As Ordered ONE; +ISOVUE-370 76% 100ML VIAL As Ordered ONE
== END ==
LOC: M RAD 10:02
PROVIDERS: ATTEND Surgery
DX: K43.2 Incisional hernia without obstruction or gangrene (principal)
CPT/HCPCS: 74177; Q9963; Q9967

== ENCOUNTER → 2023-02-02 | Outpatient (CLI) | payer MEDICARE ==
[~2023-02-02] MED LIST changes: +AMOX875T2 PO; +PERCOCET PO; +TRAM50TA2 PO
[2023-02-02 11:54] LABS: BASO # 0.1 10^3/uL (0.0-0.2); BASO % 0.9 % (0.0-1.0); EOS # 0.3 10^3/uL (0.0-0.5); HEMATOCRIT 31.7 % (36.0-47.0); HEMOGLOBIN 9.6 g/dl (12.0-15.5); LYMPH # 2.2 10^3/uL (1.5-5.0); LYMPH % 26.7 % (24.0-44.0); MEAN CORPUSCULAR HEMOGLOBIN 29.9 pg (27.0-33.0); MEAN CORPUSCULAR HGB CONC 30.3 g/dl (32.0-36.5); MEAN CORPUSCULAR VOLUME 98.8 fl (80.0-96.0); MONO # 0.6 10^3/uL (0.0-0.8); MONO % 7.3 % (2.0-8.0); NEUTROPHILS % 60.7 % (36.0-66.0); PLATELET COUNT, AUTOMATED 546 10^3/uL (150-450); RED BLOOD COUNT 3.21 10^6/uL (4.00-5.40); WHITE BLOOD COUNT 8.2 10^3/uL (4.0-10.0)
== END ==
LOC: M WUC 08:04
PROVIDERS: ATTEND Surgery
DX: K43.2 Incisional hernia without obstruction or gangrene (principal)

== ENCOUNTER → 2023-02-08 | Outpatient (CLI) | payer MEDICARE ==
[2023-02-08 12:02] LABS: APPEARANCE, URINE CLOUDY (CLEAR); BACTERIA, URINE AUTO NEGATIVE (NEGATIVE); BILIRUBIN, URINE AUTO NEGATIVE (NEGATIVE); BLOOD, URINE BLOOD NEGATIVE (NEGATIVE); COLOR, URINE AMBER (YELLOW); GLUCOSE, URINE (UA) AUTO NEGATIVE (NEGATIVE); KETONE, URINE AUTO NEGATIVE (NEGATIVE); LEUKOCYTE ESTERASE, URINE AUTO TRACE (NEGATIVE); MUCUS, URINE SMALL (NEGATIVE); NITRITE, URINE AUTO NEGATIVE (NEGATIVE); PROTEIN, URINE AUTO NEGATIVE (NEGATIVE); RBC, URINE AUTO 1 /HPF (0-3); SPECIFIC GRAVITY URINE AUTO 1.014 (1.002-1.035); SQUAMOUS EPITHELIAL CELL UR AU 1 /HPF (0-6); UROBILINOGEN, URINE AUTO 0.2 mg/dL (0.0-2.0); WBC, URINE AUTO 4 /HPF (0-3)
[2023-02-08 12:03] LABS: BASO # 0.1 10^3/uL (0.0-0.2); BASO % 0.8 % (0.0-1.0); EOS # 0.4 10^3/uL (0.0-0.5); HEMATOCRIT 32.3 % (36.0-47.0); HEMOGLOBIN 9.7 g/dl (12.0-15.5); LYMPH # 2.5 10^3/uL (1.5-5.0); LYMPH % 24.2 % (24.0-44.0); MEAN CORPUSCULAR HEMOGLOBIN 28.9 pg (27.0-33.0); MEAN CORPUSCULAR VOLUME 96.1 fl (80.0-96.0); MONO # 0.8 10^3/uL (0.0-0.8); MONO % 7.9 % (2.0-8.0); NEUTROPHILS # 6.5 10^3/uL (1.5-8.5); NEUTROPHILS % 62.6 % (36.0-66.0); PLATELET COUNT, AUTOMATED 499 10^3/uL (150-450); RED BLOOD COUNT 3.36 10^6/uL (4.00-5.40); WHITE BLOOD COUNT 10.4 10^3/uL (4.0-10.0)
[2023-02-08 12:15] LABS: ERYTHROCYTE SEDIMENTATION RATE > 130 mm/hr (0-30)
[2023-02-08 12:27] LABS: ALBUMIN 2.9 G/DL (3.2-5.2); ALKALINE PHOSPHATASE 97 U/L (46-116); ALT/SGPT 17 U/L (7.0-40); AST/SGOT 15 U/L (<34); BILIRUBIN,TOTAL 0.2 MG/DL (0.3-1.2); BLOOD UREA NITROGEN 20 MG/DL (9-23); CALCIUM LEVEL 9.7 MG/DL (8.3-10.6); CARBON DIOXIDE LEVEL 25 MMOL/L (20-31); CHLORIDE LEVEL 105 MMOL/L (98-107); CREATININE FOR GFR 0.55 MG/DL (0.55-1.30); GLOMERULAR FILTRATION RATE > 60.0 (>45); GLUCOSE, FASTING 99 MG/DL (74-106); POTASSIUM SERUM 4.1 MMOL/L (3.5-5.1); SODIUM LEVEL 142 MMOL/L (136-145); TOTAL PROTEIN 7.5 G/DL (5.7-8.2)
== END ==
LOC: M WUC 09:42
PROVIDERS: ATTEND Physician Assistant Medical
DX: T81.42XD Infection following a procedure, deep incisional surgical site, subsequent encounter (principal)

== ENCOUNTER → 2023-02-15 | Outpatient (CLI) | payer MEDICARE ==
[2023-02-15 12:52] LABS: HEMATOCRIT 32.2 % (36.0-47.0); HEMOGLOBIN 9.4 g/dl (12.0-15.5); MEAN CORPUSCULAR HEMOGLOBIN 28.1 pg (27.0-33.0); MEAN CORPUSCULAR HGB CONC 29.2 g/dl (32.0-36.5); MEAN CORPUSCULAR VOLUME 96.1 fl (80.0-96.0); PLATELET COUNT, AUTOMATED 451 10^3/uL (150-450); RED BLOOD COUNT 3.35 10^6/uL (4.00-5.40); WHITE BLOOD COUNT 10.5 10^3/uL (4.0-10.0)
== END ==
LOC: M WUC 10:20
PROVIDERS: ATTEND Surgery
DX: K43.2 Incisional hernia without obstruction or gangrene (principal); T81.89XD Other complications of procedures, not elsewhere classified, subsequent encounter

== ENCOUNTER → 2023-02-15 | Outpatient (REF) | payer MEDICARE ==
[2023-02-15 15:51] LABS: APPEARANCE, URINE MANUAL CLEAR (CLEAR); COLOR, URINE MANUAL ORANGE (YELLOW)
[2023-02-15 15:52] LABS: BILIRUBIN, URINE MANUAL OBSCURED (NEGATIVE); BLOOD URINE MANUAL OBSCURED (NEGATIVE); GLUCOSE, URINE (UA) MANUAL OBSCURED mg/dL (NEGATIVE); KETONE, URINE MANUAL OBSCURED mg/dL (NEGATIVE); LEUKOCYTE ESTERASE, URINE MAN OBSCURED (NEGATIVE); NITRITE, URINE MANUAL OBSCURED (NEGATIVE); PH,URINE MAN OBSCURED UNITS (5.0 - 7.0); PROTEIN, URINE MANUAL OBSCURED mg/dL (NEGATIVE); SPECIFIC GRAVITY,URINE MANUAL 1.009 (1.002-1.035); UROBILINOGEN, URINE MANUAL OBSCURED mg/dl (NORMAL)
[2023-02-15 18:15] LABS: BACTERIA, URINE SMALL AMOUNT; SQUAMOUS EPITHELIAL CELL URINE SMALL AMOUNT /hpf (SMALL AMT); WBC, URINE 15-20 /hpf (0-3); YEAST, URINE SMALL AMOUNT
[2023-02-15 18:16] LABS: HYALINE CAST, URINE NONE SEEN /lpf (0-1)
== END ==
LOC: M SMT 15:35
PROVIDERS: ATTEND Physician Assistant
DX: R30.0 Dysuria (principal)

== ENCOUNTER → 2023-03-26 | Outpatient (CLI) | payer MEDICARE ==
[2023-03-26 13:30] LABS: BASO # 0.1 10^3/uL (0.0-0.2); BASO % 0.8 % (0.0-1.0); EOS # 0.2 10^3/uL (0.0-0.5); EOS % 2.8 % (0.0-3.0); HEMATOCRIT 37.1 % (36.0-47.0); HEMOGLOBIN 11.1 g/dl (12.0-15.5); LYMPH # 2.6 10^3/uL (1.5-5.0); LYMPH % 35.5 % (24.0-44.0); MEAN CORPUSCULAR HEMOGLOBIN 27.1 pg (27.0-33.0); MEAN CORPUSCULAR HGB CONC 29.9 g/dl (32.0-36.5); MEAN CORPUSCULAR VOLUME 90.7 fl (80.0-96.0); MONO # 0.6 10^3/uL (0.0-0.8); MONO % 7.4 % (2.0-8.0); NEUTROPHILS # 3.9 10^3/uL (1.5-8.5); NEUTROPHILS % 53.2 % (36.0-66.0); PLATELET COUNT, AUTOMATED 354 10^3/uL (150-450); RED BLOOD COUNT 4.09 10^6/uL (4.00-5.40); WHITE BLOOD COUNT 7.4 10^3/uL (4.0-10.0)
[2023-03-26 13:32] LABS: HEMATOCRIT 37.2 % (36.0-47.0)
[2023-03-26 13:48] LABS: ERYTHROCYTE SEDIMENTATION RATE 88 mm/hr (0-30)
[2023-03-26 13:53] LABS: C REACTIVE PROTEIN QUANTITATIV 2.4 MG/DL (<1.0); CALCIUM LEVEL 9.7 MG/DL (8.3-10.6)
[2023-03-26 13:55] LABS: PTH INTACT 19.7 PG/ML (18.5-88.0)
== END ==
LOC: M PLALAB 11:35
PROVIDERS: ATTEND Physician Assistant Medical
DX: D75.89 Other specified diseases of blood and blood-forming organs (principal); E55.9 Vitamin D deficiency, unspecified; I10 Essential (primary) hypertension; T81.42XD Infection following a procedure, deep incisional surgical site, subsequent encounter

== ENCOUNTER → 2023-03-26 | Outpatient (REF) | payer MEDICARE ==
[2023-03-26 13:25] LABS: APPEARANCE, URINE CLEAR (CLEAR); BACTERIA, URINE AUTO 1+ (NEGATIVE); BILIRUBIN, URINE AUTO NEGATIVE (NEGATIVE); BLOOD, URINE BLOOD NEGATIVE (NEGATIVE); COLOR, URINE YELLOW (YELLOW); GLUCOSE, URINE (UA) AUTO NEGATIVE (NEGATIVE); KETONE, URINE AUTO NEGATIVE (NEGATIVE); LEUKOCYTE ESTERASE, URINE AUTO NEGATIVE (NEGATIVE); NITRITE, URINE AUTO NEGATIVE (NEGATIVE); PROTEIN, URINE AUTO NEGATIVE (NEGATIVE); RBC, URINE AUTO 0 /HPF (0-3); SPECIFIC GRAVITY URINE AUTO 1.014 (1.002-1.035); SQUAMOUS EPITHELIAL CELL UR AU 1 /HPF (0-6); UROBILINOGEN, URINE AUTO 0.2 mg/dL (0.0-2.0); WBC, URINE AUTO 0 /HPF (0-3)
== END ==
LOC: M PLALAB 11:49
PROVIDERS: ATTEND Nurse Practitioner Family
DX: N39.0 Urinary tract infection, site not specified (principal); R30.0 Dysuria

== ENCOUNTER → 2023-04-16 | Outpatient (CLI) | payer MEDICARE ==
[2023-04-16 18:13] LABS: BASO # 0.1 10^3/uL (0.0-0.2); BASO % 0.7 % (0.0-1.0); EOS # 0.2 10^3/uL (0.0-0.5); EOS % 2.9 % (0.0-3.0); HEMATOCRIT 37.5 % (36.0-47.0); HEMOGLOBIN 11.5 g/dl (12.0-15.5); LYMPH # 2.4 10^3/uL (1.5-5.0); MEAN CORPUSCULAR HEMOGLOBIN 27.2 pg (27.0-33.0); MEAN CORPUSCULAR HGB CONC 30.7 g/dl (32.0-36.5); MEAN CORPUSCULAR VOLUME 88.7 fl (80.0-96.0); MONO # 0.5 10^3/uL (0.0-0.8); NEUTROPHILS # 5.2 10^3/uL (1.5-8.5); NEUTROPHILS % 62.2 % (36.0-66.0); PLATELET COUNT, AUTOMATED 452 10^3/uL (150-450); RED BLOOD COUNT 4.23 10^6/uL (4.00-5.40); WHITE BLOOD COUNT 8.4 10^3/uL (4.0-10.0)
[2023-04-16 18:20] LABS: APPEARANCE, URINE CLEAR (CLEAR); BACTERIA, URINE AUTO NEGATIVE (NEGATIVE); BILIRUBIN, URINE AUTO NEGATIVE (NEGATIVE); BLOOD, URINE BLOOD NEGATIVE (NEGATIVE); COLOR, URINE YELLOW (YELLOW); GLUCOSE, URINE (UA) AUTO NEGATIVE (NEGATIVE); KETONE, URINE AUTO NEGATIVE (NEGATIVE); LEUKOCYTE ESTERASE, URINE AUTO NEGATIVE (NEGATIVE); NITRITE, URINE AUTO NEGATIVE (NEGATIVE); PROTEIN, URINE AUTO NEGATIVE (NEGATIVE); RBC, URINE AUTO 2 /HPF (0-3); SPECIFIC GRAVITY URINE AUTO 1.014 (1.002-1.035); SQUAMOUS EPITHELIAL CELL UR AU 0 /HPF (0-6); UROBILINOGEN, URINE AUTO 0.2 mg/dL (0.0-2.0); WBC, URINE AUTO 1 /HPF (0-3)
[2023-04-16 18:26] LABS: ALBUMIN 3.7 G/DL (3.2-5.2); ALKALINE PHOSPHATASE 108 U/L (46-116); ALT/SGPT 19 U/L (7.0-40); AST/SGOT 13 U/L (<34); BILIRUBIN,TOTAL 0.2 MG/DL (0.3-1.2); BLOOD UREA NITROGEN 23 MG/DL (9-23); CALCIUM LEVEL 9.8 MG/DL (8.3-10.6); CARBON DIOXIDE LEVEL 25 MMOL/L (20-31); CHLORIDE LEVEL 108 MMOL/L (98-107); CREATININE FOR GFR 0.58 MG/DL (0.55-1.30); GLOMERULAR FILTRATION RATE > 60.0 (>45); GLUCOSE, FASTING 92 MG/DL (74-106); POTASSIUM SERUM 4.9 MMOL/L (3.5-5.1); SODIUM LEVEL 138 MMOL/L (136-145); TOTAL PROTEIN 7.8 G/DL (5.7-8.2)
[2023-04-16 18:34] LABS: ERYTHROCYTE SEDIMENTATION RATE 120 mm/hr (0-30)
== END ==
LOC: M PLALAB 16:07
PROVIDERS: ATTEND Physician Assistant Medical
DX: T81.89XA Other complications of procedures, not elsewhere classified, initial encounter (principal); Z79.899 Other long term (current) drug therapy

== ENCOUNTER → 2023-04-23 | Outpatient (REF) | payer MEDICARE | LOC: M LAB REF 15:00 | PROVIDERS: ATTEND Physician Assistant | DX: L08.9 Local infection of the skin and subcutaneous tissue, unspecified (principal) ==

== ENCOUNTER → 2023-05-05 | Outpatient (CLI) | payer MEDICARE ==
[~2023-05-05] MED LIST changes: +GASTROGRAFIN SOLUTION 30ML As Ordered ONE; +ISOVUE-370 76% 100ML VIAL As Ordered ONE
== END ==
LOC: M RAD 14:52
PROVIDERS: ATTEND Surgery
DX: R10.817 Generalized abdominal tenderness (principal)
CPT/HCPCS: 74177; Q9963; Q9967

== ENCOUNTER → 2023-05-19 | Outpatient (CLI) | payer MEDICARE ==
[~2023-05-19] MED LIST changes: -GASTROGRAFIN SOLUTION 30ML As Ordered ONE; -ISOVUE-370 76% 100ML VIAL As Ordered ONE
== END ==
LOC: M WHC 10:10
PROVIDERS: ATTEND Nurse Practitioner Family
DX: Z12.31 Encounter for screening mammogram for malignant neoplasm of breast (principal)

== ENCOUNTER → 2023-05-27 | Outpatient (REF) | payer MEDICARE ==
[2023-05-27 16:00] LABS: APPEARANCE, URINE CLOUDY (CLEAR); BACTERIA, URINE AUTO NEGATIVE (NEGATIVE); BILIRUBIN, URINE AUTO NEGATIVE (NEGATIVE); BLOOD, URINE BLOOD NEGATIVE (NEGATIVE); COLOR, URINE AMBER (YELLOW); GLUCOSE, URINE (UA) AUTO NEGATIVE (NEGATIVE); KETONE, URINE AUTO NEGATIVE (NEGATIVE); LEUKOCYTE ESTERASE, URINE AUTO NEGATIVE (NEGATIVE); MUCUS, URINE SMALL (NEGATIVE); NITRITE, URINE AUTO NEGATIVE (NEGATIVE); PROTEIN, URINE AUTO NEGATIVE (NEGATIVE); RBC, URINE AUTO 0 /HPF (0-3); SPECIFIC GRAVITY URINE AUTO 1.016 (1.002-1.035); SQUAMOUS EPITHELIAL CELL UR AU 1 /HPF (0-6); UROBILINOGEN, URINE AUTO 0.2 mg/dL (0.0-2.0); WBC, URINE AUTO 0 /HPF (0-3)
== END ==
LOC: M SMT 15:12
PROVIDERS: ATTEND Physician Assistant
DX: R30.0 Dysuria (principal)

== ENCOUNTER → 2023-06-04 | Outpatient (REF) | payer MEDICARE ==
[2023-06-04 18:02] LABS: HEMATOCRIT 36.9 % (36.0-47.0); HEMOGLOBIN 11.1 g/dl (12.0-15.5); MEAN CORPUSCULAR HEMOGLOBIN 26.9 pg (27.0-33.0); MEAN CORPUSCULAR HGB CONC 30.1 g/dl (32.0-36.5); MEAN CORPUSCULAR VOLUME 89.3 fl (80.0-96.0); PLATELET COUNT, AUTOMATED 312 10^3/uL (150-450); RED BLOOD COUNT 4.13 10^6/uL (4.00-5.40); WHITE BLOOD COUNT 6.8 10^3/uL (4.0-10.0)
[2023-06-04 18:15] LABS: ERYTHROCYTE SEDIMENTATION RATE 53 mm/hr (0-30)
== END ==
LOC: M LABWUC 17:21
PROVIDERS: ATTEND Surgery
DX: L08.9 Local infection of the skin and subcutaneous tissue, unspecified (principal)

== ENCOUNTER → 2023-07-12 | Outpatient (CLI) | payer MEDICARE ==
[2023-07-12 17:33] LABS: BASO # 0.1 10^3/uL (0.0-0.2); BASO % 0.6 % (0.0-1.0); EOS # 0.3 10^3/uL (0.0-0.5); EOS % 3.1 % (0.0-3.0); HEMATOCRIT 38.3 % (36.0-47.0); HEMOGLOBIN 11.5 g/dl (12.0-15.5); LYMPH # 3.9 10^3/uL (1.5-5.0); LYMPH % 40.7 % (24.0-44.0); MEAN CORPUSCULAR HEMOGLOBIN 27.8 pg (27.0-33.0); MEAN CORPUSCULAR VOLUME 92.5 fl (80.0-96.0); MONO # 0.8 10^3/uL (0.0-0.8); MONO % 8.7 % (2.0-8.0); NEUTROPHILS # 4.4 10^3/uL (1.5-8.5); NEUTROPHILS % 46.5 % (36.0-66.0); PLATELET COUNT, AUTOMATED 367 10^3/uL (150-450); RED BLOOD COUNT 4.14 10^6/uL (4.00-5.40); WHITE BLOOD COUNT 9.6 10^3/uL (4.0-10.0)
[2023-07-12 17:53] LABS: BLOOD UREA NITROGEN 26 MG/DL (9-23); CALCIUM LEVEL 9.8 MG/DL (8.3-10.6); CARBON DIOXIDE LEVEL 25 MMOL/L (20-31); CHLORIDE LEVEL 110 MMOL/L (98-107); CREATININE FOR GFR 0.64 MG/DL (0.55-1.30); GLOMERULAR FILTRATION RATE > 60.0 (>45); GLUCOSE, FASTING 54 MG/DL (74-106); POTASSIUM SERUM 4.4 MMOL/L (3.5-5.1); SODIUM LEVEL 142 MMOL/L (136-145)
[2023-07-12 17:54] LABS: ERYTHROCYTE SEDIMENTATION RATE 73 mm/hr (0-30)
== END ==
LOC: M WUC 14:43
PROVIDERS: ATTEND Surgery
DX: M79.3 Panniculitis, unspecified (principal)

== ENCOUNTER 2023-10-20 11:58 | Day surgery (SDC) | payer MEDICARE ==
[~2023-10-20] VITALS: Ht 152.4 cm; Wt 93.0 kg
[~2023-10-20 11:58] MED LIST changes: +ASHW500C PO; +ONDA-284 PO; -ONDA8TAB8 PO; +THERTAB52 PO; +[UNRECOGNIZED DRUG - CODE] PO; +[UNRECOGNIZED DRUG - OTHER] PO
[2023-10-20] MEDS ORDERED: LIDOCAINE 2% 100MG/5ML SDV (FOR ANES.) As Ordered ONE (12:34)
[2023-10-20] MEDS ORDERED: propofoL 200 MG/20 ML VIAL As Ordered ONE (12:34)
[2023-10-20] MEDS: NS 1,000 ML IV SCH (12:35)
[2023-10-20 14:09] VITALS: TEMP 98.3
[2023-10-20 14:27] VITALS: BP 144/71; O2SAT 97
== END 2023-10-20 14:47 | disposition home or self-care (01) ==
LOC: M OPP 11:58
PROVIDERS: ATTEND Surgery
DX: Z86.010 Personal history of colon polyps (principal); D12.6 Benign neoplasm of colon, unspecified; K57.30 Diverticulosis of large intestine without perforation or abscess without bleeding; G47.33 Obstructive sleep apnea (adult) (pediatric); Z79.899 Other long term (current) drug therapy; Z79.1 Long term (current) use of non-steroidal anti-inflammatories (NSAID); Z91.048 Other nonmedicinal substance allergy status

== ENCOUNTER → 2023-11-02 | Outpatient (CLI) | payer MEDICARE ==
[2023-11-02 14:51] LABS: HEMATOCRIT 38.6 % (36.0-47.0); HEMOGLOBIN 11.8 g/dl (12.0-15.5); MEAN CORPUSCULAR HEMOGLOBIN 28.6 pg (27.0-33.0); MEAN CORPUSCULAR HGB CONC 30.6 g/dl (32.0-36.5); MEAN CORPUSCULAR VOLUME 93.7 fl (80.0-96.0); PLATELET COUNT, AUTOMATED 317 10^3/uL (150-450); RED BLOOD COUNT 4.12 10^6/uL (4.00-5.40); WHITE BLOOD COUNT 7.6 10^3/uL (4.0-10.0)
[2023-11-02 14:57] LABS: ERYTHROCYTE SEDIMENTATION RATE 46 mm/hr (0-30)
[2023-11-02 15:19] LABS: C REACTIVE PROTEIN QUANTITATIV < 0.40 MG/DL (<1.0)
[2023-11-02 15:20] LABS: BLOOD UREA NITROGEN 29 MG/DL (9-23); CALCIUM LEVEL 9.2 MG/DL (8.3-10.6); CARBON DIOXIDE LEVEL 25 MMOL/L (20-31); CHLORIDE LEVEL 109 MMOL/L (98-107); CREATININE FOR GFR 0.71 MG/DL (0.55-1.30); GLOMERULAR FILTRATION RATE > 60.0 (>39); GLUCOSE, FASTING 81 MG/DL (74-106); POTASSIUM SERUM 4.2 MMOL/L (3.5-5.1); SODIUM LEVEL 141 MMOL/L (136-145)
== END ==
LOC: M WUC 10:29
PROVIDERS: ATTEND Surgery
DX: L08.9 Local infection of the skin and subcutaneous tissue, unspecified (principal)

== ENCOUNTER → 2023-11-24 | Outpatient (REF) | payer MEDICARE ==
[2023-11-24 12:55] LABS: APPEARANCE, URINE HAZY (CLEAR); BACTERIA, URINE AUTO NEGATIVE (NEGATIVE); BILIRUBIN, URINE AUTO NEGATIVE (NEGATIVE); BLOOD, URINE BLOOD NEGATIVE (NEGATIVE); COLOR, URINE AMBER (YELLOW); GLUCOSE, URINE (UA) AUTO NEGATIVE (NEGATIVE); KETONE, URINE AUTO NEGATIVE (NEGATIVE); LEUKOCYTE ESTERASE, URINE AUTO NEGATIVE (NEGATIVE); NITRITE, URINE AUTO NEGATIVE (NEGATIVE); PROTEIN, URINE AUTO NEGATIVE (NEGATIVE); RBC, URINE AUTO 1 /HPF (0-3); SQUAMOUS EPITHELIAL CELL UR AU 1 /HPF (0-6); UROBILINOGEN, URINE AUTO 0.2 mg/dL (0.0-2.0); WBC, URINE AUTO 1 /HPF (0-3)
== END ==
LOC: M SMT 12:23
PROVIDERS: ATTEND Physician Assistant
DX: R30.0 Dysuria (principal)

== ENCOUNTER → 2023-11-26 | Outpatient (CLI) | payer MEDICARE ==
[~2023-11-26] MED LIST changes: +LINE1TAB6 PO
[2023-11-26 17:26] LABS: BASO # 0.1 10^3/uL (0.0-0.2); BASO % 0.7 % (0.0-1.0); EOS # 0.2 10^3/uL (0.0-0.5); EOS % 2.1 % (0.0-3.0); HEMATOCRIT 36.8 % (36.0-47.0); HEMOGLOBIN 11.4 g/dl (12.0-15.5); LYMPH % 28.6 % (24.0-44.0); MEAN CORPUSCULAR HEMOGLOBIN 29.2 pg (27.0-33.0); MEAN CORPUSCULAR VOLUME 94.4 fl (80.0-96.0); MONO # 0.6 10^3/uL (0.0-0.8); MONO % 8.3 % (2.0-8.0); NEUTROPHILS # 4.3 10^3/uL (1.5-8.5); PLATELET COUNT, AUTOMATED 316 10^3/uL (150-450); WHITE BLOOD COUNT 7.1 10^3/uL (4.0-10.0)
[2023-11-26 17:35] LABS: ERYTHROCYTE SEDIMENTATION RATE 59 mm/hr (0-30)
== END ==
LOC: M WUC 13:31
PROVIDERS: ATTEND Surgery
DX: M79.3 Panniculitis, unspecified (principal); L08.9 Local infection of the skin and subcutaneous tissue, unspecified; K43.2 Incisional hernia without obstruction or gangrene

== ENCOUNTER 2023-12-06 06:18 | Inpatient (IN) | payer MEDICARE ==
[~2023-12-06] VITALS: Ht 152.4 cm; Wt 92.8 kg
[2023-12-06] VITALS (8 sets, daily range): BP systolic 93–128; BP diastolic 47–70; TEMP 97.3–97.9; O2SAT 88–94
[~2023-12-06 06:18] MED LIST changes: -LINE1TAB6 PO
[2023-12-06] MEDS ORDERED: KETOROLAC 60MG 2ML VIAL As Ordered ONE (07:02)
[2023-12-06] MEDS ORDERED: ACETAMINOPHEN 1000MG 100ML IV BAG As Ordered ONE (07:02)
[2023-12-06] MEDS ORDERED: ONDANSETRON 4MG 2ML VIAL As Ordered ONE (07:02)
[2023-12-06] MEDS ORDERED: propofoL 200 MG/20 ML VIAL As Ordered ONE (07:03)
[2023-12-06] MEDS ORDERED: LIDOCAINE 2% 100MG/5ML SDV (FOR ANES.) As Ordered ONE (07:03)
[2023-12-06] MEDS ORDERED: SUGAMMADEX SODIUM 500 MG/5 ML VIAL (BRIDION) As Ordered ONE (07:03)
[2023-12-06] MEDS ORDERED: ROCURONIUM BROMIDE 50MG/5ML VIAL As Ordered ONE (07:03)
[2023-12-06] MEDS: LR 1,000 ML IV SCH ×2 (07:11→14:22)
[2023-12-06] MEDS: CelecoXIB 400 MG CAP PO ONE (07:11)
[2023-12-06] MEDS ORDERED: fentaNYL 100 MCG/2 ML INJECTION As Ordered ONE (07:12)
[2023-12-06] MEDS ORDERED: MIDAZOLAM INJ 2MG/2ML VIAL As Ordered ONE (07:12)
[2023-12-06] MEDS: ceFAZolin SOD 2 GM in IV 1 EA IV ONE (07:44)
[2023-12-06] MEDS ORDERED: HYDROmorphone HCL 2MG/ML 1ML VIAL As Ordered ONE (07:52)
[2023-12-06] MEDS: HEPARIN SOD (PORCINE) 5000UNITS/ML 1ML VIAL/SYRINGE SQ ONE (08:03)
[2023-12-06] MEDS ORDERED: PHENYLephrine 500MCG 5ML (100MCG/ML) SYRINGE As Ordered ONE (08:21)
[2023-12-06] MEDS ORDERED: ePHEDrine SULFATE 25 MG/5 ML(5MG/ML) SYRINGE As Ordered ONE (08:21)
[2023-12-06] MEDS ORDERED: ONDANSETRON 4MG 2ML VIAL IV PRN (11:00)
[2023-12-06] MEDS ORDERED: tiZANidine 4 MG TAB PO PRN (11:00)
[2023-12-06] MEDS ORDERED: oxyCODONE 5MG TAB PO PRN (11:10)
[2023-12-06] MEDS ORDERED: fentaNYL 100 MCG/2 ML INJECTION IV PRN (11:10)
[2023-12-06] MEDS ORDERED: HYDROMORPHONE HCL 0.5 MG/ 0.5 ML SYRINGE IV PRN (11:10)
[2023-12-06] MEDS ORDERED: LR 1,000 ML IV SCH (11:10)
[2023-12-06] MEDS: ONDANSETRON 4MG 2ML VIAL IV PRN (11:46)
[2023-12-06] MEDS ORDERED: HOME MED LIST COMPLETE! XX SCH (13:55)
[2023-12-06] MEDS: PROMETHAZINE 25MG/ML 1ML VIAL IV ONE (14:22)
[2023-12-06] MEDS: TOPIRAMATE (TopAMAX) 25 MG TAB PO SCH (14:22)
[2023-12-06] MEDS ORDERED: PROMETHAZINE 25MG/ML 1ML VIAL IV PRN (16:05)
[2023-12-06] MEDS: KETOROLAC 30 MG/ML 1ML VIAL IV SCH (17:21)
[2023-12-06] MEDS: ONDANSETRON 4MG 2ML VIAL IV SCH (17:21)
[2023-12-06] MEDS: LOSARTAN 50MG TABLET PO SCH (20:28)
[2023-12-06] MEDS: amLODIPine 5 MG TAB PO SCH (20:28)
[2023-12-06] MEDS: DOCUSATE SODIUM 100MG CAPSULE PO SCH (20:34)
[2023-12-07 05:21] VITALS: BP 128/63; TEMP 98; O2SAT 93
[2023-12-07 06:04] LABS: BASO % 0.1 % (0.0-1.0); EOS % 0.2 % (0.0-3.0); HEMATOCRIT 34.8 % (36.0-47.0); HEMOGLOBIN 10.6 g/dl (12.0-15.5); LYMPH # 1.7 10^3/uL (1.5-5.0); LYMPH % 17.9 % (24.0-44.0); MEAN CORPUSCULAR HEMOGLOBIN 28.6 pg (27.0-33.0); MEAN CORPUSCULAR HGB CONC 30.5 g/dl (32.0-36.5); MEAN CORPUSCULAR VOLUME 93.8 fl (80.0-96.0); MONO # 0.5 10^3/uL (0.0-0.8); MONO % 5.5 % (2.0-8.0); NEUTROPHILS # 7.3 10^3/uL (1.5-8.5); PLATELET COUNT, AUTOMATED 261 10^3/uL (150-450); RED BLOOD COUNT 3.71 10^6/uL (4.00-5.40); WHITE BLOOD COUNT 9.6 10^3/uL (4.0-10.0)
[2023-12-07] MEDS: ceFAZolin SOD 1 GM in D5W MINI-BAG PLUS 50 ML IV SCH (06:19)
[2023-12-07 06:21] LABS: BLOOD UREA NITROGEN 23 MG/DL (9-23); CALCIUM LEVEL 9.4 MG/DL (8.3-10.6); CARBON DIOXIDE LEVEL 25 MMOL/L (20-31); CHLORIDE LEVEL 113 MMOL/L (98-107); CREATININE FOR GFR 0.71 MG/DL (0.55-1.30); GLOMERULAR FILTRATION RATE > 60.0 (>39); GLUCOSE, FASTING 100 MG/DL (74-106); POTASSIUM SERUM 4.4 MMOL/L (3.5-5.1); SODIUM LEVEL 146 MMOL/L (136-145)
[2023-12-07 08:00] VITALS: BP 143/66; TEMP 97; O2SAT 93
[2023-12-07] MEDS: ENOXAPARIN 40MG/0.4ML SYRINGE (J1650 PER 10MG) SC SCH (09:27)
[2023-12-07 12:00] VITALS: BP 141/64; TEMP 97; O2SAT 95
[2023-12-07 21:52] VITALS: BP 126/72; TEMP 98.4; O2SAT 95
[2023-12-08 05:45] VITALS: BP 128/71; TEMP 98.1; O2SAT 96
[2023-12-08] MEDS: LINEZOLID 600MG TABLET (ZYVOX) PO SCH (08:20)
[2023-12-08 12:00] VITALS: BP 127/73; TEMP 98.3; O2SAT 95
[2023-12-08] MEDS: ANUSOL HC CREAM 30GM TOP PRN (14:10)
[2023-12-08 20:02] VITALS: BP 156/80; TEMP 97.9; O2SAT 96
[2023-12-09 05:07] VITALS: BP 98/66; TEMP 97.5; O2SAT 96
[2023-12-09 06:20] LABS: HEMATOCRIT 35.3 % (36.0-47.0); MEAN CORPUSCULAR HEMOGLOBIN 29.3 pg (27.0-33.0); MEAN CORPUSCULAR HGB CONC 31.2 g/dl (32.0-36.5); MEAN CORPUSCULAR VOLUME 93.9 fl (80.0-96.0); PLATELET COUNT, AUTOMATED 265 10^3/uL (150-450); RED BLOOD COUNT 3.76 10^6/uL (4.00-5.40); WHITE BLOOD COUNT 8.3 10^3/uL (4.0-10.0)
[2023-12-09] MEDS: CETIRIZINE (ZyrTEC) 10 MG TAB PO SCH (10:01)
[2023-12-09] MEDS: predniSONE 5 MG TAB PO SCH (11:57)
[2023-12-09 12:00] VITALS: BP 155/71; TEMP 97.9; O2SAT 94
[2023-12-09 20:06] VITALS: BP 144/69; TEMP 97.2; O2SAT 94
[2023-12-09 21:16] VITALS: BP 144/69
[2023-12-09] MEDS: MIRALAX *UNIT DOSE* 17GM PACKET PO PRN (21:53)
[2023-12-09] MEDS: ACETAMINOPHEN TAB 650MG DOSE (2X325MG) PO PRN (21:53)
[2023-12-10] MEDS ORDERED: PERMETHRIN 5% CREAM 60 GM TOP SCH
[2023-12-10 04:08] VITALS: BP 109/57; TEMP 97.7; O2SAT 93
[2023-12-10 09:15] VITALS: BP 130/57; TEMP 97.9; O2SAT 94
[2023-12-10 11:59] VITALS: BP 155/76; TEMP 97.7; O2SAT 94
[2023-12-10] MEDS ORDERED: LINE1TAB6 PO (14:22)
[2023-12-10] MEDS: PERMETHRIN 5% CREAM 60 GM TOP ONE (16:05)
== END 2023-12-10 14:15 | disposition home health service (06) | DRG 908 ==
LOC: M OR 06:18 → EEVIPCON 06:18 → M MS5PR 12:25
PROVIDERS: ADMIT Surgery; ATTEND Surgery
PROC: 0WUF0JZ Supplement Abdominal Wall with Synthetic Substitute, Open Approach (ICD-10-PCS; 2023-12-06)
PROC: 0WPF0JZ Removal of Synthetic Substitute from Abdominal Wall, Open Approach (ICD-10-PCS; principal; 2023-12-06 07:30)
DX: T85.79XA Infection and inflammatory reaction due to other internal prosthetic devices, implants and grafts, initial encounter (principal); Z68.41 Body mass index [BMI] 40.0-44.9, adult; T81.43XA Infection following a procedure, organ and space surgical site, initial encounter; I10 Essential (primary) hypertension; E78.00 Pure hypercholesterolemia, unspecified; M19.90 Unspecified osteoarthritis, unspecified site; Z90.49 Acquired absence of other specified parts of digestive tract; L08.9 Local infection of the skin and subcutaneous tissue, unspecified; E66.01 Morbid (severe) obesity due to excess calories; Z79.899 Other long term (current) drug therapy; Z91.048 Other nonmedicinal substance allergy status; K59.00 Constipation, unspecified; Y83.1 Surgical operation with implant of artificial internal device as the cause of abnormal reaction of the patient, or of later complication, without mention of misadventure at the time of the procedure; Z96.653 Presence of artificial knee joint, bilateral

== ENCOUNTER → 2023-12-14 | Outpatient (CLI) | payer MEDICARE ==
[~2023-12-14] MED LIST changes: +LINE1TAB6 PO
[2023-12-14 15:33] LABS: BASO # 0.1 10^3/uL (0.0-0.2); BASO % 0.6 % (0.0-1.0); EOS # 0.3 10^3/uL (0.0-0.5); EOS % 3.4 % (0.0-3.0); HEMATOCRIT 39.8 % (36.0-47.0); LYMPH # 2.5 10^3/uL (1.5-5.0); LYMPH % 32.7 % (24.0-44.0); MEAN CORPUSCULAR HEMOGLOBIN 28.5 pg (27.0-33.0); MEAN CORPUSCULAR HGB CONC 30.2 g/dl (32.0-36.5); MEAN CORPUSCULAR VOLUME 94.5 fl (80.0-96.0); MONO # 0.5 10^3/uL (0.0-0.8); MONO % 6.2 % (2.0-8.0); NEUTROPHILS # 4.4 10^3/uL (1.5-8.5); NEUTROPHILS % 56.7 % (36.0-66.0); PLATELET COUNT, AUTOMATED 339 10^3/uL (150-450); RED BLOOD COUNT 4.21 10^6/uL (4.00-5.40); WHITE BLOOD COUNT 7.7 10^3/uL (4.0-10.0)
[2023-12-14 16:00] LABS: ALKALINE PHOSPHATASE 110 U/L (46-116); ALT/SGPT 20 U/L (7.0-40); AST/SGOT 11 U/L (<34); BILIRUBIN,TOTAL 0.2 MG/DL (0.3-1.2); BLOOD UREA NITROGEN 27 MG/DL (9-23); CALCIUM LEVEL 10.5 MG/DL (8.3-10.6); CARBON DIOXIDE LEVEL 26 MMOL/L (20-31); CHLORIDE LEVEL 107 MMOL/L (98-107); CREATININE FOR GFR 0.77 MG/DL (0.55-1.30); GLOMERULAR FILTRATION RATE > 60.0 (>39); GLUCOSE, FASTING 79 MG/DL (74-106); POTASSIUM SERUM 4.7 MMOL/L (3.5-5.1); SODIUM LEVEL 140 MMOL/L (136-145); TOTAL PROTEIN 7.6 G/DL (5.7-8.2)
[2023-12-14 16:31] LABS: ERYTHROCYTE SEDIMENTATION RATE 76 mm/hr (0-30)
== END ==
LOC: M PLALAB 12:43
PROVIDERS: ATTEND Physician Assistant Medical
DX: Z09 Encounter for follow-up examination after completed treatment for conditions other than malignant neoplasm (principal); R06.02 Shortness of breath; I10 Essential (primary) hypertension; T81.49XA Infection following a procedure, other surgical site, initial encounter

== ENCOUNTER → 2023-12-15 | Outpatient (CLI) | payer MEDICARE ==
[~2023-12-15] MED LIST changes: +GASTROGRAFIN SOLUTION 30ML ONE
== END ==
LOC: M PLAIMG 09:10
PROVIDERS: ATTEND Physician Assistant Medical
DX: R06.02 Shortness of breath (principal)
CPT/HCPCS: 71275; Q9963

== ENCOUNTER → 2024-02-01 | Outpatient (CLI) | payer MEDICARE ==
[~2024-02-01] MED LIST changes: -GASTROGRAFIN SOLUTION 30ML ONE; -SENN-111 PO; +SENN-165 PO
[2024-02-01 10:52] LABS: BASO # 0.1 10^3/uL (0.0-0.2); BASO % 1.2 % (0.0-1.0); EOS # 0.2 10^3/uL (0.0-0.5); EOS % 3.1 % (0.0-3.0); HEMATOCRIT 39.9 % (36.0-47.0); HEMOGLOBIN 12.1 g/dl (12.0-15.5); LYMPH # 2.3 10^3/uL (1.5-5.0); LYMPH % 39.1 % (24.0-44.0); MEAN CORPUSCULAR HEMOGLOBIN 28.7 pg (27.0-33.0); MEAN CORPUSCULAR HGB CONC 30.3 g/dl (32.0-36.5); MEAN CORPUSCULAR VOLUME 94.5 fl (80.0-96.0); MONO # 0.5 10^3/uL (0.0-0.8); MONO % 8.2 % (2.0-8.0); NEUTROPHILS # 2.8 10^3/uL (1.5-8.5); NEUTROPHILS % 48.1 % (36.0-66.0); PLATELET COUNT, AUTOMATED 303 10^3/uL (150-450); RED BLOOD COUNT 4.22 10^6/uL (4.00-5.40); WHITE BLOOD COUNT 5.8 10^3/uL (4.0-10.0)
[2024-02-01 11:01] LABS: ERYTHROCYTE SEDIMENTATION RATE 47 mm/hr (0-30)
[2024-02-01 11:24] LABS: ALKALINE PHOSPHATASE 97 U/L (35-104); ALT/SGPT 20 U/L (7.0-40); AST/SGOT 14 U/L (<34); BILIRUBIN,TOTAL 0.3 MG/DL (0.3-1.2); BLOOD UREA NITROGEN 28 MG/DL (9-23); CALCIUM LEVEL 9.7 MG/DL (8.3-10.6); CARBON DIOXIDE LEVEL 25 MMOL/L (20-31); CHLORIDE LEVEL 109 MMOL/L (98-107); CHOLESTEROL LEVEL 226 MG/DL (<200); CHOLESTEROL RISK RATIO 5.69 (<5); CREATININE FOR GFR 0.74 MG/DL (0.55-1.30); GLOMERULAR FILTRATION RATE > 60.0 (>39); GLUCOSE, FASTING 84 MG/DL (74-106); HDL CHOLESTEROL 39.7 MG/DL (>40); LDL CHOLESTEROL 117.3 MG/DL (<100); NON-HDL-C 186.3 MG/DL; POTASSIUM SERUM 4.6 MMOL/L (3.5-5.1); SODIUM LEVEL 142 MMOL/L (136-145); TOTAL PROTEIN 7.3 G/DL (5.7-8.2); TRIGLYCERIDES LEVEL 345 MG/DL (<150)
== END ==
LOC: M PLALAB 08:23
PROVIDERS: ATTEND Physician Assistant Medical
DX: E78.1 Pure hyperglyceridemia (principal)

== ENCOUNTER → 2024-02-22 | Outpatient (CLI) | payer MEDICARE ==
[~2024-02-22] MED LIST changes: +GASTROGRAFIN SOLUTION 30ML ONE; +ISOVUE-370 76% 100ML VIAL ONE
== END ==
LOC: M PLAIMG 11:46
PROVIDERS: ATTEND Surgery
DX: K43.9 Ventral hernia without obstruction or gangrene (principal)
CPT/HCPCS: 74177; Q9963; Q9967

== ENCOUNTER → 2024-02-29 | Outpatient (CLI) | payer MEDICARE ==
[~2024-02-29] MED LIST changes: -GASTROGRAFIN SOLUTION 30ML ONE; -ISOVUE-370 76% 100ML VIAL ONE
[2024-02-29 10:29] LABS: BASO # 0.1 10^3/uL (0.0-0.2); BASO % 0.8 % (0.0-1.0); EOS # 0.2 10^3/uL (0.0-0.5); EOS % 3.4 % (0.0-3.0); HEMATOCRIT 41.9 % (36.0-47.0); HEMOGLOBIN 12.8 g/dl (12.0-15.5); LYMPH # 2.2 10^3/uL (1.5-5.0); LYMPH % 37.8 % (24.0-44.0); MEAN CORPUSCULAR HEMOGLOBIN 28.9 pg (27.0-33.0); MEAN CORPUSCULAR HGB CONC 30.5 g/dl (32.0-36.5); MEAN CORPUSCULAR VOLUME 94.6 fl (80.0-96.0); MONO # 0.5 10^3/uL (0.0-0.8); MONO % 9.1 % (2.0-8.0); NEUTROPHILS # 2.9 10^3/uL (1.5-8.5); NEUTROPHILS % 48.7 % (36.0-66.0); PLATELET COUNT, AUTOMATED 269 10^3/uL (150-450); RED BLOOD COUNT 4.43 10^6/uL (4.00-5.40); WHITE BLOOD COUNT 5.9 10^3/uL (4.0-10.0)
[2024-02-29 10:38] LABS: ERYTHROCYTE SEDIMENTATION RATE 45 mm/hr (0-30)
[2024-02-29 10:40] LABS: C REACTIVE PROTEIN QUANTITATIV < 0.50 MG/DL (<1.0)
[2024-02-29 10:41] LABS: THYROID STIMULATING HORMONE 5.233 uIU/ML (0.55-4.78)
== END ==
LOC: M PLALAB 08:35
PROVIDERS: ATTEND Internal Medicine Infectious Disease
DX: A49.02 Methicillin resistant Staphylococcus aureus infection, unspecified site (principal); L85.3 Xerosis cutis; Z79.899 Other long term (current) drug therapy

== ENCOUNTER → 2024-03-20 | Outpatient (REF) | payer MEDICARE ==
[2024-03-20 18:35] LABS: APPEARANCE, URINE HAZY (CLEAR); BACTERIA, URINE AUTO NEGATIVE (NEGATIVE); BILIRUBIN, URINE AUTO NEGATIVE (NEGATIVE); BLOOD, URINE BLOOD NEGATIVE (NEGATIVE); COLOR, URINE AMBER (YELLOW); GLUCOSE, URINE (UA) AUTO NEGATIVE (NEGATIVE); KETONE, URINE AUTO NEGATIVE (NEGATIVE); LEUKOCYTE ESTERASE, URINE AUTO 1+ (NEGATIVE); NITRITE, URINE AUTO NEGATIVE (NEGATIVE); PROTEIN, URINE AUTO NEGATIVE (NEGATIVE); RBC, URINE AUTO 0 /HPF (0-3); SPECIFIC GRAVITY URINE AUTO 1.013 (1.002-1.035); SQUAMOUS EPITHELIAL CELL UR AU 0 /HPF (0-6); UROBILINOGEN, URINE AUTO 0.2 mg/dL (0.0-2.0); WBC, URINE AUTO 5 /HPF (0-3)
== END ==
LOC: M SMT 17:09
PROVIDERS: ATTEND Physician Assistant
DX: R30.0 Dysuria (principal)

== ENCOUNTER → 2024-03-24 | Outpatient (REF) | payer MEDICARE ==
[2024-03-24 18:32] LABS: APPEARANCE, URINE HAZY (CLEAR); BACTERIA, URINE AUTO NEGATIVE (NEGATIVE); BILIRUBIN, URINE AUTO NEGATIVE (NEGATIVE); BLOOD, URINE BLOOD NEGATIVE (NEGATIVE); COLOR, URINE YELLOW (YELLOW); GLUCOSE, URINE (UA) AUTO NEGATIVE (NEGATIVE); KETONE, URINE AUTO NEGATIVE (NEGATIVE); LEUKOCYTE ESTERASE, URINE AUTO NEGATIVE (NEGATIVE); NITRITE, URINE AUTO NEGATIVE (NEGATIVE); PROTEIN, URINE AUTO NEGATIVE (NEGATIVE); RBC, URINE AUTO 1 /HPF (0-3); SPECIFIC GRAVITY URINE AUTO 1.018 (1.002-1.035); SQUAMOUS EPITHELIAL CELL UR AU 0 /HPF (0-6); UROBILINOGEN, URINE AUTO 0.2 mg/dL (0.0-2.0); WBC, URINE AUTO 2 /HPF (0-3)
== END ==
LOC: M SMT 17:37
PROVIDERS: ATTEND Physician Assistant
DX: R39.9 Unspecified symptoms and signs involving the genitourinary system (principal)

== ENCOUNTER → 2024-05-02 | Outpatient (CLI) | payer MEDICARE ==
[2024-05-02 10:54] LABS: BASO % 0.4 % (0.0-1.0); EOS # 0.2 10^3/uL (0.0-0.5); EOS % 1.4 % (0.0-3.0); HEMOGLOBIN 11.8 g/dl (12.0-15.5); LYMPH # 1.8 10^3/uL (1.5-5.0); LYMPH % 17.8 % (24.0-44.0); MEAN CORPUSCULAR HEMOGLOBIN 28.3 pg (27.0-33.0); MEAN CORPUSCULAR HGB CONC 31.1 g/dl (32.0-36.5); MEAN CORPUSCULAR VOLUME 91.1 fl (80.0-96.0); MONO # 0.8 10^3/uL (0.0-0.8); MONO % 7.6 % (2.0-8.0); NEUTROPHILS # 7.5 10^3/uL (1.5-8.5); NEUTROPHILS % 72.3 % (36.0-66.0); PLATELET COUNT, AUTOMATED 354 10^3/uL (150-450); RED BLOOD COUNT 4.17 10^6/uL (4.00-5.40); WHITE BLOOD COUNT 10.4 10^3/uL (4.0-10.0)
[2024-05-02 11:02] LABS: ERYTHROCYTE SEDIMENTATION RATE 97 mm/hr (0-30)
[2024-05-02 11:18] LABS: C REACTIVE PROTEIN QUANTITATIV 12.89 MG/DL (<1.0)
[2024-05-02 11:19] LABS: BLOOD UREA NITROGEN 22 MG/DL (9-23); CALCIUM LEVEL 9.5 MG/DL (8.3-10.6); CARBON DIOXIDE LEVEL 27 MMOL/L (20-31); CHLORIDE LEVEL 109 MMOL/L (98-107); CREATININE FOR GFR 0.79 MG/DL (0.55-1.30); GLOMERULAR FILTRATION RATE > 60.0 (>39); GLUCOSE, FASTING 104 MG/DL (74-106); POTASSIUM SERUM 4.6 MMOL/L (3.5-5.1); SODIUM LEVEL 144 MMOL/L (136-145)
== END ==
LOC: M LAB 10:25
PROVIDERS: ATTEND Surgery
DX: S31.109D Unspecified open wound of abdominal wall, unspecified quadrant without penetration into peritoneal cavity, subsequent encounter (principal)

== ENCOUNTER → 2024-05-03 | Outpatient (CLI) | payer MEDICARE ==
[~2024-05-03] MED LIST changes: +ISOVUE-370 76% 100ML VIAL As Ordered ONE
== END ==
LOC: M RAD 06:23
PROVIDERS: ATTEND Surgery
DX: S31.109D Unspecified open wound of abdominal wall, unspecified quadrant without penetration into peritoneal cavity, subsequent encounter (principal); X58.XXXD Exposure to other specified factors, subsequent encounter; Y92.9 Unspecified place or not applicable; Y93.9 Activity, unspecified; Y99.9 Unspecified external cause status

== ENCOUNTER → 2024-05-03 | Outpatient (REF) | payer MEDICARE ==
[~2024-05-03] MED LIST changes: -ISOVUE-370 76% 100ML VIAL As Ordered ONE
== END ==
LOC: M LAB REF 16:11
PROVIDERS: ATTEND Surgery
DX: L02.211 Cutaneous abscess of abdominal wall (principal)

== ENCOUNTER → 2024-05-10 | Outpatient (CLI) | payer MEDICARE ==
[2024-05-10 15:05] LABS: BASO # 0.1 10^3/uL (0.0-0.2); BASO % 0.9 % (0.0-1.0); EOS # 0.2 10^3/uL (0.0-0.5); EOS % 2.3 % (0.0-3.0); HEMATOCRIT 40.2 % (36.0-47.0); HEMOGLOBIN 12.3 g/dl (12.0-15.5); LYMPH # 2.6 10^3/uL (1.5-5.0); LYMPH % 31.6 % (24.0-44.0); MEAN CORPUSCULAR HEMOGLOBIN 28.1 pg (27.0-33.0); MEAN CORPUSCULAR HGB CONC 30.6 g/dl (32.0-36.5); MEAN CORPUSCULAR VOLUME 91.8 fl (80.0-96.0); MONO # 0.5 10^3/uL (0.0-0.8); MONO % 6.2 % (2.0-8.0); NEUTROPHILS # 4.7 10^3/uL (1.5-8.5); NEUTROPHILS % 57.4 % (36.0-66.0); PLATELET COUNT, AUTOMATED 492 10^3/uL (150-450); RED BLOOD COUNT 4.38 10^6/uL (4.00-5.40); WHITE BLOOD COUNT 8.1 10^3/uL (4.0-10.0)
[2024-05-10 15:11] LABS: ERYTHROCYTE SEDIMENTATION RATE 103 mm/hr (0-30)
[2024-05-10 15:47] LABS: C REACTIVE PROTEIN QUANTITATIV 1.02 MG/DL (<1.0); IRON (FE) 68 UG/DL (50-170)
[2024-05-10 15:48] LABS: FREE T4 1.13 NG/DL (0.89-1.76)
[2024-05-10 15:49] LABS: FERRITIN 41.2 NG/ML (7.3-270.7); THYROID STIMULATING HORMONE 4.567 uIU/ML (0.55-4.78); TOTAL 25(OH) VITAMIN D 44.8 NG/ML (20.0-100.0)
[2024-05-10 15:54] LABS: ALBUMIN 3.9 G/DL (3.2-5.2); ALKALINE PHOSPHATASE 99 U/L (35-104); ALT/SGPT 26 U/L (7.0-40); AST/SGOT 19 U/L (<34); BILIRUBIN,TOTAL 0.2 MG/DL (0.3-1.2); BLOOD UREA NITROGEN 20 MG/DL (9-23); CALCIUM LEVEL 10.6 MG/DL (8.3-10.6); CARBON DIOXIDE LEVEL 24 MMOL/L (20-31); CHLORIDE LEVEL 109 MMOL/L (98-107); CREATININE FOR GFR 0.89 MG/DL (0.55-1.30); GLOMERULAR FILTRATION RATE > 60.0 (>39); GLUCOSE, FASTING 103 MG/DL (74-106); POTASSIUM SERUM 5.7 MMOL/L (3.5-5.1); PTH INTACT 18.9 PG/ML (18.5-88.0); SODIUM LEVEL 139 MMOL/L (136-145); TOTAL PROTEIN 7.9 G/DL (5.7-8.2); VITAMIN B12 LEVEL 662 PG/ML (211-911)
[2024-05-10 16:06] LABS: HEMOGLOBIN A1c 5.7 % (4.0-6.0)
== END ==
LOC: M PLALAB 10:50
PROVIDERS: ATTEND Physician Assistant Medical
DX: E78.1 Pure hyperglyceridemia (principal); I10 Essential (primary) hypertension; E03.9 Hypothyroidism, unspecified; T81.49XA Infection following a procedure, other surgical site, initial encounter; Z98.84 Bariatric surgery status; Z79.899 Other long term (current) drug therapy

== ENCOUNTER → 2024-05-23 | Outpatient (CLI) | payer MEDICARE | LOC: M WHC 09:41 | PROVIDERS: ATTEND Physician Assistant Medical | DX: Z12.31 Encounter for screening mammogram for malignant neoplasm of breast (principal) ==

== ENCOUNTER → 2024-05-25 | Outpatient (CLI) | payer MEDICARE ==
[~2024-05-25] MED LIST changes: +ISOVUE-370 76% 100ML VIAL As Ordered ONE
== END ==
LOC: M RAD 10:17
PROVIDERS: ATTEND Surgery
DX: S31.109D Unspecified open wound of abdominal wall, unspecified quadrant without penetration into peritoneal cavity, subsequent encounter (principal)
CPT/HCPCS: 74177; Q9967

== ENCOUNTER → 2024-06-08 | Outpatient (CLI) | payer MEDICARE ==
[~2024-06-08] MED LIST changes: -ISOVUE-370 76% 100ML VIAL As Ordered ONE; +LIDOCAINE 1% MDV 20ML VIAL As Ordered ONE
[2024-06-08 14:15] VITALS: TEMP 98.3
[2024-06-08 15:15] VITALS: BP 196/72; O2SAT 98
== END ==
LOC: M IRPRO 14:05
PROVIDERS: ATTEND Surgery
DX: S31.109D Unspecified open wound of abdominal wall, unspecified quadrant without penetration into peritoneal cavity, subsequent encounter (principal)

== ENCOUNTER → 2024-08-10 | Outpatient (CLI) | payer MEDICARE ==
[~2024-08-10] MED LIST changes: -LIDOCAINE 1% MDV 20ML VIAL As Ordered ONE; +TOPI-256 PO; -TOPI25TA10 PO
[2024-08-10 13:38] LABS: BASO # 0.1 10^3/uL (0.0-0.2); BASO % 0.8 % (0.0-1.0); EOS # 0.1 10^3/uL (0.0-0.5); HEMATOCRIT 40.7 % (36.0-47.0); HEMOGLOBIN 12.5 g/dl (12.0-15.5); LYMPH # 2.1 10^3/uL (1.5-5.0); LYMPH % 34.2 % (24.0-44.0); MEAN CORPUSCULAR HEMOGLOBIN 29.6 pg (27.0-33.0); MEAN CORPUSCULAR HGB CONC 30.7 g/dl (32.0-36.5); MEAN CORPUSCULAR VOLUME 96.4 fl (80.0-96.0); MONO # 0.5 10^3/uL (0.0-0.8); MONO % 8.5 % (2.0-8.0); NEUTROPHILS # 3.3 10^3/uL (1.5-8.5); NEUTROPHILS % 54.5 % (36.0-66.0); PLATELET COUNT, AUTOMATED 265 10^3/uL (150-450); RED BLOOD COUNT 4.22 10^6/uL (4.00-5.40)
[2024-08-10 13:47] LABS: ALBUMIN 3.9 G/DL (3.2-5.2); ALKALINE PHOSPHATASE 84 U/L (35-104); ALT/SGPT 28 U/L (7.0-40); AST/SGOT 21 U/L (<34); BILIRUBIN,TOTAL 0.3 MG/DL (0.3-1.2); BLOOD UREA NITROGEN 25 MG/DL (9-23); CALCIUM LEVEL 9.6 MG/DL (8.3-10.6); CARBON DIOXIDE LEVEL 25 MMOL/L (20-31); CHLORIDE LEVEL 109 MMOL/L (98-107); CHOLESTEROL LEVEL 220 MG/DL (<200); CHOLESTEROL RISK RATIO 4.86 (<5); CREATININE FOR GFR 0.62 MG/DL (0.55-1.30); GLOMERULAR FILTRATION RATE > 90.0 (>39); GLUCOSE, FASTING 97 MG/DL (74-106); HDL CHOLESTEROL 45.2 MG/DL (>40); NON-HDL-C 174.8 MG/DL; SODIUM LEVEL 143 MMOL/L (136-145); TOTAL PROTEIN 7.2 G/DL (5.7-8.2); TRIGLYCERIDES LEVEL 294 MG/DL (<150)
[2024-08-10 13:49] LABS: THYROID STIMULATING HORMONE 3.596 uIU/ML (0.55-4.78)
[2024-08-10 13:50] LABS: FREE T4 1.03 NG/DL (0.89-1.76)
[2024-08-10 14:20] LABS: HEMOGLOBIN A1c 5.5 % (4.0-6.0)
== END ==
LOC: M WUC 08:20
PROVIDERS: ATTEND Physician Assistant Medical
DX: R16.0 Hepatomegaly, not elsewhere classified (principal); E03.9 Hypothyroidism, unspecified

== ENCOUNTER → 2024-10-11 | Outpatient (CLI) | payer MEDICARE ==
[2024-10-11 12:58] LABS: CHOLESTEROL LEVEL 195.0 MG/DL (<200); CHOLESTEROL RISK RATIO 4.14 (<5); LDL CHOLESTEROL 88.0 MG/DL (<100); NON-HDL-C 148.0 MG/DL; TRIGLYCERIDES LEVEL 300.0 MG/DL (<150)
[2024-10-11 13:00] LABS: FREE T4 1.22 NG/DL (0.89-1.76)
== END ==
LOC: M WUC 08:18
PROVIDERS: ATTEND Physician Assistant Medical
DX: E03.9 Hypothyroidism, unspecified (principal); E78.1 Pure hyperglyceridemia

== ENCOUNTER 2024-12-04 08:39 | Day surgery (SDC) | payer MEDICARE ==
[~2024-12-04] VITALS: Ht 154.9 cm; Wt 95.3 kg
[~2024-12-04 08:39] MED LIST changes: +LEVO75TA4 PO; +TIRZ10PE3
[2024-12-04] MEDS: LIDOCAINE W/EPINEPHrine 1% 20 ML VIAL XX ONE (08:58)
[2024-12-04] MEDS: SODIUM BICARBONATE 8.4% INJ 50MEQ/50ML VIAL XX ONE (08:58)
[2024-12-04 11:04] VITALS: TEMP 98.3; O2SAT 98
[2024-12-04 11:06] VITALS: BP 174/78
== END 2024-12-04 11:04 | disposition home or self-care (01) ==
LOC: M SDC 08:39
PROVIDERS: ATTEND Orthopaedic Surgery Hand Surgery
DX: M65.332 Trigger finger, left middle finger (principal)

== ENCOUNTER → 2025-02-21 | Outpatient (CLI) | payer MEDICARE ==
[~2025-02-21] MED LIST changes: +METH-1100 PO; -METH-855 PO
[2025-02-21 12:44] LABS: BASO # 0.1 10^3/uL (0.0-0.2); BASO % 0.9 % (0.0-1.0); EOS # 0.2 10^3/uL (0.0-0.5); EOS % 3.2 % (0.0-3.0); LYMPH # 2.6 10^3/uL (1.5-5.0); LYMPH % 37.6 % (24.0-44.0); MONO # 0.5 10^3/uL (0.0-0.8); MONO % 6.9 % (2.0-8.0); NEUTROPHILS # 3.5 10^3/uL (1.5-8.5); NEUTROPHILS % 51.1 % (36.0-66.0); PLATELET COUNT, AUTOMATED 309 10^3/uL (150-450)
[2025-02-21 12:47] LABS: ALT/SGPT 29 U/L (7.0-40); AST/SGOT 22 U/L (<34); CALCIUM LEVEL 9.2 MG/DL (8.3-10.6); CARBON DIOXIDE LEVEL 28 MMOL/L (20-31); CHLORIDE LEVEL 106 MMOL/L (98-107); CREATININE FOR GFR 0.68 MG/DL (0.55-1.30); GLOMERULAR FILTRATION RATE > 90.0 (>39); POTASSIUM SERUM 4.8 MMOL/L (3.5-5.1); SODIUM LEVEL 142 MMOL/L (136-145)
[2025-02-21 12:49] LABS: FREE T4 1.28 NG/DL (0.89-1.76)
== END ==
LOC: M WUC 08:09
PROVIDERS: ATTEND Physician Assistant Medical
DX: I10 Essential (primary) hypertension (principal); D64.9 Anemia, unspecified; K76.0 Fatty (change of) liver, not elsewhere classified; R16.0 Hepatomegaly, not elsewhere classified; E78.1 Pure hyperglyceridemia; E03.9 Hypothyroidism, unspecified

== ENCOUNTER → 2025-03-28 | Outpatient (REF) | payer MEDICARE ==
[2025-03-28 17:14] LABS: APPEARANCE, URINE CLEAR (CLEAR); BACTERIA, URINE AUTO NEGATIVE (NEGATIVE); BILIRUBIN, URINE AUTO NEGATIVE (NEGATIVE); BLOOD, URINE BLOOD NEGATIVE (NEGATIVE); GLUCOSE, URINE (UA) AUTO NEGATIVE (NEGATIVE); KETONE, URINE AUTO NEGATIVE (NEGATIVE); LEUKOCYTE ESTERASE, URINE AUTO NEGATIVE (NEGATIVE); NITRITE, URINE AUTO NEGATIVE (NEGATIVE); PROTEIN, URINE AUTO NEGATIVE (NEGATIVE); RBC, URINE AUTO 0 /HPF (0-3); SPECIFIC GRAVITY URINE AUTO 1.012 (1.002-1.035); SQUAMOUS EPITHELIAL CELL UR AU 0 /HPF (0-6); UROBILINOGEN, URINE AUTO 0.2 mg/dL (0.0-2.0); WBC, URINE AUTO 0 /HPF (0-3)
== END ==
LOC: M SMT 16:20
PROVIDERS: ATTEND Physician Assistant
DX: N39.0 Urinary tract infection, site not specified (principal)